=== PATIENT | female | born 1950 | race Caucasian/White ===

== ENCOUNTER 2021-01-09 15:11 | Outpatient (RCR) | payer MEDICARE, SELFPAY ==
[2021-01-09] MEDS: COVID-19 VACC, MRNA(PFIZER)/PF 30 MCG/0.3 ML SYRINGE IM (11:53)
[2021-01-30] MEDS: COVID-19 VACC, MRNA(PFIZER)/PF 30 MCG/0.3 ML SYRINGE IM (11:30)
== END 2021-01-09 23:59 ==
LOC: IMMUN 15:11
PROVIDERS: PCP Internal Medicine; Visit Provider Family Medicine
DX: Z23 Encounter for immunization (principal)
CPT/HCPCS: 0001A; 0002A

== ENCOUNTER → 2023-01-14 | Outpatient (CLI) | payer MEDICARE, SELFPAY ==
--- NOTE | 2023-01-14 09:38 | TELEMED_ITS ---
[facility] has confirmed receipt of a request for visit. This document confirms receipt of the order initiating the consult. To find the results of the consultation, please view the patient's reports for the scanned Telemed Consult.
== END | disposition home or self-care (01) ==
PROVIDERS: PCP Internal Medicine; Referring Provider Psychiatry & Neurology Neurology; Visit Provider Psychiatry & Neurology Neurology
DX: R55 Syncope and collapse (principal)
CPT/HCPCS: 95819

== ENCOUNTER 2023-02-17 17:00 | Outpatient (RCR) | payer MEDICARE, SELFPAY ==
--- NOTE | 2022-09-21 16:06 | HP.PTEVAL ---
Patient's Visit Information KYLE MORAN is a 71 year old F referred to Physical Therapy by Dr. Pamela Chun MD with a diagnosis of PD and gait instability. Date of Evaluation: 09/21/22 Physical Therapist: TANIA Jj - Visit Plan Frequency: 2x /Week Duration: 6 Weeks Plan: 2X/ 6 weeks for gait training, balance, dual tasking, posture, functional transfers, gait, with HEP - Subjective She was diagnosed with PD in 2014 but it seems like a lot of things have changed recently. She does not do any type of exercise. She struggles to get out of chairs and in and out of cars. She has not had any falls but very aware of trying not to fall. She struggles with getting in and out of bed. Trouble carrying things. She walks very shuffled especially towards evening. She is PD meds and it does help. She is also on cellebrex for the pain. Her speech she will be talking and she will stop mid sentence and it goes down in volume. wanted her to come because it is worse that what it was and not popping back to normal. She gets botox in legs in B feet and legs. The botox helps. They do no have stairs at the house. - Objective Gait: Walks with decrease stride length, no arm swing, no head rotation. LE MMT: R hip flex 7.8# and L hip flex 8.2#. R knee ext 10.2# and 12.8#. R knee flex 9.8# and L knee flex 9.6#. FGA: 18. TU.93. Sit to stand: Pt is able to sit to stand with use of the chair rails. She needs max cues to be able to weight shift cause she feels that she can not do it herself. 4 square: 22.41 with verbal cues. Opposite arm and leg in sitting and standing X 10 on each side (little LOB in standing). Rolling R and L with verbal cues and supine to sit and sit to supine indep with verbal cues. - Balance/Special Test Scores Functional Gait Assessment Score: 18 % Disability: 40.0000 Lower Extremity Functional Score: 24 - Goals Goal 1:: I HEP Goal Time Frame: 6-8 Weeks Goal 2:: Put on own socks and shoes indep. Goal Time Frame: 6-8 Weeks Goal 3:: Decrease TUG score (score at eval 19.93) Goal Time Frame: 6-8 Weeks Goal 4:: Increase FGA score (score 18 at time of eval) Goal Time Frame: 6-8 Weeks Goal 5:: Be able to sit to stand X 10 with no arms with verbal cues Goal Time Frame: 6-8 Weeks - Rehabilitation Potential Rehabilitation Potential: Good - Anticipated Interventions Patient/Client Instruction: Educate patient on: Condition, Plan of Care For the Purpose of:: To improve nutrient delivery to tissue, To increase oxygenation perfusion, To improve muscle performance and motor function, To improve ability to perform ADL's, To increase tolerance to activity/condition/position, To improve performance and independence with ADL's, To decrease level of supervision to perform tasks, To improve ability of physical actions for home/community/work/leisure, To improve gait and locomotor functions, To improve health of tissue, To increase flexibility/ROM, To improve endurance, To improve balance, To improve safety with gait Therapeutic Exercise to Include: Strength training, Endurance training, Balance training, Body mechanics, Postural training, Flexibilty training, Gait and locomotor training, Neuromotor development, Active ROM For the Purpose of:: To improve nutrient delivery to tissue, To increase oxygenation perfusion, To improve muscle performance and motor function, To improve ability to perform ADL's, To increase tolerance to activity/condition/position, To improve performance and independence with ADL's, To decrease level of supervision to perform tasks, To improve ability of physical actions for home/community/work/leisure, To improve gait and locomotor functions, To improve health of tissue, To increase flexibility/ROM, To improve endurance, To improve balance, To improve safety with gait Functional Training to Include: Gait training For the Purpose of:: To improve gait and locomotor functions, To improve safety with gait Thank you for the opportunity to evaluate your patient. For Medicare and Medicare HMO plans, please review the plan of care and approve it. It will need to be FAXED BACK to us at [phone] for Medicare purposes. For Medicare only, by signing this I certify the plan of care. Please let me know if there are questions or concerns regarding this plan of care. Physician Signature: Date:
--- NOTE | 2022-10-26 16:00 | HP.PTREVAL ---
Dr. Pamela Chun MD, It has been my pleasure to treat KYLE MORAN over the last 7 visits for PD and gait instability. Please see the progress note below for an update on the physical therapy plan of care! Subjective: Pt fell last night after midnight and she did not hurt herself and she got up right away. She reports that she was on a rubber mad and had socks on and went onto a wooden floor and her feet went out from underneath her. Pt has been having more memory issues. Pt feels that PT is helping her to get out of a chair. Pt would like to do some more therapy. Objective/Function: Sit to stand: able without her arms on first attempt 4/5 times. FGA 18. Gait: walks with knees flexed, flexed trunk, no heel to toe gait pattern and no arm swing. Stairs: up and down recip with 2 hand rails. Standing opp arm and leg... hesitant and needed verbal cues at first. Issued HEP to work on until Nov Plan Plan: Continue starting in Nov after the Holidays. 2X/ 6 weeks for gait training, balance, dual tasking, posture, functional transfers, gait, with HEP Balance/Gait/Functional tests - Balance/Special Test Scores Functional Gait Assessment Score: 18 % Disability: 40.0000 Lower Extremity Functional Score: 23 Goals Goal 1:: I HEP Goal Time Frame: 6-8 Weeks Goal 2:: Put on own socks and shoes indep. Goal Time Frame: 6-8 Weeks Goal Progress: Goal Met Goal 3:: Decrease TUG score (score at eval 19.93) Goal Time Frame: 6-8 Weeks Goal 4:: Increase FGA score (score 18 at time of eval) Goal Time Frame: 6-8 Weeks Goal 5:: Be able to sit to stand X 10 with no arms with verbal cues Goal Time Frame: 6-8 Weeks Goal Progress: Progressing Anticipated Interventions Patient/Client Instruction: Educate patient on: Condition, Plan of Care For the Purpose of:: To improve nutrient delivery to tissue, To increase oxygenation perfusion, To improve muscle performance and motor function, To improve ability to perform ADL's, To increase tolerance to activity/condition/position, To improve performance and independence with ADL's, To decrease level of supervision to perform tasks, To improve ability of physical actions for home/community/work/leisure, To improve gait and locomotor functions, To improve health of tissue, To increase flexibility/ROM, To improve endurance, To improve balance, To improve safety with gait Therapeutic Exercise to Include: Strength training, Endurance training, Balance training, Body mechanics, Postural training, Flexibilty training, Gait and locomotor training, Neuromotor development, Active ROM For the Purpose of:: To improve nutrient delivery to tissue, To increase oxygenation perfusion, To improve muscle performance and motor function, To improve ability to perform ADL's, To increase tolerance to activity/condition/position, To improve performance and independence with ADL's, To decrease level of supervision to perform tasks, To improve ability of physical actions for home/community/work/leisure, To improve gait and locomotor functions, To improve health of tissue, To increase flexibility/ROM, To improve endurance, To improve balance, To improve safety with gait Functional Training to Include: Gait training For the Purpose of:: To improve gait and locomotor functions, To improve safety with gait Please do not hesitate to contact me at [phone] by phone or if you have questions or concerns regarding this new plan of care! Sincerely, TANIA Jj
--- NOTE | 2023-02-17 18:40 | HP.PTDCSUM ---
It has been my pleasure to treat KYLE MORAN referred by Dr. Pamela Chun MD, with the diagnosis of PD and gait instability for a total of 19 visit(s). Discharge Date: 02/17/23 Please see the following information for a summary of their discharge status. Subjective: Pt feels that she is doing better. Her feels that she is getting out of the car better and getting in and out of bed easier and sit to stand better also Rib cage Pain Intensity (Out of 10): 5 R ankle pain Pain Intensity (Out of 10): 7 % Improvement: 70 Objective/Function: Pt still struggles with the motor planning to pick her shoulders up and scoot them acorss the mat table at times. Almost thinks about it too much. Today she was able to sit to stand out of a chair 2 X 10 on first attempt with no LOB. Goal 1:: I HEP Goal Progress: Goal Met Goal 2:: Put on own socks and shoes indep. Goal Progress: Goal Met Goal 3:: Decrease TUG score (score at eval 19.93) Goal Progress: Progressing Goal 4:: Increase FGA score (score 18 at time of eval) Goal Progress: Progressing Goal 5:: Be able to sit to stand X 10 with no arms with verbal cues Goal Progress: Progressing Plan: Bed mobility Discharge Comments: DC PT to HEP If there are questions or concerns regarding this patient's physical therapy, please feel free to call me at [phone]. Thank you for the referral of this patient. Sincerely, Tila Angelo, MPT Balance/Gait/Functional tests - Balance/Special Test Scores Functional Gait Assessment Score: 18 % Disability: 40.0000 Lower Extremity Functional Score: 46
== END 2023-02-17 19:00 | disposition home or self-care (01) ==
LOC: PT 17:00
PROVIDERS: PCP Internal Medicine; Referring Provider Psychiatry & Neurology Neurology; Visit Provider Psychiatry & Neurology Neurology
DX: G20 Parkinson's disease (principal); R26.81 Unsteadiness on feet
CPT/HCPCS: 97110; 97161; 97530

== ENCOUNTER 2023-07-07 14:15 | Outpatient (RCR) | payer MEDICARE, SELFPAY ==
[2023-06-30 15:10] VITALS: BP 183/90; PULSE 79; RESP 16; TEMP 36.4; BMI 20.1
--- NOTE | 2023-06-30 16:09 | HP.PCM_ITS ---
History of Present Illness Date of Service: 06/30/23 Chief Complaint: Full-thickness ulceration lateral ankle right History of Wound: Full-thickness ulceration right ankle since February 2023 Progress of Wound: Mrs. Barber is a 72 nondiabetic female presenting to the wound care center today with a chief complaint of full-thickness ulceration to the right ankle. Patient has been following with an outside provider who has been doing excisional debridement and wound care. Patient's has been offloading the area and has shown to be healing but healing very slowly. There is still concern for some redness and the chronicity of the wound since its been open since February 2023. There has been no diagnosis of bone infection. Request for medical records, x-rays and wound cultures were done today in clinic. She does admit to multiple falls throughout the year but was never diagnosed with an ankle fracture. She denies constitutional symptoms. No other pedal complaints at this time. [facility] Home Medications ascorbic acid (vitamin C) 500 mg tablet (Vitamin C) 500 mg PO DAILY 06/30/23 [History Last Taken Unknown] carbidopa 25 mg-levodopa 100 mg tablet 1 tab PO 4X/DAY 06/30/23 [History Last Taken Unknown] celecoxib 200 mg capsule (Celebrex) 200 mg PO DAILY 06/30/23 [History Last Taken Unknown] cholecalciferol (vitamin D3) 25 mcg (1,000 unit) capsule 25 mcg PO DAILY 06/30/23 [History Last Taken Unknown] coenzyme Q10 400 mg capsule 500 mg PO DAILY 06/30/23 [History Last Taken Unknown] lutein 6 mg capsule 6 mg PO BID 06/30/23 [History Last Taken Unknown] metronidazole 1 % topical gel (Metrogel) 1 applic topical DAILY face 06/30/23 [History Last Taken Unknown] multivitamin (Daily Multi-Vitamin tablet) 1 tab PO DAILY 06/30/23 [History Last Taken Unknown] omeprazole 40 mg capsule,delayed release 40 mg PO DAILY 06/30/23 [History Last Taken Unknown] pyridoxine (vitamin B6) 100 mg tablet 100 mg PO BID 06/30/23 [History Last Taken Unknown] zinc 50 mg capsule 50 mg PO DAILY 06/30/23 [History Last Taken Unknown] Allergy/AdvReac Type Severity Reaction Status Date / Time tramadol [From [facility]] Allergy Mild VERTIGO, Verified 06/30/23 15:28 MENTAL STATUS CHANGE Social History (System 03/10/21 @ 12:45 by Kleber Beth) Smoking Status: Never smoker Vital Signs Vital Signs Vital Signs: 06/30/23 15:10 Temperature 97.5 F L Temperature Source Temporal Pulse Rate 79 Respiratory Rate 16 Blood Pressure 183/90 H Blood Pressure Mean 121 Blood Pressure Source Monitor Blood Pressure Position Sitting Blood Pressure Location Left Arm Oxygen Delivery Method Room Air Weight Weight: 49.895 kg Body Mass Index (BMI) 20.1 Physical Exam Narrative Vascular: DP and PT pulses are palpable. CFT brisk. Erythema to periwound which is blanchable. Skin temperature gradient is warm to warm from proximal ankle to distal digits. Neurological: Light touch and epicritic sensation is intact. Response to painful stimuli. Dermatological: Full-thickness ulceration appreciated to the lateral ankle at the level of the distal fibula. Hyperkeratotic periwound is appreciated. Fibrotic plug is also noted to the wound. Predebridement measurements were 1.0 x 1.1 x 0.1 cm, postdebridement measurements were 1.1 x 1.2 x 0.3 cm. Debridement was down to fascia/muscle. Sanguinous drainage noted. Musculoskeletal: Moderate palpatory tenderness appreciated full-thickness ulceration to the lateral aspect of the right ankle. No pain with calf compression. Debridement Note Debridement Note Debridement Free Text: Full-thickness ulceration of the lateral right ankle was debrided down to and including fascia/muscle with 5 mm dermal curette without incident. Predebridement measurements were 1.0 x 1.1 x 0.1 cm, postdebridement measurements were 1.1 x 1.2 x 0.3 cm. Sanguinous drainage noted. Post-Debridement Measurements and Additional Note: Post-Debridement Measurements/Treatment - Nurse 1 - General Ulcer Assessment Start: 06/30/23 15:10 Freq: Status: Active Protocol: TATI Activity Type Activity Date Activity User E-sign Co-sign Detail Recorded Client Recorded Date Recorded By Document 06/30/23 15:10 [facility] [id number] 06/30/23 15:22 [facility] 06/30/23 15:10 - Today's Visit Information Type of service Initial Visit Arrival Mode Ambulatory Transfer Assistance None Accompanied by Patient Identification Verified (Name & Yes ) Patient Requires Transmission-Based No Precautions Height and Weight Height 5 ft 2 in Weight 49.895 kg Weight in Pounds 110.0 lbs Weight Measurement Method Estimated by Patient Body Mass Index (BMI) 20.1 BMI Classification Normal BSA - Radha 1.48 Vital Signs Temperature (97.8 F-99.1 F) 97.5 F L Temperature Source Temporal Pulse Rate (60-100) 79 Pulse Location Monitor Respiratory Rate (12-18) 16 Respiratory rate source Observation Oxygen Delivery Method Room Air Blood Pressure (90/60-120/80) 183/90 H Blood Pressure Mean 121 Source Monitor Position Sitting Blood Pressure Location Left Arm History Since Last Visit- (Skip if this is Patient's initial visit) Left Footwear Regular Shoe Right Footwear Surgical Shoe with pressure relief insole Pain Scale: 0-10 Numeric Is Patient Pain Free? Yes Lower Extremity Assessment/ Foot Assessment/ Toe Nail Assessment Right -Lower Extremity Comment (If N/A Above HAS HAD RECENT ) ARTERIAL AND DOPPLERS AT [facility] ASAD PER HER -Posterior Tibial Doppler Monophasic -Dorsalis Pedis Doppler Multiphasic -Extremity Color Pale -Hair Growth on Legs No -Hair Growth on Toes No -Temperature of Extremity Cool -Other Deformity GETS BOTOX BOTH FEET FOR CONTRACTURE -Thick Yes -Discolored Yes -Deformed No -Improper Length & Hygeine No Left -Lower Extremity Comment (If N/A Above PER PT HUSB SHE ) HAS HAD ARTERIAL AND DOPPLERS WITHIN THE LAST TWO MONTHS @ [facility] -Posterior Tibial Doppler Monophasic -Dorsalis Pedis Doppler Monophasic -Hair Growth on Legs No -Hair Growth on Toes No -Temperature of Extremity Cool -Other Deformity GETS BOTOX BOTH FEET FOR CONTRACTURE -Thick Yes -Discolored Yes -Deformed No -Improper Length & Hygeine No Communication Assessment Preferred language [place] Able to Read Yes Able to Write Yes Communication Tools None Right Hearing Abillity Normal Left Hearing Abillity Normal Visual Assistive Devices Glasses Teaching Assessment Preferences Verbal,Written, Audio/Visual, Demonstration Barriers to Learning None Readiness To Learn Good Willingness to Engage in Self Management Med Activies Readiness to Engage in Self Management Med Activities Anxiety Level Calm Cooperation Cooperative Perception Coherent Interest in Health Problem Asks Questions Education Importance Acknowledges Need Does Patient Smoke tobacco or other No substances Smoking Status Never smoker Is Patient Diabetic No WC - Nurse 1 - General Ulcer Measurement Start: 06/30/23 15:10 Freq: Status: Active Protocol: Activity Type Activity Date Activity User E-sign Co-sign Detail Recorded Client Recorded Date Recorded By Document 06/30/23 15:10 [facility] [id number] 06/30/23 15:22 BMF 06/30/23 15:10 Wound Center Nurse 1 #1- R LAT ANKLE -Combined with other wound No -Current Size (cm) - Length 1.1 -Current Size (cm) - Width 1.2 -Current Size (cm) - Depth 0.1 -Total Square Cm 1.32 -Date of Last Picture (Recall this 06/30/23 field) -Photo Taken Yes -Epithelialization None Present -Tunneling No -Undermining/Tunneling No -Circular Undermining No -Exudate Amt Medium -Exudate Type Serosanguineous -Wound Margin Distinct, Outline Attached -Granulation Amt Small (1-33%) -Granulation Quality Red -Slough/Fibrin Yes -Necrosis Amt Large (67-100%) -Necrotic Tissue Type Adherent Slough -Texture (Korin-wound Skin Appearance) Assessed, Localized Edema ,Scarring -Moisture (Korin-wound Skin Appearance) Assessed -Color (Korin-wound Skin Appearance) Assessed, Erythema -Temperature (Korin-wound Skin No Abnormality Appearance) (Pt Warm) -Tenderness on Palpation (Korin-wound No Skin Appearance) -Ulcer Cleansing Soap and Water -Foul Odor after Cleansing No -Anesthetic Used 5% Lidocaine Gel Lower Limb Edema Present Yes Right Calf (cm) 31.5 Right Ankle (cm) 18 Left Calf (cm) 32 Left Ankle (cm) 19.5 WC - Nurse 2 - General Ulcer CM Notes Start: 06/30/23 15:10 Freq: Status: Active Protocol: Activity Type Activity Date Activity User E-sign Co-sign Detail Recorded Client Recorded Date Recorded By Document 06/30/23 15:42 [id number] 06/30/23 15:51 JF Edit Result 06/30/23 15:42 JF (1) [id number] 06/30/23 15:57 JF (1) #1- R LAT ANKLE - Clinical Debridement Subcutaneous => Muscle / Fascia - Tissue Removed Subcutaneous => Fascia - Debridement - Subq, 1st 20sq cm Yes => - Debridement - Muscle / Fascia, 1st => Yes 20sq cm 06/30/23 15:42 Wound Center Nurse 2 #1- R LAT ANKLE -Time 15:46 -Correct Patient Yes -Correct Side, Site, Position Yes -Correct Procedure Yes -Procedure Performed Yes -Type of Procedure Debridement -Clinical Debridement Muscle / Fascia -Tissue Removed Fascia -Post Debridement (cm) - Length 1.1 -Post Debridement (cm) - Width 1.2 -Post Debridement (cm) - Depth 0.3 -Total Square (Post) (cm) 1.32 -Area of Debridement (cm) - Length 1.1 -Area of Debridement (cm) - Width 1.2 -Total Square (Area) (cm) 1.32 -Tunneling No -Undermining/Tunneling No -Circular Undermining No -Wound/Ulcer Outcome Not Healed -Ulcer Cleansing Rinsed/ Irrigated with Saline -Foul Odor after Cleansing No -Bioengineered Tissue No -Bleeding Controlled with Pressure -Treatment Response Procedure Tolerated Well -Offloading No -Debridement - Muscle / Fascia, 1st Yes 20sq cm Pain Scale: 0-10 Numeric Is Patient Pain Free? Yes - Nurse 3 - General Ulcer D/C NN Start: 06/30/23 15:10 Freq: Status: Active Protocol: Activity Type Activity Date Activity User E-sign Co-sign Detail Recorded Client Recorded Date Recorded By Document 06/30/23 16:01 [id number] 06/30/23 16:04 06/30/23 16:01 Wound Care Center Nurse 3 #1- R LAT ANKLE -Ulcer Cleansing Rinsed/ Irrigated with Saline -Primary Dressing Applied Promogran Elizabeth Matter -Other Dressing betadine periulcer -Promogran Elizabeth Matter 1 Right -Multi-Layered Wrap Application Unna Boot - Right ($) Treatment Response Procedure Tolerated Well Pain Scale: 0-10 Numeric Is Patient Pain Free? Yes WC - Visit Discharge Discharge Condition Stable Ambulatory Status Ambulatory Transportation Private Auto Accompanied by Medication Reconcilliation completed & No provided to patient/care provider Clinical Summary of Care Provided Yes Assessment/Plan Assessment/Plan (1) Ulcer of right ankle: CODE(S): L97.319 - Non-pressure chronic ulcer of right ankle with unspecified severity (2) Edema: CODE(S): R60.9 - Edema, unspecified (3) Pain in right ankle: CODE(S): M25.571 - Pain in right ankle and joints of right foot PLAN: Patient was examined evaluated. All findings were discussed with the patient. All questions were answered to the patient satisfaction. Full-thickness ulceration of the lateral right ankle was debrided down to and including fascia/muscle with 5 mm dermal curette without incident. Predebridement measurements were 1.0 x 1.1 x 0.1 cm, postdebridement measurements were 1.1 x 1.2 x 0.3 cm. Sanguinous drainage noted. Wound was dressed with Elizabeth, Betadine paint and multilayer compression bandage down to the right lower extremity. Patient was instructed to keep the dressing clean dry and intact. And not to remove until follow-up. Request to get the patient's outside records from [facility] today. Follow-up in 1 week.
[2023-07-07 14:10] VITALS: BP 156/91; PULSE 75; RESP 20; TEMP 36.4; BMI 20.1
--- NOTE | 2023-07-07 16:42 | PN.PCM_ITS ---
History of Present Illness Date of Service: 07/07/23 Chief Complaint: Full-thickness ulceration lateral ankle right History of Wound: Full-thickness ulceration right ankle since February 2023 Progress of Wound: Mrs. Barber is a 72 nondiabetic female presenting to the wound care center today with a chief complaint of full-thickness ulceration to the right ankle. Patient has been following with an outside provider who has been doing excisional debridement and wound care. Patient's has been offloading the area and has shown to be healing but healing very slowly. There is still concern for some redness and the chronicity of the wound since its been open since February 2023. There has been no diagnosis of bone infection. Request for medical records, x-rays and wound cultures were done today in clinic. She does admit to multiple falls throughout the year but was never diagnosed with an ankle fracture. She denies constitutional symptoms. No other pedal complaints at this time. Subjective Subjective Mrs. Barber is a 72-year-old female presenting clinic today for chief complaint of right lower extremity lateral full-thickness ulceration. Patient has kept her Unna boot clean dry and intact. She admits some discomfort to the anterior ankle but that started approximately 1 day ago. She is grateful for her care. She does want to restate that this wound has been ongoing for 4 months without relief. She denies any new onset of trauma. She denies constitutional symptoms. No other pedal complaints at this time. Objective Data Objective Data Vital Signs: Vital Signs Temp Pulse Resp BP O2 Del Method 97.5 F L 75 20 H 156/91 H Room Air 07/07/23 14:10 07/07/23 14:10 07/07/23 14:10 07/07/23 14:10 06/30/23 15:10 Oxygen Delivery Method Room Air Weight: 49.895 kg Body Mass Index (BMI) 20.1 Lab / Micro Data Attestation: I reviewed the patient's lab results. Physical Exam Narrative Neurovascular status is unchanged since previous visit. Full-thickness ulceration to the lateral aspect of the distal fibula has hyperkeratotic periwound. Wound base is granular in nature. There is evidence of fascial tissue present. Blanchable erythema is also noted to periwound. Pain on palpation to the full-thickness ulceration to the distal aspect of the right leg. Full-thickness ulceration 0.8 x 0.8 x 0.2 cm. Excisional debridement of full-thickness ulceration distal fibula right lower extremity down to and including fascia and muscle without incident. Predebridement measurements were 0.8 x 0.8 x 0.2 cm, postdebridement measurements are 1.0 x 1.0 x 0.2 cm. Sanguinous drainage is noted. Debridement Note Debridement Note Post-Debridement Measurements and Additional Note: Post-Debridement Measurements/Treatment - Nurse 1 - General Ulcer Assessment Start: 06/30/23 15:10 Freq: Status: Active Protocol: TATI Activity Type Activity Date Activity User E-sign Co-sign Detail Recorded Client Recorded Date Recorded By Document 06/30/23 15:10 [facility] [id number] 06/30/23 15:22 BM Document 07/07/23 14:10 DL [id number] 07/07/23 14:20 DL 06/30/23 07/07/23 15:10 14:10 - Today's Visit Information Type of service Initial Visit Follow-up Visit (Physician/MEDICARE 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 SPECIALIST ) Arrival Mode Ambulatory Ambulatory Transfer Assistance None None Accompanied by Patient Identification Verified (Name & Yes Yes ) Patient Requires Transmission-Based No No Precautions Height and Weight Height 5 ft 2 in Weight 49.895 kg Weight in Pounds 110.0 lbs Weight Measurement Method Estimated by Patient Body Mass Index (BMI) 20.1 20.1 BMI Classification Normal Normal BSA - Radha 1.48 Vital Signs Temperature (97.8 F-99.1 F) 97.5 F L 97.5 F L Temperature Source Temporal Temporal Pulse Rate (60-100) 79 75 Pulse Location Monitor Monitor Respiratory Rate (12-18) 16 20 H Respiratory rate source Observation Observation Oxygen Delivery Method Room Air Blood Pressure (90/60-120/80) 183/90 H 156/91 H Blood Pressure Mean (mm Hg) 121 112 Source Monitor Monitor Position Sitting Blood Pressure Location Left Arm History Since Last Visit- (Skip if this is Patient's initial visit) Have you changed medications since your No last visit? Any new allergies or adverse reactions No Had a fall/change in ADL's that may No increase risk of falls Signs or symptoms of abuse and/or No neglect since last visit Have you been in the hospital since your No last visit? Has dressing in place as prescribed No Has compression in place as prescribed Yes Has offloadiing in place as prescribed No Experienced any changes in pain level or No management Left Footwear Regular Shoe Right Footwear Surgical Shoe with pressure relief insole Pain Scale: 0-10 Numeric Is Patient Pain Free? Yes Yes Lower Extremity Assessment/ Foot Assessment/ Toe Nail Assessment Right -Lower Extremity Comment (If N/A Above HAS HAD RECENT ) ARTERIAL AND DOPPLERS AT [facility] ASAD PER HER -Posterior Tibial Doppler Monophasic -Dorsalis Pedis Doppler Multiphasic -Extremity Color Pale -Hair Growth on Legs No -Hair Growth on Toes No -Temperature of Extremity Cool -Other Deformity GETS BOTOX BOTH FEET FOR CONTRACTURE -Thick Yes -Discolored Yes -Deformed No -Improper Length & Hygeine No Left -Lower Extremity Comment (If N/A Above PER PT HUSB SHE ) HAS HAD ARTERIAL AND DOPPLERS WITHIN THE LAST TWO MONTHS @ [facility] -Posterior Tibial Doppler Monophasic -Dorsalis Pedis Doppler Monophasic -Hair Growth on Legs No -Hair Growth on Toes No -Temperature of Extremity Cool -Other Deformity GETS BOTOX BOTH FEET FOR CONTRACTURE -Thick Yes -Discolored Yes -Deformed No -Improper Length & Hygeine No Communication Assessment Preferred language Tongan Able to Read Yes Able to Write Yes Communication Tools None Right Hearing Abillity Normal Left Hearing Abillity Normal Visual Assistive Devices Glasses Teaching Assessment Preferences Verbal,Written, Audio/Visual, Demonstration Barriers to Learning None Readiness To Learn Good Willingness to Engage in Self Management Med Activies Readiness to Engage in Self Management Med Activities Anxiety Level Calm Cooperation Cooperative Perception Coherent Interest in Health Problem Asks Questions Education Importance Acknowledges Need Does Patient Smoke tobacco or other No substances Smoking Status Never smoker Is Patient Diabetic No WC - Nurse 1 - General Ulcer Measurement Start: 06/30/23 15:10 Freq: Status: Active Protocol: Activity Type Activity Date Activity User E-sign Co-sign Detail Recorded Client Recorded Date Recorded By Document 06/30/23 15:10 [facility] [id number] 06/30/23 15:22 [facility] Document 07/07/23 14:10 DL [id number] 07/07/23 14:20 DL 06/30/23 07/07/23 15:10 14:10 Wound Center Nurse 1 #1- R LAT ANKLE -Combined with other wound No -Current Size (cm) - Length 1.1 0.8 -Current Size (cm) - Width 1.2 0.8 -Current Size (cm) - Depth 0.1 0.2 -Total Square Cm 1.32 0.64 -Date of Last Picture (Recall this 06/30/23 field) -Photo Taken Yes -Epithelialization None Present -Tunneling No -Undermining/Tunneling No -Circular Undermining No -Exudate Amt Medium Small -Exudate Type Serosanguineous Serosanguineous -Wound Margin Distinct, Distinct, Outline Outline Attached Attached -Granulation Amt Small (1-33%) Small (1-33%) -Granulation Quality Red [place] -Slough/Fibrin Yes -Necrosis Amt Large (67-100%) Small (1-33%) -Necrotic Tissue Type Adherent Slough Adherent Slough -Structure Exposed N/A -Texture (Korin-wound Skin Appearance) Assessed, Scarring Localized Edema ,Scarring -Moisture (Korin-wound Skin Appearance) Assessed No Abnormality -Color (Korin-wound Skin Appearance) Assessed, No Abnormality Erythema -Temperature (Korin-wound Skin No Abnormality No Abnormality Appearance) (Pt Warm) (Pt Warm) -Tenderness on Palpation (Korin-wound No No Skin Appearance) -Ulcer Cleansing Soap and Water Soap and Water -Foul Odor after Cleansing No No -Anesthetic Used 5% Lidocaine 5% Lidocaine Gel Gel Lower Limb Edema Present Yes Right Calf (cm) 31.5 29.3 Right Ankle (cm) 18 18.4 Left Calf (cm) 32 Left Ankle (cm) 19.5 WC - Nurse 2 - General Ulcer CM Notes Start: 06/30/23 15:10 Freq: Status: Active Protocol: Activity Type Activity Date Activity User E-sign Co-sign Detail Recorded Client Recorded Date Recorded By Document 06/30/23 15:42 [id number] 06/30/23 15:51 Edit Result 06/30/23 15:42 (1) [id number] 06/30/23 15:57 JF Document 07/07/23 14:58 [id number] 07/07/23 15:01 JF Edit Result 07/07/23 14:58 (2) [id number] 07/07/23 15:05 JF Edit Result 07/07/23 14:58 JF (3) [id number] 07/07/23 16:06 JF (1) #1- R LAT ANKLE - Clinical Debridement Subcutaneous => Muscle / Fascia - Tissue Removed Subcutaneous => Fascia - Debridement - Subq, 1st 20sq cm Yes => - Debridement - Muscle / Fascia, 1st => Yes 20sq cm (2) #1- R LAT ANKLE - Clinical Debridement Subcutaneous => Muscle / Fascia - Tissue Removed Subcutaneous => Muscle,Fascia - Debridement - Subq, 1st 20sq cm Yes => No - Debridement - Muscle / Fascia, 1st => Yes 20sq cm (3) #1- R LAT ANKLE - Post Debridement (cm) - Width 0.9 => 1.0 - Total Square (Post) (cm) 0.90 => 1.00 - Area of Debridement (cm) - Width 0.9 => 1.0 - Total Square (Area) (cm) 0.90 => 1.00 06/30/23 07/07/23 15:42 14:58 Wound Center Nurse 2 #1- R LAT ANKLE -Time 15:46 14:59 -Correct Patient Yes Yes -Correct Side, Site, Position Yes Yes -Correct Procedure Yes Yes -Procedure Performed Yes Yes -Type of Procedure Debridement Debridement -Clinical Debridement Muscle / Fascia Muscle / Fascia -Tissue Removed Fascia Muscle,Fascia -Post Debridement (cm) - Length 1.1 1.0 -Post Debridement (cm) - Width 1.2 1.0 -Post Debridement (cm) - Depth 0.3 0.2 -Total Square (Post) (cm) 1.32 1.00 -Area of Debridement (cm) - Length 1.1 1.0 -Area of Debridement (cm) - Width 1.2 1.0 -Total Square (Area) (cm) 1.32 1.00 -Tunneling No No -Undermining/Tunneling No No -Circular Undermining No No -Wound/Ulcer Outcome Not Healed Not Healed -Ulcer Cleansing Rinsed/ Rinsed/ Irrigated with Irrigated with Saline Saline -Foul Odor after Cleansing No No -Bioengineered Tissue No No -Bleeding Controlled with Pressure Pressure -Treatment Response Procedure Procedure Tolerated Well Tolerated Well -Offloading No No -Debridement - Subq, 1st 20sq cm No -Debridement - Muscle / Fascia, 1st Yes Yes 20sq cm Pain Scale: 0-10 Numeric Is Patient Pain Free? Yes Yes WC - Nurse 3 - General Ulcer D/C NN Start: 06/30/23 15:10 Freq: Status: Active Protocol: Activity Type Activity Date Activity User E-sign Co-sign Detail Recorded Client Recorded Date Recorded By Document 06/30/23 16:01 RB [id number] 06/30/23 16:04 RB Document 07/07/23 15:13 [facility] [id number] 07/07/23 15:14 [facility] 06/30/23 07/07/23 16:01 15:13 Wound Care Center Nurse 3 #1- R LAT ANKLE -Ulcer Cleansing Rinsed/ Rinsed/ Irrigated with Irrigated with Saline Saline -Foul Odor after Cleansing No -Primary Dressing Applied Promogran Promogran Elizabeth Matter Elizabeth Matter -Other Dressing betadine BETADINE; periulcer ANTERIOR ANKLE PADDED; -Other Covering DRSG PER RB RN -Promogran Elizabeth Matter 1 1 Right -Multi-Layered Wrap Application Unna Boot - Unna Boot - Right ($) Right ($) -Other PER RB RN Treatment Response Procedure Procedure Tolerated Well Tolerated Well Pain Scale: 0-10 Numeric Is Patient Pain Free? Yes Yes WC - Visit Discharge Discharge Condition Stable Stable Ambulatory Status Ambulatory Ambulatory Transportation Private Auto Private Auto Accompanied by Medication Reconcilliation completed & No provided to patient/care provider Clinical Summary of Care Provided Yes Assessment/Plan Assessment/Plan (1) Ulcer of right ankle: CODE(S): L97.319 - Non-pressure chronic ulcer of right ankle with unspecified severity QUALIFIERS: Non-pressure ulcer stage: with necrosis of muscle Qualified Code(s): L97.313 - Non-pressure chronic ulcer of right ankle with necrosis of muscle PLAN: Patient was examined evaluated. All findings were discussed with the patient. All questions were answered to the patient satisfaction. Excisional debridement of full-thickness ulceration distal fibula right lower extremity down to and including fascia and muscle without incident. Predebridement measurements were 0.8 x 0.8 x 0.2 cm, postdebridement measurements are 1.0 x 1.0 x 0.2 cm. Sanguinous drainage is noted. Patient will be placed in a Unna boot for compression control. Due to the nature and the chronicity of the patient's full-thickness ulceration to the distal aspect of the right leg it is deemed necessary at this time to seek approval for a skin graft substitute, EpiFix. The patient's wound has been ongoing for 4 months, and the patient will benefit from a application of a skin graft substitute. We will begin authorization with the vendor at this time. Follow-up in 1 week. (2) Pain in right ankle: CODE(S): M25.571 - Pain in right ankle and joints of right foot QUALIFIERS: Chronicity: chronic Qualified Code(s): M25.571 - Pain in right ankle and joints of right foot; G89.29 - Other chronic pain (3) Edema: CODE(S): R60.9 - Edema, unspecified QUALIFIERS: Edema type: localized Qualified Code(s): R60.0 - Localized edema
== END 2023-07-08 23:59 | disposition home or self-care (01) ==
LOC: WC 14:15
PROVIDERS: PCP Internal Medicine; Referring Provider Podiatrist Foot & Ankle Surgery; Visit Provider Podiatrist Foot & Ankle Surgery
DX: L97.313 Non-pressure chronic ulcer of right ankle with necrosis of muscle (principal); M25.571 Pain in right ankle and joints of right foot; R60.0 Localized edema
CPT/HCPCS: 11042; 11043; 29580; 99214; G0463

== ENCOUNTER 2023-08-04 14:15 | Outpatient (RCR) | payer MEDICARE, SELFPAY ==
[2023-07-09 00:22] VITALS: BP 156/91; PULSE 75; RESP 20; TEMP 36.4; BMI 20.1
[2023-07-14 14:57] VITALS: BP 118/67; PULSE 87; RESP 16; TEMP 35.7; BMI 20.1
--- NOTE | 2023-07-14 17:14 | PN.PCM_ITS ---
History of Present Illness Date of Service: 07/14/23 Chief Complaint: Full-thickness ulceration lateral ankle right History of Wound: Full-thickness ulceration right ankle since February 2023 Subjective Subjective Mrs. Barber is a 72-year-old female presenting clinic today with a chief complaint of full-thickness wound to the outside of her right ankle. She has kept her multilayer compression bandage clean dry and intact. Patient has been approved for application of EpiFix to help stimulate good gross callus to allow her wound to grow and heal. She denies trauma. Denies constitutional symptoms. No other pedal complaints at this time. Objective Data Objective Data Vital Signs: Vital Signs Temp Pulse Resp BP O2 Del Method 96.3 F L 87 16 118/67 Room Air 07/14/23 14:57 07/14/23 14:57 07/14/23 14:57 07/14/23 14:57 07/14/23 14:57 Oxygen Delivery Method Room Air Weight: 49.895 kg Body Mass Index (BMI) 20.1 Lab / Micro Data Attestation: I reviewed the patient's lab results. Physical Exam Narrative Neurovascular status unchanged.Nonpitting edema appreciated right lower extremity. Skin temperature gradient is warm to cool from proximal ankle to distal digits. Wound measures 0.9 x 0.8 x 0.3 cm. Wound base is granular nature after debridement. No pain with calf pressure. Excisional debridement down to and including muscle fascia with a number 5 mm d ermal curette. Predebridement measurements were 0.7 x 0.9 x 0.2 cm. Postdebridement measurements are 0.9 x 0.8 x 0.3 cm. EpiFix with the rep in the room was applied to the right ulceration and covered with wound mesh. Multilayer compression bandage was donned. Patient was instructed to keep the right lower extremity clean dry and intact. Debridement Note Debridement Note Debridement Free Text: Excisional debridement down to and including muscle fascia with a number 5 mm dermal curette. Predebridement measurements were 0.7 x 0.9 x 0.2 cm. Postdebridement measurements are 0.9 x 0.8 x 0.3 cm. EpiFix with the rep in the room was applied to the right ulceration and covered with wound mesh. Multilayer compression bandage was donned. Patient was instructed to keep the right lower extremity clean dry and intact. 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 ) Arrival Mode Ambulatory Transfer Assistance None Accompanied by Patient Identification Verified (Name & Yes ) Patient Requires Transmission-Based No Precautions Height and Weight Body Mass Index (BMI) 20.1 BMI Classification Normal Vital Signs Temperature (97.8 F-99.1 F) 96.3 F L Temperature Source Temporal Pulse Rate (60-100) 87 Pulse Location Monitor Respiratory Rate (12-18) 16 Respiratory rate source Observation Oxygen Delivery Method Room Air Blood Pressure (90/60-120/80) 118/67 Blood Pressure Mean (mm Hg) 84 Source Monitor Position Sitting Blood Pressure Location Left Arm History Since Last Visit- (Skip if this is Patient's initial visit) Have you changed medications since your No last visit? Any new allergies or adverse reactions No Had a fall/change in ADL's that may No increase risk of falls Signs or symptoms of abuse and/or No neglect since last visit Have you been in the hospital since your No last visit? Has dressing in place as prescribed No Has compression in place as prescribed No Has offloadiing in place as prescribed N/A Experienced any changes in pain level or No management Left Footwear Regular Shoe Right Footwear Regular Shoe Pain Scale: 0-10 Numeric Is Patient Pain Free? Yes - Nurse 1 - General Ulcer Measurement Start: 07/14/23 14:57 Freq: Status: Active Protocol: Activity Type Activity Date Activity User E-sign Co-sign Detail Recorded Client Recorded Date Recorded By Document 07/14/23 14:57 [facility] [id number] 07/14/23 15:08 [facility] 07/14/23 14:57 Wound Center Nurse 1 #1- R LAT ANKLE -Combined with other wound No -Current Size (cm) - Length 0.7 -Current Size (cm) - Width 0.9 -Current Size (cm) - Depth 0.2 -Total Square Cm 0.63 -Date of Last Picture (Recall this 07/14/23 field) -Photo Taken Yes -Epithelialization None Present -Tunneling No -Undermining/Tunneling Yes -Undermining/Tunneling Starts (O'clock 12 ) -Undermining/Tunneling Ends (O'clock) 2 -Maximum Distance (cm) 0.2 -Circular Undermining No -Exudate Amt Medium -Exudate Type Serosanguineous -Wound Margin Distinct, Outline Attached -Granulation Amt Small (1-33%) -Granulation Quality Red -Slough/Fibrin Yes -Necrosis Amt Large (67-100%) -Necrotic Tissue Type Adherent Slough -Texture (Korin-wound Skin Appearance) Assessed, Localized Edema ,Scarring -Moisture (Korin-wound Skin Appearance) Assessed -Color (Korin-wound Skin Appearance) Assessed, Erythema -Temperature (Korin-wound Skin No Abnormality Appearance) (Pt Warm) -Tenderness on Palpation (Korin-wound No Skin Appearance) -Ulcer Cleansing Soap and Water -Foul Odor after Cleansing No -Anesthetic Used 5% Lidocaine Gel Right Calf (cm) 31 Right Ankle (cm) 18.2 WC - Nurse 2 - General Ulcer CM Notes Start: 07/14/23 14:57 Freq: Status: Active Protocol: Activity Type Activity Date Activity User E-sign Co-sign Detail Recorded Client Recorded Date Recorded By Document 07/14/23 15:24 [id number] 07/14/23 15:30 07/14/23 15:24 Wound Center Nurse 2 #1- R LAT ANKLE -Time 15:24 -Correct Patient Yes -Correct Side, Site, Position Yes -Correct Procedure Yes -Procedure Performed Yes -Type of Procedure Debridement -Clinical Debridement Subcutaneous -Tissue Removed Subcutaneous -Post Debridement (cm) - Length 0.9 -Post Debridement (cm) - Width 0.8 -Post Debridement (cm) - Depth 0.3 -Total Square (Post) (cm) 0.72 -Area of Debridement (cm) - Length 0.9 -Area of Debridement (cm) - Width 0.8 -Total Square (Area) (cm) 0.72 -Tunneling No -Undermining/Tunneling No -Circular Undermining No -Wound/Ulcer Outcome Not Healed -Ulcer Cleansing Rinsed/ Irrigated with Saline -Foul Odor after Cleansing No -Bioengineered Tissue Yes -Type of Bioengineered Tissue Epifix 18mm Disc -Expiration Date 04/08/28 -Product Lot Number [id number] -Percent Used 100 -Lot number of Saline Used [id number] -Bleeding Controlled with Pressure -Treatment Response Procedure Tolerated Well -Offloading No -Debridement - Subq, 1st 20sq cm No -Apply Skin Sub - 1st 25 sq cm - Legs 1 -Epifix 18mm Disc 3 Pain Scale: 0-10 Numeric Is Patient Pain Free? Yes - Nurse 3 - General Ulcer D/C NN Start: 07/14/23 14:57 Freq: Status: Active Protocol: Activity Type Activity Date Activity User E-sign Co-sign Detail Recorded Client Recorded Date Recorded By Document 07/14/23 15:36 KW [id number] 07/14/23 15:37 KW 07/14/23 15:36 Wound Care Center Nurse 3 #1- R LAT ANKLE -Ulcer Cleansing Rinsed/ Irrigated with Saline -Primary Dressing Covered/Secured with Dry Gauze & Roll Gauze, Secured with Tape RLE -Multi-Layered Wrap Application Unna Boot - Right ($) Pain Scale: 0-10 Numeric Is Patient Pain Free? Yes WC - Visit Discharge Discharge Condition Stable Ambulatory Status Ambulatory Transportation Private Auto Medication Reconcilliation completed & No provided to patient/care provider Clinical Summary of Care Provided Yes Assessment/Plan Assessment/Plan (1) Ulcer of right ankle: CODE(S): L97.319 - Non-pressure chronic ulcer of right ankle with unspecified severity QUALIFIERS: Non-pressure ulcer stage: with necrosis of muscle Qualified Code(s): L97.313 - Non-pressure chronic ulcer of right ankle with necrosis of muscle PLAN: Patient was examined evaluated. All findings were discussed with the patient. All questions were answered the patient satisfaction. Excisional debridement down to and including muscle fascia with a number 5 mm dermal curette. Predebridement measurements were 0.7 x 0.9 x 0.2 cm. Postdebridement measurements are 0.9 x 0.8 x 0.3 cm. EpiFix with the rep in the room was applied to the right ulceration and covered with wound mesh. Multilayer compression bandage was donned. Patient was instructed to keep the right lower extremity clean dry and intact. Follow-up in 1 week for wound evaluation and reapplication of epi fix graft. (2) Pain in right ankle: CODE(S): M25.571 - Pain in right ankle and joints of right foot QUALIFIERS: Chronicity: chronic Qualified Code(s): M25.571 - Pain in right ankle and joints of right foot; G89.29 - Other chronic pain (3) Edema: CODE(S): R60.9 - Edema, unspecified QUALIFIERS: Edema type: localized Qualified Code(s): R60.0 - Localized edema
[2023-07-21 14:16] VITALS: BP 167/81; PULSE 85; RESP 20; TEMP 36.5; BMI 20.1
--- NOTE | 2023-07-21 17:33 | PCM.WC.PN ---
History of Present Illness Date of Service: 07/21/23 Chief Complaint: Full-thickness ulceration lateral ankle right History of Wound: Full-thickness ulceration right ankle since February 2023 Subjective Subjective Mrs. Barber is a 72-year-old female presenting clinic today with a chief complaint of full-thickness wound to the outside of her right ankle. She has kept her multilayer compression bandage clean dry and intact. Patient has been approved for application of EpiFix to help stimulate good gross callus to allow her wound to grow and heal. She denies trauma. Denies constitutional symptoms. No other pedal complaints at this time. Objective Data Objective Data Vital Signs: Vital Signs Temp Pulse Resp BP O2 Del Method 97.7 F L 85 20 H 167/81 H Room Air 07/21/23 14:16 07/21/23 14:16 07/21/23 14:16 07/21/23 14:16 07/14/23 14:57 Oxygen Delivery Method Room Air Weight: 49.895 kg Body Mass Index (BMI) 20.1 Lab / Micro Data Attestation: I reviewed the patient's lab results. Physical Exam Narrative Neurovascular status unchanged.Nonpitting edema appreciated right lower extremity. Skin temperature gradient is warm to cool from proximal ankle to distal digits. Wound measures 0.8 x 0.8 x 0.2 cm. Wound base is granular nature after debridement. No pain with calf pressure. Excisional debridement down to and including muscle fascia with a number 5 mm dermal curette. Predebridement measurements were 0.8 x 0.8 x 0.2 cm. Postdebridement measurements are 1.3 x 1.0 x 0.2 cm. EpiFix with the rep in the room was applied to the right ulceration and covered with wound mesh. Multilayer compression bandage was donned. Patient was instructed to keep the right lower extremity clean dry and intact. Const alert, oriented x3 and no apparent distress Debridement Note Debridement Note Debridement Free Text: Excisional debridement down to and including muscle fascia with a number 5 mm dermal curette. Predebridement measurements were 0.8 x 0.8 x 0.2 cm. Postdebridement measurements are 1.3 x 1.0 x 0.2 cm. EpiFix with the rep in the room was applied to the right ulceration and covered with wound mesh. Multilayer compression bandage was donned. Patient was instructed to keep the right lower extremity clean dry and intact. Post-Debridement Measurements and Additional Note: Post-Debridement Measurements/Treatment WC - Nurse 1 - General Ulcer Assessment Start: 07/14/23 14:57 Freq: Status: Active Protocol: TATI Activity Type Activity Date Activity User E-sign Co-sign Detail Recorded Client Recorded Date Recorded By Document 07/14/23 14:57 BMF [id number] 07/14/23 15:08 BMF Document 07/21/23 14:16 DL [id number] 07/21/23 14:24 DL 07/14/23 07/21/23 14:57 14:16 WC - Today's Visit Information Type of service Follow-up Visit Follow-up Visit (Physician/EVENT SALES REPRESENTATIVE (Physician/EVENT SALES REPRESENTATIVE ) ) Arrival Mode Ambulatory Ambulatory Transfer Assistance None None Accompanied by Patient Identification Verified (Name & Yes Yes ) Patient Requires Transmission-Based No No Precautions Height and Weight Body Mass Index (BMI) 20.1 20.1 BMI Classification Normal Normal Vital Signs Temperature (97.8 F-99.1 F) 96.3 F L 97.7 F L Temperature Source Temporal Temporal Pulse Rate (60-100) 87 85 Pulse Location Monitor Monitor Respiratory Rate (12-18) 16 20 H Respiratory rate source Observation Observation Oxygen Delivery Method Room Air Blood Pressure (90/60-120/80) 118/67 167/81 H Blood Pressure Mean (mm Hg) 84 109 Source Monitor Monitor Position Sitting Blood Pressure Location Left Arm History Since Last Visit- (Skip if this is Patient's initial visit) Have you changed medications since your No No last visit? Any new allergies or adverse reactions No No Had a fall/change in ADL's that may No No increase risk of falls Signs or symptoms of abuse and/or No No neglect since last visit Have you been in the hospital since your No No last visit? Has dressing in place as prescribed No Yes Has compression in place as prescribed No Yes Has offloadiing in place as prescribed N/A N/A Experienced any changes in pain level or No management Left Footwear Regular Shoe Right Footwear Regular Shoe Pain Scale: 0-10 Numeric Is Patient Pain Free? Yes Yes MURIEL - Nurse 1 - General Ulcer Measurement Start: 07/14/23 14:57 Freq: Status: Active Protocol: Activity Type Activity Date Activity User E-sign Co-sign Detail Recorded Client Recorded Date Recorded By Document 07/14/23 14:57 [facility] [id number] 07/14/23 15:08 BM Document 07/21/23 14:16 DL [id number] 07/21/23 14:24 DL 07/14/23 07/21/23 14:57 14:16 Wound Center Nurse 1 #1- R LAT ANKLE -Combined with other wound No -Current Size (cm) - Length 0.7 0.8 -Current Size (cm) - Width 0.9 0.8 -Current Size (cm) - Depth 0.2 0.2 -Total Square Cm 0.63 0.64 -Date of Last Picture (Recall this 07/14/23 field) -Photo Taken Yes -Epithelialization None Present -Tunneling No -Undermining/Tunneling Yes -Undermining/Tunneling Starts (O'clock 12 12 ) -Undermining/Tunneling Ends (O'clock) 2 2 -Maximum Distance (cm) 0.2 0.2 -Circular Undermining No -Exudate Amt Medium Medium -Exudate Type Serosanguineous Serosanguineous -Wound Margin Distinct, Distinct, Outline Outline Attached Attached -Granulation Amt Small (1-33%) None Present (0 %) -Granulation Quality Red -Slough/Fibrin Yes -Necrosis Amt Large (67-100%) Small (1-33%) -Necrotic Tissue Type Adherent Slough Adherent Slough -Structure Exposed N/A -Texture (Korin-wound Skin Appearance) Assessed, Scarring Localized Edema ,Scarring -Moisture (Korin-wound Skin Appearance) Assessed No Abnormality -Color (Korin-wound Skin Appearance) Assessed, No Abnormality Erythema -Temperature (Korin-wound Skin No Abnormality No Abnormality Appearance) (Pt Warm) (Pt Warm) -Tenderness on Palpation (Korin-wound No No Skin Appearance) -Ulcer Cleansing Soap and Water Soap and Water -Foul Odor after Cleansing No No -Anesthetic Used 5% Lidocaine 5% Lidocaine Gel Gel Right Calf (cm) 31 29.5 Right Ankle (cm) 18.2 18 WC - Nurse 2 - General Ulcer CM Notes Start: 07/14/23 14:57 Freq: Status: Active Protocol: Activity Type Activity Date Activity User E-sign Co-sign Detail Recorded Client Recorded Date Recorded By Document 07/14/23 15:24 [id number] 07/14/23 15:30 Document 07/21/23 15:07 [id number] 07/21/23 15:12 07/14/23 07/21/23 15:24 15:07 Wound Center Nurse 2 #1- R LAT ANKLE -Time 15:24 15:08 -Correct Patient Yes Yes -Correct Side, Site, Position Yes Yes -Correct Procedure Yes Yes -Procedure Performed Yes Yes -Type of Procedure Debridement Debridement -Clinical Debridement Subcutaneous Subcutaneous -Tissue Removed Subcutaneous Subcutaneous -Post Debridement (cm) - Length 0.9 1.3 -Post Debridement (cm) - Width 0.8 1.0 -Post Debridement (cm) - Depth 0.3 0.2 -Total Square (Post) (cm) 0.72 1.30 -Area of Debridement (cm) - Length 0.9 1.3 -Area of Debridement (cm) - Width 0.8 1.0 -Total Square (Area) (cm) 0.72 1.30 -Tunneling No No -Undermining/Tunneling No No -Circular Undermining No No -Wound/Ulcer Outcome Not Healed Not Healed -Ulcer Cleansing Rinsed/ Rinsed/ Irrigated with Irrigated with Saline Saline -Foul Odor after Cleansing No No -Bioengineered Tissue Yes Yes -Type of Bioengineered Tissue Epifix 18mm Epifix 18mm Disc Disc -Expiration Date 04/08/28 04/08/25 -Product Lot Number [id number] -Percent Used 100 100 -Lot number of Saline Used [id number] -Bleeding Controlled with Pressure Pressure -Treatment Response Procedure Procedure Tolerated Well Tolerated Well -Offloading No No -Debridement - Subq, 1st 20sq cm No No -Apply Skin Sub - 1st 25 sq cm - Legs 1 1 -Epifix 18mm Disc 3 3 Pain Scale: 0-10 Numeric Is Patient Pain Free? Yes Yes - Nurse 3 - General Ulcer D/C NN Start: 07/14/23 14:57 Freq: Status: Active Protocol: Activity Type Activity Date Activity User E-sign Co-sign Detail Recorded Client Recorded Date Recorded By Document 07/14/23 15:36 KW [id number] 07/14/23 15:37 KW Document 07/21/23 15:26 RB [id number] 07/21/23 15:26 RB 07/14/23 07/21/23 15:36 15:26 Wound Care Center Nurse 3 #1- R LAT ANKLE -Ulcer Cleansing Rinsed/ Irrigated with Saline -Primary Dressing Applied Mepilex Border -Primary Dressing Covered/Secured with Dry Gauze & Roll Gauze, Secured with Tape -Mepilex Border 1 RLE -Multi-Layered Wrap Application Unna Boot - Right ($) -Tubular Bandage Single Layer -Size of Tubigrip Used Size D -Size D ($) 1 Pain Scale: 0-10 Numeric Is Patient Pain Free? Yes Yes Teaching: Wound Center Dressing Your Wound -Person Taught Patient -Teaching Method Discussion, Demonstration -Response to teaching Verbalize understanding WC - Visit Discharge Discharge Condition Stable Stable Ambulatory Status Ambulatory Ambulatory Transportation Private Auto Private Auto Medication Reconcilliation completed & No No provided to patient/care provider Clinical Summary of Care Provided Yes Yes Assessment/Plan Assessment/Plan (1) Ulcer of right ankle: CODE(S): L97.319 - Non-pressure chronic ulcer of right ankle with unspecified severity QUALIFIERS: Non-pressure ulcer stage: with necrosis of muscle Qualified Code(s): L97.313 - Non-pressure chronic ulcer of right ankle with necrosis of muscle PLAN: Patient was examined evaluated. All findings were discussed with the patient. All questions were answered to the patient satisfaction Excisional debridement down to and including muscle fascia with a number 5 mm dermal curette. Predebridement measurements were 0.8 x 0.8 x 0.2 cm. Postdebridement measurements are 1.3 x 1.0 x 0.2 cm. EpiFix with the rep in the room was applied to the right ulceration and covered with wound mesh. Multilayer compression bandage was donned. Patient was instructed to keep the right lower extremity clean dry and intact Follow-up 1 week. (2) Pain in right ankle: CODE(S): M25.571 - Pain in right ankle and joints of right foot QUALIFIERS: Chronicity: chronic Qualified Code(s): M25.571 - Pain in right ankle and joints of right foot; G89.29 - Other chronic pain (3) Edema: CODE(S): R60.9 - Edema, unspecified QUALIFIERS: Edema type: localized Qualified Code(s): R60.0 - Localized edema
[2023-08-04 14:09] VITALS: BP 169/74; PULSE 70; RESP 18; TEMP 36.2; BMI 20.1
--- NOTE | 2023-08-04 17:10 | PN.PCM_ITS ---
History of Present Illness Date of Service: 08/04/23 Chief Complaint: Full-thickness ulceration lateral ankle right History of Wound: Full-thickness ulceration right ankle since February 2023 Subjective Subjective Mrs. Barber is a 72-year-old female presenting to clinic today for follow-up of skin graft substitute application to the right lateral ankle. Patient has been keeping her dressing/multilayer compression bandage clean dry and intact. She denies any strikethrough removal. She presents today for a skin graft substitute application #3. She denies trauma. Denies constitutional symptoms. No other pedal complaints at this time. Objective Data Objective Data Vital Signs: Vital Signs Temp Pulse Resp BP O2 Del Method 97.1 F L 70 18 169/74 H Room Air 08/04/23 14:08/04/23 14:08/04/23 14:09 08/04/23 14:08/04/23 14:09 Oxygen Delivery Method Room Air Weight: 49.895 kg Body Mass Index (BMI) 20.1 Physical Exam Narrative Norvasc status unchanged. Full-thickness ulceration to the lateral aspect of the right ankle. Full-thickness ulceration measures 1.0 x 0.8 x 02 cm. Wound base is fibrogranular nature with no sign of infection. No pain with calf compression. Excisional debridement down to and including subcutaneous tissue with number 5 mm dermal curette to the lateral right ankle ulceration. Predebridement measurements were 1.0 x 0.7 x 0.1 cm. Postdebridement measures 1.0 x 0.8 x 0.2 cm. EpiFix 18 mm disc was applied to the right full-thickness ulceration lateral ankle with 100% use. Third application. The graft site was free and clear of any infection. The wound/skin graft substitute was dressed with nonadherent bandage secured in place with Steri-Strips followed by bolster dressing as well as a double layer Tubigrip. Const alert, oriented x3 and no apparent distress Debridement Note Debridement Note Debridement Free Text: Excisional debridement down to and including subcutaneous tissue with number 5 mm dermal curette to the lateral right ankle ulceration. Predebridement measurements were 1.0 x 0.7 x 0.1 cm. Postdebridement measures 1.0 x 0.8 x 0.2 cm. EpiFix 18 mm disc was applied to the right full-thickness ulceration lateral ankle with 100% use. Third application. The graft site was free and clear of any infection. The wound/skin graft substitute was dressed with nonadherent bandage secured in place with Steri-Strips followed by bolster dressing as well as a double layer Tubigrip. Post-Debridement Measurements and Additional Note: Post-Debridement Measurements/Treatment - Nurse 1 - General Ulcer Assessment Start: 07/14/23 14:57 Freq: Status: Active Protocol: TATI Activity Type Activity Date Activity User E-sign Co-sign Detail Recorded Client Recorded Date Recorded By Document 07/14/23 14:57 BMF [id number] 07/14/23 15:08 BMF Document 07/21/23 14:16 DL [id number] 07/21/23 14:24 DL Document 08/04/23 14:09 KW Desktop 08/04/23 14:21 KW 07/14/23 07/21/23 08/04/23 14:57 14:16 14:09 - Today's Visit Information Type of service Follow-up Visit Follow-up Visit Follow-up Visit (Physician/TAPROOM ATTENDANT (Physician/TAPROOM ATTENDANT (Physician/TAPROOM ATTENDANT ) ) ) Arrival Mode Ambulatory Ambulatory Ambulatory Transfer Assistance None None Accompanied by Patient Identification Verified (Name & Yes Yes Yes ) Patient Requires Transmission-Based No No Precautions Height and Weight Body Mass Index (BMI) 20.1 20.1 20.1 BMI Classification Normal Normal Normal Vital Signs Temperature (97.8 F-99.1 F) 96.3 F L 97.7 F L 97.1 F L Temperature Source Temporal Temporal Temporal Pulse Rate (60-100) 87 85 70 Pulse Location Monitor Monitor Monitor Respiratory Rate (12-18) 16 20 H 18 Respiratory rate source Observation Observation Ausculation Oxygen Delivery Method Room Air Room Air Blood Pressure (90/60-120/80) 118/67 167/81 H 169/74 H Blood Pressure Mean (mm Hg) 84 109 105 Source Monitor Monitor Monitor Position Sitting Semi-Fowlers Blood Pressure Location Left Arm Left Arm History Since Last Visit- (Skip if this is Patient's initial visit) Have you changed medications since your No No No last visit? Any new allergies or adverse reactions No No No Had a fall/change in ADL's that may No No No increase risk of falls Signs or symptoms of abuse and/or No No No neglect since last visit Have you been in the hospital since your No No No last visit? Has dressing in place as prescribed No Yes Yes Has compression in place as prescribed No Yes Yes Has offloadiing in place as prescribed N/A N/A N/A Experienced any changes in pain level or No No management Left Footwear Regular Shoe Regular Shoe Right Footwear Regular Shoe Regular Shoe Pain Scale: 0-10 Numeric Is Patient Pain Free? Yes Yes Yes WC - Nurse 1 - General Ulcer Measurement Start: 07/14/23 14:57 Freq: Status: Active Protocol: Activity Type Activity Date Activity User E-sign Co-sign Detail Recorded Client Recorded Date Recorded By Document 07/14/23 14:57 BMF [id number] 07/14/23 15:08 BMF Document 07/21/23 14:16 DL [id number] 07/21/23 14:24 DL Document 08/04/23 14:09 KW Desktop 08/04/23 14:21 KW 07/14/23 07/21/23 08/04/23 14:57 14:16 14:09 Wound Center Nurse 1 #1- R LAT ANKLE -Combined with other wound No -Current Size (cm) - Length 0.7 0.8 1.0 -Current Size (cm) - Width 0.9 0.8 0.7 -Current Size (cm) - Depth 0.2 0.2 0.3 -Total Square Cm 0.63 0.64 0.70 -Date of Last Picture (Recall this 07/14/23 field) -Photo Taken Yes -Epithelialization None Present -Tunneling No -Undermining/Tunneling Yes -Undermining/Tunneling Starts (O'clock 12 12 ) -Undermining/Tunneling Ends (O'clock) 2 2 -Maximum Distance (cm) 0.2 0.2 -Circular Undermining No -Exudate Amt Medium Medium Medium -Exudate Type Serosanguineous Serosanguineous Serosanguineous -Wound Margin Distinct, Distinct, Distinct, Outline Outline Outline Attached Attached Attached -Granulation Amt Small (1-33%) None Present (0 Small (1-33%) %) -Granulation Quality Red -Slough/Fibrin Yes -Necrosis Amt Large (67-100%) Small (1-33%) Medium (34-66%) -Necrotic Tissue Type Adherent Slough Adherent Slough Adherent Slough -Structure Exposed N/A -Texture (Korin-wound Skin Appearance) Assessed, Scarring Assessed, Localized Edema Localized Edema ,Scarring -Moisture (Korin-wound Skin Appearance) Assessed No Abnormality Assessed -Color (Korin-wound Skin Appearance) Assessed, No Abnormality Assessed, Erythema Erythema -Temperature (Korin-wound Skin No Abnormality No Abnormality No Abnormality Appearance) (Pt Warm) (Pt Warm) (Pt Warm) -Tenderness on Palpation (Korin-wound No No Skin Appearance) -Ulcer Cleansing Soap and Water Soap and Water Rinsed/ Irrigated with Saline -Foul Odor after Cleansing No No No -Anesthetic Used 5% Lidocaine 5% Lidocaine 5% Lidocaine Gel Gel Gel Right Calf (cm) 31 29.5 30.5 Right Ankle (cm) 18.2 18 19.5 WC - Nurse 2 - General Ulcer CM Notes Start: 07/14/23 14:57 Freq: Status: Active Protocol: Activity Type Activity Date Activity User E-sign Co-sign Detail Recorded Client Recorded Date Recorded By Document 07/14/23 15:24 [id number] 07/14/23 15:30 Document 07/21/23 15:07 [id number] 07/21/23 15:12 Document 08/04/23 14:27 Desktop 08/04/23 14:33 07/14/23 07/21/23 08/04/23 15:24 15:07 14:27 Wound Center Nurse 2 #1- R LAT ANKLE -Time 15:24 15:08 14:27 -Correct Patient Yes Yes Yes -Correct Side, Site, Position Yes Yes Yes -Correct Procedure Yes Yes Yes -Procedure Performed Yes Yes Yes -Type of Procedure Debridement Debridement Debridement -Clinical Debridement Subcutaneous Subcutaneous Subcutaneous -Tissue Removed Subcutaneous Subcutaneous Subcutaneous -Post Debridement (cm) - Length 0.9 1.3 1.0 -Post Debridement (cm) - Width 0.8 1.0 0.8 -Post Debridement (cm) - Depth 0.3 0.2 0.2 -Total Square (Post) (cm) 0.72 1.30 0.80 -Area of Debridement (cm) - Length 0.9 1.3 1.0 -Area of Debridement (cm) - Width 0.8 1.0 0.8 -Total Square (Area) (cm) 0.72 1.30 0.80 -Tunneling No No No -Undermining/Tunneling No No No -Circular Undermining No No No -Wound/Ulcer Outcome Not Healed Not Healed Not Healed -Ulcer Cleansing Rinsed/ Rinsed/ Rinsed/ Irrigated with Irrigated with Irrigated with Saline Saline Saline -Foul Odor after Cleansing No No No -Bioengineered Tissue Yes Yes Yes -Type of Bioengineered Tissue Epifix 18mm Epifix 18mm Epifix 18mm Disc Disc Disc -Expiration Date 04/08/28 04/08/25 04/08/28 -Product Lot Number [id number] -Percent Used 100 100 100 -Lot number of Saline Used [id number] -Bleeding Controlled with Pressure Pressure Pressure -Treatment Response Procedure Procedure Procedure Tolerated Well Tolerated Well Tolerated Well -Offloading No No No -Debridement - Subq, 1st 20sq cm No No No -Apply Skin Sub - 1st 25 sq cm - Legs 1 1 1 -Epifix 18mm Disc 3 3 3 Pain Scale: 0-10 Numeric Is Patient Pain Free? Yes Yes Yes - Nurse 3 - General Ulcer D/C NN Start: 07/14/23 14:57 Freq: Status: Active Protocol: Activity Type Activity Date Activity User E-sign Co-sign Detail Recorded Client Recorded Date Recorded By Document 07/14/23 15:36 KW [id number] 07/14/23 15:37 KW Document 07/21/23 15:26 RB [id number] 07/21/23 15:26 RB Document 08/04/23 14:39 DL Desktop 08/04/23 14:40 DL 07/14/23 07/21/23 08/04/23 15:36 15:26 14:39 Wound Care Center Nurse 3 #1- R LAT ANKLE -Ulcer Cleansing Rinsed/ Irrigated with Saline -Foul Odor after Cleansing No -Primary Dressing Applied Mepilex Border Mepilex Border -Primary Dressing Covered/Secured with Dry Gauze & Roll Gauze, Secured with Tape -Other Covering tubigrip -Mepilex Border 1 1 RLE -Multi-Layered Wrap Application Unna Boot - Right ($) -Tubular Bandage Single Layer -Size of Tubigrip Used Size D -Size D ($) 1 Treatment Response Procedure Tolerated Well Pain Scale: 0-10 Numeric Is Patient Pain Free? Yes Yes Yes Teaching: Wound Center Dressing Your Wound -Person Taught Patient -Teaching Method Discussion, Demonstration -Response to teaching Verbalize understanding WC - Visit Discharge Discharge Condition Stable Stable Stable Ambulatory Status Ambulatory Ambulatory Ambulatory Transportation Private Auto Private Auto Private Auto Medication Reconcilliation completed & No No provided to patient/care provider Clinical Summary of Care Provided Yes Yes Assessment/Plan Assessment/Plan (1) Ulcer of right ankle: CODE(S): L97.319 - Non-pressure chronic ulcer of right ankle with unspecified severity QUALIFIERS: Non-pressure ulcer stage: with necrosis of muscle Qualified Code(s): L97.313 - Non-pressure chronic ulcer of right ankle with necrosis of muscle PLAN: Patient was examined evaluated. All findings were discussed with the patient. All questions were answered to the patient's satisfaction. Excisional debridement down to and including subcutaneous tissue with number 5 mm dermal curette to the lateral right ankle ulceration. Predebridement measurements were 1.0 x 0.7 x 0.1 cm. Postdebridement measures 1.0 x 0.8 x 0.2 cm. EpiFix 18 mm disc was applied to the right full-thickness ulceration lateral ankle with 100% use. Third application. The graft site was free and clear of any infection. The wound/skin graft substitute was dressed with nonadherent ba ndage secured in place with Steri-Strips followed by bolster dressing as well as a double layer Tubigrip. Follow-up in 1 week for fourth application. (2) Pain in right ankle: CODE(S): M25.571 - Pain in right ankle and joints of right foot QUALIFIERS: Chronicity: chronic Qualified Code(s): M25.571 - Pain in right ankle and joints of right foot; G89.29 - Other chronic pain (3) Edema: CODE(S): R60.9 - Edema, unspecified QUALIFIERS: Edema type: localized Qualified Code(s): R60.0 - Localized edema
== END 2023-08-07 23:59 | disposition home or self-care (01) ==
LOC: WC 14:15
PROVIDERS: PCP Internal Medicine; Referring Provider Podiatrist Foot & Ankle Surgery; Visit Provider Podiatrist Foot & Ankle Surgery
DX: L97.313 Non-pressure chronic ulcer of right ankle with necrosis of muscle (principal); R60.0 Localized edema; M25.571 Pain in right ankle and joints of right foot
CPT/HCPCS: 15271; 29580; Q4186

== ENCOUNTER 2023-09-01 14:30 | Outpatient (RCR) | payer MEDICARE, SELFPAY ==
[2023-08-08 00:17] VITALS: BP 169/74; PULSE 70; RESP 18; TEMP 36.2; BMI 20.1
[2023-08-11 14:10] VITALS: BP 148/64; PULSE 70; RESP 18; TEMP 36.1; BMI 20.1
--- NOTE | 2023-08-11 14:30 | PN.PCM_ITS ---
History of Present Illness Date of Service: 08/11/23 Chief Complaint: Full-thickness ulceration lateral ankle right History of Wound: Full-thickness ulceration right ankle since February 2023 Subjective Subjective Mrs. Barber is a 72-year-old female presenting to the wound care center today for follow-up of right leg distal chronic wound. Patient has been getting application of skin graft that shows improvement to the ulceration. She has kept her dressing clean dry and intact. She denies any strikethrough to the dressing. She denies any trauma. She denies any constitutional symptoms. No other pedal complaints at this time. Objective Data Objective Data Vital Signs: Vital Signs Temp Pulse Resp BP 96.9 F L 70 18 148/64 H 08/11/23 14:10 08/11/23 14:10 08/11/23 14:10 08/11/23 14:10 Weight: 49.895 kg Body Mass Index (BMI) 20.1 Physical Exam Narrative Neurovascular status unchanged. Full-thickness ulceration to the lateral aspect of the right ankle. Full-thickness ulceration measures 1.0 x 0.8 x 0.2 cm. Wound base is fibrogranular nature with no sign of infection. No pain with calf compression. Excisional debridement down to and including subcutaneous tissue with number 5 mm dermal curette to the lateral right ankle ulceration. Predebridement measurements were 1.0 x 0.7 x 0.1 cm. Postdebridement measures 1.0 x 0.8 x 0.2 cm. EpiFix 18 mm disc was applied to the right full-thickness ulceration lateral ankle with 100% use. Fourth application. The graft site was free and clear of any infection. The wound/skin graft substitute was dressed with nonadherent bandage secured in place with Steri-Strips followed by bolster dressing as well as a double layer Tubigrip. Debridement Note Debridement Note Debridement Free Text: Excisional debridement down to and including subcutaneous tissue with number 5 mm dermal curette to the lateral right ankle ulceration. Predebridement measurements were 1.0 x 0.7 x 0.1 cm. Postdebridement measures 1.0 x 0.8 x 0.2 cm. EpiFix 18 mm disc was applied to the right full-thickness ulceration lateral ankle with 100% use. Fourth application. The graft site was free and clear of any infection. The wound/skin graft substitute was dressed with nonadherent bandage secured in place with Steri-Strips followed by bolster dressing as well as a double layer Tubigrip. Post-Debridement Measurements and Additional Note: Post-Debridement Measurements/Treatment - Nurse 1 - General Ulcer Assessment Start: 08/11/23 14:08 Freq: Status: Active Protocol: TATI Activity Type Activity Date Activity User E-sign Co-sign Detail Recorded Client Recorded Date Recorded By Document 08/11/23 14:10 DL Desktop 08/11/23 14:16 DL 08/11/23 14:10 WC - Today's Visit Information Type of service Follow-up Visit (Physician/SHANK STAPLER ) Arrival Mode Ambulatory Transfer Assistance None Patient Identification Verified (Name & Yes ) Patient Requires Transmission-Based No Precautions Height and Weight Body Mass Index (BMI) 20.1 BMI Classification Normal Vital Signs Temperature (97.8 F-99.1 F) 96.9 F L Temperature Source Temporal Pulse Rate (60-100) 70 Pulse Location Monitor Respiratory Rate (12-18) 18 Respiratory rate source Observation Blood Pressure (90/60-120/80) 148/64 H Blood Pressure Mean (mm Hg) 92 Source Monitor History Since Last Visit- (Skip if this is Patient's initial visit) Have you changed medications since your No last visit? Any new allergies or adverse reactions No Had a fall/change in ADL's that may No increase risk of falls Signs or symptoms of abuse and/or No neglect since last visit Have you been in the hospital since your No last visit? Has dressing in place as prescribed Yes Has compression in place as prescribed Yes Has offloadiing in place as prescribed N/A Experienced any changes in pain level or No management Left Footwear Regular Shoe Right Footwear Regular Shoe Pain Scale: 0-10 Numeric Is Patient Pain Free? Yes - Nurse 1 - General Ulcer Measurement Start: 08/11/23 14:08 Freq: Status: Active Protocol: Activity Type Activity Date Activity User E-sign Co-sign Detail Recorded Client Recorded Date Recorded By Document 08/11/23 14:10 DL [employer] 08/11/23 14:16 DL 08/11/23 14:10 Wound Center Nurse 1 #1- R LAT ANKLE -Current Size (cm) - Length 1 -Current Size (cm) - Width 1 -Current Size (cm) - Depth 0.1 -Total Square Cm 1 -Exudate Amt Medium -Exudate Type Serosanguineous -Wound Margin Distinct, Outline Attached -Granulation Amt Small (1-33%) -Granulation Quality [place] -Necrosis Amt Large (67-100%) -Necrotic Tissue Type Adherent Slough -Structure Exposed N/A -Texture (Korin-wound Skin Appearance) Scarring -Moisture (Korin-wound Skin Appearance) No Abnormality -Color (Korin-wound Skin Appearance) No Abnormality -Temperature (Korin-wound Skin No Abnormality Appearance) (Pt Warm) -Tenderness on Palpation (Korin-wound No Skin Appearance) -Ulcer Cleansing Soap and Water -Foul Odor after Cleansing No -Anesthetic Used 5% Lidocaine Gel Right Calf (cm) 30 Right Ankle (cm) 19.5 WC - Nurse 2 - General Ulcer CM Notes Start: 08/11/23 14:08 Freq: Status: Active Protocol: Activity Type Activity Date Activity User E-sign Co-sign Detail Recorded Client Recorded Date Recorded By Document 08/11/23 14:23 Laptop 08/11/23 14:28 08/11/23 14:23 Wound Center Nurse 2 #1- R LAT ANKLE -Time 14:23 -Correct Patient Yes -Correct Side, Site, Position Yes -Correct Procedure Yes -Procedure Performed Yes -Type of Procedure Debridement -Clinical Debridement Subcutaneous -Tissue Removed Subcutaneous -Post Debridement (cm) - Length 1.0 -Post Debridement (cm) - Width 0.8 -Post Debridement (cm) - Depth 0.2 -Total Square (Post) (cm) 0.80 -Area of Debridement (cm) - Length 1.0 -Area of Debridement (cm) - Width 0.8 -Total Square (Area) (cm) 0.80 -Tunneling No -Undermining/Tunneling No -Circular Undermining No -Wound/Ulcer Outcome Not Healed -Ulcer Cleansing Rinsed/ Irrigated with Saline -Foul Odor after Cleansing No -Bioengineered Tissue Yes -Type of Bioengineered Tissue Epifix 18mm Disc -Expiration Date 05/08/28 -Product Lot Number [id number] -Percent Used 100 -Lot number of Saline Used [id number] -Bleeding Controlled with Pressure -Treatment Response Procedure Tolerated Well -Offloading No -Debridement - Subq, 1st 20sq cm No -Apply Skin Sub - 1st 25 sq cm - Feet 1 -Epifix 18mm Disc 3 Pain Scale: 0-10 Numeric Is Patient Pain Free? Yes Assessment/Plan Assessment/Plan (1) Chronic ulcer of right ankle with fat layer exposed: CODE(S): L97.312 - Non-pressure chronic ulcer of right ankle with fat layer exposed PLAN: Patient was examined evaluated. All findings were discussed with the patient. All questions were answered to the patient's satisfaction. Excisional debridement down to and including subcutaneous tissue with number 5 mm dermal curette to the lateral right ankle ulceration. Predebridement measurements were 1.0 x 0.7 x 0.1 cm. Postdebridement measures 1.0 x 0.8 x 0.2 cm. EpiFix 18 mm disc was applied to the right full-thickness ulceration lateral ankle with 100% use. Fourth application. The graft site was free and clear of any infection. The wound/skin graft substitute was dressed with nonadherent bandage secured in place with Steri-Strips followed by bolster dressing as well as a double layer Tubigrip. Follow-up 1 week (2) Ulcer of right ankle: CODE(S): L97.319 - Non-pressure chronic ulcer of right ankle with unspecified severity QUALIFIERS: Non-pressure ulcer stage: with necrosis of muscle Qualified Code(s): L97.313 - Non-pressure chronic ulcer of right ankle with necrosis of muscle (3) Pain in right ankle: CODE(S): M25.571 - Pain in right ankle and joints of right foot QUALIFIERS: Chronicity: chronic Qualified Code(s): M25.571 - Pain in right ankle and joints of right foot; G89.29 - Other chronic pain
[2023-08-18 14:20] VITALS: BP 165/62; PULSE 73; RESP 18; TEMP 36.4; BMI 20.1
--- NOTE | 2023-08-18 17:06 | PN.PCM_ITS ---
History of Present Illness Date of Service: 08/18/23 Chief Complaint: Full-thickness ulceration lateral ankle right History of Wound: Full-thickness ulceration right ankle since February 2023 Subjective Subjective Mrs. Barber is a 72-year-old female presenting to the wound care center today for follow-up of right leg distal chronic wound. Patient has been getting application of skin graft that shows improvement to the ulceration. She has kept her dressing clean dry and intact. She denies any strikethrough to the dressing. She denies any trauma. She denies any constitutional symptoms. No other pedal complaints at this time. Objective Data Objective Data Vital Signs: Vital Signs Temp Pulse Resp BP 97.5 F L 73 18 165/62 H 08/18/23 14:20 08/18/23 14:20 08/18/23 14:20 08/18/23 14:20 Weight: 49.895 kg Body Mass Index (BMI) 20.1 Physical Exam Narrative Neurovascular status unchanged. Full-thickness ulceration to the lateral aspect of the right ankle. Full-thickness ulceration measures 0.8 x 0.8 x 0.3 cm. Wound base is fibrogranular nature with no sign of infection. Evidence of macerated webspaces 1 through 4 bilateral. Evidence of moccasin distribution. No pain with calf compression. Excisional debridement down to and including subcutaneous tissue with number 5 mm dermal curette to the lateral right ankle ulceration. Predebridement measurements were 0.8 x 0.8 x 0.1 cm. Postdebridement measures 0.8 x 0.8 x 0.3 cm. EpiCord 2.0 x 3.0 mm sheet was applied to the right full-thickness ulceration lateral ankle with 100% use. Fifth application. The graft site was free and clear of any infection. The wound/skin graft substitute was dressed with nonadherent bandage secured in place with Steri-Strips followed by bolster dressing as well as a double layer Tubigrip. Debridement Note Debridement Note Debridement Free Text: Excisional debridement down to and including subcutaneous tissue with number 5 mm dermal curette to the lateral right ankle ulceration. Predebridement measurements were 0.8 x 0.8 x 0.1 cm. Postdebridement measures 0.8 x 0.8 x 0.3 cm. EpiCord 2.0 x 3.0 mm sheet was applied to the right full-thickness ulceration lateral ankle with 100% use. Fifth application. The graft site was free and clear of any infection. The wound/skin graft substitute was dressed with nonadherent bandage secured in place with Steri-Strips followed by bolster dressing as well as a double layer Tubigrip Post-Debridement Measurements and Additional Note: Post-Debridement Measurements/Treatment MURIEL - Nurse 1 - General Ulcer Assessment Start: 08/11/23 14:08 Freq: Status: Active Protocol: TATI Activity Type Activity Date Activity User E-sign Co-sign Detail Recorded Client Recorded Date Recorded By Document 08/11/23 14:10 DL Desktop 08/11/23 14:16 DL Document 08/18/23 14:20 DL Desktop 08/18/23 14:27 DL 08/11/23 08/18/23 14:10 14:20 WC - Today's Visit Information Type of service Follow-up Visit Follow-up Visit (Physician/DIRECTOR OF AGRICULTURE (Physician/DIRECTOR OF AGRICULTURE ) ) Arrival Mode Ambulatory Ambulatory Transfer Assistance None None Patient Identification Verified (Name & Yes Yes ) Patient Requires Transmission-Based No No Precautions Height and Weight Body Mass Index (BMI) 20.1 20.1 BMI Classification Normal Normal Vital Signs Temperature (97.8 F-99.1 F) 96.9 F L 97.5 F L Temperature Source Temporal Temporal Pulse Rate (60-100) 70 73 Pulse Location Monitor Monitor Respiratory Rate (12-18) 18 18 Respiratory rate source Observation Blood Pressure (90/60-120/80) 148/64 H 165/62 H Blood Pressure Mean (mm Hg) 92 96 Source Monitor Monitor History Since Last Visit- (Skip if this is Patient's initial visit) Have you changed medications since your No No last visit? Any new allergies or adverse reactions No No Had a fall/change in ADL's that may No No increase risk of falls Signs or symptoms of abuse and/or No No neglect since last visit Have you been in the hospital since your No No last visit? Has dressing in place as prescribed Yes Yes Has compression in place as prescribed Yes Yes Has offloadiing in place as prescribed N/A Yes Experienced any changes in pain level or No No management Left Footwear Regular Shoe Right Footwear Regular Shoe Pain Scale: 0-10 Numeric Is Patient Pain Free? Yes Yes MURIEL - Nurse 1 - General Ulcer Measurement Start: 08/11/23 14:08 Freq: Status: Active Protocol: Activity Type Activity Date Activity User E-sign Co-sign Detail Recorded Client Recorded Date Recorded By Document 08/11/23 14:10 DL Desktop 08/11/23 14:16 DL Document 08/18/23 14:20 DL Desktop 08/18/23 14:27 DL 08/11/23 08/18/23 14:10 14:20 Wound Center Nurse 1 #1- R LAT ANKLE -Current Size (cm) - Length 1 0.8 -Current Size (cm) - Width 1 0.8 -Current Size (cm) - Depth 0.1 0.2 -Total Square Cm 1 0.64 -Exudate Amt Medium Small -Exudate Type Serosanguineous Serosanguineous -Wound Margin Distinct, Distinct, Outline Outline Attached Attached -Granulation Amt Small (1-33%) Small (1-33%) -Granulation Quality [place] -Necrosis Amt Large (67-100%) Large (67-100%) -Necrotic Tissue Type Adherent Slough Adherent Slough -Structure Exposed N/A N/A -Texture (Korin-wound Skin Appearance) Scarring Scarring -Moisture (Korin-wound Skin Appearance) No Abnormality No Abnormality -Color (Korin-wound Skin Appearance) No Abnormality No Abnormality -Temperature (Korin-wound Skin No Abnormality No Abnormality Appearance) (Pt Warm) (Pt Warm) -Tenderness on Palpation (Korin-wound No No Skin Appearance) -Ulcer Cleansing Soap and Water Soap and Water -Foul Odor after Cleansing No No -Anesthetic Used 5% Lidocaine 5% Lidocaine Gel Gel Lower Limb Edema Present Yes Right Calf (cm) 30 30.5 Right Ankle (cm) 19.5 20 - Nurse 2 - General Ulcer CM Notes Start: 08/11/23 14:08 Freq: Status: Active Protocol: Activity Type Activity Date Activity User E-sign Co-sign Detail Recorded Client Recorded Date Recorded By Document 08/11/23 14:23 Laptop 08/11/23 14:28 Document 08/18/23 14:36 Laptop 08/18/23 14:44 08/11/23 08/18/23 14:23 14:36 Wound Center Nurse 2 #1- R LAT ANKLE -Time 14:23 14:41 -Correct Patient Yes Yes -Correct Side, Site, Position Yes Yes -Correct Procedure Yes Yes -Procedure Performed Yes Yes -Type of Procedure Debridement Debridement -Clinical Debridement Subcutaneous Subcutaneous -Tissue Removed Subcutaneous Subcutaneous -Post Debridement (cm) - Length 1.0 0.8 -Post Debridement (cm) - Width 0.8 0.8 -Post Debridement (cm) - Depth 0.2 0.3 -Total Square (Post) (cm) 0.80 0.64 -Area of Debridement (cm) - Length 1.0 0.8 -Area of Debridement (cm) - Width 0.8 0.8 -Total Square (Area) (cm) 0.80 0.64 -Tunneling No No -Undermining/Tunneling No No -Circular Undermining No No -Wound/Ulcer Outcome Not Healed Not Healed -Ulcer Cleansing Rinsed/ Rinsed/ Irrigated with Irrigated with Saline Saline -Foul Odor after Cleansing No No -Bioengineered Tissue Yes Yes -Type of Bioengineered Tissue Epifix 18mm Epicord Disc -Expiration Date 05/08/28 03/08/28 -Product Lot Number [id number] -Percent Used 100 100 -Lot number of Saline Used [id number] -Bleeding Controlled with Pressure Pressure -Treatment Response Procedure Procedure Tolerated Well Tolerated Well -Offloading No No -Debridement - Subq, 1st 20sq cm No No -Apply Skin Sub - 1st 25 sq cm - Legs 1 -Apply Skin Sub - 1st 25 sq cm - Feet 1 -Epicord (per sq cm) 6 -Epifix 18mm Disc 3 Pain Scale: 0-10 Numeric Is Patient Pain Free? Yes Yes - Nurse 3 - General Ulcer D/C NN Start: 08/11/23 14:08 Freq: Status: Active Protocol: Activity Type Activity Date Activity User E-sign Co-sign Detail Recorded Client Recorded Date Recorded By Document 08/11/23 14:35 [facility] Desktop 08/11/23 14:36 [facility] Document 08/18/23 14:57 Desktop 08/18/23 14:59 08/11/23 08/18/23 14:35 14:57 Wound Care Center Nurse 3 #1- R LAT ANKLE -Ulcer Cleansing Not Cleansed -Foul Odor after Cleansing No -Negative Pressure Wound Therapy N/A -Primary Dressing Applied Mepilex Border Mepilex Border -Other Dressing epifix -Other Covering hydrogel -Mepilex Border 1 1 Right -Lotion applied to leg before No compression wrap -Tubular Bandage Single Layer Single Layer -Size of Tubigrip Used Size E Size E -Size E ($) 1 1 Treatment Response Procedure Tolerated Well Pain Scale: 0-10 Numeric Is Patient Pain Free? Yes Yes Teaching: Wound Center compression. -Person Taught Patient,Family -Teaching Method Discussion -Response to teaching Verbalize understanding WC - Visit Discharge Discharge Condition Stable Stable Ambulatory Status Ambulatory Ambulatory Transportation Private Auto Private Auto Accompanied by Medication Reconcilliation completed & Yes provided to patient/care provider Clinical Summary of Care Provided Yes Assessment/Plan Assessment/Plan (1) Chronic ulcer of right ankle with fat layer exposed: CODE(S): L97.312 - Non-pressure chronic ulcer of right ankle with fat layer exposed PLAN: Patient was examined evaluated. All findings were discussed with the patient. All questions were answered to the patient's satisfaction. Excisional debridement down to and including subcutaneous tissue with number 5 mm dermal curette to the lateral right ankle ulceration. Predebridement measu rements were 0.8 x 0.8 x 0.1 cm. Postdebridement measures 0.8 x 0.8 x 0.3 cm. EpiCord 2.0 x 3.0 mm sheet was applied to the right full-thickness ulceration lateral ankle with 100% use. Fifth application. The graft site was free and clear of any infection. The wound/skin graft substitute was dressed with nonadherent bandage secured in place with Steri-Strips followed by bolster dressing as well as a double layer Tubigrip. Follow-up 1 week (2) Tinea pedis: CODE(S): B35.3 - Tinea pedis QUALIFIERS: Laterality: bilateral Qualified Code(s): B35.3 - Tinea pedis PLAN: There is concern for tinea pedis to the patient's bilateral feet. She will be placed on oral terbinafine 250 mg to be taken daily for 2 weeks as well as a topical clotrimazole cream to place twice daily for 30 days. (3) Ulcer of right ankle: CODE(S): L97.319 - Non-pressure chronic ulcer of right ankle with unspecified severity QUALIFIERS: Non-pressure ulcer stage: with necrosis of muscle Qualified Code(s): L97.313 - Non-pressure chronic ulcer of right ankle with necrosis of muscle
[2023-08-25 14:33] VITALS: BP 153/81; PULSE 82; RESP 18; TEMP 36.3; BMI 20.1
--- NOTE | 2023-08-25 16:39 | PN.PCM_ITS ---
History of Present Illness Date of Service: 08/25/23 Chief Complaint: Full-thickness ulceration lateral ankle right History of Wound: Full-thickness ulceration right ankle since February 2023 Subjective Subjective Mrs. Barber is a 72-year-old female presenting to the wound care center today for follow-up of right leg distal chronic wound. Patient has been getting application of skin graft that shows improvement to the ulceration. She has kept her dressing clean dry and intact. She denies any strikethrough to the dressing. She admits to taking the oral and topical antifungal treatments. She expresses relief with redness as well as dry flaky skin to her bilateral feet. She denies any trauma. She denies any constitutional symptoms. No other pedal complaints at this time. Objective Data Objective Data Vital Signs: Vital Signs Temp Pulse Resp BP O2 Del Method 97.3 F L 82 18 153/81 H Room Air 08/25/23 14:33 08/25/23 14:33 08/25/23 14:33 08/25/23 14:33 08/25/23 14:33 Oxygen Delivery Method Room Air Weight: 49.895 kg Body Mass Index (BMI) 20.1 Physical Exam Narrative Neurovascular status unchanged. Full-thickness ulceration to the lateral aspect of the right ankle. Full-thickness ulceration measures 0.9 x 0. x 0.2 cm. Wound base is fibrogranular nature with no sign of infection. Evidence of macerated webspaces 1 through 4 bilateral, which is improving. Evidence of moccasin distribution, which is improving. No pain with calf compression. Excisional debridement down to and including subcutaneous tissue with number 5 mm dermal curette to the lateral right ankle ulceration. Predebridement measurements were 0.8 x 0.8 x 0.1 cm. Postdebridement measures 0.9 x 0.9 x 0.2 cm. EpiCord 2.0 x 3.0 mm sheet was applied to the right full-thickness ulceration lateral ankle with 100% use. Sixth application. The graft site was free and clear of any infection. The wound/skin graft substitute was dressed with nonadherent bandage secured in place with Steri-Strips followed by bolster dressing as well as a double layer Tubigrip. Debridement Note Debridement Note Debridement Free Text: Excisional debridement down to and including subcutaneous tissue with number 5 mm dermal curette to the lateral right ankle ulceration. Predebridement measurements were 0.8 x 0.8 x 0.1 cm. Postdebridement measures 0.9 x 0.9 x 0.2 cm. EpiCord 2.0 x 3.0 mm sheet was applied to the right full-thickness ulceration lateral ankle with 100% use. Sixth application. The graft site was free and clear of any infection. The wound/skin graft substitute was dressed with nonadherent bandage secured in place with Steri-Strips followed by bolster dressing as well as a double layer Tubigrip. Post-Debridement Measurements and Additional Note: Post-Debridement Measurements/Treatment - Nurse 1 - General Ulcer Assessment Start: 08/11/23 14:08 Freq: Status: Active Protocol: TATI Activity Type Activity Date Activity User E-sign Co-sign Detail Recorded Client Recorded Date Recorded By Document 08/11/23 14:10 DL Desktop 08/11/23 14:16 DL Document 08/18/23 14:20 DL Desktop 08/18/23 14:27 DL Document 08/25/23 14:33 KW Desktop 08/25/23 14:41 KW 08/11/23 08/18/23 08/25/23 14:10 14:20 14:33 - Today's Visit Information Type of service Follow-up Visit Follow-up Visit Follow-up Visit (Physician/PEDIATRICS HOSPITALIST (Physician/PEDIATRICS HOSPITALIST (Physician/PEDIATRICS HOSPITALIST ) ) ) Arrival Mode Ambulatory Ambulatory Ambulatory Transfer Assistance None None Accompanied by Patient Identification Verified (Name & Yes Yes Yes ) Patient Requires Transmission-Based No No Precautions Height and Weight Body Mass Index (BMI) 20.1 20.1 20.1 BMI Classification Normal Normal Normal Vital Signs Temperature (97.8 F-99.1 F) 96.9 F L 97.5 F L 97.3 F L Temperature Source Temporal Temporal Temporal Pulse Rate (60-100) 70 73 82 Pulse Location Monitor Monitor Monitor Respiratory Rate (12-18) 18 18 18 Respiratory rate source Observation Observation Oxygen Delivery Method Room Air Blood Pressure (90/60-120/80) 148/64 H 165/62 H 153/81 H Blood Pressure Mean (mm Hg) 92 96 105 Source Monitor Monitor Monitor Position Semi-Fowlers Blood Pressure Location Left Arm History Since Last Visit- (Skip if this is Patient's initial visit) Have you changed medications since your No No No last visit? Any new allergies or adverse reactions No No No Had a fall/change in ADL's that may No No No increase risk of falls Signs or symptoms of abuse and/or No No No neglect since last visit Have you been in the hospital since your No No No last visit? Has dressing in place as prescribed Yes Yes Yes Has compression in place as prescribed Yes Yes Yes Has offloadiing in place as prescribed N/A Yes No Experienced any changes in pain level or No No No management Left Footwear Regular Shoe Regular Shoe Right Footwear Regular Shoe Regular Shoe Pain Scale: 0-10 Numeric Is Patient Pain Free? Yes Yes Yes WC - Nurse 1 - General Ulcer Measurement Start: 08/11/23 14:08 Freq: Status: Active Protocol: Activity Type Activity Date Activity User E-sign Co-sign Detail Recorded Client Recorded Date Recorded By Document 08/11/23 14:10 DL Desktop 08/11/23 14:16 DL Document 08/18/23 14:20 DL Desktop 08/18/23 14:27 DL Document 08/25/23 14:33 KW Desktop 08/25/23 14:41 KW 08/11/23 08/18/23 08/25/23 14:10 14:20 14:33 Wound Center Nurse 1 #1- R LAT ANKLE -Current Size (cm) - Length 1 0.8 1.1 -Current Size (cm) - Width 1 0.8 1.0 -Current Size (cm) - Depth 0.1 0.2 0.3 -Total Square Cm 1 0.64 1.10 -Exudate Amt Medium Small Small -Exudate Type Serosanguineous Serosanguineous Serosanguineous -Wound Margin Distinct, Distinct, Distinct, Outline Outline Outline Attached Attached Attached -Granulation Amt Small (1-33%) Small (1-33%) Small (1-33%) -Granulation Quality [place] Red -Necrosis Amt Large (67-100%) Large (67-100%) Large (67-100%) -Necrotic Tissue Type Adherent Slough Adherent Slough Adherent Slough -Structure Exposed N/A N/A -Texture (Korin-wound Skin Appearance) Scarring Scarring Assessed, Localized Edema -Moisture (Korin-wound Skin Appearance) No Abnormality No Abnormality Assessed -Color (Korin-wound Skin Appearance) No Abnormality No Abnormality Assessed, Erythema -Temperature (Korin-wound Skin No Abnormality No Abnormality No Abnormality Appearance) (Pt Warm) (Pt Warm) (Pt Warm) -Tenderness on Palpation (Korin-wound No No Skin Appearance) -Ulcer Cleansing Soap and Water Soap and Water Rinsed/ Irrigated with Saline -Foul Odor after Cleansing No No No -Anesthetic Used 5% Lidocaine 5% Lidocaine 5% Lidocaine Gel Gel Gel Lower Limb Edema Present Yes Right Calf (cm) 30 30.5 31.5 Right Ankle (cm) 19.5 20 20 WC - Nurse 2 - General Ulcer CM Notes Start: 08/11/23 14:08 Freq: Status: Active Protocol: Activity Type Activity Date Activity User E-sign Co-sign Detail Recorded Client Recorded Date Recorded By Document 08/11/23 14:23 Laptop 08/11/23 14:28 Document 08/18/23 14:36 Laptop 08/18/23 14:44 Document 08/25/23 14:47 Laptop 08/25/23 14:51 08/11/23 08/18/23 08/25/23 14:23 14:36 14:47 Wound Center Nurse 2 #1- R LAT ANKLE -Time 14:23 14:41 14:48 -Correct Patient Yes Yes Yes -Correct Side, Site, Position Yes Yes Yes -Correct Procedure Yes Yes Yes -Procedure Performed Yes Yes Yes -Type of Procedure Debridement Debridement Debridement -Clinical Debridement Subcutaneous Subcutaneous Subcutaneous -Tissue Removed Subcutaneous Subcutaneous Subcutaneous -Post Debridement (cm) - Length 1.0 0.8 0.9 -Post Debridement (cm) - Width 0.8 0.8 0.9 -Post Debridement (cm) - Depth 0.2 0.3 0.2 -Total Square (Post) (cm) 0.80 0.64 0.81 -Area of Debridement (cm) - Length 1.0 0.8 0.9 -Area of Debridement (cm) - Width 0.8 0.8 0.9 -Total Square (Area) (cm) 0.80 0.64 0.81 -Tunneling No No No -Undermining/Tunneling No No No -Circular Undermining No No No -Wound/Ulcer Outcome Not Healed Not Healed Not Healed -Ulcer Cleansing Rinsed/ Rinsed/ Rinsed/ Irrigated with Irrigated with Irrigated with Saline Saline Saline -Foul Odor after Cleansing No No No -Bioengineered Tissue Yes Yes Yes -Type of Bioengineered Tissue Epifix 18mm Epicord Epicord Disc -Expiration Date 05/08/28 03/08/28 04/08/28 -Product Lot Number [id number] -Percent Used 100 100 100 -Lot number of Saline Used [id number] -Bleeding Controlled with Pressure Pressure Pressure -Treatment Response Procedure Procedure Procedure Tolerated Well Tolerated Well Tolerated Well -Offloading No No No -Debridement - Subq, 1st 20sq cm No No No -Apply Skin Sub - 1st 25 sq cm - Legs 1 1 -Apply Skin Sub - 1st 25 sq cm - Feet 1 -Epicord (per sq cm) 6 6 -Epifix 18mm Disc 3 Pain Scale: 0-10 Numeric Is Patient Pain Free? Yes Yes Yes WC - Nurse 3 - General Ulcer D/C NN Start: 08/11/23 14:08 Freq: Status: Active Protocol: Activity Type Activity Date Activity User E-sign Co-sign Detail Recorded Client Recorded Date Recorded By Document 08/11/23 14:35 [facility] Desktop 08/11/23 14:36 [facility] Document 08/18/23 14:57 Desktop 08/18/23 14:59 Document 08/25/23 15:00 DL Desktop 08/25/23 15:02 DL 08/11/23 08/18/23 08/25/23 14:35 14:57 15:00 Wound Care Center Nurse 3 #1- R LAT ANKLE -Ulcer Cleansing Not Cleansed -Foul Odor after Cleansing No No -Negative Pressure Wound Therapy N/A -Primary Dressing Applied Mepilex Border Mepilex Border Mepilex Border -Other Dressing epifix EPI -Primary Dressing Covered/Secured with Dry Gauze & Roll Gauze, Secured with Tape -Other Covering hydrogel TUBIGRIP -Mepilex Border 1 1 1 Right -Lotion applied to leg before No compression wrap -Tubular Bandage Single Layer Single Layer -Size of Tubigrip Used Size E Size E -Size E ($) 1 1 Treatment Response Procedure Procedure Tolerated Well Tolerated Well Pain Scale: 0-10 Numeric Is Patient Pain Free? Yes Yes Yes Teaching: Wound Center compression. -Person Taught Patient,Family -Teaching Method Discussion -Response to teaching Verbalize understanding WC - Visit Discharge Discharge Condition Stable Stable Stable Ambulatory Status Ambulatory Ambulatory Ambulatory Transportation Private Auto Private Auto Private Auto Accompanied by Medication Reconcilliation completed & Yes provided to patient/care provider Clinical Summary of Care Provided Yes Assessment/Plan Assessment/Plan (1) Chronic ulcer of right ankle with fat layer exposed: CODE(S): L97.312 - Non-pressure chronic ulcer of right ankle with fat layer exposed PLAN: Patient was examined evaluated. All findings were discussed with the patient. All questions were answered to the patient's satisfaction. Excisional debridement down to and including subcutaneous tissue with number 5 mm dermal curette to the lateral right ankle ulceration. Predebridement measurements were 0.8 x 0.8 x 0.1 cm. Postdebridement measures 0.9 x 0.9 x 0.2 cm. EpiCord 2.0 x 3.0 mm sheet was applied to the right full-thickness ulceration lateral ankle with 100% use. Sixth application. The graft site was free and clear of any infection. The wound/skin graft substitute was dressed with nonadherent bandage secured in place with Steri-Strips followed by bolster dressing as well as a double layer Tubigrip. Patient follow-up in 1 week for seventh application of skin graft. (2) Pain in right ankle: CODE(S): M25.571 - Pain in right ankle and joints of right foot QUALIFIERS: Chronicity: chronic Qualified Code(s): M25.571 - Pain in right ankle and joints of right foot; G89.29 - Other chronic pain (3) Tinea pedis: CODE(S): B35.3 - Tinea pedis QUALIFIERS: Laterality: bilateral Qualified Code(s): B35.3 - Tinea pedis PLAN: Patient is to continue to take her oral terbinafine as well as apply topical clotrimazole to her bilateral feet 2 times per day for 1 month. Patient will be done with her oral terbinafine in 1 week. She notices great improvement and will continue to take the medication as prescribed. She is grateful for her care.
[2023-09-01 14:25] VITALS: BP 176/83; PULSE 83; RESP 16; TEMP 36.6; BMI 20.1
--- NOTE | 2023-09-01 15:30 | RAD_ITS ---
STUDY: X-RAY - RIGHT ANKLE REASON FOR EXAM: Female, 72 years old. Lateral ankle ulcer. TECHNIQUE: 3 view(s) of the ankle. COMPARISON: None. FINDINGS: Normal visualized distal tibia and fibula. Normal medial and lateral malleoli. Normal tibiotalar articulation and ankle mortise. Normal visualized talus and calcaneus. The visualized subtalar, talonavicular, calcaneocuboid and tarsal articulations are normal. Superficial ulceration projected over the lateral malleolus. RAD/Ankle min 3 Views IMPRESSION: Soft tissue ulceration over the lateral malleolus with no evidence of bone erosion. Electronically Signed: Joey Méndez MD at 15:56 EDT ,
--- NOTE | 2023-09-01 16:21 | PN.PCM_ITS ---
History of Present Illness Date of Service: 09/01/23 Chief Complaint: Full-thickness ulceration lateral ankle right History of Wound: Full-thickness ulceration right ankle since February 2023 Subjective Subjective Mrs. Barber is a 72-year-old female presenting to the wound care center today for follow-up of right leg distal chronic wound. Patient has been getting application of skin graft that shows improvement to the ulceration. She has kept her dressing clean dry and intact. She denies any strikethrough to the dressing. She admits to taking the oral and topical antifungal treatments. She expresses relief with redness as well as dry flaky skin to her bilateral feet. She denies any trauma. She denies any constitutional symptoms. No other pedal complaints at this time. Objective Data Objective Data Vital Signs: Vital Signs Temp Pulse Resp BP O2 Del Method 97.9 F 83 16 176/83 H Room Air 09/01/23 14:25 09/01/23 14:25 09/01/23 14:25 09/01/23 14:25 09/01/23 14:25 Oxygen Delivery Method Room Air Weight: 49.895 kg Body Mass Index (BMI) 20.1 Radiography Diagnostic Testing: Radiology Impression Ankle X-Ray 09/01/23 15:30 IMPRESSION: Soft tissue ulceration over the lateral malleolus with no evidence of bone erosion. Electronically Signed: Joey Méndez MD at 15:56 EDT , Physical Exam Narrative Neurovascular status unchanged. Full-thickness ulceration to the lateral aspect of the right ankle. Full-thickness ulceration measures 0.9 x 0.9 x 0.2 cm. Wound base is fibrogranular nature with no sign of infection. Evidence of macerated webspaces 1 through 4 bilateral, which is improving. Evidence of moccasin distribution, which is improving. No pain with calf compression. Excisional debridement down to and including subcutaneous tissue with number 5 mm dermal curette to the lateral right ankle ulceration. Predebridement measurements were 0.8 x 0.8 x 0.1 cm. Postdebridement measures 0.9 x 0.9 x 0.2 cm. EpiCord 2.0 x 3.0 mm sheet was applied to the right full-thickness ulceration lateral ankle with 100% use. Seventh application. The graft site was free and clear of any infection. The wound/skin graft substitute was dressed with nonadherent bandage secured in place with Steri-Strips followed by bolster dressing as well as a double layer Tubigrip. Debridement Note Debridement Note Post-Debridement Measurements and Additional Note: Post-Debridement Measurements/Treatment - Nurse 1 - General Ulcer Assessment Start: 08/11/23 14:08 Freq: Status: Active Protocol: TATI Activity Type Activity Date Activity User E-sign Co-sign Detail Recorded Client Recorded Date Recorded By Document 08/11/23 14:10 DL Desktop 08/11/23 14:16 DL Document 08/18/23 14:20 DL Desktop 08/18/23 14:27 DL Document 08/25/23 14:33 KW Desktop 08/25/23 14:41 KW Document 09/01/23 14:25 BMF Desktop 09/01/23 14:36 BMF 08/11/23 08/18/23 08/25/23 14:10 14:20 14:33 - Today's Visit Information Type of service Follow-up Visit Follow-up Visit Follow-up Visit (Physician/STOCK PREPARER (Physician/STOCK PREPARER (Physician/STOCK PREPARER ) ) ) Arrival Mode Ambulatory Ambulatory Ambulatory Transfer Assistance None None Accompanied by Patient Identification Verified (Name & Yes Yes Yes ) Patient Requires Transmission-Based No No Precautions Height and Weight Body Mass Index (BMI) 20.1 20.1 20.1 BMI Classification Normal Normal Normal Vital Signs Temperature (97.8 F-99.1 F) 96.9 F L 97.5 F L 97.3 F L Temperature Source Temporal Temporal Temporal Pulse Rate (60-100) 70 73 82 Pulse Location Monitor Monitor Monitor Respiratory Rate (12-18) 18 18 18 Respiratory rate source Observation Observation Oxygen Delivery Method Room Air Blood Pressure (90/60-120/80) 148/64 H 165/62 H 153/81 H Blood Pressure Mean (mm Hg) 92 96 105 Source Monitor Monitor Monitor Position Semi-Fowlers Blood Pressure Location Left Arm History Since Last Visit- (Skip if this is Patient's initial visit) Have you changed medications since your No No No last visit? Any new allergies or adverse reactions No No No Had a fall/change in ADL's that may No No No increase risk of falls Signs or symptoms of abuse and/or No No No neglect since last visit Have you been in the hospital since your No No No last visit? Has dressing in place as prescribed Yes Yes Yes Has compression in place as prescribed Yes Yes Yes Has offloadiing in place as prescribed N/A Yes No Experienced any changes in pain level or No No No management Left Footwear Regular Shoe Regular Shoe Right Footwear Regular Shoe Regular Shoe Pain Scale: 0-10 Numeric Is Patient Pain Free? Yes Yes Yes 09/01/23 14:25 WC - Today's Visit Information Type of service Follow-up Visit (Physician/STOCK PREPARER ) Arrival Mode Ambulatory Transfer Assistance None Accompanied by Patient Identification Verified (Name & Yes ) Patient Requires Transmission-Based No Precautions Height and Weight Body Mass Index (BMI) 20.1 BMI Classification Normal Vital Signs Temperature (97.8 F-99.1 F) 97.9 F Temperature Source Temporal Pulse Rate (60-100) 83 Pulse Location Monitor Respiratory Rate (12-18) 16 Respiratory rate source Observation Oxygen Delivery Method Room Air Blood Pressure (90/60-120/80) 176/83 H Blood Pressure Mean (mm Hg) 114 Source Monitor Position Sitting Blood Pressure Location Left Arm History Since Last Visit- (Skip if this is Patient's initial visit) Have you changed medications since your No last visit? Any new allergies or adverse reactions No Had a fall/change in ADL's that may No increase risk of falls Signs or symptoms of abuse and/or No neglect since last visit Have you been in the hospital since your No last visit? Has dressing in place as prescribed Yes Has compression in place as prescribed Yes Has offloadiing in place as prescribed N/A Experienced any changes in pain level or No management Left Footwear Regular Shoe Right Footwear Regular Shoe Pain Scale: 0-10 Numeric Is Patient Pain Free? Yes - Nurse 1 - General Ulcer Measurement Start: 08/11/23 14:08 Freq: Status: Active Protocol: Activity Type Activity Date Activity User E-sign Co-sign Detail Recorded Client Recorded Date Recorded By Document 08/11/23 14:10 DL Desktop 08/11/23 14:16 DL Document 08/18/23 14:20 DL Desktop 08/18/23 14:27 DL Document 08/25/23 14:33 KW Desktop 08/25/23 14:41 KW Document 09/01/23 14:25 BM Desktop 09/01/23 14:36 F 08/11/23 08/18/23 08/25/23 14:10 14:20 14:33 Wound Center Nurse 1 #1- R LAT ANKLE -Combined with other wound -Current Size (cm) - Length 1 0.8 1.1 -Current Size (cm) - Width 1 0.8 1.0 -Current Size (cm) - Depth 0.1 0.2 0.3 -Total Square Cm 1 0.64 1.10 -Photo Taken -Tunneling -Undermining/Tunneling -Circular Undermining -Exudate Amt Medium Small Small -Exudate Type Serosanguineous Serosanguineous Serosanguineous -Wound Margin Distinct, Distinct, Distinct, Outline Outline Outline Attached Attached Attached -Granulation Amt Small (1-33%) Small (1-33%) Small (1-33%) -Granulation Quality [place] -Slough/Fibrin -Necrosis Amt Large (67-100%) Large (67-100%) Large (67-100%) -Necrotic Tissue Type Adherent Slough Adherent Slough Adherent Slough -Structure Exposed N/A N/A -Texture (Korin-wound Skin Appearance) Scarring Scarring Assessed, Localized Edema -Moisture (Korin-wound Skin Appearance) No Abnormality No Abnormality Assessed -Color (Korin-wound Skin Appearance) No Abnormality No Abnormality Assessed, Erythema -Temperature (Korin-wound Skin No Abnormality No Abnormality No Abnormality Appearance) (Pt Warm) (Pt Warm) (Pt Warm) -Tenderness on Palpation (Korin-wound No No Skin Appearance) -Ulcer Cleansing Soap and Water Soap and Water Rinsed/ Irrigated with Saline -Foul Odor after Cleansing No No No -Anesthetic Used 5% Lidocaine 5% Lidocaine 5% Lidocaine Gel Gel Gel Lower Limb Edema Present Yes Right Calf (cm) 30 30.5 31.5 Right Ankle (cm) 19.5 20 20 09/01/23 14:25 Wound Center Nurse 1 #1- R LAT ANKLE -Combined with other wound No -Current Size (cm) - Length 1 -Current Size (cm) - Width 0.9 -Current Size (cm) - Depth 0.4 -Total Square Cm 0.9 -Photo Taken No -Tunneling No -Undermining/Tunneling No -Circular Undermining No -Exudate Amt Medium -Exudate Type Serosanguineous -Wound Margin Distinct, Outline Attached -Granulation Amt None Present (0 %) -Granulation Quality -Slough/Fibrin Yes -Necrosis Amt Large (67-100%) -Necrotic Tissue Type Adherent Slough -Structure Exposed -Texture (Korin-wound Skin Appearance) Assessed, Scarring -Moisture ([place]orni-wound Skin Appearance) Assessed -Color (Korin-wound Skin Appearance) Assessed -Temperature (Korin-wound Skin No Abnormality Appearance) (Pt Warm) -Tenderness on Palpation (Korin-wound No Skin Appearance) -Ulcer Cleansing Soap and Water -Foul Odor after Cleansing No -Anesthetic Used 5% Lidocaine Gel Lower Limb Edema Present Right Calf (cm) 30.8 Right Ankle (cm) 19.3 WC - Nurse 2 - General Ulcer CM Notes Start: 08/11/23 14:08 Freq: Status: Active Protocol: Activity Type Activity Date Activity User E-sign Co-sign Detail Recorded Client Recorded Date Recorded By Document 08/11/23 14:23 Liquid Laptop 08/11/23 14:28 Liquid Document 08/18/23 14:36 Liquid Laptop 08/18/23 14:44 Liquid Document 08/25/23 14:47 Liquid Laptop 08/25/23 14:51 Liquid Document 09/01/23 14:55 Liquid Laptop 09/01/23 15:05 08/11/23 08/18/23 08/25/23 14:23 14:36 14:47 Wound Center Nurse 2 #1- R LAT ANKLE -Time 14:23 14:41 14:48 -Correct Patient Yes Yes Yes -Correct Side, Site, Position Yes Yes Yes -Correct Procedure Yes Yes Yes -Procedure Performed Yes Yes Yes -Type of Procedure Debridement Debridement Debridement -Clinical Debridement Subcutaneous Subcutaneous Subcutaneous -Tissue Removed Subcutaneous Subcutaneous Subcutaneous -Post Debridement (cm) - Length 1.0 0.8 0.9 -Post Debridement (cm) - Width 0.8 0.8 0.9 -Post Debridement (cm) - Depth 0.2 0.3 0.2 -Total Square (Post) (cm) 0.80 0.64 0.81 -Area of Debridement (cm) - Length 1.0 0.8 0.9 -Area of Debridement (cm) - Width 0.8 0.8 0.9 -Total Square (Area) (cm) 0.80 0.64 0.81 -Tunneling No No No -Undermining/Tunneling No No No -Circular Undermining No No No -Wound/Ulcer Outcome Not Healed Not Healed Not Healed -Ulcer Cleansing Rinsed/ Rinsed/ Rinsed/ Irrigated with Irrigated with Irrigated with Saline Saline Saline -Foul Odor after Cleansing No No No -Bioengineered Tissue Yes Yes Yes -Type of Bioengineered Tissue Epifix 18mm Epicord Epicord Disc -Expiration Date 05/08/28 03/08/28 04/08/28 -Product Lot Number [id number] -Percent Used 100 100 100 -Lot number of Saline Used [id number] -Bleeding Controlled with Pressure Pressure Pressure -Treatment Response Procedure Procedure Procedure Tolerated Well Tolerated Well Tolerated Well -Offloading No No No -Debridement - Subq, 1st 20sq cm No No No -Apply Skin Sub - 1st 25 sq cm - Legs 1 1 -Apply Skin Sub - 1st 25 sq cm - Feet 1 -Epicord (per sq cm) 6 6 -Epifix 18mm Disc 3 Pain Scale: 0-10 Numeric Is Patient Pain Free? Yes Yes Yes 09/01/23 14:55 Wound Center Nurse 2 #1- R LAT ANKLE -Time 14:55 -Correct Patient Yes -Correct Side, Site, Position Yes -Correct Procedure Yes -Procedure Performed Yes -Type of Procedure Debridement -Clinical Debridement Subcutaneous -Tissue Removed Subcutaneous -Post Debridement (cm) - Length 0.9 -Post Debridement (cm) - Width 0.9 -Post Debridement (cm) - Depth 0.2 -Total Square (Post) (cm) 0.81 -Area of Debridement (cm) - Length 0.9 -Area of Debridement (cm) - Width 0.9 -Total Square (Area) (cm) 0.81 -Tunneling No -Undermining/Tunneling No -Circular Undermining No -Wound/Ulcer Outcome Not Healed -Ulcer Cleansing Rinsed/ Irrigated with Saline -Foul Odor after Cleansing No -Bioengineered Tissue Yes -Type of Bioengineered Tissue Epifix 18mm Disc -Expiration Date 05/08/28 -Product Lot Number [id number] -Percent Used 100 -Lot number of Saline Used [id number] -Bleeding Controlled with Pressure -Treatment Response Procedure Tolerated Well -Offloading No -Debridement - Subq, 1st 20sq cm No -Apply Skin Sub - 1st 25 sq cm - Legs 1 -Apply Skin Sub - 1st 25 sq cm - Feet -Epicord (per sq cm) -Epifix 18mm Disc 3 Pain Scale: 0-10 Numeric Is Patient Pain Free? Yes - Nurse 3 - General Ulcer D/C NN Start: 08/11/23 14:08 Freq: Status: Active Protocol: Activity Type Activity Date Activity User E-sign Co-sign Detail Recorded Client Recorded Date Recorded By Document 08/11/23 14:35 BMF Desktop 08/11/23 14:36 BMF Document 08/18/23 14:57 GM Desktop 08/18/23 14:59 GM Document 08/25/23 15:00 DL Desktop 08/25/23 15:02 DL Document 09/01/23 15:13 BMF Desktop 09/01/23 15:14 BMF 08/11/23 08/18/23 08/25/23 14:35 14:57 15:00 Wound Care Center Nurse 3 #1- R LAT ANKLE -Ulcer Cleansing Not Cleansed -Foul Odor after Cleansing No No -Negative Pressure Wound Therapy N/A -Primary Dressing Applied Mepilex Border Mepilex Border Mepilex Border -Other Dressing epifix EPI -Primary Dressing Covered/Secured with Dry Gauze & Roll Gauze, Secured with Tape -Other Covering hydrogel TUBIGRIP -Mepilex Border 1 1 1 Right -Lotion applied to leg before No compression wrap -Tubular Bandage Single Layer Single Layer -Size of Tubigrip Used Size E Size E -Size D ($) -Size E ($) 1 1 -Other Treatment Response Procedure Procedure Tolerated Well Tolerated Well Pain Scale: 0-10 Numeric Is Patient Pain Free? Yes Yes Yes Teaching: Wound Center compression. -Person Taught Patient,Family -Teaching Method Discussion -Response to teaching Verbalize understanding WC - Visit Discharge Discharge Condition Stable Stable Stable Ambulatory Status Ambulatory Ambulatory Ambulatory Transportation Private Auto Private Auto Private Auto Accompanied by Medication Reconcilliation completed & Yes provided to patient/care provider Clinical Summary of Care Provided Yes 09/01/23 15:13 Wound Care Center Nurse 3 #1- R LAT ANKLE -Ulcer Cleansing -Foul Odor after Cleansing -Negative Pressure Wound Therapy -Primary Dressing Applied Mepilex Border -Other Dressing epifix -Primary Dressing Covered/Secured with -Other Covering per dl assembler tubing -Mepilex Border 1 Right -Lotion applied to leg before compression wrap -Tubular Bandage Single Layer -Size of Tubigrip Used Size D -Size D ($) 1 -Size E ($) -Other reapplied pts own per dl assembler tubing Treatment Response Procedure Tolerated Well Pain Scale: 0-10 Numeric Is Patient Pain Free? Yes Teaching: Wound Center compression. -Person Taught -Teaching Method -Response to teaching WC - Visit Discharge Discharge Condition Stable Ambulatory Status Ambulatory Transportation Private Auto Accompanied by Medication Reconcilliation completed & provided to patient/care provider Clinical Summary of Care Provided Assessment/Plan Assessment/Plan (1) Chronic ulcer of right ankle with fat layer exposed: CODE(S): L97.312 - Non-pressure chronic ulcer of right ankle with fat layer exposed PLAN: Patient was examined and evaluated. All findings were discussed with the patient. All questions were answered to the patient's satisfaction. Excisional debridement down to and including subcutaneous tissue with number 5 mm dermal curette to the lateral right ankle ulceration. Predebridement measurements were 0.8 x 0.8 x 0.1 cm. Postdebridement measures 0.9 x 0.9 x 0.2 cm. EpiCord 2.0 x 3.0 mm sheet was applied to the right full-thickness ulceration lateral ankle with 100% use. Seventh application. The graft site was free and clear of any infection. The wound/skin graft substitute was dressed with nonadherent bandage secured in place with Steri-Strips followed by ashley crocker as well as a double layer Tubigrip. Patient will follow-up in 1 week for eighth application of graft. (2) Pain in right ankle: CODE(S): M25.571 - Pain in right ankle and joints of right foot QUALIFIERS: Chronicity: chronic Qualified Code(s): M25.571 - Pain in right ankle and joints of right foot; G89.29 - Other chronic pain (3) Tinea pedis: CODE(S): B35.3 - Tinea pedis QUALIFIERS: Laterality: bilateral Qualified Code(s): B35.3 - Tinea pedis PLAN: Patient tinea pedis is improved with topical clotrimazole. Patient instructed continue to apply twice per day for an additional 30 days.
== END 2023-09-07 23:59 | disposition home or self-care (01) ==
LOC: WC 14:30
PROVIDERS: PCP Internal Medicine; Referring Provider Podiatrist Foot & Ankle Surgery; Visit Provider Podiatrist Foot & Ankle Surgery
DX: L97.312 Non-pressure chronic ulcer of right ankle with fat layer exposed (principal); M25.571 Pain in right ankle and joints of right foot; B35.3 Tinea pedis
CPT/HCPCS: 15271; 15275; 73610; Q4186; Q4187

== ENCOUNTER 2023-10-06 14:00 | Outpatient (RCR) | payer MEDICARE, SELFPAY ==
[2023-09-08 00:14] VITALS: BP 176/83; PULSE 83; RESP 16; TEMP 36.6; BMI 20.1
[2023-09-08 10:47] VITALS: BP 175/90; PULSE 76; RESP 18; TEMP 36.5; BMI 20.1
--- NOTE | 2023-09-08 11:25 | PN.PCM_ITS ---
History of Present Illness Date of Service: 09/08/23 Chief Complaint: Full-thickness ulceration lateral ankle right History of Wound: Full-thickness ulceration right ankle since February 2023 Subjective Subjective Mrs. Barber is a 72-year-old female presenting to the wound care center today for follow-up of right leg distal chronic wound. Patient has been getting application of skin graft that shows improvement to the ulceration. She has kept her dressing clean dry and intact. She denies any strikethrough to the dressing. Patient's states that he is using a topical antifungal but did not treat the fungus yesterday as well as today. Patient expresses that there is still evidence of redness as well as dry flaky skin to the bilateral feet. She denies any trauma. She denies any constitutional symptoms. No other pedal complaints at this time. Objective Data Objective Data Vital Signs: Vital Signs Temp Pulse Resp BP O2 Del Method 97.7 F L 76 18 175/90 H Room Air 09/08/23 10:47 09/08/23 10:47 09/08/23 10:47 09/08/23 10:47 09/08/23 10:47 Oxygen Delivery Method Room Air Weight: 49.895 kg Body Mass Index (BMI) 20.1 Physical Exam Narrative Neurovascular status unchanged. Full-thickness ulceration to the lateral aspect of the right ankle. Full-thickness ulceration measures 0.8 x 0.8 x 0.2 cm. Wound base is fibrogranular nature with no sign of infection. Evidence of macerated webspaces 1 through 4 bilateral, which is improving. Evidence of moccasin distribution, which is improving. No pain with calf compression. Excisional debridement down to and including subcutaneous tissue with number 5 mm dermal curette to the lateral right ankle ulceration. Predebridement measurements were 0.8 x 0.8 x 0.1 cm. Postdebridement measures 0.8 x 0.8 x 0.2 cm. EpiFix 18 mm disc to the right full-thickness ulceration lateral ankle with 100% use. Eighth application. The graft site was free and clear of any infection. The wound/skin graft substitute was dressed with nonadherent bandage secured in place with Steri-Strips followed by bolster dressing as well as a double layer Tubigrip. Debridement Note Debridement Note Debridement Free Text: Excisional debridement down to and including subcutaneous tissue with number 5 mm dermal curette to the lateral right ankle ulceration. Predebridement measurements were 0.8 x 0.8 x 0.1 cm. Postdebridement measures 0.8 x 0.8 x 0.2 cm. EpiFix 18 mm disc to the right full-thickness ulceration lateral ankle with 100% use. Eighth application. The graft site was free and clear of any infection. The wound/skin graft substitute was dressed with nonadherent bandage secured in place with Steri-Strips followed by bolster dressing as well as a double layer Tubigrip. 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 ) Arrival Mode Ambulatory Accompanied by Patient Identification Verified (Name & Yes ) Height and Weight Body Mass Index (BMI) 20.1 BMI Classification Normal Vital Signs Temperature (97.8 F-99.1 F) 97.7 F L Temperature Source Temporal Pulse Rate (60-100) 76 Pulse Location Monitor Respiratory Rate (12-18) 18 Respiratory rate source Observation Oxygen Delivery Method Room Air Blood Pressure (90/60-120/80) 175/90 H Blood Pressure Mean (mm Hg) 118 Source Monitor Position Sitting Blood Pressure Location Left Arm History Since Last Visit- (Skip if this is Patient's initial visit) Have you changed medications since your No last visit? Any new allergies or adverse reactions No Had a fall/change in ADL's that may No increase risk of falls Signs or symptoms of abuse and/or No neglect since last visit Have you been in the hospital since your No last visit? Has dressing in place as prescribed Yes Has compression in place as prescribed Yes Has offloadiing in place as prescribed No Experienced any changes in pain level or No management Left Footwear Regular Shoe Right Footwear Regular Shoe Pain Scale: 0-10 Numeric Is Patient Pain Free? Yes - Nurse 1 - General Ulcer Measurement Start: 09/08/23 10:47 Freq: Status: Active Protocol: Activity Type Activity Date Activity User E-sign Co-sign Detail Recorded Client Recorded Date Recorded By Document 09/08/23 10:47 KW Desktop 09/08/23 10:57 KW 09/08/23 10:47 Wound Center Nurse 1 #1- R LAT ANKLE -Granulation Amt Small (1-33%) -Granulation Quality [place] -Necrosis Amt Medium (34-66%) -Necrotic Tissue Type Adherent Slough -Texture (Korin-wound Skin Appearance) Assessed, Localized Edema -Moisture (Korin-wound Skin Appearance) Assessed -Color (Korin-wound Skin Appearance) Assessed, Erythema -Temperature (Korin-wound Skin No Abnormality Appearance) (Pt Warm) -Ulcer Cleansing Rinsed/ Irrigated with Saline -Anesthetic Used 5% Lidocaine Gel WC - Nurse 2 - General Ulcer CM Notes Start: 09/08/23 10:47 Freq: Status: Active Protocol: Activity Type Activity Date Activity User E-sign Co-sign Detail Recorded Client Recorded Date Recorded By Document 09/08/23 11:10 Laptop 09/08/23 11:16 09/08/23 11:10 Wound Center Nurse 2 -Time 11:10 -Correct Patient Yes -Correct Side, Site, Position Yes -Correct Procedure Yes -Procedure Performed Yes -Type of Procedure Debridement -Clinical Debridement Subcutaneous -Tissue Removed Subcutaneous -Post Debridement (cm) - Length 0.8 -Post Debridement (cm) - Width 0.8 -Post Debridement (cm) - Depth 0.2 -Total Square (Post) (cm) 0.64 -Area of Debridement (cm) - Length 0.8 -Area of Debridement (cm) - Width 0.8 -Total Square (Area) (cm) 0.64 -Tunneling No -Undermining/Tunneling No -Circular Undermining No -Wound/Ulcer Outcome Not Healed -Ulcer Cleansing Rinsed/ Irrigated with Saline -Foul Odor after Cleansing No -Bioengineered Tissue Yes -Type of Bioengineered Tissue Epifix 18mm Disc -Expiration Date 05/08/28 -Product Lot Number [id number] -Percent Used 100 -Lot number of Saline Used [id number] -Bleeding Controlled with Pressure -Treatment Response Procedure Tolerated Well -Offloading No -Debridement - Subq, 1st 20sq cm No -Apply Skin Sub - 1st 25 sq cm - Legs 1 -Epifix 18mm Disc 3 Pain Scale: 0-10 Numeric Is Patient Pain Free? Yes - Nurse 3 - General Ulcer D/C NN Start: 09/08/23 10:47 Freq: Status: Active Protocol: Activity Type Activity Date Activity User E-sign Co-sign Detail Recorded Client Recorded Date Recorded By Document 09/08/23 11:23 Laptop 09/08/23 11:24 09/08/23 11:23 Wound Care Center Nurse 3 #1- R LAT ANKLE -Ulcer Cleansing Rinsed/ Irrigated with Saline -Foul Odor after Cleansing No -Primary Dressing Applied Mepilex Border -Mepilex Border 1 Right -Tubular Bandage Single Layer -Size of Tubigrip Used Size D -Size D ($) 1 Pain Scale: 0-10 Numeric Is Patient Pain Free? Yes WC - Visit Discharge Discharge Condition Stable Ambulatory Status Ambulatory, Walker Transportation Private Auto Accompanied by Medication Reconcilliation completed & Yes provided to patient/care provider Clinical Summary of Care Provided Yes Assessment/Plan Assessment/Plan (1) Chronic ulcer of right ankle with fat layer exposed: CODE(S): L97.312 - Non-pressure chronic ulcer of right ankle with fat layer exposed PLAN: Patient was examined evaluated. All fines discussed with patient. All questions were answered to the patient satisfaction. Excisional debridement down to and including subcutaneous tissue with number 5 mm dermal curette to the lateral right ankle ulceration. Predebridement measurements were 0.8 x 0.8 x 0.1 cm. Postdebridement measures 0.8 x 0.8 x 0.2 cm. EpiFix 18 mm disc to the right full-thickness ulceration lateral ankle with 100% use. Eighth application. The graft site was free and clear of any infection. The wound/skin graft substitute was dressed with nonadherent bandage secured in place with Steri-Strips followed by bolster dressing as well as a double layer Tubigrip. Follow-up in 1 week. (2) Tinea pedis: CODE(S): B35.3 - Tinea pedis QUALIFIERS: Laterality: bilateral Qualified Code(s): B35.3 - Tinea pedis PLAN: Patient and her were educated to continue use of topical antifungal twice daily for 30 days. They do have refills the medication. They are understanding of this. (3) Pain in right ankle: CODE(S): M25.571 - Pain in right ankle and joints of right foot QUALIFIERS: Chronicity: chronic Qualified Code(s): M25.571 - Pain in right ankle and joints of right foot; G89.29 - Other chronic pain
[2023-09-15 15:01] VITALS: BP 160/82; PULSE 83; RESP 18; TEMP 35.8; BMI 20.1
--- NOTE | 2023-09-15 16:59 | PN.PCM_ITS ---
History of Present Illness Date of Service: 09/15/23 Chief Complaint: Full-thickness ulceration lateral ankle right History of Wound: Full-thickness ulceration right ankle since February 2023 Subjective Subjective Mrs. Barber is a 72-year-old female presenting to the wound care center today for follow-up of right leg distal chronic wound. Patient has been getting application of skin graft that shows improvement to the ulceration. She has kept her dressing clean dry and intact. She denies any strikethrough to the dressing. Patient's states that he is using a topical antifungal but did not treat the fungus yesterday as well as today. Patient expresses that there is still evidence of redness as well as dry flaky skin to the bilateral feet. She denies any trauma. She denies any constitutional symptoms. No other pedal complaints at this time. Objective Data Objective Data Vital Signs: Vital Signs Temp Pulse Resp BP O2 Del Method 96.5 F L 83 18 160/82 H Room Air 09/15/23 15:01 09/15/23 15:01 09/15/23 15:01 09/15/23 15:01 09/15/23 15:01 Oxygen Delivery Method Room Air Weight: 49.895 kg Body Mass Index (BMI) 20.1 Physical Exam Narrative Neurovascular status unchanged. Full-thickness ulceration to the lateral aspect of the right ankle. Full-thickness ulceration measures 0.8 x 0.8 x 0.2 cm. Wound base is fibrogranular nature with no sign of infection. Evidence of macerated webspaces 1 through 4 bilateral, which is improving. Evidence of moccasin distribution, which is improving. No pain with calf compression. Excisional debridement down to and including subcutaneous tissue with number 5 mm dermal curette to the lateral right ankle ulceration. Predebridement measurements were 0.7 x 0.6 x 0.2 cm. Postdebridement measures 0.8 x 0.7 x 0.2 cm. EpiFix 18 mm disc to the right full-thickness ulceration lateral ankle with 100% use. Ninth application. The graft site was free and clear of any infection. The wound/skin graft substitute was dressed with nonadherent bandage secured in place with Steri-Strips followed by bolster dressing as well as a double layer Tubigrip. Debridement Note Debridement Note Debridement Free Text: Excisional debridement down to and including subcutaneous tissue with number 5 mm dermal curette to the lateral right ankle ulceration. Predebridement measurements were 0.7 x 0.6 x 0.2 cm. Postdebridement measures 0.8 x 0.7 x 0.2 cm. EpiFix 18 mm disc to the right full-thickness ulceration lateral ankle with 100% use. Ninth application. The graft site was free and clear of any infection. The wound/skin graft substitute was dressed with nonadherent bandage secured in place with Steri-Strips followed by bolster dressing as well as a double layer Tubigrip Post-Debridement Measurements and Additional Note: Post-Debridement Measurements/Treatment - Nurse 1 - General Ulcer Assessment Start: 09/08/23 10:47 Freq: Status: Active Protocol: TATI Activity Type Activity Date Activity User E-sign Co-sign Detail Recorded Client Recorded Date Recorded By Document 09/08/23 10:47 KW Desktop 09/08/23 10:57 KW Document 09/15/23 15:01 KW Desktop 09/15/23 15:03 KW 09/08/23 09/15/23 10:47 15:01 - Today's Visit Information Type of service Follow-up Visit 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 ) ) Arrival Mode Ambulatory Ambulatory Accompanied by Patient Identification Verified (Name & Yes Yes ) Height and Weight Body Mass Index (BMI) 20.1 20.1 BMI Classification Normal Normal Vital Signs Temperature (97.8 F-99.1 F) 97.7 F L 96.5 F L Temperature Source Temporal Oral Pulse Rate (60-100) 76 83 Pulse Location Monitor Apical Respiratory Rate (12-18) 18 18 Respiratory rate source Observation Observation Oxygen Delivery Method Room Air Room Air Blood Pressure (90/60-120/80) 175/90 H 160/82 H Blood Pressure Mean (mm Hg) 118 108 Source Monitor Monitor Position Sitting Sitting Blood Pressure Location Left Arm Left Arm History Since Last Visit- (Skip if this is Patient's initial visit) Have you changed medications since your No No last visit? Any new allergies or adverse reactions No No Had a fall/change in ADL's that may No No increase risk of falls Signs or symptoms of abuse and/or No No neglect since last visit Have you been in the hospital since your No No last visit? Has dressing in place as prescribed Yes Yes Has compression in place as prescribed Yes Yes Has offloadiing in place as prescribed No No Experienced any changes in pain level or No No management Left Footwear Regular Shoe Regular Shoe Right Footwear Regular Shoe Regular Shoe Pain Scale: 0-10 Numeric Is Patient Pain Free? Yes Yes MURIEL - Nurse 1 - General Ulcer Measurement Start: 09/08/23 10:47 Freq: Status: Active Protocol: Activity Type Activity Date Activity User E-sign Co-sign Detail Recorded Client Recorded Date Recorded By Document 09/08/23 10:47 KW [email or web address] 09/08/23 10:57 KW Document 09/15/23 15:01 KW [email or web address] 09/15/23 15:03 KW 09/08/23 09/15/23 10:47 15:01 Wound Center Nurse 1 #1- R LAT ANKLE -Current Size (cm) - Length 0.4 -Current Size (cm) - Width 0.7 -Current Size (cm) - Depth 0.5 -Total Square Cm 0.28 -Exudate Amt Small -Exudate Type Serosanguineous -Wound Margin Thickened -Granulation Amt Small (1-33%) Small (1-33%) -Granulation Quality [facility] [place] -Necrosis Amt Medium (34-66%) Large (67-100%) -Necrotic Tissue Type Adherent Slough Adherent Slough -Texture (Korin-wound Skin Appearance) Assessed, Assessed, Localized Edema Localized Edema -Moisture (Korin-wound Skin Appearance) Assessed Assessed -Color (Korin-wound Skin Appearance) Assessed, Assessed, Erythema Erythema -Temperature (Korin-wound Skin No Abnormality No Abnormality Appearance) (Pt Warm) (Pt Warm) -Ulcer Cleansing Rinsed/ Rinsed/ Irrigated with Irrigated with Saline Saline -Foul Odor after Cleansing No -Anesthetic Used 5% Lidocaine 5% Lidocaine Gel Gel Right Calf (cm) 30 Right Ankle (cm) 19.5 WC - Nurse 2 - General Ulcer CM Notes Start: 09/08/23 10:47 Freq: Status: Active Protocol: Activity Type Activity Date Activity User E-sign Co-sign Detail Recorded Client Recorded Date Recorded By Document 09/08/23 11:10 Laptop 09/08/23 11:16 Document 09/15/23 15:49 Laptop 09/15/23 15:53 09/08/23 09/15/23 11:10 15:49 Wound Center Nurse 2 #1- R LAT ANKLE -Time 11:10 15:50 -Correct Patient Yes Yes -Correct Side, Site, Position Yes Yes -Correct Procedure Yes Yes -Procedure Performed Yes Yes -Type of Procedure Debridement Debridement -Clinical Debridement Subcutaneous Subcutaneous -Tissue Removed Subcutaneous Subcutaneous -Post Debridement (cm) - Length 0.8 0.8 -Post Debridement (cm) - Width 0.8 0.7 -Post Debridement (cm) - Depth 0.2 0.2 -Total Square (Post) (cm) 0.64 0.56 -Area of Debridement (cm) - Length 0.8 0.8 -Area of Debridement (cm) - Width 0.8 0.7 -Total Square (Area) (cm) 0.64 0.56 -Tunneling No No -Undermining/Tunneling No No -Circular Undermining No No -Wound/Ulcer Outcome Not Healed Not Healed -Ulcer Cleansing Rinsed/ Rinsed/ Irrigated with Irrigated with Saline Saline -Foul Odor after Cleansing No No -Bioengineered Tissue Yes Yes -Type of Bioengineered Tissue Epifix 18mm Epifix 18mm Disc Disc -Expiration Date 05/08/28 05/08/28 -Product Lot Number [id number] -Percent Used 100 100 -Lot number of Saline Used [id number] -Bleeding Controlled with Pressure Pressure -Treatment Response Procedure Procedure Tolerated Well Tolerated Well -Offloading No No -Debridement - Subq, 1st 20sq cm No No -Apply Skin Sub - 1st 25 sq cm - Legs 1 1 -Epifix 18mm Disc 3 3 Pain Scale: 0-10 Numeric Is Patient Pain Free? Yes Yes - Nurse 3 - General Ulcer D/C NN Start: 09/08/23 10:47 Freq: Status: Active Protocol: Activity Type Activity Date Activity User E-sign Co-sign Detail Recorded Client Recorded Date Recorded By Document 09/08/23 11:23 Laptop 09/08/23 11:24 Document 09/15/23 16:58 PL [id number] 09/15/23 16:59 PL 09/08/23 09/15/23 11:23 16:58 Wound Care Center Nurse 3 #1- R LAT ANKLE -Ulcer Cleansing Rinsed/ Irrigated with Saline -Foul Odor after Cleansing No -Primary Dressing Applied Mepilex Border Mepilex Border -Mepilex Border 1 1 Right -Tubular Bandage Single Layer Single Layer -Size of Tubigrip Used Size D Size C -Size C ($) 1 -Size D ($) 1 Pain Scale: 0-10 Numeric Is Patient Pain Free? Yes Yes WC - Visit Discharge Discharge Condition Stable Stable Ambulatory Status Ambulatory, Ambulatory Walker Transportation Private Auto Accompanied by Medication Reconcilliation completed & Yes provided to patient/care provider Clinical Summary of Care Provided Yes Assessment/Plan Assessment/Plan (1) Chronic ulcer of right ankle with fat layer exposed: CODE(S): L97.312 - Non-pressure chronic ulcer of right ankle with fat layer exposed PLAN: Patient was examined evaluated. All findings were discussed with the patient. All questions were answered to the patient's satisfaction. Excisional debridement down to and including subcutaneous tissue with number 5 mm dermal curette to the lateral right ankle ulceration. Predebridement measurements were 0.7 x 0.6 x 0.2 cm. Postdebridement measures 0.8 x 0.7 x 0.2 cm. EpiFix 18 mm disc to the right full-thickness ulceration lateral ankle with 100% use. Ninth application. The graft site was free and clear of any infection. The wound/skin graft substitute was dressed with nonadherent bandage secured in place with Steri-Strips followed by bolster dressing as well as a double layer Tubigrip Follow-up 1 week. (2) Pain in right ankle: CODE(S): M25.571 - Pain in right ankle and joints of right foot QUALIFIERS: Chronicity: chronic Qualified Code(s): M25.571 - Pain in right ankle and joints of right foot; G89.29 - Other chronic pain (3) Tinea pedis: CODE(S): B35.3 - Tinea pedis QUALIFIERS: Laterality: bilateral Qualified Code(s): B35.3 - Tinea pedis PLAN: Continue to apply antifungal medication twice per day for 30 days. Patient has 3 refills. Tinea pedis is improving erythema is improving.
[2023-09-22 14:34] VITALS: BMI 20.1
--- NOTE | 2023-09-22 16:26 | PCM.WC.PN ---
History of Present Illness Date of Service: 09/22/23 Chief Complaint: Full-thickness ulceration lateral ankle right History of Wound: Full-thickness ulceration right ankle since February 2023 Subjective Subjective Mrs. Barber is a 72-year-old female presenting to the wound care center today for follow-up of right leg distal chronic wound. Patient has been getting application of skin graft that shows mild improvement to the ulceration. Dressing has been kept clean dry and intact. Redness has improved to the bilateral feet after applying antifungal cream. Patient will continue to offload nightly. Denies trauma. Denies constitutional symptoms. No other pedal complaints at this time. Objective Data Objective Data Vital Signs: Vital Signs Temp Pulse Resp BP O2 Del Method 96.5 F L 83 18 160/82 H Room Air 09/15/23 15:01 09/15/23 15:01 09/15/23 15:01 09/15/23 15:01 09/22/23 14:34 Oxygen Delivery Method Room Air Weight: 49.895 kg Body Mass Index (BMI) 20.1 Physical Exam Narrative Neurovascular status unchanged. Full-thickness ulceration to the lateral aspect of the right ankle. Full-thickness ulceration measures 1.2 x 0.8 x 0.2 cm. Wound base is fibrogranular nature with no sign of infection. Evidence of macerated webspaces 1 through 4 bilateral, which is improving. Evidence of moccasin distribution, which is improving. No pain with calf compression. Excisional debridement down to and including subcutaneous tissue with number 5 mm dermal curette to the lateral right ankle ulceration. Predebridement measurements were 1.1 x 0.7 x 0.2 cm. Postdebridement measures 1.2 x 0.8 x 0.2 cm. EpiFix 18 mm disc to the right full-thickness ulceration lateral ankle with 100% use. Tenth application. The graft site was free and clear of any infection. The wound/skin graft substitute was dressed with nonadherent bandage secured in place with Steri-Strips followed by bolster dressing as well as a double layer Tubigrip. Debridement Note Debridement Note Debridement Free Text: Excisional debridement down to and including subcutaneous tissue with number 5 mm dermal curette to the lateral right ankle ulceration. Predebridement measurements were 1.1 x 0.7 x 0.2 cm. Postdebridement measures 1.2 x 0.8 x 0.2 cm. EpiFix 18 mm disc to the right full-thickness ulceration lateral ankle with 100% use. Tenth application. The graft site was free and clear of any infection. The wound/skin graft substitute was dressed with nonadherent bandage secured in place with Steri-Strips followed by bolster dressing as well as a double layer Tubigrip. Post-Debridement Measurements and Additional Note: Post-Debridement Measurements/Treatment - Nurse 1 - General Ulcer Assessment Start: 09/08/23 10:47 Freq: Status: Active Protocol: [email or web address] Activity Type Activity Date Activity User E-sign Co-sign Detail Recorded Client Recorded Date Recorded By Document 09/08/23 10:47 KW Desktop 09/08/23 10:57 KW Document 09/15/23 15:01 KW Desktop 09/15/23 15:03 KW Document 09/22/23 14:34 GM Desktop 09/22/23 14:42 GM 09/08/23 09/15/23 09/22/23 10:47 15:01 14:34 - Today's Visit Information Type of service Follow-up Visit Follow-up Visit Follow-up Visit (Physician/COMPUTERIZED MACHINE FABRIC CUTTER (Physician/COMPUTERIZED MACHINE FABRIC CUTTER (Physician/COMPUTERIZED MACHINE FABRIC CUTTER ) ) ) Arrival Mode Ambulatory Ambulatory Ambulatory Transfer Assistance None Accompanied by Patient Identification Verified (Name & Yes Yes ) Patient Requires Transmission-Based No Precautions Safety Precautions Fall Prevention Height and Weight Body Mass Index (BMI) 20.1 20.1 20.1 BMI Classification Normal Normal Normal Vital Signs Temperature (97.8 F-99.1 F) 97.7 F L 96.5 F L Temperature Source Temporal Oral Temporal Pulse Rate (60-100) 76 83 Pulse Location Monitor Apical Monitor Respiratory Rate (12-18) 18 18 Respiratory rate source Observation Observation Oxygen Delivery Method Room Air Room Air Room Air Blood Pressure (90/60-120/80) 175/90 H 160/82 H Blood Pressure Mean (mm Hg) 118 108 Source Monitor Monitor Monitor Position Sitting Sitting Sitting Blood Pressure Location Left Arm Left Arm History Since Last Visit- (Skip if this is Patient's initial visit) Have you changed medications since your No No No last visit? Any new allergies or adverse reactions No No No Had a fall/change in ADL's that may No No No increase risk of falls Signs or symptoms of abuse and/or No No No neglect since last visit Have you been in the hospital since your No No No last visit? Has dressing in place as prescribed Yes Yes Yes Has compression in place as prescribed Yes Yes Yes Has offloadiing in place as prescribed No No N/A Experienced any changes in pain level or No No No management Left Footwear Regular Shoe Regular Shoe Regular Shoe Right Footwear Regular Shoe Regular Shoe Regular Shoe Pain Scale: 0-10 Numeric Is Patient Pain Free? Yes Yes Yes WC - Nurse 1 - General Ulcer Measurement Start: 09/08/23 10:47 Freq: Status: Active Protocol: Activity Type Activity Date Activity User E-sign Co-sign Detail Recorded Client Recorded Date Recorded By Document 09/08/23 10:47 KW Desktop 09/08/23 10:57 KW Document 09/15/23 15:01 KW Desktop 09/15/23 15:03 KW Document 09/22/23 14:34 GM Desktop 09/22/23 14:42 09/08/23 09/15/23 09/22/23 10:47 15:01 14:34 Wound Center Nurse 1 #1- R LAT ANKLE -Current Size (cm) - Length 0.4 1.1 -Current Size (cm) - Width 0.7 0.7 -Current Size (cm) - Depth 0.5 0.1 -Total Square Cm 0.28 0.77 -Photo Taken No -Epithelialization Small 1-33% -Tunneling No -Undermining/Tunneling No -Exudate Amt Small Small -Exudate Type Serosanguineous Yellow/Green -Wound Margin Thickened -Granulation Amt Small (1-33%) Small (1-33%) Medium (34-66%) -Granulation Quality [place] -Slough/Fibrin Yes -Necrosis Amt Medium (34-66%) Large (67-100%) Medium (34-66%) -Necrotic Tissue Type Adherent Slough Adherent Slough Adherent Slough -Structure Exposed N/A -Texture (Korin-wound Skin Appearance) Assessed, Assessed, Assessed Localized Edema Localized Edema -Moisture (Korin-wound Skin Appearance) Assessed Assessed Assessed -Color (Korin-wound Skin Appearance) Assessed, Assessed, Assessed, Erythema Erythema Cyanosis -Temperature (Korin-wound Skin No Abnormality No Abnormality No Abnormality Appearance) (Pt Warm) (Pt Warm) (Pt Warm) -Ulcer Cleansing Rinsed/ Rinsed/ Soap and Water Irrigated with Irrigated with Saline Saline -Foul Odor after Cleansing No No -Anesthetic Used 5% Lidocaine 5% Lidocaine 5% Lidocaine Gel Gel Gel Right Calf (cm) 30 32 Right Ankle (cm) 19.5 19.4 WC - Nurse 2 - General Ulcer CM Notes Start: 09/08/23 10:47 Freq: Status: Active Protocol: Activity Type Activity Date Activity User E-sign Co-sign Detail Recorded Client Recorded Date Recorded By Document 09/08/23 11:10 Laptop 09/08/23 11:16 Document 09/15/23 15:49 Laptop 09/15/23 15:53 Document 09/22/23 15:04 Laptop 09/22/23 15:12 09/08/23 09/15/23 09/22/23 11:10 15:49 15:04 Wound Center Nurse 2 #1- R LAT ANKLE -Time 11:10 15:50 15:05 -Correct Patient Yes Yes Yes -Correct Side, Site, Position Yes Yes Yes -Correct Procedure Yes Yes Yes -Procedure Performed Yes Yes Yes -Type of Procedure Debridement Debridement Debridement -Clinical Debridement Subcutaneous Subcutaneous Subcutaneous -Tissue Removed Subcutaneous Subcutaneous Subcutaneous -Post Debridement (cm) - Length 0.8 0.8 1.2 -Post Debridement (cm) - Width 0.8 0.7 0.8 -Post Debridement (cm) - Depth 0.2 0.2 0.2 -Total Square (Post) (cm) 0.64 0.56 0.96 -Area of Debridement (cm) - Length 0.8 0.8 1.2 -Area of Debridement (cm) - Width 0.8 0.7 0.8 -Total Square (Area) (cm) 0.64 0.56 0.96 -Tunneling No No No -Undermining/Tunneling No No No -Circular Undermining No No No -Wound/Ulcer Outcome Not Healed Not Healed Not Healed -Ulcer Cleansing Rinsed/ Rinsed/ Rinsed/ Irrigated with Irrigated with Irrigated with Saline Saline Saline -Foul Odor after Cleansing No No No -Bioengineered Tissue Yes Yes Yes -Type of Bioengineered Tissue Epifix 18mm Epifix 18mm Epifix 18mm Disc Disc Disc -Expiration Date 05/08/28 05/08/28 05/08/28 -Product Lot Number [id number] -Percent Used 100 100 100 -Lot number of Saline Used [id number] -Bleeding Controlled with Pressure Pressure Pressure -Treatment Response Procedure Procedure Procedure Tolerated Well Tolerated Well Tolerated Well -Offloading No No No -Debridement - Subq, 1st 20sq cm No No No -Apply Skin Sub - 1st 25 sq cm - Legs 1 1 1 -Epifix 18mm Disc 3 3 3 Pain Scale: 0-10 Numeric Is Patient Pain Free? Yes Yes Yes - Nurse 3 - General Ulcer D/C NN Start: 09/08/23 10:47 Freq: Status: Active Protocol: Activity Type Activity Date Activity User E-sign Co-sign Detail Recorded Client Recorded Date Recorded By Document 09/08/23 11:23 Laptop 09/08/23 11:24 Document 09/15/23 16:58 PL [id number] 09/15/23 16:59 PL Document 09/22/23 15:18 [facility] Desktop 09/22/23 15:19 [facility] 09/08/23 09/15/23 09/22/23 11:23 16:58 15:18 Wound Care Center Nurse 3 #1- R LAT ANKLE -Ulcer Cleansing Rinsed/ Rinsed/ Irrigated with Irrigated with Saline Saline -Foul Odor after Cleansing No No -Primary Dressing Applied Mepilex Border Mepilex Border Promogran Elizabeth Matter -Other Dressing EPIFIX; DRSG PER KW [employer] -Primary Dressing Covered/Secured with Dry Gauze & Roll Gauze, Secured with Tape -Mepilex Border 1 1 -Promogran Elizabeth Matter 1 Right -Tubular Bandage Single Layer Single Layer Single Layer -Size of Tubigrip Used Size D Size C Size D -Size C ($) 1 -Size D ($) 1 1 Treatment Response Procedure Tolerated Well Pain Scale: 0-10 Numeric Is Patient Pain Free? Yes Yes Yes - Visit Discharge Discharge Condition Stable Stable Stable Ambulatory Status Ambulatory, Ambulatory Ambulatory Walker Transportation Private Auto Private Auto Accompanied by Medication Reconcilliation completed & Yes provided to patient/care provider Clinical Summary of Care Provided Yes Assessment/Plan Assessment/Plan (1) Chronic ulcer of right ankle with fat layer exposed: CODE(S): L97.312 - Non-pressure chronic ulcer of right ankle with fat layer exposed PLAN: Patient was examined evaluated. All findings were discussed with the patient. All questions were answered to the patient's satisfaction. Excisional debridement down to and including subcutaneous tissue with number 5 mm dermal curette to the lateral right ankle ulceration. Predebridement measurements were 1.1 x 0.7 x 0.2 cm. Postdebridement measures 1.2 x 0.8 x 0.2 cm. EpiFix 18 mm disc to the right full-thickness ulceration lateral ankle with 100% use. Tenth application. The graft site was free and clear of any infection. The wound/skin graft substitute was dressed with nonadherent bandage secured in place with Steri-Strips followed by bolster dressing as well as a double layer Tubigrip. This will be the last application of the EpiFix. We will begin authorization for a negative pressure vacuum to assist in wound closure, SNAP. Once approved this will be applied hopefully next week. Patient will follow-up in 1 week for evaluation. (2) Pain in right ankle: CODE(S): M25.571 - Pain in right ankle and joints of right foot QUALIFIERS: Chronicity: chronic Qualified Code(s): M25.571 - Pain in right ankle and joints of right foot; G89.29 - Other chronic pain (3) Tinea pedis: CODE(S): B35.3 - Tinea pedis QUALIFIERS: Laterality: bilateral Qualified Code(s): B35.3 - Tinea pedis PLAN: Patient's foot fungus has resolved but to continue to apply antifungal cream twice per day if the redness reappears. Patient was understanding.
[2023-09-29 13:09] VITALS: BP 184/96; PULSE 86; RESP 18; TEMP 35.7; BMI 20.1
--- NOTE | 2023-09-29 14:23 | PCM.WC.PN ---
History of Present Illness Date of Service: 09/29/23 Chief Complaint: Full-thickness ulceration lateral ankle right History of Wound: Full-thickness ulceration right ankle since February 2023 Subjective Subjective Mrs. Barber is a 72-year-old female presenting to the wound care center at [facility] for follow-up evaluation of right ankle lateral ulceration. Patient has had 10 amniotic graft placed to the area and still has evidence of a full-thickness ulceration. She has been cleared for a negative pressure VAC that will be done today. She has been applying her antifungal cream to her bilateral feet with improvement. She denies trauma. Denies constitutional symptoms. No acute complaints at this time. Objective Data Objective Data Vital Signs: Vital Signs Temp Pulse Resp BP O2 Del Method 96.3 F L 86 18 184/96 H Room Air 09/29/23 13:09 09/29/23 13:09 09/29/23 13:09 09/29/23 13:09 09/22/23 14:34 Oxygen Delivery Method Room Air Weight: 49.895 kg Body Mass Index (BMI) 20.1 Physical Exam Narrative Neurovascular status unchanged. Full-thickness ulceration to the lateral aspect of the right ankle. Full-thickness ulceration measures 1.1 x 1.1 x 0.2 cm. Wound base is fibrogranular nature with no sign of infection. Evidence of macerated webspaces 1 through 4 bilateral, which is improving. Evidence of moccasin distribution, which is improving. No pain with calf compression. Excisional debridement down to and including subcutaneous tissue with number 5 mm dermal curette to the lateral right ankle ulceration. Predebridement measurements were 1.1 x 0.7 x 0.1 cm. Postdebridement measures 1.1 x 1.1 x 0.2 cm. Debridement Note Debridement Note Debridement Free Text: Excisional debridement down to and including subcutaneous tissue with number 5 mm dermal curette to the lateral right ankle ulceration. Predebridement measurements were 1.1 x 0.7 x 0.1 cm. Postdebridement measures 1.1 x 1.1 x 0.2 cm. Post-Debridement Measurements and Additional Note: Post-Debridement Measurements/Treatment MURIEL - Nurse 1 - General Ulcer Assessment Start: 09/08/23 10:47 Freq: Status: Active Protocol: TATI Activity Type Activity Date Activity User E-sign Co-sign Detail Recorded Client Recorded Date Recorded By Document 09/08/23 10:47 KW Desktop 09/08/23 10:57 KW Document 09/15/23 15:01 KW Desktop 09/15/23 15:03 KW Document 09/22/23 14:34 GM Desktop 09/22/23 14:42 GM Document 09/29/23 13:09 RB Desktop 09/29/23 13:14 RB 09/08/23 09/15/23 09/22/23 10:47 15:01 14:34 - Today's Visit Information Type of service Follow-up Visit Follow-up Visit Follow-up Visit (Physician/BOWLING BALL FINISHER (Physician/BOWLING BALL FINISHER (Physician/BOWLING BALL FINISHER ) ) ) Arrival Mode Ambulatory Ambulatory Ambulatory Transfer Assistance None Accompanied by Patient Identification Verified (Name & Yes Yes ) Patient Requires Transmission-Based No Precautions Safety Precautions Fall Prevention Height and Weight Body Mass Index (BMI) 20.1 20.1 20.1 BMI Classification Normal Normal Normal Vital Signs Temperature (97.8 F-99.1 F) 97.7 F L 96.5 F L Temperature Source Temporal Oral Temporal Pulse Rate (60-100) 76 83 Pulse Location Monitor Apical Monitor Respiratory Rate (12-18) 18 18 Respiratory rate source Observation Observation Oxygen Delivery Method Room Air Room Air Room Air Blood Pressure (90/60-120/80) 175/90 H 160/82 H Blood Pressure Mean (mm Hg) 118 108 Source Monitor Monitor Monitor Position Sitting Sitting Sitting Blood Pressure Location Left Arm Left Arm History Since Last Visit- (Skip if this is Patient's initial visit) Have you changed medications since your No No No last visit? Any new allergies or adverse reactions No No No Had a fall/change in ADL's that may No No No increase risk of falls Signs or symptoms of abuse and/or No No No neglect since last visit Have you been in the hospital since your No No No last visit? Has dressing in place as prescribed Yes Yes Yes Has compression in place as prescribed Yes Yes Yes Has offloadiing in place as prescribed No No N/A Experienced any changes in pain level or No No No management Left Footwear Regular Shoe Regular Shoe Regular Shoe Right Footwear Regular Shoe Regular Shoe Regular Shoe Pain Scale: 0-10 Numeric Is Patient Pain Free? Yes Yes Yes 09/29/23 13:09 - Today's Visit Information Type of service Follow-up Visit (Physician/BOWLING BALL FINISHER ) Arrival Mode Ambulatory Transfer Assistance None Accompanied by Patient Identification Verified (Name & Yes ) Patient Requires Transmission-Based No Precautions Safety Precautions Height and Weight Body Mass Index (BMI) 20.1 BMI Classification Normal Vital Signs Temperature (97.8 F-99.1 F) 96.3 F L Temperature Source Temporal Pulse Rate (60-100) 86 Pulse Location Monitor Respiratory Rate (12-18) 18 Respiratory rate source Observation Oxygen Delivery Method Blood Pressure (90/60-120/80) 184/96 H Blood Pressure Mean (mm Hg) 125 Source Monitor Position Semi-Fowlers Blood Pressure Location Right Arm History Since Last Visit- (Skip if this is Patient's initial visit) Have you changed medications since your No last visit? Any new allergies or adverse reactions No Had a fall/change in ADL's that may No increase risk of falls Signs or symptoms of abuse and/or No neglect since last visit Have you been in the hospital since your No last visit? Has dressing in place as prescribed Yes Has compression in place as prescribed Yes Has offloadiing in place as prescribed No Experienced any changes in pain level or No management Left Footwear Right Footwear Pain Scale: 0-10 Numeric Is Patient Pain Free? Yes - Nurse 1 - General Ulcer Measurement Start: 09/08/23 10:47 Freq: Status: Active Protocol: Activity Type Activity Date Activity User E-sign Co-sign Detail Recorded Client Recorded Date Recorded By Document 09/08/23 10:47 KW Desktop 09/08/23 10:57 KW Document 09/15/23 15:01 KW Desktop 09/15/23 15:03 KW Document 09/22/23 14:34 Desktop 09/22/23 14:42 Document 09/29/23 13:09 RB Desktop 09/29/23 13:14 RB 09/08/23 09/15/23 09/22/23 10:47 15:01 14:34 Wound Center Nurse 1 #1- R LAT ANKLE -Combined with other wound -Current Size (cm) - Length 0.4 1.1 -Current Size (cm) - Width 0.7 0.7 -Current Size (cm) - Depth 0.5 0.1 -Total Square Cm 0.28 0.77 -Photo Taken No -Epithelialization Small 1-33% -Tunneling No -Undermining/Tunneling No -Circular Undermining -Exudate Amt Small Small -Exudate Type Serosanguineous Yellow/Green -Wound Margin Thickened -Granulation Amt Small (1-33%) Small (1-33%) Medium (34-66%) -Granulation Quality [facility] [place] -Slough/Fibrin Yes -Necrosis Amt Medium (34-66%) Large (67-100%) Medium (34-66%) -Necrotic Tissue Type Adherent Slough Adherent Slough Adherent Slough -Structure Exposed N/A -Texture (Korin-wound Skin Appearance) Assessed, Assessed, Assessed Localized Edema Localized Edema -Moisture (Korin-wound Skin Appearance) Assessed Assessed Assessed -Color (Korin-wound Skin Appearance) Assessed, Assessed, Assessed, Erythema Erythema Cyanosis -Temperature (Korin-wound Skin No Abnormality No Abnormality No Abnormality Appearance) (Pt Warm) (Pt Warm) (Pt Warm) -Tenderness on Palpation (Korin-wound Skin Appearance) -Ulcer Cleansing Rinsed/ Rinsed/ Soap and Water Irrigated with Irrigated with Saline Saline -Foul Odor after Cleansing No No -Anesthetic Used 5% Lidocaine 5% Lidocaine 5% Lidocaine Gel Gel Gel -Wound Comment(s) Right Calf (cm) 30 32 Right Ankle (cm) 19.5 19.4 09/29/23 13:09 Wound Center Nurse 1 #1- R LAT ANKLE -Combined with other wound No -Current Size (cm) - Length 0.1 -Current Size (cm) - Width 0.1 -Current Size (cm) - Depth 0.1 -Total Square Cm 0.01 -Photo Taken -Epithelialization -Tunneling No -Undermining/Tunneling No -Circular Undermining No -Exudate Amt Medium -Exudate Type Serosanguineous -Wound Margin Distinct, Outline Attached -Granulation Amt Medium (34-66%) -Granulation Quality -Slough/Fibrin -Necrosis Amt -Necrotic Tissue Type -Structure Exposed -Texture (Korin-wound Skin Appearance) Assessed -Moisture (Korin-wound Skin Appearance) Assessed -Color (Korin-wound Skin Appearance) Assessed -Temperature (Korin-wound Skin No Abnormality Appearance) (Pt Warm) -Tenderness on Palpation (Korin-wound No Skin Appearance) -Ulcer Cleansing -Foul Odor after Cleansing No -Anesthetic Used 4% Lidocaine Solution -Wound Comment(s) steristrips and veil left in place as instructed per Dr Saini Right Calf (cm) 31 Right Ankle (cm) 20.2 - Nurse 2 - General Ulcer CM Notes Start: 09/08/23 10:47 Freq: Status: Active Protocol: Activity Type Activity Date Activity User E-sign Co-sign Detail Recorded Client Recorded Date Recorded By Document 09/08/23 11:10 Laptop 09/08/23 11:16 Document 09/15/23 15:49 Laptop 09/15/23 15:53 Document 09/22/23 15:04 Laptop 09/22/23 15:12 09/08/23 09/15/23 09/22/23 11:10 15:49 15:04 Wound Center Nurse 2 #1- R LAT ANKLE -Time 11:10 15:50 15:05 -Correct Patient Yes Yes Yes -Correct Side, Site, Position Yes Yes Yes -Correct Procedure Yes Yes Yes -Procedure Performed Yes Yes Yes -Type of Procedure Debridement Debridement Debridement -Clinical Debridement Subcutaneous Subcutaneous Subcutaneous -Tissue Removed Subcutaneous Subcutaneous Subcutaneous -Post Debridement (cm) - Length 0.8 0.8 1.2 -Post Debridement (cm) - Width 0.8 0.7 0.8 -Post Debridement (cm) - Depth 0.2 0.2 0.2 -Total Square (Post) (cm) 0.64 0.56 0.96 -Area of Debridement (cm) - Length 0.8 0.8 1.2 -Area of Debridement (cm) - Width 0.8 0.7 0.8 -Total Square (Area) (cm) 0.64 0.56 0.96 -Tunneling No No No -Undermining/Tunneling No No No -Circular Undermining No No No -Wound/Ulcer Outcome Not Healed Not Healed Not Healed -Ulcer Cleansing Rinsed/ Rinsed/ Rinsed/ Irrigated with Irrigated with Irrigated with Saline Saline Saline -Foul Odor after Cleansing No No No -Bioengineered Tissue Yes Yes Yes -Type of Bioengineered Tissue Epifix 18mm Epifix 18mm Epifix 18mm Disc Disc Disc -Expiration Date 05/08/28 05/08/28 05/08/28 -Product Lot Number [id number] -Percent Used 100 100 100 -Lot number of Saline Used [id number] -Bleeding Controlled with Pressure Pressure Pressure -Treatment Response Procedure Procedure Procedure Tolerated Well Tolerated Well Tolerated Well -Offloading No No No -Debridement - Subq, 1st 20sq cm No No No -Apply Skin Sub - 1st 25 sq cm - Legs 1 1 1 -Epifix 18mm Disc 3 3 3 Pain Scale: 0-10 Numeric Is Patient Pain Free? Yes Yes Yes - Nurse 3 - General Ulcer D/C NN Start: 09/08/23 10:47 Freq: Status: Active Protocol: Activity Type Activity Date Activity User E-sign Co-sign Detail Recorded Client Recorded Date Recorded By Document 09/08/23 11:23 Laptop 09/08/23 11:24 Document 09/15/23 16:58 PL [id number] 09/15/23 16:59 PL Document 09/22/23 15:18 [facility] Desktop 09/22/23 15:19 [facility] Document 09/29/23 14:02 RB Desktop 09/29/23 14:03 RB 09/08/23 09/15/23 09/22/23 11:23 16:58 15:18 Wound Care Center Nurse 3 #1- R LAT ANKLE -Ulcer Cleansing Rinsed/ Rinsed/ Irrigated with Irrigated with Saline Saline -Foul Odor after Cleansing No No -Negative Pressure Wound Therapy -Setting (mmHg) -Negative Pressure is -Primary Dressing Applied Mepilex Border Mepilex Border Promogran Elizabeth Matter -Other Dressing EPIFIX; DRSG PER KW KNAPSACK SPRAYER -Primary Dressing Covered/Secured with Dry Gauze & Roll Gauze, Secured with Tape -NPWT Application Charge -Mepilex Border 1 1 -Promogran Elizabeth Matter 1 Right -Tubular Bandage Single Layer Single Layer Single Layer -Size of Tubigrip Used Size D Size C Size D -Size C ($) 1 -Size D ($) 1 1 Treatment Response Procedure Tolerated Well Pain Scale: 0-10 Numeric Is Patient Pain Free? Yes Yes Yes - Visit Discharge Discharge Condition Stable Stable Stable Ambulatory Status Ambulatory, Ambulatory Ambulatory Walker Transportation Private Auto Private Auto Accompanied by Medication Reconcilliation completed & Yes provided to patient/care provider Clinical Summary of Care Provided Yes 11/22/23 14:02 Wound Care Center Nurse 3 #1- R LAT ANKLE -Ulcer Cleansing -Foul Odor after Cleansing -Negative Pressure Wound Therapy Continue -Setting (mmHg) 125 -Negative Pressure is Continuous -Primary Dressing Applied -Other Dressing -Primary Dressing Covered/Secured with -NPWT Application Charge NPWT & Debridement (nc ) -Mepilex Border -Promogran Elizabeth Matter Right -Tubular Bandage Single Layer -Size of Tubigrip Used Size D -Size C ($) -Size D ($) 1 Treatment Response Procedure Tolerated Well Pain Scale: 0-10 Numeric Is Patient Pain Free? Yes WC - Visit Discharge Discharge Condition Stable Ambulatory Status Ambulatory Transportation Private Auto Accompanied by Medication Reconcilliation completed & No provided to patient/care provider Clinical Summary of Care Provided Yes Assessment/Plan Assessment/Plan (1) Chronic ulcer of right ankle with fat layer exposed: CODE(S): L97.312 - Non-pressure chronic ulcer of right ankle with fat layer exposed PLAN: Patient was examined evaluated. All findings were discussed with the patient. All questions were answered to the patient satisfaction. Excisional debridement down to and including subcutaneous tissue with number 5 mm dermal curette to the lateral right ankle ulceration. Predebridement measurements were 1.1 x 0.7 x 0.1 cm. Postdebridement measures 1.1 x 1.1 x 0.2 cm. Amnio Salamanca was applied, 1.5 x 1.5 cm graft to the ulceration. Ulceration was covered with wound veil and Steri-Strips. The snap negative pressure wound VAC was applied without incident. Patient was educated to leave the snap VAC clean dry and intact do not remove or get wet. She will follow-up in 1 week for evaluation. Patient is to bring in her antifungal cream so that we may apply it to the ulceration for concerns of fungal infection. The patient will continue to apply the antifungal cream to her bilateral feet for her tinea pedis. Patient is grateful for her care and will follow-up in 1 week. If the patient shows evidence of nonhealing ulceration with negative pressure VAC and antifungal cream to the area will recommend follow-up with plastics for pedicle flap to the right lateral ankle chronic ulceration. (2) Tinea pedis: CODE(S): B35.3 - Tinea pedis QUALIFIERS: Laterality: bilateral Qualified Code(s): B35.3 - Tinea pedis (3) Pain in right ankle: CODE(S): M25.571 - Pain in right ankle and joints of right foot QUALIFIERS: Chronicity: chronic Qualified Code(s): M25.571 - Pain in right ankle and joints of right foot; G89.29 - Other chronic pain
[2023-10-06 13:46] VITALS: BP 154/73; PULSE 73; RESP 18; TEMP 36.4; BMI 20.1
--- NOTE | 2023-10-06 14:16 | PCM.WC.PN ---
History of Present Illness Date of Service: 10/06/23 Chief Complaint: Full-thickness ulceration lateral ankle right History of Wound: Full-thickness ulceration right ankle since February 2023 Subjective Subjective Mrs. Barber is a 73-year-old female presenting to the wound care center today for follow-up and evaluation of full-thickness ulceration to the lateral aspect of the right leg. Patient has kept her wound VAC clean dry and intact. She admits to knocking off the wound VAC that was replaced by her a few times during the week. Otherwise things have been uneventful. She denies any trauma. Denies constitutional symptoms. No other pedal complaints at this time. Objective Data Objective Data Vital Signs: Vital Signs Temp Pulse Resp BP O2 Del Method 97.6 F L 73 18 154/73 H Room Air 10/06/23 13:46 10/06/23 13:46 10/06/23 13:46 10/06/23 13:46 10/06/23 13:46 Oxygen Delivery Method Room Air Weight: 49.895 kg Body Mass Index (BMI) 20.1 Physical Exam Narrative Neurovascular status unchanged. Full-thickness ulceration to the lateral aspect of the right ankle. Full-thickness ulceration measures 1.0 x 1.0 x 0.3 cm. Wound base is fibrogranular nature with no sign of infection. Evidence of macerated webspaces 1 through 4 bilateral, which is improving. Evidence of moccasin distribution, which is improving. No pain with calf compression. Excisional debridement down to and including subcutaneous tissue with number 5 mm dermal curette to the lateral right ankle ulceration. Predebridement measurements were 0.9 x 1.0 x 0.3 cm. Postdebridement measures 1.0 x 1.0 x 0.3 cm. Debridement Note Debridement Note Debridement Free Text: Excisional debridement down to and including subcutaneous tissue with number 5 mm dermal curette to the lateral right ankle ulceration. Predebridement measurements were 0.9 x 1.0 x 0.3 cm. Postdebridement measures 1.0 x 1.0 x 0.3 cm. Post-Debridement Measurements and Additional Note: Post-Debridement Measurements/Treatment MURIEL - Nurse 1 - General Ulcer Assessment Start: 09/08/23 10:47 Freq: Status: Active Protocol: TATI Activity Type Activity Date Activity User E-sign Co-sign Detail Recorded Client Recorded Date Recorded By Document 11/01/23 10:47 KW Desktop 09/08/23 10:57 KW Document 09/15/23 15:01 KW Desktop 09/15/23 15:03 KW Document 09/22/23 14:34 GM Desktop 09/22/23 14:42 GM Document 09/29/23 13:09 RB Desktop 09/29/23 13:14 RB Document 10/06/23 13:46 KW Desktop 10/06/23 13:56 KW 09/08/23 09/15/23 09/22/23 10:47 15:01 14:34 WC - Today's Visit Information Type of service Follow-up Visit Follow-up Visit Follow-up Visit (Physician/SENIOR C SOFTWARE DEVELOPER (Physician/SENIOR C SOFTWARE DEVELOPER (Physician/SENIOR C SOFTWARE DEVELOPER ) ) ) Arrival Mode Ambulatory Ambulatory Ambulatory Transfer Assistance None Accompanied by Patient Identification Verified (Name & Yes Yes ) Patient Requires Transmission-Based No Precautions Safety Precautions Fall Prevention Height and Weight Body Mass Index (BMI) 20.1 20.1 20.1 BMI Classification Normal Normal Normal Vital Signs Temperature (97.8 F-99.1 F) 97.7 F L 96.5 F L Temperature Source Temporal Oral Temporal Pulse Rate (60-100) 76 83 Pulse Location Monitor Apical Monitor Respiratory Rate (12-18) 18 18 Respiratory rate source Observation Observation Oxygen Delivery Method Room Air Room Air Room Air Blood Pressure (90/60-120/80) 175/90 H 160/82 H Blood Pressure Mean (mm Hg) 118 108 Source Monitor Monitor Monitor Position Sitting Sitting Sitting Blood Pressure Location Left Arm Left Arm History Since Last Visit- (Skip if this is Patient's initial visit) Have you changed medications since your No No No last visit? Any new allergies or adverse reactions No No No Had a fall/change in ADL's that may No No No increase risk of falls Signs or symptoms of abuse and/or No No No neglect since last visit Have you been in the hospital since your No No No last visit? Has dressing in place as prescribed Yes Yes Yes Has compression in place as prescribed Yes Yes Yes Has offloadiing in place as prescribed No No N/A Experienced any changes in pain level or No No No management Left Footwear Regular Shoe Regular Shoe Regular Shoe Right Footwear Regular Shoe Regular Shoe Regular Shoe Pain Scale: 0-10 Numeric Is Patient Pain Free? Yes Yes Yes 09/29/23 10/06/23 13:09 13:46 WC - Today's Visit Information Type of service Follow-up Visit Follow-up Visit (Physician/SENIOR C SOFTWARE DEVELOPER (Physician/SENIOR C SOFTWARE DEVELOPER ) ) Arrival Mode Ambulatory Ambulatory Transfer Assistance None Accompanied by Patient Identification Verified (Name & Yes Yes ) Patient Requires Transmission-Based No Precautions Safety Precautions Height and Weight Body Mass Index (BMI) 20.1 20.1 BMI Classification Normal Normal Vital Signs Temperature (97.8 F-99.1 F) 96.3 F L 97.6 F L Temperature Source Temporal Temporal Pulse Rate (60-100) 86 73 Pulse Location Monitor Monitor Respiratory Rate (12-18) 18 18 Respiratory rate source Observation Observation Oxygen Delivery Method Room Air Blood Pressure (90/60-120/80) 184/96 H 154/73 H Blood Pressure Mean (mm Hg) 125 100 Source Monitor Monitor Position Semi-Fowlers Sitting Blood Pressure Location Right Arm Right Arm History Since Last Visit- (Skip if this is Patient's initial visit) Have you changed medications since your No No last visit? Any new allergies or adverse reactions No No Had a fall/change in ADL's that may No No increase risk of falls Signs or symptoms of abuse and/or No No neglect since last visit Have you been in the hospital since your No No last visit? Has dressing in place as prescribed Yes Yes Has compression in place as prescribed Yes Yes Has offloadiing in place as prescribed No Experienced any changes in pain level or No management Left Footwear Regular Shoe Right Footwear Regular Shoe Pain Scale: 0-10 Numeric Is Patient Pain Free? Yes Yes - Nurse 1 - General Ulcer Measurement Start: 09/08/23 10:47 Freq: Status: Active Protocol: Activity Type Activity Date Activity User E-sign Co-sign Detail Recorded Client Recorded Date Recorded By Document 09/08/23 10:47 KW Desktop 09/08/23 10:57 KW Document 09/15/23 15:01 KW Desktop 09/15/23 15:03 KW Document 09/22/23 14:34 GM Desktop 09/22/23 14:42 GM Document 09/29/23 13:09 RB Desktop 09/29/23 13:14 RB Document 10/06/23 13:46 KW Desktop 10/06/23 13:56 KW 09/08/23 09/15/23 09/22/23 10:47 15:01 14:34 Wound Center Nurse 1 #1- R LAT ANKLE -Combined with other wound -Current Size (cm) - Length 0.4 1.1 -Current Size (cm) - Width 0.7 0.7 -Current Size (cm) - Depth 0.5 0.1 -Total Square Cm 0.28 0.77 -Photo Taken No -Epithelialization Small 1-33% -Tunneling No -Undermining/Tunneling No -Circular Undermining -Exudate Amt Small Small -Exudate Type Serosanguineous Yellow/Green -Wound Margin Thickened -Granulation Amt Small (1-33%) Small (1-33%) Medium (34-66%) -Granulation Quality [place] -Slough/Fibrin Yes -Necrosis Amt Medium (34-66%) Large (67-100%) Medium (34-66%) -Necrotic Tissue Type Adherent Slough Adherent Slough Adherent Slough -Structure Exposed N/A -Texture (Korin-wound Skin Appearance) Assessed, Assessed, Assessed Localized Edema Localized Edema -Moisture (Korin-wound Skin Appearance) Assessed Assessed Assessed -Color (Korin-wound Skin Appearance) Assessed, Assessed, Assessed, Erythema Erythema Cyanosis -Temperature (Korin-wound Skin No Abnormality No Abnormality No Abnormality Appearance) (Pt Warm) (Pt Warm) (Pt Warm) -Tenderness on Palpation (Korin-wound Skin Appearance) -Ulcer Cleansing Rinsed/ Rinsed/ Soap and Water Irrigated with Irrigated with Saline Saline -Foul Odor after Cleansing No No -Anesthetic Used 5% Lidocaine 5% Lidocaine 5% Lidocaine Gel Gel Gel -Wound Comment(s) Right Calf (cm) 30 32 Right Ankle (cm) 19.5 19.4 09/29/23 10/06/23 13:09 13:46 Wound Center Nurse 1 #1- R LAT ANKLE -Combined with other wound No -Current Size (cm) - Length 0.1 0.9 -Current Size (cm) - Width 0.1 1.0 -Current Size (cm) - Depth 0.1 0.3 -Total Square Cm 0.01 0.90 -Photo Taken -Epithelialization -Tunneling No -Undermining/Tunneling No -Circular Undermining No -Exudate Amt Medium Small -Exudate Type Serosanguineous Serosanguineous -Wound Margin Distinct, Thickened Outline Attached -Granulation Amt Medium (34-66%) Small (1-33%) -Granulation Quality [place] -Slough/Fibrin -Necrosis Amt Large (67-100%) -Necrotic Tissue Type Adherent Slough -Structure Exposed -Texture (Korin-wound Skin Appearance) Assessed Assessed, Localized Edema -Moisture (Korin-wound Skin Appearance) Assessed Assessed -Color (Korin-wound Skin Appearance) Assessed Assessed, Erythema -Temperature (Korin-wound Skin No Abnormality No Abnormality Appearance) (Pt Warm) (Pt Warm) -Tenderness on Palpation (Korin-wound No Skin Appearance) -Ulcer Cleansing Soap and Water -Foul Odor after Cleansing No -Anesthetic Used 4% Lidocaine 5% Lidocaine Solution Gel -Wound Comment(s) steristrips and veil left in place as instructed per Dr Saini Right Calf (cm) 31 30.4 Right Ankle (cm) 20.2 21.1 WC - Nurse 2 - General Ulcer CM Notes Start: 09/08/23 10:47 Freq: Status: Active Protocol: Activity Type Activity Date Activity User E-sign Co-sign Detail Recorded Client Recorded Date Recorded By Document 09/08/23 11:10 Laptop 09/08/23 11:16 Document 09/15/23 15:49 Laptop 09/15/23 15:53 Document 09/22/23 15:04 Laptop 09/22/23 15:12 Document 09/29/23 16:36 PL [id number] 09/29/23 16:37 PL Document 10/06/23 14:13 Laptop 10/06/23 14:15 09/08/23 09/15/23 09/22/23 11:10 15:49 15:04 Wound Center Nurse 2 #1- R LAT ANKLE -Time 11:10 15:50 15:05 -Correct Patient Yes Yes Yes -Correct Side, Site, Position Yes Yes Yes -Correct Procedure Yes Yes Yes -Procedure Performed Yes Yes Yes -Type of Procedure Debridement Debridement Debridement -Clinical Debridement Subcutaneous Subcutaneous Subcutaneous -Tissue Removed Subcutaneous Subcutaneous Subcutaneous -Post Debridement (cm) - Length 0.8 0.8 1.2 -Post Debridement (cm) - Width 0.8 0.7 0.8 -Post Debridement (cm) - Depth 0.2 0.2 0.2 -Total Square (Post) (cm) 0.64 0.56 0.96 -Area of Debridement (cm) - Length 0.8 0.8 1.2 -Area of Debridement (cm) - Width 0.8 0.7 0.8 -Total Square (Area) (cm) 0.64 0.56 0.96 -Tunneling No No No -Undermining/Tunneling No No No -Circular Undermining No No No -Wound/Ulcer Outcome Not Healed Not Healed Not Healed -Ulcer Cleansing Rinsed/ Rinsed/ Rinsed/ Irrigated with Irrigated with Irrigated with Saline Saline Saline -Foul Odor after Cleansing No No No -Bioengineered Tissue Yes Yes Yes -Type of Bioengineered Tissue Epifix 18mm Epifix 18mm Epifix 18mm Disc Disc Disc -Expiration Date 05/08/28 05/08/28 05/08/28 -Product Lot Number [id number] -Percent Used 100 100 100 -Lot number of Saline Used [id number] -Bleeding Controlled with Pressure Pressure Pressure -Treatment Response Procedure Procedure Procedure Tolerated Well Tolerated Well Tolerated Well -Offloading No No No -Debridement - Subq, 1st 20sq cm No No No -Apply Skin Sub - 1st 25 sq cm - Legs 1 1 1 -Epifix 18mm Disc 3 3 3 Pain Scale: 0-10 Numeric Is Patient Pain Free? Yes Yes Yes 09/29/23 10/06/23 16:36 14:13 Wound Center Nurse 2 #1- R LAT ANKLE -Time 13:36 14:14 -Correct Patient Yes Yes -Correct Side, Site, Position Yes Yes -Correct Procedure Yes Yes -Procedure Performed Yes Yes -Type of Procedure Debridement Debridement -Clinical Debridement Subcutaneous Subcutaneous -Tissue Removed Subcutaneous Subcutaneous -Post Debridement (cm) - Length 1.1 1.0 -Post Debridement (cm) - Width 1.1 1.0 -Post Debridement (cm) - Depth 0.2 0.3 -Total Square (Post) (cm) 1.21 1.00 -Area of Debridement (cm) - Length 1.1 1.0 -Area of Debridement (cm) - Width 1.1 1 -Total Square (Area) (cm) 1.21 1.0 -Tunneling No No -Undermining/Tunneling No No -Circular Undermining No No -Wound/Ulcer Outcome Not Healed Not Healed -Ulcer Cleansing Rinsed/ Rinsed/ Irrigated with Irrigated with Saline Saline -Foul Odor after Cleansing No No -Bioengineered Tissue No No -Type of Bioengineered Tissue -Expiration Date -Product Lot Number -Percent Used -Lot number of Saline Used -Bleeding Controlled with Pressure Pressure -Treatment Response Procedure Procedure Tolerated Well Tolerated Well -Offloading No -Debridement - Subq, 1st 20sq cm Yes Yes -Apply Skin Sub - 1st 25 sq cm - Legs -Epifix 18mm Disc Pain Scale: 0-10 Numeric Is Patient Pain Free? Yes Yes - Nurse 3 - General Ulcer D/C NN Start: 09/08/23 10:47 Freq: Status: Active Protocol: Activity Type Activity Date Activity User E-sign Co-sign Detail Recorded Client Recorded Date Recorded By Document 09/08/23 11:23 [employer] Laptop 09/08/23 11:24 Document 09/15/23 16:58 PL [id number] 09/15/23 16:59 PL Document 09/22/23 15:18 [facility] Desktop 09/22/23 15:19 BM Document 09/29/23 14:02 RB Desktop 09/29/23 14:03 RB 09/08/23 09/15/23 09/22/23 11:23 16:58 15:18 Wound Care Center Nurse 3 #1- R LAT ANKLE -Ulcer Cleansing Rinsed/ Rinsed/ Irrigated with Irrigated with Saline Saline -Foul Odor after Cleansing No No -Negative Pressure Wound Therapy -Setting (mmHg) -Negative Pressure is -Primary Dressing Applied Mepilex Border Mepilex Border Promogran Elizabeth Matter -Other Dressing EPIFIX; DRSG PER KW HELP AID -Primary Dressing Covered/Secured with Dry Gauze & Roll Gauze, Secured with Tape -NPWT Application Charge -Mepilex Border 1 1 -Promogran Elizabeth Matter 1 Right -Tubular Bandage Single Layer Single Layer Single Layer -Size of Tubigrip Used Size D Size C Size D -Size C ($) 1 -Size D ($) 1 1 Treatment Response Procedure Tolerated Well Pain Scale: 0-10 Numeric Is Patient Pain Free? Yes Yes Yes - Visit Discharge Discharge Condition Stable Stable Stable Ambulatory Status Ambulatory, Ambulatory Ambulatory Walker Transportation Private Auto Private Auto Accompanied by Medication Reconcilliation completed & Yes provided to patient/care provider Clinical Summary of Care Provided Yes 09/29/23 14:02 Wound Care Center Nurse 3 #1- R LAT ANKLE -Ulcer Cleansing -Foul Odor after Cleansing -Negative Pressure Wound Therapy Continue -Setting (mmHg) 125 -Negative Pressure is Continuous -Primary Dressing Applied -Other Dressing -Primary Dressing Covered/Secured with -NPWT Application Charge NPWT & Debridement (nc ) -Mepilex Border -Promogran Elizabeth Matter Right -Tubular Bandage Single Layer -Size of Tubigrip Used Size D -Size C ($) -Size D ($) 1 Treatment Response Procedure Tolerated Well Pain Scale: 0-10 Numeric Is Patient Pain Free? Yes WC - Visit Discharge Discharge Condition Stable Ambulatory Status Ambulatory Transportation Private Auto Accompanied by Medication Reconcilliation completed & No provided to patient/care provider Clinical Summary of Care Provided Yes Assessment/Plan Assessment/Plan (1) Chronic ulcer of right ankle with fat layer exposed: CODE(S): L97.312 - Non-pressure chronic ulcer of right ankle with fat layer exposed PLAN: Patient was examined evaluated. All findings were discussed with the patient. All questions were answered to the patient satisfaction Excisional debridement down to and including subcutaneous tissue with number 5 mm dermal curette to the lateral right ankle ulceration. Predebridement measurements were 0.9 x 1.0 x 0.3 cm. Postdebridement measures 1.0 x 1.0 x 0.3 cm. The right ankle ulceration was dressed with amnion XL, clotrimazole 1%, bolster dressing and snap wound VAC was applied. Patient was instructed leave the wound VAC clean dry and intact. She is continue to apply antifungal cream to her bilateral feet to continue treatment for her foot fungus. Her was understanding of this. She is to take all medications as written. Follow-up in 1 week for evaluation. Set the office pleased with the visit. The patient is supposed to follow-up with my private office for surgical consultation. Since the wound is looking more improved I educated the patient to cancel their appointment as we will continue conservative treatment at this time. (2) Pain in right ankle: CODE(S): M25.571 - Pain in right ankle and joints of right foot QUALIFIERS: Chronicity: chronic Qualified Code(s): M25.571 - Pain in right ankle and joints of right foot; G89.29 - Other chronic pain (3) Tinea pedis: CODE(S): B35.3 - Tinea pedis QUALIFIERS: Laterality: bilateral Qualified Code(s): B35.3 - Tinea pedis
== END 2023-10-07 23:59 | disposition home or self-care (01) ==
LOC: WC 14:00
PROVIDERS: PCP Internal Medicine; Referring Provider Podiatrist Foot & Ankle Surgery; Visit Provider Podiatrist Foot & Ankle Surgery
DX: L97.312 Non-pressure chronic ulcer of right ankle with fat layer exposed (principal); B35.3 Tinea pedis; M25.571 Pain in right ankle and joints of right foot
CPT/HCPCS: 11042; 15271; Q4186

== ENCOUNTER 2023-11-03 14:00 | Outpatient (RCR) | payer MEDICARE, SELFPAY ==
[2023-10-08 00:10] VITALS: BP 154/73; PULSE 73; RESP 18; TEMP 36.4; BMI 20.1
[2023-10-13 13:52] VITALS: BP 160/79; PULSE 77; RESP 20; TEMP 36.4; BMI 20.1
--- NOTE | 2023-10-13 15:12 | PN.PCM_ITS ---
History of Present Illness Date of Service: 10/13/23 Chief Complaint: Full-thickness ulceration lateral ankle right History of Wound: Full-thickness ulceration right ankle since February 2023 Subjective Subjective Mrs. Barber is a 73-year-old female presenting to the wound care center today for follow-up and evaluation of full-thickness ulceration to the lateral aspect of the right leg. Patient has kept her wound VAC clean dry and intact. She denies any trauma. Denies constitutional symptoms. No other pedal complaints at this time. Objective Data Objective Data Vital Signs: Vital Signs Temp Pulse Resp BP 97.6 F L 77 20 H 160/79 H 10/13/23 13:52 10/13/23 13:52 10/13/23 13:52 10/13/23 13:52 Weight: 49.895 kg Body Mass Index (BMI) 20.1 Physical Exam Narrative Neurovascular status unchanged. Full-thickness ulceration to the lateral aspect of the right ankle. Full-thickness ulceration measures 1.0 x 1.0 x 0.3 cm. Wound base is fibrogranular nature with no sign of infection. Evidence of macerated webspaces 1 through 4 bilateral, which is improving. Evidence of moccasin distribution, which is improving. No pain with calf compression. Excisional debridement down to and including subcutaneous tissue with number 5 mm dermal curette to the lateral right ankle ulceration. Predebridement measurements were 0.9 x 1.0 x 0.1 cm. Postdebridement measures 1.1 x 1.0 x 0.2 cm. Debridement Note Debridement Note Debridement Free Text: Excisional debridement down to and including subcutaneous tissue with number 5 mm dermal curette to the lateral right ankle ulceration. Predebridement measurements were 0.9 x 1.0 x 0.1 cm. Postdebridement measures 1.1 x 1.0 x 0.2 cm. Post-Debridement Measurements and Additional Note: Post-Debridement Measurements/Treatment MURIEL - Nurse 1 - General Ulcer Assessment Start: 10/13/23 13:49 Freq: Status: Active Protocol: TATI Activity Type Activity Date Activity User E-sign Co-sign Detail Recorded Client Recorded Date Recorded By Document 10/13/23 13:52 DL Desktop 10/13/23 14:00 DL 10/13/23 13:52 - Today's Visit Information Type of service Follow-up Visit (Physician/LOCUM TENENS PSYCHIATRIST ) Arrival Mode Ambulatory Transfer Assistance None Patient Identification Verified (Name & Yes ) Patient Requires Transmission-Based No Precautions Height and Weight Body Mass Index (BMI) 20.1 BMI Classification Normal Vital Signs Temperature (97.8 F-99.1 F) 97.6 F L Temperature Source Temporal Pulse Rate (60-100) 77 Pulse Location Monitor Respiratory Rate (12-18) 20 H Respiratory rate source Observation Blood Pressure (90/60-120/80) 160/79 H Blood Pressure Mean (mm Hg) 106 Source Monitor History Since Last Visit- (Skip if this is Patient's initial visit) Have you changed medications since your No last visit? Any new allergies or adverse reactions No Had a fall/change in ADL's that may No increase risk of falls Signs or symptoms of abuse and/or No neglect since last visit Have you been in the hospital since your No last visit? Has dressing in place as prescribed Yes Has compression in place as prescribed Yes Has offloadiing in place as prescribed N/A Experienced any changes in pain level or No management Left Footwear Regular Shoe Right Footwear Regular Shoe Pain Scale: 0-10 Numeric Is Patient Pain Free? Yes WC - Nurse 1 - General Ulcer Measurement Start: 10/13/23 13:49 Freq: Status: Active Protocol: Activity Type Activity Date Activity User E-sign Co-sign Detail Recorded Client Recorded Date Recorded By Document 10/13/23 13:52 DL Desktop 10/13/23 14:00 DL 10/13/23 13:52 Wound Center Nurse 1 #1- R LAT ANKLE -Current Size (cm) - Length 1.1 -Current Size (cm) - Width 0.9 -Current Size (cm) - Depth 0.2 -Total Square Cm 0.99 -Exudate Amt Medium -Wound Margin Distinct, Outline Attached -Granulation Amt Small (1-33%) -Granulation Quality [place],Red -Necrosis Amt Small (1-33%) -Necrotic Tissue Type Adherent Slough -Structure Exposed N/A -Texture (Korin-wound Skin Appearance) Scarring -Moisture (Korin-wound Skin Appearance) No Abnormality -Color (Korin-wound Skin Appearance) No Abnormality -Temperature (Korin-wound Skin No Abnormality Appearance) (Pt Warm) -Tenderness on Palpation (Korin-wound No Skin Appearance) -Ulcer Cleansing Soap and Water -Foul Odor after Cleansing No -Anesthetic Used 5% Lidocaine Gel Right Calf (cm) 30.2 Right Ankle (cm) 19.4 - Nurse 2 - General Ulcer CM Notes Start: 10/13/23 13:49 Freq: Status: Active Protocol: Activity Type Activity Date Activity User E-sign Co-sign Detail Recorded Client Recorded Date Recorded By Document 10/13/23 14:16 Laptop 10/13/23 14:19 10/13/23 14:16 Wound Center Nurse 2 #1- R LAT ANKLE -Time 14:16 -Correct Patient Yes -Correct Side, Site, Position Yes -Correct Procedure Yes -Procedure Performed Yes -Type of Procedure Debridement -Clinical Debridement Subcutaneous -Tissue Removed Subcutaneous -Post Debridement (cm) - Length 1.1 -Post Debridement (cm) - Width 1.0 -Post Debridement (cm) - Depth 0.2 -Total Square (Post) (cm) 1.10 -Area of Debridement (cm) - Length 1.1 -Area of Debridement (cm) - Width 1.0 -Total Square (Area) (cm) 1.10 -Tunneling No -Undermining/Tunneling No -Wound/Ulcer Outcome Not Healed -Ulcer Cleansing Rinsed/ Irrigated with Saline -Foul Odor after Cleansing No -Bioengineered Tissue No -Bleeding Controlled with Pressure -Treatment Response Procedure Tolerated Well -Offloading No -Debridement - Subq, 1st 20sq cm Yes Pain Scale: 0-10 Numeric Is Patient Pain Free? Yes - Nurse 3 - General Ulcer D/C NN Start: 10/13/23 13:49 Freq: Status: Active Protocol: Activity Type Activity Date Activity User E-sign Co-sign Detail Recorded Client Recorded Date Recorded By Document 10/13/23 14:38 DL Desktop 10/13/23 14:39 DL 10/13/23 14:38 Wound Care Center Nurse 3 #1- R LAT ANKLE -Ulcer Cleansing Rinsed/ Irrigated with Saline -Foul Odor after Cleansing No -Negative Pressure Wound Therapy Continue -Setting (mmHg) 125 -Negative Pressure is Continuous -Other Covering tubigrip -NPWT Application Charge NPWT & Debridement (nc ) Treatment Response Procedure Tolerated Well Pain Scale: 0-10 Numeric Is Patient Pain Free? Yes - Visit Discharge Discharge Condition Stable Ambulatory Status Ambulatory Transportation Private Auto Accompanied by Assessment/Plan Assessment/Plan (1) Chronic ulcer of right ankle with fat layer exposed: CODE(S): L97.312 - Non-pressure chronic ulcer of right ankle with fat layer exposed PLAN: Patient was examined and evaluated. All findings were discussed with the patient. All questions were answered to the patient's satisfaction. Excisional debridement down to and including subcutaneous tissue with number 5 mm dermal curette to the lateral right ankle ulceration. Predebridement measurements were 0.9 x 1.0 x 0.1 cm. Postdebridement measures 1.1 x 1.0 x 0.2 cm. Snap VAC was placed to the patient's right lower extremity. Patient was instructed to leave it clean dry and intact. She will follow-up in 1 week for reapplication. She left the office pleased with the visit. If the patient shows evidence see of nonhealing to the wound I will recommend the patient be referred to plastics for flap treatment consisting of either muscle flap or pedicle rotation flap. (2) Pain in right ankle: CODE(S): M25.571 - Pain in right ankle and joints of right foot QUALIFIERS: Chronicity: chronic Qualified Code(s): M25.571 - Pain in right ankle and joints of right foot; G89.29 - Other chronic pain
[2023-10-20 13:52] VITALS: BP 142/83; PULSE 73; RESP 16; BMI 20.1
--- NOTE | 2023-10-20 15:53 | PN.PCM_ITS ---
History of Present Illness Date of Service: 10/20/23 Chief Complaint: Full-thickness ulceration lateral ankle right History of Wound: Full-thickness ulceration right ankle since February 2023 Subjective Subjective Mrs. Barber is a 73-year-old female presenting to the wound care center today for follow-up and evaluation of full-thickness ulceration to the lateral aspect of the right leg. Patient has kept her wound VAC clean dry and intact. She denies any trauma. Denies constitutional symptoms. No other pedal complaints at this time. Objective Data Objective Data Vital Signs: Vital Signs Temp Pulse Resp BP O2 Del Method 97.6 F L 73 16 142/83 H Room Air 10/13/23 13:52 10/20/23 13:52 10/20/23 13:52 10/20/23 13:52 10/20/23 13:52 Oxygen Delivery Method Room Air Weight: 49.895 kg Body Mass Index (BMI) 20.1 Physical Exam Narrative Neurovascular status unchanged. Full-thickness ulceration to the lateral aspect of the right ankle. Full-thickness ulceration measures 1.0 x 1.0 x 0.3 cm. Wound base is fibrogranular nature with no sign of infection. Evidence of macerated webspaces 1 through 4 bilateral, which is improving. Evidence of moccasin distribution, which is improving. No pain with calf compression. Excisional debridement down to and including subcutaneous tissue with number 5 mm dermal curette to the lateral right ankle ulceration. Predebridement measurements were 0.9 x 1.0 x 0.2 cm. Postdebridement measures 1.1 x 1.0 x 0.3 cm. Debridement Note Debridement Note Debridement Free Text: Excisional debridement down to and including subcutaneous tissue with number 5 mm dermal curette to the lateral right ankle ulceration. Predebridement measurements were 0.9 x 1.0 x 0.2 cm. Postdebridement measures 1.1 x 1.0 x 0.3 cm. Post-Debridement Measurements and Additional Note: Post-Debridement Measurements/Treatment WC - Nurse 1 - General Ulcer Assessment Start: 10/13/23 13:49 Freq: Status: Active Protocol: [email or web address] Activity Type Activity Date Activity User E-sign Co-sign Detail Recorded Client Recorded Date Recorded By Document 10/13/23 13:52 DL Desktop 10/13/23 14:00 DL Document 10/20/23 13:52 KW Desktop 10/20/23 13:56 KW 10/13/23 10/20/23 13:52 13:52 - Today's Visit Information Type of service Follow-up Visit Follow-up Visit (Physician/GROCERY BUYER (Physician/GROCERY BUYER ) ) Arrival Mode Ambulatory Ambulatory Transfer Assistance None None Accompanied by Patient Identification Verified (Name & Yes Yes ) Patient Requires Transmission-Based No No Precautions Height and Weight Body Mass Index (BMI) 20.1 20.1 BMI Classification Normal Normal Vital Signs Temperature (97.8 F-99.1 F) 97.6 F L Temperature Source Temporal Pulse Rate (60-100) 77 73 Pulse Location Monitor Monitor Respiratory Rate (12-18) 20 H 16 Respiratory rate source Observation Observation Oxygen Delivery Method Room Air Blood Pressure (90/60-120/80) 160/79 H 142/83 H Blood Pressure Mean (mm Hg) 106 102 Source Monitor Monitor Position Sitting Blood Pressure Location Right Arm History Since Last Visit- (Skip if this is Patient's initial visit) Have you changed medications since your No No last visit? Any new allergies or adverse reactions No No Had a fall/change in ADL's that may No No increase risk of falls Signs or symptoms of abuse and/or No No neglect since last visit Have you been in the hospital since your No No last visit? Has dressing in place as prescribed Yes Yes Has compression in place as prescribed Yes Yes Has offloadiing in place as prescribed N/A N/A Experienced any changes in pain level or No No management Left Footwear Regular Shoe Regular Shoe Right Footwear Regular Shoe Regular Shoe Pain Scale: 0-10 Numeric Is Patient Pain Free? Yes Yes - Nurse 1 - General Ulcer Measurement Start: 10/13/23 13:49 Freq: Status: Active Protocol: Activity Type Activity Date Activity User E-sign Co-sign Detail Recorded Client Recorded Date Recorded By Document 10/13/23 13:52 DL Desktop 10/13/23 14:00 DL Document 10/20/23 13:52 KW Desktop 10/20/23 13:56 KW 10/13/23 10/20/23 13:52 13:52 Wound Center Nurse 1 #1- R LAT ANKLE -Combined with other wound No -Current Size (cm) - Length 1.1 1.9 -Current Size (cm) - Width 0.9 1 -Current Size (cm) - Depth 0.2 0.3 -Total Square Cm 0.99 1.9 -Tunneling No -Undermining/Tunneling No -Circular Undermining No -Exudate Amt Medium Medium -Exudate Type Serosanguineous -Wound Margin Distinct, Distinct, Outline Outline Attached Attached -Granulation Amt Small (1-33%) Small (1-33%) -Granulation Quality [place],Red Red -Slough/Fibrin Yes -Necrosis Amt Small (1-33%) Large (67-100%) -Necrotic Tissue Type Adherent Slough Adherent Slough -Structure Exposed N/A -Texture (Korin-wound Skin Appearance) Scarring Assessed, Localized Edema ,Scarring -Moisture (Korin-wound Skin Appearance) No Abnormality Assessed, Maceration -Color (Korin-wound Skin Appearance) No Abnormality Assessed, Erythema -Temperature (Korin-wound Skin No Abnormality No Abnormality Appearance) (Pt Warm) (Pt Warm) -Tenderness on Palpation (Korin-wound No Yes Skin Appearance) -Ulcer Cleansing Soap and Water Soap and Water -Foul Odor after Cleansing No No -Anesthetic Used 5% Lidocaine 5% Lidocaine Gel Gel Right Calf (cm) 30.2 31 Right Ankle (cm) 19.4 20 - Nurse 2 - General Ulcer CM Notes Start: 10/13/23 13:49 Freq: Status: Active Protocol: Activity Type Activity Date Activity User E-sign Co-sign Detail Recorded Client Recorded Date Recorded By Document 10/13/23 14:16 Laptop 10/13/23 14:19 Document 10/20/23 14:16 Desktop 10/20/23 14:17 10/13/23 10/20/23 14:16 14:16 Wound Center Nurse 2 #1- R LAT ANKLE -Time 14:16 14:17 -Correct Patient Yes Yes -Correct Side, Site, Position Yes Yes -Correct Procedure Yes Yes -Procedure Performed Yes Yes -Type of Procedure Debridement Debridement -Clinical Debridement Subcutaneous Muscle / Fascia -Tissue Removed Subcutaneous Muscle,Fascia -Post Debridement (cm) - Length 1.1 1.1 -Post Debridement (cm) - Width 1.0 1.0 -Post Debridement (cm) - Depth 0.2 0.3 -Total Square (Post) (cm) 1.10 1.10 -Area of Debridement (cm) - Length 1.1 1.1 -Area of Debridement (cm) - Width 1.0 1.0 -Total Square (Area) (cm) 1.10 1.10 -Tunneling No No -Undermining/Tunneling No No -Circular Undermining No -Wound/Ulcer Outcome Not Healed Not Healed -Ulcer Cleansing Rinsed/ Rinsed/ Irrigated with Irrigated with Saline Saline -Foul Odor after Cleansing No No -Bioengineered Tissue No No -Bleeding Controlled with Pressure Pressure -Treatment Response Procedure Procedure Tolerated Well Tolerated Well -Offloading No No -Debridement - Subq, 1st 20sq cm Yes -Debridement - Muscle / Fascia, 1st Yes 20sq cm Pain Scale: 0-10 Numeric Is Patient Pain Free? Yes Yes - Nurse 3 - General Ulcer D/C NN Start: 10/13/23 13:49 Freq: Status: Active Protocol: Activity Type Activity Date Activity User E-sign Co-sign Detail Recorded Client Recorded Date Recorded By Document 10/13/23 14:38 DL Desktop 10/13/23 14:39 DL Document 10/20/23 15:01 KW Desktop 10/20/23 15:01 KW 10/13/23 10/20/23 14:38 15:01 Wound Care Center Nurse 3 #1- R LAT ANKLE -Ulcer Cleansing Rinsed/ Irrigated with Saline -Foul Odor after Cleansing No -Negative Pressure Wound Therapy Continue -Setting (mmHg) 125 125 -Negative Pressure is Continuous Continuous -Other Covering tubigrip -NPWT Application Charge NPWT & Debridement (nc ) Treatment Response Procedure Tolerated Well Pain Scale: 0-10 Numeric Is Patient Pain Free? 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 All findings were discussed with the patient. All questions were answered to the patient's satisfaction. Excisional debridement down to and including subcutaneous tissue with number 5 mm dermal curette to the lateral right ankle ulceration. Predebridement measurements were 0.9 x 1.0 x 0.2 cm. Postdebridement measures 1.1 x 1.0 x 0.3 cm. Patient's ulceration was dressed with snap wound VAC. Patient was instructed to leave the VAC clean dry and intact and not removed. Educated the patient that she needs to rest and elevate and watch her standing and walking. She was understanding of this Will begin to book the patient for excisional debridement, skin graft prep with application of skin graft to the right lateral full-thickness ulceration. Follow-up in 1 week. (2) Pain in right ankle: CODE(S): M25.571 - Pain in right ankle and joints of right foot QUALIFIERS: Chronicity: chronic Qualified Code(s): M25.571 - Pain in right ankle and joints of right foot; G89.29 - Other chronic pain (3) Tinea pedis: CODE(S): B35.3 - Tinea pedis QUALIFIERS: Laterality: bilateral Qualified Code(s): B35.3 - Tinea pedis PLAN: Patient's tinea pedis of bilateral lower extremity has resolved.
[2023-10-27 13:45] VITALS: BP 147/68; PULSE 75; RESP 20; TEMP 36.4; BMI 20.1
--- NOTE | 2023-10-27 14:11 | PCM.WC.PN ---
History of Present Illness Date of Service: 10/27/23 Chief Complaint: Full-thickness ulceration lateral ankle right History of Wound: Full-thickness ulceration right ankle since February 2023 Subjective Subjective Mrs. Barber is a 73-year-old female presenting to the wound care center today for follow-up and evaluation of full-thickness ulceration to the lateral aspect of the right leg. Patient has kept her wound VAC clean dry and intact. She denies any trauma. Denies constitutional symptoms. No other pedal complaints at this time. Objective Data Objective Data Vital Signs: Vital Signs Temp Pulse Resp BP O2 Del Method 97.6 F L 75 20 H 147/68 H Room Air 10/27/23 13:45 10/27/23 13:45 10/27/23 13:45 10/27/23 13:45 10/20/23 13:52 Oxygen Delivery Method Room Air Weight: 49.895 kg Body Mass Index (BMI) 20.1 Physical Exam Narrative Neurovascular status unchanged. Full-thickness ulceration to the lateral aspect of the right ankle. Full-thickness ulceration measures 1.0 x 1.0 x 0.4 cm. Wound base is fibrogranular nature with no sign of infection. Evidence of macerated webspaces 1 through 4 bilateral, which is improving. Evidence of moccasin distribution, which is improving. No pain with calf compression. Excisional debridement down to and including subcutaneous tissue, fascia, muslce and bone with number 15 blade to the lateral right ankle ulceration. Predebridement measurements were 0.9 x 0.9 x 0.2 cm. Postdebridement measures 1.0 x 1.0 x 0.4 cm Debridement Note Debridement Note Debridement Free Text: Excisional debridement down to and including subcutaneous tissue, fascia, muslce and bone with number 15 blade to the lateral right ankle ulceration. Predebridement measurements were 0.9 x 0.9 x 0.2 cm. Postdebridement measures 1.0 x 1.0 x 0.4 cm Post-Debridement Measurements and Additional Note: Post-Debridement Measurements/Treatment WC - Nurse 1 - General Ulcer Assessment Start: 10/13/23 13:49 Freq: Status: Active Protocol: [email or web address] Activity Type Activity Date Activity User E-sign Co-sign Detail Recorded Client Recorded Date Recorded By Document 10/13/23 13:52 DL Desktop 10/13/23 14:00 DL Document 10/20/23 13:52 KW Desktop 10/20/23 13:56 KW Document 10/27/23 13:45 DL Desktop 10/27/23 13:51 DL 10/13/23 10/20/23 10/27/23 13:52 13:52 13:45 WC - Today's Visit Information Type of service Follow-up Visit Follow-up Visit Follow-up Visit (Physician/CONCRETE PRECAST MOULDER (Physician/CONCRETE PRECAST MOULDER (Physician/CONCRETE PRECAST MOULDER ) ) ) Arrival Mode Ambulatory Ambulatory Ambulatory Transfer Assistance None None None Accompanied by Patient Identification Verified (Name & Yes Yes Yes ) Patient Requires Transmission-Based No No No Precautions Height and Weight Body Mass Index (BMI) 20.1 20.1 20.1 BMI Classification Normal Normal Normal Vital Signs Temperature (97.8 F-99.1 F) 97.6 F L 97.6 F L Temperature Source Temporal Temporal Pulse Rate (60-100) 77 73 75 Pulse Location Monitor Monitor Monitor Respiratory Rate (12-18) 20 H 16 20 H Respiratory rate source Observation Observation Observation Oxygen Delivery Method Room Air Blood Pressure (90/60-120/80) 160/79 H 142/83 H 147/68 H Blood Pressure Mean (mm Hg) 106 102 94 Source Monitor Monitor Monitor Position Sitting Blood Pressure Location Right Arm History Since Last Visit- (Skip if this is Patient's initial visit) Have you changed medications since your No No No last visit? Any new allergies or adverse reactions No No No Had a fall/change in ADL's that may No No No increase risk of falls Signs or symptoms of abuse and/or No No No neglect since last visit Have you been in the hospital since your No No No last visit? Has dressing in place as prescribed Yes Yes Yes Has compression in place as prescribed Yes Yes Yes Has offloadiing in place as prescribed N/A N/A N/A Experienced any changes in pain level or No No No management Left Footwear Regular Shoe Regular Shoe Slipper Right Footwear Regular Shoe Regular Shoe Regular Shoe Pain Scale: 0-10 Numeric Is Patient Pain Free? Yes Yes Yes WC - Nurse 1 - General Ulcer Measurement Start: 10/13/23 13:49 Freq: Status: Active Protocol: Activity Type Activity Date Activity User E-sign Co-sign Detail Recorded Client Recorded Date Recorded By Document 10/13/23 13:52 DL Desktop 10/13/23 14:00 DL Document 10/20/23 13:52 KW Desktop 10/20/23 13:56 KW Document 10/27/23 13:45 DL Desktop 10/27/23 13:51 DL 10/13/23 10/20/23 10/27/23 13:52 13:52 13:45 Wound Center Nurse 1 #1- R LAT ANKLE -Combined with other wound No -Current Size (cm) - Length 1.1 1.9 1.3 -Current Size (cm) - Width 0.9 1 1.1 -Current Size (cm) - Depth 0.2 0.3 0.2 -Total Square Cm 0.99 1.9 1.43 -Tunneling No -Undermining/Tunneling No -Circular Undermining No -Classification - Thickness Full Thickness without Exposed Support Structure -Exudate Amt Medium Medium Medium -Exudate Type Serosanguineous Serosanguineous -Wound Margin Distinct, Distinct, Distinct, Outline Outline Outline Attached Attached Attached -Granulation Amt Small (1-33%) Small (1-33%) Small (1-33%) -Granulation Quality [place],Red Red Red -Slough/Fibrin Yes -Necrosis Amt Small (1-33%) Large (67-100%) Large (67-100%) -Necrotic Tissue Type Adherent Slough Adherent Slough Adherent Slough -Structure Exposed N/A N/A -Texture (Korin-wound Skin Appearance) Scarring Assessed, Scarring Localized Edema ,Scarring -Moisture (Korin-wound Skin Appearance) No Abnormality Assessed, No Abnormality Maceration -Color (Korin-wound Skin Appearance) No Abnormality Assessed, No Abnormality Erythema -Temperature (Korin-wound Skin No Abnormality No Abnormality No Abnormality Appearance) (Pt Warm) (Pt Warm) (Pt Warm) -Tenderness on Palpation (Korin-wound No Yes No Skin Appearance) -Ulcer Cleansing Soap and Water Soap and Water Soap and Water -Foul Odor after Cleansing No No No -Anesthetic Used 5% Lidocaine 5% Lidocaine 5% Lidocaine Gel Gel Gel Right Calf (cm) 30.2 31 30.4 Right Ankle (cm) 19.4 20 18.7 WC - Nurse 2 - General Ulcer CM Notes Start: 10/13/23 13:49 Freq: Status: Active Protocol: Activity Type Activity Date Activity User E-sign Co-sign Detail Recorded Client Recorded Date Recorded By Document 10/13/23 14:16 Laptop 10/13/23 14:19 Document 10/20/23 14:16 Desktop 10/20/23 14:17 Document 10/27/23 14:02 Laptop 10/27/23 14:05 10/13/23 10/20/23 10/27/23 14:16 14:16 14:02 Wound Center Nurse 2 #1- R LAT ANKLE -Time 14:16 14:17 14:02 -Correct Patient Yes Yes Yes -Correct Side, Site, Position Yes Yes Yes -Correct Procedure Yes Yes Yes -Procedure Performed Yes Yes Yes -Type of Procedure Debridement Debridement Debridement -Clinical Debridement Subcutaneous Muscle / Fascia Bone -Tissue Removed Subcutaneous Muscle,Fascia Non-viable tissue -Post Debridement (cm) - Length 1.1 1.1 1.0 -Post Debridement (cm) - Width 1.0 1.0 1.0 -Post Debridement (cm) - Depth 0.2 0.3 0.3 -Total Square (Post) (cm) 1.10 1.10 1.00 -Area of Debridement (cm) - Length 1.1 1.1 1.0 -Area of Debridement (cm) - Width 1.0 1.0 1.0 -Total Square (Area) (cm) 1.10 1.10 1.00 -Tunneling No No No -Undermining/Tunneling No No No -Circular Undermining No No -Wound/Ulcer Outcome Not Healed Not Healed Not Healed -Ulcer Cleansing Rinsed/ Rinsed/ Rinsed/ Irrigated with Irrigated with Irrigated with Saline Saline Saline -Foul Odor after Cleansing No No No -Bioengineered Tissue No No No -Bleeding Controlled with Pressure Pressure Pressure -Treatment Response Procedure Procedure Procedure Tolerated Well Tolerated Well Tolerated Well -Offloading No No No -Debridement - Subq, 1st 20sq cm Yes -Debridement - Muscle / Fascia, 1st Yes 20sq cm -Debridement - Bone, 1st 20sq cm Yes Pain Scale: 0-10 Numeric Is Patient Pain Free? Yes Yes Yes WC - Nurse 3 - General Ulcer D/C NN Start: 10/13/23 13:49 Freq: Status: Active Protocol: Activity Type Activity Date Activity User E-sign Co-sign Detail Recorded Client Recorded Date Recorded By Document 10/13/23 14:38 DL Desktop 10/13/23 14:39 DL Document 10/20/23 15:01 KW Desktop 10/20/23 15:01 KW 10/13/23 10/20/23 14:38 15:01 Wound Care Center Nurse 3 #1- R LAT ANKLE -Ulcer Cleansing Rinsed/ Irrigated with Saline -Foul Odor after Cleansing No -Negative Pressure Wound Therapy Continue -Setting (mmHg) 125 125 -Negative Pressure is Continuous Continuous -Other Covering tubigrip -NPWT Application Charge NPWT & Debridement (nc ) Treatment Response Procedure Tolerated Well Pain Scale: 0-10 Numeric Is Patient Pain Free? 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 All findings were discussed with the patient. All questions were answered to the patient's satisfaction. Excisional debridement down to and including subcutaneous tissue, fascia, muslce and bone with number 15 blade to the lateral right ankle ulceration. Predebridement measurements were 0.9 x 0.9 x 0.2 cm. Postdebridement measures 1.0 x 1.0 x 0.4 cm. The ulceration was dressed with negative pressure snap VAC. Patient was instructed leave this clean dry and intact. Patient's tinea pedis has resolved. And no longer need to apply antifungal cream at this time. We are still waiting approval for the patient surgery I recommend at this time to take the patient the operating room opened up the ulceration to partial excision of bone on the fibula aggressively debride down the ulceration, apply amniotic skin graft substitute and possibly perform delayed primary closure if able. The patient will follow-up in 1 week. (2) Tinea pedis: CODE(S): B35.3 - Tinea pedis QUALIFIERS: Laterality: bilateral Qualified Code(s): B35.3 - Tinea pedis (3) Pain in right ankle: CODE(S): M25.571 - Pain in right ankle and joints of right foot QUALIFIERS: Chronicity: chronic Qualified Code(s): M25.571 - Pain in right ankle and joints of right foot; G89.29 - Other chronic pain
[2023-11-03 13:45] VITALS: BP 162/81; PULSE 81; RESP 18; TEMP 36.4; BMI 20.1
--- NOTE | 2023-11-03 15:05 | PCM.WC.PN ---
History of Present Illness Date of Service: 11/03/23 Chief Complaint: Full-thickness ulceration lateral ankle right History of Wound: Full-thickness ulceration right ankle since February 2023 Subjective Subjective Mrs. Barber is a 73-year-old female presenting to the wound care center today for follow-up and evaluation of full-thickness ulceration to the lateral aspect of the right leg. Patient has kept her wound VAC clean dry and intact. She denies any trauma. Denies constitutional symptoms. No other pedal complaints at this time. Objective Data Objective Data Vital Signs: Vital Signs Temp Pulse Resp BP O2 Del Method 97.6 F L 81 18 162/81 H Room Air 11/03/23 13:45 11/03/23 13:45 11/03/23 13:45 11/03/23 13:45 10/20/23 13:52 Oxygen Delivery Method Room Air Weight: 49.895 kg Body Mass Index (BMI) 20.1 Physical Exam Narrative Neurovascular status unchanged. Full-thickness ulceration to the lateral aspect of the right ankle. Full-thickness ulceration measures 1.0 x 0.8 x 0.2 cm. Wound base is fibrogranular nature with no sign of infection. Evidence of macerated webspaces 1 through 4 bilateral, which is improving. Evidence of moccasin distribution, which is improving. No pain with calf compression. Excisional debridement down to and including subcutaneous tissue, fascia, muslce and bone with number 15 blade to the lateral right ankle ulceration. Predebridement measurements were 0.9 x 0.8 x 0.1 cm. Postdebridement measures 1.0 x 0.8 x 0.2 cm Debridement Note Debridement Note Debridement Free Text: Excisional debridement down to and including subcutaneous tissue, fascia, muslce and bone with number 15 blade to the lateral right ankle ulceration. Predebridement measurements were 0.9 x 0.8 x 0.1 cm. Postdebridement measures 1.0 x 0.8 x 0.2 cm Post-Debridement Measurements and Additional Note: Post-Debridement Measurements/Treatment WC - Nurse 1 - General Ulcer Assessment Start: 10/13/23 13:49 Freq: Status: Active Protocol: [email or web address].[email or web address] Activity Type Activity Date Activity User E-sign Co-sign Detail Recorded Client Recorded Date Recorded By Document 10/13/23 13:52 DL Desktop 10/13/23 14:00 DL Document 10/20/23 13:52 KW Desktop 10/20/23 13:56 KW Document 10/27/23 13:45 DL Desktop 10/27/23 13:51 DL Document 11/03/23 13:45 DL Desktop 11/03/23 13:54 DL 10/13/23 10/20/23 10/27/23 13:52 13:52 13:45 WC - Today's Visit Information Type of service Follow-up Visit Follow-up Visit Follow-up Visit (Physician/ANTIQUE REFINISHER (Physician/ANTIQUE REFINISHER (Physician/ANTIQUE REFINISHER ) ) ) Arrival Mode Ambulatory Ambulatory Ambulatory Transfer Assistance None None None Accompanied by Patient Identification Verified (Name & Yes Yes Yes ) Patient Requires Transmission-Based No No No Precautions Height and Weight Body Mass Index (BMI) 20.1 20.1 20.1 BMI Classification Normal Normal Normal Vital Signs Temperature (97.8 F-99.1 F) 97.6 F L 97.6 F L Temperature Source Temporal Temporal Pulse Rate (60-100) 77 73 75 Pulse Location Monitor Monitor Monitor Respiratory Rate (12-18) 20 H 16 20 H Respiratory rate source Observation Observation Observation Oxygen Delivery Method Room Air Blood Pressure (90/60-120/80) 160/79 H 142/83 H 147/68 H Blood Pressure Mean (mm Hg) 106 102 94 Source Monitor Monitor Monitor Position Sitting Blood Pressure Location Right Arm History Since Last Visit- (Skip if this is Patient's initial visit) Have you changed medications since your No No No last visit? Any new allergies or adverse reactions No No No Had a fall/change in ADL's that may No No No increase risk of falls Signs or symptoms of abuse and/or No No No neglect since last visit Have you been in the hospital since your No No No last visit? Has dressing in place as prescribed Yes Yes Yes Has compression in place as prescribed Yes Yes Yes Has offloadiing in place as prescribed N/A N/A N/A Experienced any changes in pain level or No No No management Left Footwear Regular Shoe Regular Shoe Slipper Right Footwear Regular Shoe Regular Shoe Regular Shoe Pain Scale: 0-10 Numeric Is Patient Pain Free? Yes Yes Yes 11/03/23 13:45 WC - Today's Visit Information Type of service Follow-up Visit (Physician/ANTIQUE REFINISHER ) Arrival Mode Ambulatory,Cane Transfer Assistance None Accompanied by Patient Identification Verified (Name & Yes ) Patient Requires Transmission-Based No Precautions Height and Weight Body Mass Index (BMI) 20.1 BMI Classification Normal Vital Signs Temperature (97.8 F-99.1 F) 97.6 F L Temperature Source Temporal Pulse Rate (60-100) 81 Pulse Location Monitor Respiratory Rate (12-18) 18 Respiratory rate source Observation Oxygen Delivery Method Blood Pressure (90/60-120/80) 162/81 H Blood Pressure Mean (mm Hg) 108 Source Monitor Position Blood Pressure Location History Since Last Visit- (Skip if this is Patient's initial visit) Have you changed medications since your No last visit? Any new allergies or adverse reactions No Had a fall/change in ADL's that may No increase risk of falls Signs or symptoms of abuse and/or No neglect since last visit Have you been in the hospital since your No last visit? Has dressing in place as prescribed Yes Has compression in place as prescribed Yes Has offloadiing in place as prescribed N/A Experienced any changes in pain level or No management Left Footwear Right Footwear Pain Scale: 0-10 Numeric Is Patient Pain Free? Yes WC - Nurse 1 - General Ulcer Measurement Start: 10/13/23 13:49 Freq: Status: Active Protocol: Activity Type Activity Date Activity User E-sign Co-sign Detail Recorded Client Recorded Date Recorded By Document 10/13/23 13:52 DL Desktop 10/13/23 14:00 DL Document 10/20/23 13:52 KW Desktop 10/20/23 13:56 KW Document 10/27/23 13:45 DL Desktop 10/27/23 13:51 DL Document 11/03/23 13:45 DL Desktop 11/03/23 13:54 DL 10/13/23 10/20/23 10/27/23 13:52 13:52 13:45 Wound Center Nurse 1 #1- R LAT ANKLE -Combined with other wound No -Current Size (cm) - Length 1.1 1.9 1.3 -Current Size (cm) - Width 0.9 1 1.1 -Current Size (cm) - Depth 0.2 0.3 0.2 -Total Square Cm 0.99 1.9 1.43 -Photo Taken -Tunneling No -Undermining/Tunneling No -Circular Undermining No -Classification - Thickness Full Thickness without Exposed Support Structure -Exudate Amt Medium Medium Medium -Exudate Type Serosanguineous Serosanguineous -Wound Margin Distinct, Distinct, Distinct, Outline Outline Outline Attached Attached Attached -Granulation Amt Small (1-33%) Small (1-33%) Small (1-33%) -Granulation Quality [place],Red Red Red -Slough/Fibrin Yes -Necrosis Amt Small (1-33%) Large (67-100%) Large (67-100%) -Necrotic Tissue Type Adherent Slough Adherent Slough Adherent Slough -Structure Exposed N/A N/A -Texture (Korin-wound Skin Appearance) Scarring Assessed, Scarring Localized Edema ,Scarring -Moisture (Korin-wound Skin Appearance) No Abnormality Assessed, No Abnormality Maceration -Color (Korin-wound Skin Appearance) No Abnormality Assessed, No Abnormality Erythema -Temperature (Korin-wound Skin No Abnormality No Abnormality No Abnormality Appearance) (Pt Warm) (Pt Warm) (Pt Warm) -Tenderness on Palpation (Korin-wound No Yes No Skin Appearance) -Ulcer Cleansing Soap and Water Soap and Water Soap and Water -Foul Odor after Cleansing No No No -Anesthetic Used 5% Lidocaine 5% Lidocaine 5% Lidocaine Gel Gel Gel Right Calf (cm) 30.2 31 30.4 Right Ankle (cm) 19.4 20 18.7 11/03/23 13:45 Wound Center Nurse 1 #1- R LAT ANKLE -Combined with other wound -Current Size (cm) - Length 1 -Current Size (cm) - Width 0.8 -Current Size (cm) - Depth 0.3 -Total Square Cm 0.8 -Photo Taken Yes -Tunneling -Undermining/Tunneling -Circular Undermining -Classification - Thickness -Exudate Amt Small -Exudate Type Serosanguineous -Wound Margin Distinct, Outline Attached -Granulation Amt Small (1-33%) -Granulation Quality [place] -Slough/Fibrin -Necrosis Amt Large (67-100%) -Necrotic Tissue Type Adherent Slough -Structure Exposed N/A -Texture (Korin-wound Skin Appearance) Scarring -Moisture (Korin-wound Skin Appearance) No Abnormality -Color (Korin-wound Skin Appearance) Erythema -Temperature (Korin-wound Skin No Abnormality Appearance) (Pt Warm) -Tenderness on Palpation (Korin-wound Skin Appearance) -Ulcer Cleansing Soap and Water -Foul Odor after Cleansing No -Anesthetic Used 5% Lidocaine Gel Right Calf (cm) 30.6 Right Ankle (cm) 20.2 - Nurse 2 - General Ulcer CM Notes Start: 10/13/23 13:49 Freq: Status: Active Protocol: Activity Type Activity Date Activity User E-sign Co-sign Detail Recorded Client Recorded Date Recorded By Document 10/13/23 14:16 Laptop 10/13/23 14:19 Document 10/20/23 14:16 Desktop 10/20/23 14:17 Document 10/27/23 14:02 Laptop 10/27/23 14:05 Document 11/03/23 14:19 Laptop 11/03/23 14:21 10/13/23 10/20/23 10/27/23 14:16 14:16 14:02 Wound Center Nurse 2 #1- R LAT ANKLE -Time 14:16 14:17 14:02 -Correct Patient Yes Yes Yes -Correct Side, Site, Position Yes Yes Yes -Correct Procedure Yes Yes Yes -Procedure Performed Yes Yes Yes -Type of Procedure Debridement Debridement Debridement -Clinical Debridement Subcutaneous Muscle / Fascia Bone -Tissue Removed Subcutaneous Muscle,Fascia Non-viable tissue -Post Debridement (cm) - Length 1.1 1.1 1.0 -Post Debridement (cm) - Width 1.0 1.0 1.0 -Post Debridement (cm) - Depth 0.2 0.3 0.3 -Total Square (Post) (cm) 1.10 1.10 1.00 -Area of Debridement (cm) - Length 1.1 1.1 1.0 -Area of Debridement (cm) - Width 1.0 1.0 1.0 -Total Square (Area) (cm) 1.10 1.10 1.00 -Tunneling No No No -Undermining/Tunneling No No No -Circular Undermining No No -Wound/Ulcer Outcome Not Healed Not Healed Not Healed -Ulcer Cleansing Rinsed/ Rinsed/ Rinsed/ Irrigated with Irrigated with Irrigated with Saline Saline Saline -Foul Odor after Cleansing No No No -Bioengineered Tissue No No No -Bleeding Controlled with Pressure Pressure Pressure -Treatment Response Procedure Procedure Procedure Tolerated Well Tolerated Well Tolerated Well -Offloading No No No -Debridement - Subq, 1st 20sq cm Yes -Debridement - Muscle / Fascia, 1st Yes 20sq cm -Debridement - Bone, 1st 20sq cm Yes Pain Scale: 0-10 Numeric Is Patient Pain Free? Yes Yes Yes 11/03/23 14:19 Wound Center Nurse 2 #1- R LAT ANKLE -Time 14:20 -Correct Patient Yes -Correct Side, Site, Position Yes -Correct Procedure Yes -Procedure Performed Yes -Type of Procedure Debridement -Clinical Debridement Subcutaneous -Tissue Removed Subcutaneous -Post Debridement (cm) - Length 1.0 -Post Debridement (cm) - Width 0.8 -Post Debridement (cm) - Depth 0.2 -Total Square (Post) (cm) 0.80 -Area of Debridement (cm) - Length 1.0 -Area of Debridement (cm) - Width 0.8 -Total Square (Area) (cm) 0.80 -Tunneling No -Undermining/Tunneling No -Circular Undermining No -Wound/Ulcer Outcome Not Healed -Ulcer Cleansing Rinsed/ Irrigated with Saline -Foul Odor after Cleansing No -Bioengineered Tissue No -Bleeding Controlled with Pressure -Treatment Response Procedure Tolerated Well -Offloading No -Debridement - Subq, 1st 20sq cm Yes -Debridement - Muscle / Fascia, 1st 20sq cm -Debridement - Bone, 1st 20sq cm Pain Scale: 0-10 Numeric Is Patient Pain Free? Yes - Nurse 3 - General Ulcer D/C NN Start: 10/13/23 13:49 Freq: Status: Active Protocol: Activity Type Activity Date Activity User E-sign Co-sign Detail Recorded Client Recorded Date Recorded By Document 10/13/23 14:38 DL Desktop 10/13/23 14:39 DL Document 10/20/23 15:01 KW Desktop 10/20/23 15:01 KW Document 10/27/23 14:13 KW Desktop 10/27/23 14:32 KW Document 11/03/23 14:30 KW Desktop 11/03/23 14:31 KW 10/13/23 10/20/23 10/27/23 14:38 15:01 14:13 Wound Care Center Nurse 3 #1- R LAT ANKLE -Ulcer Cleansing Rinsed/ Rinsed/ Irrigated with Irrigated with Saline Saline -Foul Odor after Cleansing No -Negative Pressure Wound Therapy Continue Continue -Setting (mmHg) 125 125 125 -Negative Pressure is Continuous Continuous Continuous -Other Covering tubigrip -NPWT Application Charge NPWT & NPWT & Debridement (nc Debridement (nc ) ) Treatment Response Procedure Tolerated Well Pain Scale: 0-10 Numeric Is Patient Pain Free? Yes Yes Yes WC - Visit Discharge Discharge Condition Stable Stable Ambulatory Status Ambulatory Ambulatory Transportation Private Auto Private Auto Accompanied by Medication Reconcilliation completed & No provided to patient/care provider Clinical Summary of Care Provided Yes 11/03/23 14:30 Wound Care Center Nurse 3 #1- R LAT ANKLE -Ulcer Cleansing -Foul Odor after Cleansing -Negative Pressure Wound Therapy Continue -Setting (mmHg) 125 -Negative Pressure is Continuous -Other Covering -NPWT Application Charge NPWT & Debridement (nc ) Treatment Response Pain Scale: 0-10 Numeric Is Patient Pain Free? 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 All findings were discussed with the patient. All questions were answered to the patient's satisfaction. Excisional debridement down to and including subcutaneous tissue, fascia, muslce and bone with number 15 blade to the lateral right ankle ulceration. Predebridement measurements were 0.9 x 0.8 x 0.1 cm. Postdebridement measures 1.0 x 0.8 x 0.2 cm. Negative wound VAC/snap was applied to the right lower extremity. Patient instructed leave clean dry and intact. Follow-up at the wound care center with Dr. Saini in 1 week. (2) Pain in right ankle: CODE(S): M25.571 - Pain in right ankle and joints of right foot QUALIFIERS: Chronicity: chronic Qualified Code(s): M25.571 - Pain in right ankle and joints of right foot; G89.29 - Other chronic pain
== END 2023-11-07 23:59 | disposition home or self-care (01) ==
LOC: WC 14:00
PROVIDERS: PCP Internal Medicine; Referring Provider Podiatrist Foot & Ankle Surgery; Visit Provider Podiatrist Foot & Ankle Surgery
DX: L97.312 Non-pressure chronic ulcer of right ankle with fat layer exposed (principal); B35.3 Tinea pedis; M25.571 Pain in right ankle and joints of right foot
CPT/HCPCS: 11042; 11043; 11044

== ENCOUNTER 2023-12-08 14:00 | Outpatient (RCR) | payer MEDICARE, SELFPAY ==
[2023-11-08 00:12] VITALS: BP 162/81; PULSE 81; RESP 18; TEMP 36.4; BMI 20.1
[2023-11-10 14:01] VITALS: BP 145/64; PULSE 69; RESP 18; BMI 20.1
--- NOTE | 2023-11-10 14:41 | PN.PCM_ITS ---
History of Present Illness Date of Service: 11/10/23 Chief Complaint: Full-thickness ulceration lateral ankle right History of Wound: Full-thickness ulceration right ankle since February 2023 Subjective Subjective Mrs. Barber is a 73-year-old female presenting to the wound care center today for follow-up and evaluation of full-thickness ulceration to the lateral aspect of the right leg. Patient has kept her wound VAC clean dry and intact. She denies any trauma. Denies constitutional symptoms. No other pedal complaints at this time. Objective Data Objective Data Vital Signs: Vital Signs Temp Pulse Resp BP O2 Del Method 97.6 F L 69 18 145/64 H Room Air 11/08/23 00:12 11/10/23 14:01 11/10/23 14:01 11/10/23 14:01 11/10/23 14:01 Oxygen Delivery Method Room Air Weight: 49.895 kg Body Mass Index (BMI) 20.1 Physical Exam Narrative Neurovascular status unchanged. Full-thickness ulceration to the lateral aspect of the right ankle. Full-thickness ulceration measures 1.1 x 1.1 x 0.2 cm. Wound base is granular in nature with no sign of infection. No pain with calf compression. Excisional debridement down to and including subcutaneous tissue, fascia, muslce and bone with number 15 blade to the lateral right ankle ulceration. Predebridement measurements were 1.0 x 1.0 x 0.1 cm. Postdebridement measures 1.1 x 1.1 x 0.2 cm Application of Integra prime matrix 2 x 2 cm to the full-thickness ulceration to the right lateral ankle. Snap negative wound pressure VAC was applied. Debridement Note Debridement Note Debridement Free Text: Excisional debridement down to and including subcutaneous tissue, fascia, muslce and bone with number 15 blade to the lateral right ankle ulceration. Predebridement measurements were 1.0 x 1.0 x 0.1 cm. Postdebridement measures 1.1 x 1.1 x 0.2 cm Application of Integra prime matrix 2 x 2 cm to the full-thickness ulceration to the right lateral ankle. Snap negative wound pressure VAC was applied. Post-Debridement Measurements and Additional Note: Post-Debridement Measurements/Treatment MURIEL - Nurse 1 - General Ulcer Assessment Start: 11/10/23 13:59 Freq: Status: Active Protocol: LOWEXT Activity Type Activity Date Activity User E-sign Co-sign Detail Recorded Client Recorded Date Recorded By Document 11/10/23 14: [employer] 11/10/23 14:05 11/10/23 14:01 - Today's Visit Information Type of service Follow-up Visit (Physician/COMMUNITY RELATIONS OFFICER ) Arrival Mode Ambulatory Accompanied by Patient Identification Verified (Name & Yes ) Height and Weight Body Mass Index (BMI) 20.1 BMI Classification Normal Vital Signs Pulse Rate (60-100) 69 Pulse Location Monitor Respiratory Rate (12-18) 18 Respiratory rate source Observation Oxygen Delivery Method Room Air Blood Pressure (90/60-120/80) 145/64 H Blood Pressure Mean (mm Hg) 91 Source Monitor Position Semi-Fowlers Blood Pressure Location Left Arm History Since Last Visit- (Skip if this is Patient's initial visit) Have you changed medications since your No last visit? Any new allergies or adverse reactions No Had a fall/change in ADL's that may No increase risk of falls Signs or symptoms of abuse and/or No neglect since last visit Have you been in the hospital since your No last visit? Has dressing in place as prescribed Yes Has compression in place as prescribed Yes Has offloadiing in place as prescribed No Experienced any changes in pain level or No management Left Footwear Regular Shoe Right Footwear Regular Shoe Pain Scale: 0-10 Numeric Is Patient Pain Free? Yes - Nurse 1 - General Ulcer Measurement Start: 11/10/23 13:59 Freq: Status: Active Protocol: Activity Type Activity Date Activity User E-sign Co-sign Detail Recorded Client Recorded Date Recorded By Document 11/10/23 14:01 [employer] 11/10/23 14:05 11/10/23 14:01 Wound Center Nurse 1 #1- R LAT ANKLE -Current Size (cm) - Length 1.0 -Current Size (cm) - Width 1.7 -Current Size (cm) - Depth 0.3 -Total Square Cm 1.70 -Exudate Amt Large -Exudate Type Serosanguineous -Wound Margin Thickened -Granulation Amt Medium (34-66%) -Granulation Quality Red -Necrosis Amt Medium (34-66%) -Necrotic Tissue Type Adherent Slough -Texture (Korin-wound Skin Appearance) Assessed -Moisture (Korin-wound Skin Appearance) Assessed, Maceration -Color (Korin-wound Skin Appearance) Assessed, Erythema -Temperature (Korin-wound Skin No Abnormality Appearance) (Pt Warm) -Ulcer Cleansing Soap and Water -Foul Odor after Cleansing No -Anesthetic Used 5% Lidocaine Gel - Nurse 2 - General Ulcer CM Notes Start: 11/10/23 13:59 Freq: Status: Active Protocol: Activity Type Activity Date Activity User E-sign Co-sign Detail Recorded Client Recorded Date Recorded By Document 11/10/23 14:08 Laptop 11/10/23 14:17 11/10/23 14:08 Wound Center Nurse 2 -Time 14:09 -Correct Patient Yes -Correct Side, Site, Position Yes -Correct Procedure Yes -Procedure Performed Yes -Type of Procedure Debridement -Clinical Debridement Subcutaneous -Tissue Removed Subcutaneous -Post Debridement (cm) - Length 1.1 -Post Debridement (cm) - Width 1.1 -Post Debridement (cm) - Depth 0.2 -Total Square (Post) (cm) 1.21 -Area of Debridement (cm) - Length 1.1 -Area of Debridement (cm) - Width 1.1 -Total Square (Area) (cm) 1.21 -Tunneling No -Undermining/Tunneling No -Circular Undermining No -Wound/Ulcer Outcome Not Healed -Ulcer Cleansing Rinsed/ Irrigated with Saline -Foul Odor after Cleansing No -Bioengineered Tissue No -Bleeding Controlled with Pressure -Treatment Response Procedure Tolerated Well -Offloading No -Debridement - Subq, 1st 20sq cm Yes Pain Scale: 0-10 Numeric Is Patient Pain Free? Yes - Nurse 3 - General Ulcer D/C NN Start: 11/10/23 13:59 Freq: Status: Active Protocol: Activity Type Activity Date Activity User E-sign Co-sign Detail Recorded Client Recorded Date Recorded By Document 11/10/23 14:24 KW Desktop 11/10/23 14:24 KW 11/10/23 14:24 Wound Care Center Nurse 3 #1- R LAT ANKLE -Negative Pressure Wound Therapy Continue -Setting (mmHg) 125 -Negative Pressure is Continuous -NPWT Application Charge NPWT & Debridement (nc ) Pain Scale: 0-10 Numeric Is Patient Pain Free? 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 All findings were discussed with the patient. All questions were answered to the patient's satisfaction. Excisional debridement down to and including subcutaneous tissue, fascia, muslce and bone with number 15 blade to the lateral right ankle ulceration. Predebridement measurements were 1.0 x 1.0 x 0.1 cm. Postdebridement measures 1.1 x 1.1 x 0.2 cm Application of Integra prime matrix 2 x 2 cm to the full-thickness ulceration to the right lateral ankle. Snap negative wound pressure VAC was applied. Follow-up at the wound care center with Dr. Saini in 1 week.
[2023-11-17 13:48] VITALS: BP 176/92; PULSE 73; RESP 18; TEMP 36.1; BMI 20.1
--- NOTE | 2023-11-17 15:30 | PCM.WC.PN ---
History of Present Illness Date of Service: 11/17/23 Chief Complaint: Full-thickness ulceration lateral ankle right History of Wound: Full-thickness ulceration right ankle since February 2023 Subjective Subjective Mrs. Barber is a 73-year-old female presenting to the wound care center today for follow-up and evaluation of full-thickness ulceration to the lateral aspect of the right leg. Patient has kept her wound VAC clean dry and intact. She denies any trauma. Denies constitutional symptoms. No other pedal complaints at this time. Objective Data Objective Data Vital Signs: Vital Signs Temp Pulse Resp BP O2 Del Method 97.0 F L 73 18 176/92 H Room Air 11/17/23 13:48 11/17/23 13:48 11/17/23 13:48 11/17/23 13:48 11/17/23 13:48 Oxygen Delivery Method Room Air Weight: 49.895 kg Body Mass Index (BMI) 20.1 Physical Exam Narrative Neurovascular status unchanged. Full-thickness ulceration to the lateral aspect of the right ankle. Full-thickness ulceration measures 0.9 x 1.0 x 0.1 cm. Wound base is granular in nature with no sign of infection. No pain with calf compression. Excisional debridement down to and including subcutaneous tissue with number 15 blade to the lateral right ankle ulceration. Predebridement measurements were 0.8 x 0.9 x 0.1 cm. Postdebridement measures 0.9 x 1.0 x 0.1 cm Application of Integra prime matrix 18 mm disc to the full-thickness ulceration to the right lateral ankle. Snap negative wound pressure VAC was applied. Debridement Note Debridement Note Debridement Free Text: Excisional debridement down to and including subcutaneous tissue with number 15 blade to the lateral right ankle ulceration. Predebridement measurements were 0.8 x 0.9 x 0.1 cm. Postdebridement measures 0.9 x 1.0 x 0.1 cm Application of Integra prime matrix 18 mm disc to the full-thickness ulceration to the right lateral ankle. Snap negative wound pressure VAC was applied. Post-Debridement Measurements and Additional Note: Post-Debridement Measurements/Treatment MURIEL - Nurse 1 - General Ulcer Assessment Start: 11/10/23 13:59 Freq: Status: Active Protocol: TATI Activity Type Activity Date Activity User E-sign Co-sign Detail Recorded Client Recorded Date Recorded By Document 11/10/23 14:01 KW Desktop 11/10/23 14:05 Document 11/17/23 13:48 [facility] Desktop 11/17/23 13:54 [facility] 11/10/23 11/17/23 14:01 13:48 - Today's Visit Information Type of service Follow-up Visit Follow-up Visit (Physician/[employer] (Physician/[employer] ) ) Arrival Mode Ambulatory Ambulatory Transfer Assistance None Accompanied by Patient Identification Verified (Name & Yes Yes ) Height and Weight Body Mass Index (BMI) 20.1 20.1 BMI Classification Normal Normal Vital Signs Temperature (97.8 F-99.1 F) 97.0 F L Temperature Source Temporal Pulse Rate (60-100) 69 73 Pulse Location Monitor Monitor Respiratory Rate (12-18) 18 18 Respiratory rate source Observation Observation Oxygen Delivery Method Room Air Room Air Blood Pressure (90/60-120/80) 145/64 H 176/92 H Blood Pressure Mean (mm Hg) 91 120 Source Monitor Monitor Position Semi-Fowlers Sitting Blood Pressure Location Left Arm Right Arm History Since Last Visit- (Skip if this is Patient's initial visit) Have you changed medications since your No No last visit? Any new allergies or adverse reactions No No Had a fall/change in ADL's that may No No increase risk of falls Signs or symptoms of abuse and/or No No neglect since last visit Have you been in the hospital since your No No last visit? Has dressing in place as prescribed Yes Yes Has compression in place as prescribed Yes Yes Has offloadiing in place as prescribed No No Experienced any changes in pain level or No No management Left Footwear Regular Shoe Regular Shoe Right Footwear Regular Shoe Regular Shoe Pain Scale: 0-10 Numeric Is Patient Pain Free? Yes Yes - Nurse 1 - General Ulcer Measurement Start: 11/10/23 13:59 Freq: Status: Active Protocol: Activity Type Activity Date Activity User E-sign Co-sign Detail Recorded Client Recorded Date Recorded By Document 11/10/23 14:01 [facility] Desktop 11/10/23 14:05 Document 11/17/23 13:48 [employer] [facility] 11/17/23 13:54 [facility] 11/10/23 11/17/23 14:01 13:48 Wound Center Nurse 1 #1- R LAT ANKLE -Current Size (cm) - Length 1.0 0.8 -Current Size (cm) - Width 1.7 0.9 -Current Size (cm) - Depth 0.3 0.1 -Total Square Cm 1.70 0.72 -Exudate Amt Large Medium -Exudate Type Serosanguineous Serosanguineous -Wound Margin Thickened Thickened -Granulation Amt Medium (34-66%) Large (67-100%) -Granulation Quality Red Red -Necrosis Amt Medium (34-66%) Small (1-33%) -Necrotic Tissue Type Adherent Slough Adherent Slough -Texture (Korin-wound Skin Appearance) Assessed Assessed, Localized Edema -Moisture (Korin-wound Skin Appearance) Assessed, Assessed Maceration -Color (Korin-wound Skin Appearance) Assessed, Assessed, Erythema Erythema -Temperature (Korin-wound Skin No Abnormality Appearance) (Pt Warm) -Ulcer Cleansing Soap and Water Soap and Water -Foul Odor after Cleansing No -Anesthetic Used 5% Lidocaine 5% Lidocaine Gel Gel Right Calf (cm) 30.8 Right Ankle (cm) 20 WC - Nurse 2 - General Ulcer CM Notes Start: 11/10/23 13:59 Freq: Status: Active Protocol: Activity Type Activity Date Activity User E-sign Co-sign Detail Recorded Client Recorded Date Recorded By Document 11/10/23 14:08 Laptop 11/10/23 14:17 Document 11/17/23 14:14 Laptop 11/17/23 14:16 11/10/23 11/17/23 14:08 14:14 Wound Center Nurse 2 #1- R LAT ANKLE -Time 14:09 14:15 -Correct Patient Yes Yes -Correct Side, Site, Position Yes Yes -Correct Procedure Yes Yes -Procedure Performed Yes Yes -Type of Procedure Debridement Debridement -Clinical Debridement Subcutaneous Subcutaneous -Tissue Removed Subcutaneous Subcutaneous -Post Debridement (cm) - Length 1.1 0.9 -Post Debridement (cm) - Width 1.1 1.0 -Post Debridement (cm) - Depth 0.2 0.1 -Total Square (Post) (cm) 1.21 0.90 -Area of Debridement (cm) - Length 1.1 0.9 -Area of Debridement (cm) - Width 1.1 1.0 -Total Square (Area) (cm) 1.21 0.90 -Tunneling No No -Undermining/Tunneling No No -Circular Undermining No No -Wound/Ulcer Outcome Not Healed Not Healed -Ulcer Cleansing Rinsed/ Rinsed/ Irrigated with Irrigated with Saline Saline -Foul Odor after Cleansing No No -Bioengineered Tissue No No -Bleeding Controlled with Pressure Pressure -Treatment Response Procedure Procedure Tolerated Well Tolerated Well -Offloading No No -Debridement - Subq, 1st 20sq cm Yes Yes Pain Scale: 0-10 Numeric Is Patient Pain Free? Yes Yes - Nurse 3 - General Ulcer D/C NN Start: 11/10/23 13:59 Freq: Status: Active Protocol: Activity Type Activity Date Activity User E-sign Co-sign Detail Recorded Client Recorded Date Recorded By Document 11/10/23 14:24 KW Desktop 11/10/23 14:24 KW Document 11/17/23 14:31 [facility] Desktop 11/17/23 14:32 [facility] 11/10/23 11/17/23 14:24 14:31 Wound Care Center Nurse 3 #1- R LAT ANKLE -Negative Pressure Wound Therapy Continue Continue -Setting (mmHg) 125 125 -Negative Pressure is Continuous Continuous -Other Dressing primatrix -NPWT Application Charge NPWT & NPWT & Debridement (nc Debridement (nc ) ) Right -Compression Wrap Carroll Wrap -Tubular Bandage Single Layer -Size of Tubigrip Used Size D -Size D ($) 1 Treatment Response Procedure Tolerated Well Pain Scale: 0-10 Numeric Is Patient Pain Free? Yes Yes WC - Visit Discharge Discharge Condition Stable Stable Ambulatory Status Ambulatory Ambulatory Transportation Private Auto Private Auto Accompanied by husb Medication Reconcilliation completed & No provided to patient/care provider Clinical Summary of Care Provided Yes Assessment/Plan Assessment/Plan (1) Non-pressure chronic ulcer of unspecified part of right lower leg with fat layer exposed: CODE(S): L97.912 - Non-pressure chronic ulcer of unspecified part of right lower leg with fat layer exposed PLAN: Patient was examined and evaluated. All findings were discussed with the patient. All questions were answered to the patient's satisfaction. Excisional debridement down to and including subcutaneous tissue with number 15 blade to the lateral right ankle ulceration. Predebridement measurements were 0.8 x 0.9 x 0.1 cm. Postdebridement measures 0.9 x 1.0 x 0.1 cm Application of Integra prime matrix 18 mm disc to the full-thickness ulceration to the right lateral ankle. Snap negative wound pressure VAC was applied. Follow-up at the wound care center with Dr. Saini in 1 week.
[2023-11-24 13:57] VITALS: BP 145/80; PULSE 74; RESP 16; BMI 20.1
--- NOTE | 2023-11-24 14:29 | PCM.WC.PN ---
History of Present Illness Date of Service: 11/24/23 Chief Complaint: Full-thickness ulceration lateral ankle right History of Wound: Full-thickness ulceration right ankle since February 2023 Subjective Subjective Mrs. Barber is a 73-year-old female presenting to the wound care center today for follow-up and evaluation of full-thickness ulceration to the lateral aspect of the right leg. Patient has kept her wound VAC clean dry and intact. She admits to a fall while in her kitchen at home. She admits to not hitting her head and she did not follow-up in the emergency department for evaluation. Denies constitutional symptoms. No other pedal complaints at this time. Objective Data Objective Data Vital Signs: Vital Signs Temp Pulse Resp BP O2 Del Method 97.0 F L 74 16 145/80 H Room Air 11/17/23 13:48 11/24/23 13:57 11/24/23 13:57 11/24/23 13:57 11/24/23 13:57 Oxygen Delivery Method Room Air Weight: 49.895 kg Body Mass Index (BMI) 20.1 Physical Exam Narrative Neurovascular status unchanged. Full-thickness ulceration to the lateral aspect of the right ankle. Full-thickness ulceration measures 0.9 x 0.7 x 0.1 cm. Wound base is granular in nature with no sign of infection. No pain with calf compression. Excisional debridement down to and including subcutaneous tissue with number 15 blade to the lateral right ankle ulceration. Predebridement measurements were 0.7 x 0.6 x 0.1 cm. Postdebridement measures 0.9 x 0.7 x 0.1 cm Debridement Note Debridement Note Debridement Free Text: Excisional debridement down to and including subcutaneous tissue with number 15 blade to the lateral right ankle ulceration. Predebridement measurements were 0.7 x 0.6 x 0.1 cm. Postdebridement measures 0.9 x 0.7 x 0.1 cm. Post-Debridement Measurements and Additional Note: Post-Debridement Measurements/Treatment WC - Nurse 1 - General Ulcer Assessment Start: 11/10/23 13:59 Freq: Status: Active Protocol: STONEEXT Activity Type Activity Date Activity User E-sign Co-sign Detail Recorded Client Recorded Date Recorded By Document 11/10/23 14:01 KW Desktop 11/10/23 14:05 KW Document 11/17/23 13:48 [facility] Desktop 11/17/23 13:54 [facility] Document 11/24/23 13:57 KW Desktop 11/24/23 14:08 KW 11/10/23 11/17/23 11/24/23 14:01 13:48 13:57 - Today's Visit Information Type of service Follow-up Visit Follow-up Visit Follow-up Visit (Physician/JACKSCREW MAN (Physician/JACKSCREW MAN (Physician/JACKSCREW MAN ) ) ) Arrival Mode Ambulatory Ambulatory Ambulatory Transfer Assistance None Accompanied by Patient Identification Verified (Name & Yes Yes Yes ) Height and Weight Body Mass Index (BMI) 20.1 20.1 20.1 BMI Classification Normal Normal Normal Vital Signs Temperature (97.8 F-99.1 F) 97.0 F L Temperature Source Temporal Pulse Rate (60-100) 69 73 74 Pulse Location Monitor Monitor Monitor Respiratory Rate (12-18) 18 18 16 Respiratory rate source Observation Observation Observation Oxygen Delivery Method Room Air Room Air Room Air Blood Pressure (90/60-120/80) 145/64 H 176/92 H 145/80 H Blood Pressure Mean (mm Hg) 91 120 101 Source Monitor Monitor Monitor Position Semi-Fowlers Sitting Semi-Fowlers Blood Pressure Location Left Arm Right Arm Left Arm History Since Last Visit- (Skip if this is Patient's initial visit) Have you changed medications since your No No No last visit? Any new allergies or adverse reactions No No No Had a fall/change in ADL's that may No No Yes increase risk of falls Signs or symptoms of abuse and/or No No No neglect since last visit Have you been in the hospital since your No No No last visit? Has dressing in place as prescribed Yes Yes Yes Has compression in place as prescribed Yes Yes Yes Has offloadiing in place as prescribed No No No Experienced any changes in pain level or No No No management Left Footwear Regular Shoe Regular Shoe Regular Shoe Right Footwear Regular Shoe Regular Shoe Regular Shoe Pain Scale: 0-10 Numeric Is Patient Pain Free? Yes Yes Yes - Nurse 1 - General Ulcer Measurement Start: 11/10/23 13:59 Freq: Status: Active Protocol: Activity Type Activity Date Activity User E-sign Co-sign Detail Recorded Client Recorded Date Recorded By Document 11/10/23 14:01 Desktop 11/10/23 14:05 Document 11/17/23 13:48 [facility] Desktop 11/17/23 13:54 [facility] Document 11/24/23 13:57 Desktop 11/24/23 14:08 11/10/23 11/17/23 11/24/23 14:01 13:48 13:57 Wound Center Nurse 1 #1- R LAT ANKLE -Current Size (cm) - Length 1.0 0.8 1.1 -Current Size (cm) - Width 1.7 0.9 1.0 -Current Size (cm) - Depth 0.3 0.1 0.3 -Total Square Cm 1.70 0.72 1.10 -Date of Last Picture (Recall this 11/24/23 field) -Photo Taken Yes -Exudate Amt Large Medium Medium -Exudate Type Serosanguineous Serosanguineous Serosanguineous -Wound Margin Thickened Thickened Distinct, Outline Attached -Granulation Amt Medium (34-66%) Large (67-100%) Medium (34-66%) -Granulation Quality Red Red Red -Necrosis Amt Medium (34-66%) Small (1-33%) Small (1-33%) -Necrotic Tissue Type Adherent Slough Adherent Slough Adherent Slough -Texture (Korin-wound Skin Appearance) Assessed Assessed, Assessed, Localized Edema Localized Edema -Moisture (Korin-wound Skin Appearance) Assessed, Assessed Assessed, Maceration Maceration -Color (Korin-wound Skin Appearance) Assessed, Assessed, Assessed, Erythema Erythema Erythema -Temperature (Korin-wound Skin No Abnormality No Abnormality Appearance) (Pt Warm) (Pt Warm) -Tenderness on Palpation (Korin-wound Yes Skin Appearance) -Ulcer Cleansing Soap and Water Soap and Water Soap and Water -Foul Odor after Cleansing No No -Anesthetic Used 5% Lidocaine 5% Lidocaine 5% Lidocaine Gel Gel Gel Right Calf (cm) 30.8 30.2 Right Ankle (cm) 20 21.5 WC - Nurse 2 - General Ulcer CM Notes Start: 11/10/23 13:59 Freq: Status: Active Protocol: Activity Type Activity Date Activity User E-sign Co-sign Detail Recorded Client Recorded Date Recorded By Document 11/10/23 14:08 Laptop 11/10/23 14:17 Document 11/17/23 14:14 Laptop 11/17/23 14:16 Document 11/24/23 14:20 Laptop 11/24/23 14:21 JF 11/10/23 11/17/23 11/24/23 14:08 14:14 14:20 Wound Center Nurse 2 #1- R LAT ANKLE -Time 14:09 14:15 14:20 -Correct Patient Yes Yes Yes -Correct Side, Site, Position Yes Yes Yes -Correct Procedure Yes Yes Yes -Procedure Performed Yes Yes Yes -Type of Procedure Debridement Debridement Debridement -Clinical Debridement Subcutaneous Subcutaneous Subcutaneous -Tissue Removed Subcutaneous Subcutaneous Subcutaneous -Post Debridement (cm) - Length 1.1 0.9 0.9 -Post Debridement (cm) - Width 1.1 1.0 0.7 -Post Debridement (cm) - Depth 0.2 0.1 0.1 -Total Square (Post) (cm) 1.21 0.90 0.63 -Area of Debridement (cm) - Length 1.1 0.9 0.9 -Area of Debridement (cm) - Width 1.1 1.0 0.7 -Total Square (Area) (cm) 1.21 0.90 0.63 -Tunneling No No No -Undermining/Tunneling No No No -Circular Undermining No No No -Wound/Ulcer Outcome Not Healed Not Healed Not Healed -Ulcer Cleansing Rinsed/ Rinsed/ Rinsed/ Irrigated with Irrigated with Irrigated with Saline Saline Saline -Foul Odor after Cleansing No No No -Bioengineered Tissue No No No -Bleeding Controlled with Pressure Pressure Pressure -Treatment Response Procedure Procedure Procedure Tolerated Well Tolerated Well Tolerated Well -Offloading No No No -Debridement - Subq, 1st 20sq cm Yes Yes Yes Pain Scale: 0-10 Numeric Is Patient Pain Free? Yes Yes Yes - Nurse 3 - General Ulcer D/C NN Start: 11/10/23 13:59 Freq: Status: Active Protocol: Activity Type Activity Date Activity User E-sign Co-sign Detail Recorded Client Recorded Date Recorded By Document 11/10/23 14:24 KW Desktop 11/10/23 14:24 KW Document 11/17/23 14:31 [facility] Desktop 11/17/23 14:32 [facility] 11/10/23 11/17/23 14:24 14:31 Wound Care Center Nurse 3 #1- R LAT ANKLE -Negative Pressure Wound Therapy Continue Continue -Setting (mmHg) 125 125 -Negative Pressure is Continuous Continuous -Other Dressing primatrix -NPWT Application Charge NPWT & NPWT & Debridement (nc Debridement (nc ) ) Right -Compression Wrap Carroll Wrap -Tubular Bandage Single Layer -Size of Tubigrip Used Size D -Size D ($) 1 Treatment Response Procedure Tolerated Well Pain Scale: 0-10 Numeric Is Patient Pain Free? Yes Yes WC - Visit Discharge Discharge Condition Stable Stable Ambulatory Status Ambulatory Ambulatory Transportation Private Auto Private Auto Accompanied by lucille Medication Reconcilliation completed & No provided to patient/care provider Clinical Summary of Care Provided Yes Assessment/Plan Assessment/Plan (1) Non-pressure chronic ulcer of unspecified part of right lower leg with fat layer exposed: CODE(S): L97.912 - Non-pressure chronic ulcer of unspecified part of right lower leg with fat layer exposed PLAN: Patient was examined and evaluated. All findings were discussed with the patient. All questions were answered to the patient's satisfaction. Excisional debridement down to and including subcutaneous tissue with number 15 blade to the lateral right ankle ulceration. Predebridement measurements were 0.7 x 0.6 x 0.1 cm. Postdebridement measures 0.9 x 0.7 x 0.1 cm. The patient's full-thickness ulceration was white clean and patted dry. Patient will be moving onto Elizabeth, Betadine paint to the periwound with application of sterile dressing. Educated the patient's that she can go ahead and shower her right lower extremity every other day after she cleans her other parts and use antibacterial soap to the full-thickness wound on the right ankle. He was understanding of this. After she is done with the shower he is to dry the wound apply Elizabeth, Betadine to the periwound and apply a sterile bandage and or 4 x 4's with tape and a single-layer Tubigrip. Follow-up at the wound care center with Dr. Saini in 2 week.
[2023-12-08 13:56] VITALS: BP 193/99; PULSE 79; RESP 18; TEMP 36.1; BMI 20.1
[2023-12-08 14:04] VITALS: BP 165/93; PULSE 72; BMI 20.1
--- NOTE | 2023-12-08 14:28 | PN.PCM_ITS ---
History of Present Illness Date of Service: 12/08/23 Chief Complaint: Full-thickness ulceration lateral ankle right History of Wound: Full-thickness ulceration right ankle since February 2023 Subjective Subjective Mrs. Barber is a 73-year-old female presenting to the wound care center today for follow-up and evaluation of full-thickness ulceration to the lateral aspect of the right leg. She admits to a fall while at home. Her doing home dressing changes and washing the right lower extremity as instructed during her last visit. Denies constitutional symptoms. No other pedal complaints at this time. Objective Data Objective Data Vital Signs: Vital Signs Temp Pulse Resp BP O2 Del Method 96.9 F L 72 18 165/93 H Room Air 12/08/23 13:56 12/08/23 14:04 12/08/23 13:56 12/08/23 14:04 12/08/23 13:56 Oxygen Delivery Method Room Air Weight: 49.895 kg Body Mass Index (BMI) 20.1 Physical Exam Narrative Neurovascular status unchanged. Full-thickness ulceration to the lateral aspect of the right ankle. Full-thickness ulceration measures 1.0 x 0.9 x 0.1 cm. Wound base is granular in nature with no sign of infection. No pain with calf compression. Excisional debridement down to and including subcutaneous tissue with number 15 blade to the lateral right ankle ulceration. Predebridement measurements were 0.9 x 0.7 x 0.1 cm. Postdebridement measures 1.0 x 0.9 x 0.1 cm Debridement Note Debridement Note Debridement Free Text: Excisional debridement down to and including subcutaneous tissue with number 15 blade to the lateral right ankle ulceration. Predebridement measurements were 0.9 x 0.7 x 0.1 cm. Postdebridement measures 1.0 x 0.9 x 0.1 cm Post-Debridement Measurements and Additional Note: Post-Debridement Measurements/Treatment WC - Nurse 1 - General Ulcer Assessment Start: 11/10/23 13:59 Freq: Status: Active Protocol: TATI Activity Type Activity Date Activity User E-sign Co-sign Detail Recorded Client Recorded Date Recorded By Document 11/10/23 14:01 KW Desktop 11/10/23 14:05 KW Document 11/17/23 13:48 BMF Desktop 11/17/23 13:54 BMF Document 11/24/23 13:57 KW Desktop 11/24/23 14:08 KW Document 12/08/23 13:56 KW Desktop 12/08/23 14:02 KW Document 12/08/23 14:04 GM Desktop 12/08/23 14:05 GM 11/10/23 11/17/23 11/24/23 14:01 13:48 13:57 WC - Today's Visit Information Type of service Follow-up Visit Follow-up Visit Follow-up Visit (Physician/HOSPICE CASE MANAGER (Physician/HOSPICE CASE MANAGER (Physician/HOSPICE CASE MANAGER ) ) ) Arrival Mode Ambulatory Ambulatory Ambulatory Transfer Assistance None Accompanied by Patient Identification Verified (Name & Yes Yes Yes ) Height and Weight Body Mass Index (BMI) 20.1 20.1 20.1 BMI Classification Normal Normal Normal Vital Signs Temperature (97.8 F-99.1 F) 97.0 F L Temperature Source Temporal Pulse Rate (60-100) 69 73 74 Pulse Location Monitor Monitor Monitor Respiratory Rate (12-18) 18 18 16 Respiratory rate source Observation Observation Observation Oxygen Delivery Method Room Air Room Air Room Air Blood Pressure (90/60-120/80) 145/64 H 176/92 H 145/80 H Blood Pressure Mean (mm Hg) 91 120 101 Source Monitor Monitor Monitor Position Semi-Fowlers Sitting Semi-Fowlers Blood Pressure Location Left Arm Right Arm Left Arm History Since Last Visit- (Skip if this is Patient's initial visit) Have you changed medications since your No No No last visit? Any new allergies or adverse reactions No No No Had a fall/change in ADL's that may No No Yes increase risk of falls Signs or symptoms of abuse and/or No No No neglect since last visit Have you been in the hospital since your No No No last visit? Has dressing in place as prescribed Yes Yes Yes Has compression in place as prescribed Yes Yes Yes Has offloadiing in place as prescribed No No No Experienced any changes in pain level or No No No management Left Footwear Regular Shoe Regular Shoe Regular Shoe Right Footwear Regular Shoe Regular Shoe Regular Shoe Pain Scale: 0-10 Numeric Is Patient Pain Free? Yes Yes Yes 12/08/23 12/08/23 13:56 14:04 WC - Today's Visit Information Type of service Follow-up Visit (Physician/HOSPICE CASE MANAGER ) Arrival Mode Ambulatory Transfer Assistance Accompanied by Patient Identification Verified (Name & Yes ) Height and Weight Body Mass Index (BMI) 20.1 20.1 BMI Classification Normal Normal Vital Signs Temperature (97.8 F-99.1 F) 96.9 F L Temperature Source Temporal Pulse Rate (60-100) 79 72 Pulse Location Monitor Monitor Respiratory Rate (12-18) 18 Respiratory rate source Observation Oxygen Delivery Method Room Air Blood Pressure (90/60-120/80) 193/99 H 165/93 H Blood Pressure Mean (mm Hg) 130 117 Source Monitor Monitor Position Sitting Semi-Fowlers Blood Pressure Location Left Arm Right Arm History Since Last Visit- (Skip if this is Patient's initial visit) Have you changed medications since your No last visit? Any new allergies or adverse reactions No Had a fall/change in ADL's that may No increase risk of falls Signs or symptoms of abuse and/or No neglect since last visit Have you been in the hospital since your No last visit? Has dressing in place as prescribed Yes Has compression in place as prescribed Yes Has offloadiing in place as prescribed No Experienced any changes in pain level or No management Left Footwear Regular Shoe Right Footwear Regular Shoe Pain Scale: 0-10 Numeric Is Patient Pain Free? Yes Yes WC - Nurse 1 - General Ulcer Measurement Start: 11/10/23 13:59 Freq: Status: Active Protocol: Activity Type Activity Date Activity User E-sign Co-sign Detail Recorded Client Recorded Date Recorded By Document 11/10/23 14:01 [employer] Desktop 11/10/23 14:05 [employer] Document 11/17/23 13:48 [facility] Desktop 11/17/23 13:54 [facility] Document 11/24/23 13:57 KW Desktop 11/24/23 14:08 KW Document 12/08/23 13:56 [employer] Desktop 12/08/23 14:02 KW 11/10/23 11/17/23 11/24/23 14:01 13:48 13:57 Wound Center Nurse 1 #1- R LAT ANKLE -Current Size (cm) - Length 1.0 0.8 1.1 -Current Size (cm) - Width 1.7 0.9 1.0 -Current Size (cm) - Depth 0.3 0.1 0.3 -Total Square Cm 1.70 0.72 1.10 -Date of Last Picture (Recall this 11/24/23 field) -Photo Taken Yes -Exudate Amt Large Medium Medium -Exudate Type Serosanguineous Serosanguineous Serosanguineous -Wound Margin Thickened Thickened Distinct, Outline Attached -Granulation Amt Medium (34-66%) Large (67-100%) Medium (34-66%) -Granulation Quality Red Red Red -Necrosis Amt Medium (34-66%) Small (1-33%) Small (1-33%) -Necrotic Tissue Type Adherent Slough Adherent Slough Adherent Slough -Texture (Korin-wound Skin Appearance) Assessed Assessed, Assessed, Localized Edema Localized Edema -Moisture (Korin-wound Skin Appearance) Assessed, Assessed Assessed, Maceration Maceration -Color (Korin-wound Skin Appearance) Assessed, Assessed, Assessed, Erythema Erythema Erythema -Temperature (Korin-wound Skin No Abnormality No Abnormality Appearance) (Pt Warm) (Pt Warm) -Tenderness on Palpation (Korin-wound Yes Skin Appearance) -Ulcer Cleansing Soap and Water Soap and Water Soap and Water -Foul Odor after Cleansing No No -Anesthetic Used 5% Lidocaine 5% Lidocaine 5% Lidocaine Gel Gel Gel Right Calf (cm) 30.8 30.2 Right Ankle (cm) 20 21.5 12/08/23 13:56 Wound Center Nurse 1 #1- R LAT ANKLE -Current Size (cm) - Length 1.2 -Current Size (cm) - Width 1.2 -Current Size (cm) - Depth 0.1 -Total Square Cm 1.44 -Date of Last Picture (Recall this field) -Photo Taken -Exudate Amt Medium -Exudate Type Serosanguineous -Wound Margin Distinct, Outline Attached -Granulation Amt Medium (34-66%) -Granulation Quality Red -Necrosis Amt Small (1-33%) -Necrotic Tissue Type Adherent Slough -Texture (Korin-wound Skin Appearance) Assessed -Moisture (Korin-wound Skin Appearance) Assessed -Color (Korin-wound Skin Appearance) Assessed -Temperature (Korin-wound Skin No Abnormality Appearance) (Pt Warm) -Tenderness on Palpation (Korin-wound No Skin Appearance) -Ulcer Cleansing Soap and Water -Foul Odor after Cleansing -Anesthetic Used 5% Lidocaine Gel Right Calf (cm) 31.0 Right Ankle (cm) 21.0 WC - Nurse 2 - General Ulcer CM Notes Start: 11/10/23 13:59 Freq: Status: Active Protocol: Activity Type Activity Date Activity User E-sign Co-sign Detail Recorded Client Recorded Date Recorded By Document 11/10/23 14:08 Laptop 11/10/23 14:17 Document 11/17/23 14:14 Laptop 11/17/23 14:16 Document 11/24/23 14:20 Laptop 11/24/23 14:21 Document 12/08/23 14:16 Laptop 12/08/23 14:17 11/10/23 11/17/23 11/24/23 14:08 14:14 14:20 Wound Center Nurse 2 #1- R LAT ANKLE -Time 14:09 14:15 14:20 -Correct Patient Yes Yes Yes -Correct Side, Site, Position Yes Yes Yes -Correct Procedure Yes Yes Yes -Procedure Performed Yes Yes Yes -Type of Procedure Debridement Debridement Debridement -Clinical Debridement Subcutaneous Subcutaneous Subcutaneous -Tissue Removed Subcutaneous Subcutaneous Subcutaneous -Post Debridement (cm) - Length 1.1 0.9 0.9 -Post Debridement (cm) - Width 1.1 1.0 0.7 -Post Debridement (cm) - Depth 0.2 0.1 0.1 -Total Square (Post) (cm) 1.21 0.90 0.63 -Area of Debridement (cm) - Length 1.1 0.9 0.9 -Area of Debridement (cm) - Width 1.1 1.0 0.7 -Total Square (Area) (cm) 1.21 0.90 0.63 -Tunneling No No No -Undermining/Tunneling No No No -Circular Undermining No No No -Wound/Ulcer Outcome Not Healed Not Healed Not Healed -Ulcer Cleansing Rinsed/ Rinsed/ Rinsed/ Irrigated with Irrigated with Irrigated with Saline Saline Saline -Foul Odor after Cleansing No No No -Bioengineered Tissue No No No -Bleeding Controlled with Pressure Pressure Pressure -Treatment Response Procedure Procedure Procedure Tolerated Well Tolerated Well Tolerated Well -Offloading No No No -Debridement - Subq, 1st 20sq cm Yes Yes Yes Pain Scale: 0-10 Numeric Is Patient Pain Free? Yes Yes Yes 12/08/23 14:16 Wound Center Nurse 2 #1- R LAT ANKLE -Time 14:16 -Correct Patient Yes -Correct Side, Site, Position Yes -Correct Procedure Yes -Procedure Performed Yes -Type of Procedure Debridement -Clinical Debridement Subcutaneous -Tissue Removed Subcutaneous -Post Debridement (cm) - Length 1.1 -Post Debridement (cm) - Width 0.9 -Post Debridement (cm) - Depth 0.1 -Total Square (Post) (cm) 0.99 -Area of Debridement (cm) - Length 1.1 -Area of Debridement (cm) - Width 0.9 -Total Square (Area) (cm) 0.99 -Tunneling No -Undermining/Tunneling No -Circular Undermining No -Wound/Ulcer Outcome Not Healed -Ulcer Cleansing Rinsed/ Irrigated with Saline -Foul Odor after Cleansing No -Bioengineered Tissue No -Bleeding Controlled with Pressure -Treatment Response Procedure Tolerated Well -Offloading No -Debridement - Subq, 1st 20sq cm Yes Pain Scale: 0-10 Numeric Is Patient Pain Free? Yes - Nurse 3 - General Ulcer D/C NN Start: 11/10/23 13:59 Freq: Status: Active Protocol: Activity Type Activity Date Activity User E-sign Co-sign Detail Recorded Client Recorded Date Recorded By Document 11/10/23 14:24 [employer] Desktop 11/10/23 14:24 KW Document 11/17/23 14:31 [facility] Desktop 11/17/23 14:32 [facility] 11/10/23 11/17/23 14:24 14:31 Wound Care Center Nurse 3 #1- R LAT ANKLE -Negative Pressure Wound Therapy Continue Continue -Setting (mmHg) 125 125 -Negative Pressure is Continuous Continuous -Other Dressing primatrix -NPWT Application Charge NPWT & NPWT & Debridement (nc Debridement (nc ) ) Right -Compression Wrap Carroll Wrap -Tubular Bandage Single Layer -Size of Tubigrip Used Size D -Size D ($) 1 Treatment Response Procedure Tolerated Well Pain Scale: 0-10 Numeric Is Patient Pain Free? Yes Yes WC - Visit Discharge Discharge Condition Stable Stable Ambulatory Status Ambulatory Ambulatory Transportation Private Auto Private Auto Accompanied by lucille Medication Reconcilliation completed & No provided to patient/care provider Clinical Summary of Care Provided Yes Assessment/Plan Assessment/Plan (1) Non-pressure chronic ulcer of unspecified part of right lower leg with fat layer exposed: CODE(S): L97.912 - Non-pressure chronic ulcer of unspecified part of right lower leg with fat layer exposed PLAN: Patient was examined and evaluated. All findings were discussed with the patient. All questions were answered to the patient's satisfaction. Excisional debridement down to and including subcutaneous tissue with number 15 blade to the lateral right ankle ulceration. Predebridement measurements were 0.9 x 0.7 x 0.1 cm. Postdebridement measures 1.0 x 0.9 x 0.1 cm. Patient's full-thickness ulceration was dressed with Elizabeth, Betadine paint and dry sterile dressing to the right lower extremity. He will continue to do the dressing every other day. Educated the patient and her that she will need to keep her foot at 90 degrees to decrease the likelihood of causing tension to the wound thus decreasing or delaying wound healing. He was understanding of this. He is to stop washing her leg warm water and antibacterial soap at this time. Will continue to birdbath her through her body and keep her dressings clean dry and intact. Follow-up at the wound care center with Dr. Saini in 1 week. (2) Cellulitis: CODE(S): L03.90 - Cellulitis, unspecified PLAN: There is concern for possibly superficial cellulitis to the ulceration to the right ankle. Cultures were taken. The patient will be placed on Keflex 500 mg 3 times daily for 10 days. Prescription sent to her pharmacy.
== END 2023-12-08 23:59 | disposition home or self-care (01) ==
LOC: WC 14:00
PROVIDERS: PCP Internal Medicine; Referring Provider Podiatrist Foot & Ankle Surgery; Visit Provider Podiatrist Foot & Ankle Surgery
DX: L97.314 Non-pressure chronic ulcer of right ankle with necrosis of bone (principal); L03.90 Cellulitis, unspecified
CPT/HCPCS: 11042; 87070; 87075; 87077; 87101; 87186; 87205

== ENCOUNTER 2023-12-29 14:00 | Outpatient (RCR) | payer MEDICARE, SELFPAY ==
[2023-12-09 00:11] VITALS: BP 165/93; PULSE 72; RESP 18; TEMP 36.1; BMI 20.1
[2023-12-15 13:56] VITALS: BP 153/79; PULSE 66; RESP 18; TEMP 36.4; BMI 20.1
--- NOTE | 2023-12-15 15:42 | PCM.WC.PN ---
History of Present Illness Date of Service: 12/15/23 Chief Complaint: Full-thickness ulceration lateral ankle right History of Wound: Full-thickness ulceration right ankle since February 2023 Subjective Subjective Mrs. Barber is a 73-year-old female presenting to the wound care center today for follow-up and evaluation of full-thickness ulceration to the lateral aspect of the right leg. She admits to a fall while at home. Her doing home dressing changes and washing the right lower extremity as instructed during her last visit. Denies constitutional symptoms. No other pedal complaints at this time. Objective Data Objective Data Vital Signs: Vital Signs Temp Pulse Resp BP O2 Del Method 97.5 F L 66 18 153/79 H Room Air 12/15/23 13:56 12/15/23 13:56 12/15/23 13:56 12/15/23 13:56 12/15/23 13:56 Oxygen Delivery Method Room Air Weight: 49.895 kg Body Mass Index (BMI) 20.1 Physical Exam Narrative Neurovascular status unchanged. Full-thickness ulceration to the lateral aspect of the right ankle. Full-thickness ulceration measures 1.0 x 1.0 x 0.1 cm. Wound base is granular in nature with no sign of infection. No pain with calf compression. Excisional debridement down to and including subcutaneous tissue with number 15 blade to the lateral right ankle ulceration. Predebridement measurements were 0.9 x 0.9 x 0.1 cm. Postdebridement measures 1.0 x 1.0 x 0.1 cm Debridement Note Debridement Note Debridement Free Text: Excisional debridement down to and including subcutaneous tissue with number 15 blade to the lateral right ankle ulceration. Predebridement measurements were 0.9 x 0.9 x 0.1 cm. Postdebridement measures 1.0 x 1.0 x 0.1 cm Post-Debridement Measurements and Additional Note: Post-Debridement Measurements/Treatment - Nurse 1 - General Ulcer Assessment Start: 12/15/23 13:53 Freq: Status: Active Protocol: TATI Activity Type Activity Date Activity User E-sign Co-sign Detail Recorded Client Recorded Date Recorded By Document 12/15/23 13:56 Desktop 12/15/23 13:58 GM 12/15/23 13:56 - Today's Visit Information Type of service Follow-up Visit (Physician/NEUROPSYCHIATRIC AIDE ) Arrival Mode Ambulatory Accompanied by Patient Identification Verified (Name & Yes ) Height and Weight Body Mass Index (BMI) 20.1 BMI Classification Normal Vital Signs Temperature (97.8 F-99.1 F) 97.5 F L Temperature Source Temporal Pulse Rate (60-100) 66 Pulse Location Monitor Respiratory Rate (12-18) 18 Respiratory rate source Observation Oxygen Delivery Method Room Air Blood Pressure (90/60-120/80) 153/79 H Blood Pressure Mean (mm Hg) 103 Source Monitor Position Semi-Fowlers Blood Pressure Location Left Arm History Since Last Visit- (Skip if this is Patient's initial visit) Have you changed medications since your No last visit? Any new allergies or adverse reactions No Had a fall/change in ADL's that may No increase risk of falls Signs or symptoms of abuse and/or No neglect since last visit Have you been in the hospital since your No last visit? Has dressing in place as prescribed Yes Has compression in place as prescribed Yes Has offloadiing in place as prescribed N/A Experienced any changes in pain level or No management Left Footwear Regular Shoe Right Footwear Regular Shoe Pain Scale: 0-10 Numeric Is Patient Pain Free? Yes WC - Nurse 1 - General Ulcer Measurement Start: 12/15/23 13:53 Freq: Status: Active Protocol: Activity Type Activity Date Activity User E-sign Co-sign Detail Recorded Client Recorded Date Recorded By Document 12/15/23 13:56 GM Desktop 12/15/23 13:58 GM 12/15/23 13:56 Wound Center Nurse 1 #1- R LAT ANKLE -Current Size (cm) - Length 1.2 -Current Size (cm) - Width 1 -Current Size (cm) - Depth 0.2 -Total Square Cm 1.2 -Exudate Amt Medium -Exudate Type Serosanguineous -Wound Margin Distinct, Outline Attached -Granulation Amt Medium (34-66%) -Granulation Quality Medley,Red -Necrosis Amt Medium (34-66%) -Necrotic Tissue Type Adherent Slough -Texture (Korin-wound Skin Appearance) Assessed, Localized Edema -Moisture (Korin-wound Skin Appearance) Assessed -Color (Korin-wound Skin Appearance) Assessed, Erythema -Ulcer Cleansing Soap and Water -Anesthetic Used 5% Lidocaine Gel WC - Nurse 2 - General Ulcer CM Notes Start: 12/15/23 13:53 Freq: Status: Active Protocol: Activity Type Activity Date Activity User E-sign Co-sign Detail Recorded Client Recorded Date Recorded By Document 12/15/23 14:17 Laptop 12/15/23 14:22 12/15/23 14:17 Wound Center Nurse 2 -Time 14:18 -Correct Patient Yes -Correct Side, Site, Position Yes -Correct Procedure Yes -Procedure Performed Yes -Type of Procedure Debridement -Clinical Debridement Subcutaneous -Tissue Removed Subcutaneous -Post Debridement (cm) - Length 1.0 -Post Debridement (cm) - Width 1.0 -Post Debridement (cm) - Depth 0.1 -Total Square (Post) (cm) 1.00 -Area of Debridement (cm) - Length 1.0 -Area of Debridement (cm) - Width 1.0 -Total Square (Area) (cm) 1.00 -Tunneling No -Undermining/Tunneling No -Circular Undermining No -Wound/Ulcer Outcome Not Healed -Ulcer Cleansing Rinsed/ Irrigated with Saline -Foul Odor after Cleansing No -Bioengineered Tissue No -Bleeding Controlled with Pressure -Treatment Response Procedure Tolerated Well -Offloading No -Debridement - Subq, 1st 20sq cm Yes Pain Scale: 0-10 Numeric Is Patient Pain Free? Yes - Nurse 3 - General Ulcer D/C NN Start: 12/15/23 13:53 Freq: Status: Active Protocol: Activity Type Activity Date Activity User E-sign Co-sign Detail Recorded Client Recorded Date Recorded By Document 12/15/23 14:22 Laptop 12/15/23 14:23 Document 12/15/23 14:33 [facility] Desktop 12/15/23 14:34 [facility] 12/15/23 12/15/23 14:22 14:33 Wound Care Center Nurse 3 #1- R LAT ANKLE -Ulcer Cleansing Rinsed/ Irrigated with Saline -Foul Odor after Cleansing No -Primary Dressing Applied Promogran Promogran Elizabeth Matter Elizabeth Matter -Other Dressing betadine dr walsh applied elizabeth and betadine -Primary Dressing Covered/Secured with Dry Gauze Dry Gauze & Roll Gauze, Secured with Tape -Promogran Elizabeth Matter 1 1 Right -Other own single layer tubi applied Treatment Response Procedure Tolerated Well Pain Scale: 0-10 Numeric Is Patient Pain Free? Yes Yes - Visit Discharge Discharge Condition Stable Ambulatory Status Ambulatory Transportation Private Auto Accompanied by Assessment/Plan Assessment/Plan (1) Non-pressure chronic ulcer of unspecified part of right lower leg with fat layer exposed: CODE(S): L97.912 - Non-pressure chronic ulcer of unspecified part of right lower leg with fat layer exposed PLAN: Patient was examined and evaluated. All findings were discussed with the patient. All questions were answered to the patient's satisfaction. Excisional debridement down to and including subcutaneous tissue with number 15 blade to the lateral right ankle ulceration. Predebridement measurements were 0.9 x 0.9 x 0.1 cm. Postdebridement measures 1.0 x 1.0 x 0.1 cm. The ulceration was dressed with Elizabeth, Betadine paint and dry sterile dressing with compression wrap was donned to the right lower extremity. Patient educated on dressing changes. She and her are understanding. Follow-up at the wound care center with Dr. Walsh in 1 week.
[2023-12-29 14:04] VITALS: BP 138/70; PULSE 75; RESP 18; TEMP 36.8; BMI 20.1
--- NOTE | 2023-12-29 15:07 | PCM.WC.PN ---
History of Present Illness Date of Service: 12/29/23 Chief Complaint: Full-thickness ulceration lateral ankle right History of Wound: Full-thickness ulceration right ankle since February 2023 Subjective Subjective Mrs. Barber is a 73-year-old female presenting to the wound care center today for follow-up and evaluation of full-thickness ulceration to the lateral aspect of the right leg. She admits to a fall while at home. Her doing home dressing changes and washing the right lower extremity as instructed during her last visit. Denies constitutional symptoms. No other pedal complaints at this time. Objective Data Objective Data Vital Signs: Vital Signs Temp Pulse Resp BP O2 Del Method 98.3 F 75 18 138/70 H Room Air 12/29/23 14:04 12/29/23 14:04 12/29/23 14:04 12/29/23 14:04 12/29/23 14:04 Oxygen Delivery Method Room Air Weight: 49.895 kg Body Mass Index (BMI) 20.1 Physical Exam Narrative Neurovascular status unchanged. Full-thickness ulceration to the lateral aspect of the right ankle. Full-thickness ulceration measures 1.1 x 0.9 x 0.1 cm. Wound base is granular in nature with no sign of infection. No pain with calf compression. Excisional debridement down to and including subcutaneous tissue with number 15 blade to the lateral right ankle ulceration. Predebridement measurements were 1.0 x 0.8 x 0.1 cm. Postdebridement measures 1.1 x 0.9 x 0.1 cm. Debridement Note Debridement Note Debridement Free Text: Excisional debridement down to and including subcutaneous tissue with number 15 blade to the lateral right ankle ulceration. Predebridement measurements were 1.0 x 0.8 x 0.1 cm. Postdebridement measures 1.1 x 0.9 x 0.1 cm Post-Debridement Measurements and Additional Note: Post-Debridement Measurements/Treatment WC - Nurse 1 - General Ulcer Assessment Start: 12/15/23 13:53 Freq: Status: Active Protocol: TATI Activity Type Activity Date Activity User E-sign Co-sign Detail Recorded Client Recorded Date Recorded By Document 12/15/23 13:56 GM Desktop 12/15/23 13:58 GM Document 12/29/23 14:04 KW Desktop 12/29/23 14:11 KW 12/15/23 12/29/23 13:56 14:04 - Today's Visit Information Type of service Follow-up Visit Follow-up Visit (Physician/[employer] (Physician/[employer] ) ) Arrival Mode Ambulatory Ambulatory Accompanied by Patient Identification Verified (Name & Yes Yes ) Height and Weight Body Mass Index (BMI) 20.1 20.1 BMI Classification Normal Normal Vital Signs Temperature (97.8 F-99.1 F) 97.5 F L 98.3 F Temperature Source Temporal Temporal Pulse Rate (60-100) 66 75 Pulse Location Monitor Monitor Respiratory Rate (12-18) 18 18 Respiratory rate source Observation Observation Oxygen Delivery Method Room Air Room Air Blood Pressure (90/60-120/80) 153/79 H 138/70 H Blood Pressure Mean (mm Hg) 103 92 Source Monitor Monitor Position Semi-Fowlers Semi-Fowlers Blood Pressure Location Left Arm Left Arm History Since Last Visit- (Skip if this is Patient's initial visit) Have you changed medications since your No No last visit? Any new allergies or adverse reactions No No Had a fall/change in ADL's that may No No increase risk of falls Signs or symptoms of abuse and/or No No neglect since last visit Have you been in the hospital since your No No last visit? Has dressing in place as prescribed Yes Yes Has compression in place as prescribed Yes Yes Has offloadiing in place as prescribed N/A N/A Experienced any changes in pain level or No No management Left Footwear Regular Shoe Regular Shoe Right Footwear Regular Shoe Regular Shoe Pain Scale: 0-10 Numeric Is Patient Pain Free? Yes Yes - Nurse 1 - General Ulcer Measurement Start: 12/15/23 13:53 Freq: Status: Active Protocol: Activity Type Activity Date Activity User E-sign Co-sign Detail Recorded Client Recorded Date Recorded By Document 12/15/23 13:56 Desktop 12/15/23 13:58 GM Document 12/29/23 14:04 KW Desktop 12/29/23 14:11 KW 12/15/23 12/29/23 13:56 14:04 Wound Center Nurse 1 #1- R LAT ANKLE -Current Size (cm) - Length 1.2 1 -Current Size (cm) - Width 1 0.9 -Current Size (cm) - Depth 0.2 0.1 -Total Square Cm 1.2 0.9 -Epithelialization Small 1-33% -Exudate Amt Medium Small -Exudate Type Serosanguineous Serosanguineous -Wound Margin Distinct, Distinct, Outline Outline Attached Attached -Granulation Amt Medium (34-66%) Large (67-100%) -Granulation Quality [place],Red [place] -Necrosis Amt Medium (34-66%) Small (1-33%) -Necrotic Tissue Type Adherent Slough Adherent Slough -Texture (Korin-wound Skin Appearance) Assessed, Assessed, Localized Edema Localized Edema -Moisture (Korin-wound Skin Appearance) Assessed Assessed -Color (Korin-wound Skin Appearance) Assessed, Assessed Erythema -Temperature (Korin-wound Skin No Abnormality Appearance) (Pt Warm) -Ulcer Cleansing Soap and Water Rinsed/ Irrigated with Saline -Foul Odor after Cleansing No -Anesthetic Used 5% Lidocaine 5% Lidocaine Gel Gel Right Calf (cm) 31.5 Right Ankle (cm) 19 WC - Nurse 2 - General Ulcer CM Notes Start: 12/15/23 13:53 Freq: Status: Active Protocol: Activity Type Activity Date Activity User E-sign Co-sign Detail Recorded Client Recorded Date Recorded By Document 12/15/23 14:17 [employer] Laptop 12/15/23 14:22 [employer] Document 12/29/23 14:47 [employer] Laptop 12/29/23 14:48 12/15/23 12/29/23 14:17 14:47 Wound Center Nurse 2 #1- R LAT ANKLE -Time 14:18 14:47 -Correct Patient Yes Yes -Correct Side, Site, Position Yes Yes -Correct Procedure Yes Yes -Procedure Performed Yes Yes -Type of Procedure Debridement Debridement -Clinical Debridement Subcutaneous Subcutaneous -Tissue Removed Subcutaneous Subcutaneous -Post Debridement (cm) - Length 1.0 1.1 -Post Debridement (cm) - Width 1.0 0.9 -Post Debridement (cm) - Depth 0.1 0.1 -Total Square (Post) (cm) 1.00 0.99 -Area of Debridement (cm) - Length 1.0 1.1 -Area of Debridement (cm) - Width 1.0 0.9 -Total Square (Area) (cm) 1.00 0.99 -Tunneling No No -Undermining/Tunneling No No -Circular Undermining No No -Wound/Ulcer Outcome Not Healed Not Healed -Ulcer Cleansing Rinsed/ Rinsed/ Irrigated with Irrigated with Saline Saline -Foul Odor after Cleansing No No -Bioengineered Tissue No No -Bleeding Controlled with Pressure Pressure -Treatment Response Procedure Procedure Tolerated Well Tolerated Well -Offloading No No -Debridement - Subq, 1st 20sq cm Yes Yes Pain Scale: 0-10 Numeric Is Patient Pain Free? Yes Yes - Nurse 3 - General Ulcer D/C NN Start: 12/15/23 13:53 Freq: Status: Active Protocol: Activity Type Activity Date Activity User E-sign Co-sign Detail Recorded Client Recorded Date Recorded By Document 12/15/23 14:22 Laptop 12/15/23 14:23 Document 12/15/23 14:33 [facility] Desktop 12/15/23 14:34 [facility] 12/15/23 12/15/23 14:22 14:33 Wound Care Center Nurse 3 #1- R LAT ANKLE -Ulcer Cleansing Rinsed/ Irrigated with Saline -Foul Odor after Cleansing No -Primary Dressing Applied Promogran Promogran Elizabeth Matter Elizabeth Matter -Other Dressing betadine dr walsh applied elizabeth and betadine -Primary Dressing Covered/Secured with Dry Gauze Dry Gauze & Roll Gauze, Secured with Tape -Promogran Elizabeth Matter 1 1 Right -Other own single layer tubi applied Treatment Response Procedure Tolerated Well Pain Scale: 0-10 Numeric Is Patient Pain Free? Yes Yes - Visit Discharge Discharge Condition Stable Ambulatory Status Ambulatory Transportation Private Auto Accompanied by Assessment/Plan Assessment/Plan (1) Non-pressure chronic ulcer of unspecified part of right lower leg with fat layer exposed: CODE(S): L97.912 - Non-pressure chronic ulcer of unspecified part of right lower leg with fat layer exposed PLAN: Patient was examined and evaluated. All findings were discussed with the patient. All questions were answered to the patient's satisfaction. Excisional debridement down to and including subcutaneous tissue with number 15 blade to the lateral right ankle ulceration. Predebridement measurements were 1.0 x 0.8 x 0.1 cm. Postdebridement measures 1.1 x 0.9 x 0.1 cm. Right ankle site clean and patted dry. We will just continue the Betadine paint and only apply moist Elizabeth to the lateral ankle wound followed by dry sterile dressing and offloading pad. The patient was understanding of the new wound care orders. Follow-up at the wound care center with Dr. Walsh in 2 week.
== END 2024-01-06 23:59 | disposition home or self-care (01) ==
LOC: WC 14:00
PROVIDERS: PCP Internal Medicine; Referring Provider Podiatrist Foot & Ankle Surgery; Visit Provider Podiatrist Foot & Ankle Surgery
DX: L97.312 Non-pressure chronic ulcer of right ankle with fat layer exposed (principal)
CPT/HCPCS: 11042

== ENCOUNTER 2024-01-26 14:00 | Outpatient (RCR) | payer MEDICARE, SELFPAY ==
[2024-01-07 00:24] VITALS: BP 138/70; PULSE 75; RESP 18; TEMP 36.8; BMI 20.1
[2024-01-12 13:53] VITALS: BP 142/73; PULSE 83; RESP 16; TEMP 36.2; BMI 20.1
--- NOTE | 2024-01-12 16:22 | PCM.WC.PN ---
History of Present Illness Date of Service: 01/12/24 Chief Complaint: Full-thickness ulceration lateral ankle right History of Wound: Full-thickness ulceration right ankle since February 2023 Subjective Subjective Mrs. Barber is a 73-year-old female presenting to the wound care center today for follow-up and evaluation of full-thickness ulceration to the lateral aspect of the right leg. She admits to a fall while at home. Her doing home dressing changes and washing the right lower extremity as instructed during her last visit. Denies constitutional symptoms. No other pedal complaints at this time. Objective Data Objective Data Vital Signs: Vital Signs Temp Pulse Resp BP O2 Del Method 97.1 F L 83 16 142/73 H Room Air 01/12/24 13:53 01/12/24 13:53 01/12/24 13:53 01/12/24 13:53 01/12/24 13:53 Oxygen Delivery Method Room Air Weight: 49.895 kg Body Mass Index (BMI) 20.1 Physical Exam Narrative Neurovascular status unchanged. Full-thickness ulceration to the lateral aspect of the right ankle. Full-thickness ulceration measures 1.0 x 0.8 x 0.1 cm. Wound base is granular in nature with no sign of infection. No pain with calf compression. Excisional debridement down to and including subcutaneous tissue with number 15 blade to the lateral right ankle ulceration. Predebridement measurements were 0.9 x 0.7 x 0.1 cm. Postdebridement measures 1.0 x 0.8x 0.1 cm. Debridement Note Debridement Note Debridement Free Text: Excisional debridement down to and including subcutaneous tissue with number 15 blade to the lateral right ankle ulceration. Predebridement measurements were 0.9 x 0.7 x 0.1 cm. Postdebridement measures 1.0 x 0.8x 0.1 cm. Post-Debridement Measurements and Additional Note: Post-Debridement Measurements/Treatment - Nurse 1 - General Ulcer Assessment Start: 01/12/24 13:53 Freq: Status: Active Protocol: TATI Activity Type Activity Date Activity User E-sign Co-sign Detail Recorded Client Recorded Date Recorded By Document 01/12/24 13:53 [facility] Desktop 01/12/24 13:57 BMF 01/12/24 13:53 - Today's Visit Information Type of service Follow-up Visit (Physician/[employer]MENT [employer]GER ) Arrival Mode Ambulatory Transfer Assistance None Accompanied by Patient Identification Verified (Name & Yes ) Patient Requires Transmission-Based No Precautions Height and Weight Body Mass Index (BMI) 20.1 BMI Classification Normal Vital Signs Temperature (97.8 F-99.1 F) 97.1 F L Temperature Source Temporal Pulse Rate (60-100) 83 Pulse Location Monitor Respiratory Rate (12-18) 16 Respiratory rate source Observation Oxygen Delivery Method Room Air Blood Pressure (90/60-120/80) 142/73 H Blood Pressure Mean (mm Hg) 96 Source Monitor Position Sitting Blood Pressure Location Left Arm History Since Last Visit- (Skip if this is Patient's initial visit) Have you changed medications since your No last visit? Any new allergies or adverse reactions No Had a fall/change in ADL's that may No increase risk of falls Signs or symptoms of abuse and/or No neglect since last visit Have you been in the hospital since your No last visit? Has dressing in place as prescribed Yes Has compression in place as prescribed Yes Has offloadiing in place as prescribed N/A Experienced any changes in pain level or No management Left Footwear Regular Shoe Right Footwear Regular Shoe Pain Scale: 0-10 Numeric Is Patient Pain Free? Yes WC - Nurse 1 - General Ulcer Measurement Start: 01/12/24 13:53 Freq: Status: Active Protocol: Activity Type Activity Date Activity User E-sign Co-sign Detail Recorded Client Recorded Date Recorded By Document 01/12/24 13:53 [facility] Desktop 01/12/24 13:57 [facility] 01/12/24 13:53 Wound Center Nurse 1 #1- R LAT ANKLE -Combined with other wound No -Current Size (cm) - Length 1 -Current Size (cm) - Width 1 -Current Size (cm) - Depth 0.1 -Total Square Cm 1 -Photo Taken No -Tunneling No -Undermining/Tunneling No -Circular Undermining No -Exudate Amt Medium -Exudate Type Serosanguineous -Wound Margin Flat & Intact -Granulation Amt Large (67-100%) -Granulation Quality [place] -Slough/Fibrin Yes -Necrosis Amt Small (1-33%) -Necrotic Tissue Type Adherent Slough -Texture (Korin-wound Skin Appearance) Assessed, Localized Edema ,Scarring -Moisture (Korin-wound Skin Appearance) Assessed -Color (Korin-wound Skin Appearance) Assessed, Erythema -Temperature (Korin-wound Skin No Abnormality Appearance) (Pt Warm) -Tenderness on Palpation (Korin-wound No Skin Appearance) -Ulcer Cleansing Rinsed/ Irrigated with Saline -Foul Odor after Cleansing No -Anesthetic Used 5% Lidocaine Gel - Nurse 2 - General Ulcer CM Notes Start: 01/12/24 13:53 Freq: Status: Active Protocol: Activity Type Activity Date Activity User E-sign Co-sign Detail Recorded Client Recorded Date Recorded By Document 01/12/24 14:16 Desktop 01/12/24 14:18 01/12/24 14:16 Wound Center Nurse 2 -Time 14:16 -Correct Patient Yes -Correct Side, Site, Position Yes -Correct Procedure Yes -Procedure Performed Yes -Type of Procedure Debridement -Clinical Debridement Subcutaneous -Tissue Removed Subcutaneous -Post Debridement (cm) - Length 1.0 -Post Debridement (cm) - Width 0.8 -Post Debridement (cm) - Depth 0.1 -Total Square (Post) (cm) 0.80 -Area of Debridement (cm) - Length 1.0 -Area of Debridement (cm) - Width 0.8 -Total Square (Area) (cm) 0.80 -Tunneling No -Undermining/Tunneling No -Circular Undermining No -Wound/Ulcer Outcome Not Healed -Ulcer Cleansing Rinsed/ Irrigated with Saline -Foul Odor after Cleansing No -Bioengineered Tissue No -Bleeding Controlled with Pressure -Treatment Response Procedure Tolerated Well -Offloading No -Debridement - Subq, 1st 20sq cm Yes -Wound Comment(s) sample if PriMatrix applied. lot [id number] exp. 11/07/2024 Pain Scale: 0-10 Numeric Is Patient Pain Free? Yes - Nurse 3 - General Ulcer D/C NN Start: 01/12/24 13:53 Freq: Status: Active Protocol: Activity Type Activity Date Activity User E-sign Co-sign Detail Recorded Client Recorded Date Recorded By Document 01/12/24 14:26 [facility] Desktop 01/12/24 14:28 [facility] 01/12/24 14:26 Wound Care Center Nurse 3 #1- R LAT ANKLE -Other Dressing PRIMATRIX -Primary Dressing Covered/Secured with Dry Gauze & Roll Gauze, Secured with Tape Right -Tubular Bandage Single Layer -Size of Tubigrip Used Size E -Size E ($) 1 -Other [place] Treatment Response Procedure Tolerated Well Pain Scale: 0-10 Numeric Is Patient Pain Free? Yes WC - Visit Discharge Discharge Condition Stable Ambulatory Status Ambulatory Transportation Private Auto Accompanied by Assessment/Plan Assessment/Plan (1) Non-pressure chronic ulcer of unspecified part of right lower leg with fat layer exposed: CODE(S): L97.912 - Non-pressure chronic ulcer of unspecified part of right lower leg with fat layer exposed PLAN: Patient was examined and evaluated. All findings were discussed with the patient. All questions were answered to the patient's satisfaction. Excisional debridement down to and including subcutaneous tissue with number 15 blade to the lateral right ankle ulceration. Predebridement measurements were 0.9 x 0.7 x 0.1 cm. Postdebridement measures 1.0 x 0.8x 0.1 cm. The patient's full-thickness ulceration was dressed with 8 mm disc PriMatrix followed by bolster dressing and a single layer Tubigrip. Patient and her were educated to leave the dressing clean dry and intact and not removed until they follow-up in 2 weeks. Follow-up at the wound care center with Dr. Saini in 2 weeks since the has doctors appointment next Wednesday.
[2024-01-26 14:23] VITALS: BP 167/96; PULSE 77; RESP 18; BMI 20.1
--- NOTE | 2024-01-26 20:49 | PCM.WC.PN ---
History of Present Illness Date of Service: 01/26/24 Chief Complaint: Full-thickness ulceration lateral ankle right History of Wound: Full-thickness ulceration right ankle since February 2023 Subjective Subjective Mrs. Barber is a 73-year-old female presenting to the wound care center today for follow-up and evaluation of full-thickness ulceration to the lateral aspect of the right leg. She admits to a fall while at home. Her doing home dressing changes and washing the right lower extremity as instructed during her last visit. Denies constitutional symptoms. No other pedal complaints at this time. Objective Data Objective Data Vital Signs: Vital Signs Temp Pulse Resp BP O2 Del Method 97.1 F L 77 18 167/96 H Room Air 01/12/24 13:53 01/26/24 14:23 01/26/24 14:23 01/26/24 14:23 01/26/24 14:23 Oxygen Delivery Method Room Air Weight: 49.895 kg Body Mass Index (BMI) 20.1 Physical Exam Narrative Neurovascular status unchanged. Full-thickness ulceration to the lateral aspect of the right ankle. Full-thickness ulceration measures 1.0 x 0.8 x 0.1 cm. Wound base is granular in nature with no sign of infection. No pain with calf compression. Excisional debridement down to and including subcutaneous tissue with number# 5 mm dermal currette to the lateral right ankle ulceration. Predebridement measurements were 0.9 x 0.7 x 0.1 cm. Postdebridement measures 1.0 x 0.8x 0.1 cm. Debridement Note Debridement Note Debridement Free Text: Excisional debridement down to and including subcutaneous tissue with number# 5 mm dermal currette to the lateral right ankle ulceration. Predebridement measurements were 0.9 x 0.7 x 0.1 cm. Postdebridement measures 1.0 x 0.8x 0.1 cm. Post-Debridement Measurements and Additional Note: Post-Debridement Measurements/Treatment WC - Nurse 1 - General Ulcer Assessment Start: 01/12/24 13:53 Freq: Status: Active Protocol: TATI Activity Type Activity Date Activity User E-sign Co-sign Detail Recorded Client Recorded Date Recorded By Document 01/12/24 13:53 BMF Desktop 01/12/24 13:57 BMF Document 01/26/24 14:23 KW Desktop 01/26/24 14:32 KW 01/12/24 01/26/24 13:53 14:23 - Today's Visit Information Type of service Follow-up Visit Follow-up Visit (Physician/EMERGENCY MEDICINE PHYSICIAN (Physician/EMERGENCY MEDICINE PHYSICIAN ) ) Arrival Mode Ambulatory Ambulatory Transfer Assistance None Accompanied by Patient Identification Verified (Name & Yes Yes ) Patient Requires Transmission-Based No Precautions Height and Weight Body Mass Index (BMI) 20.1 20.1 BMI Classification Normal Normal Vital Signs Temperature (97.8 F-99.1 F) 97.1 F L Temperature Source Temporal Pulse Rate (60-100) 83 77 Pulse Location Monitor Monitor Respiratory Rate (12-18) 16 18 Respiratory rate source Observation Observation Oxygen Delivery Method Room Air Room Air Blood Pressure (90/60-120/80) 142/73 H 167/96 H Blood Pressure Mean (mm Hg) 96 119 Source Monitor Monitor Position Sitting Semi-Fowlers Blood Pressure Location Left Arm Right Arm History Since Last Visit- (Skip if this is Patient's initial visit) Have you changed medications since your No No last visit? Any new allergies or adverse reactions No No Had a fall/change in ADL's that may No No increase risk of falls Signs or symptoms of abuse and/or No No neglect since last visit Have you been in the hospital since your No No last visit? Has dressing in place as prescribed Yes Yes Has compression in place as prescribed Yes Yes Has offloadiing in place as prescribed N/A N/A Experienced any changes in pain level or No No management Left Footwear Regular Shoe Regular Shoe Right Footwear Regular Shoe Regular Shoe Pain Scale: 0-10 Numeric Is Patient Pain Free? Yes Yes - Nurse 1 - General Ulcer Measurement Start: 01/12/24 13:53 Freq: Status: Active Protocol: Activity Type Activity Date Activity User E-sign Co-sign Detail Recorded Client Recorded Date Recorded By Document 01/12/24 13:53 [facility] Desktop 01/12/24 13:57 BM Document 01/26/24 14:23 KW Desktop 01/26/24 14:32 KW 01/12/24 01/26/24 13:53 14:23 Wound Center Nurse 1 #1- R LAT ANKLE -Combined with other wound No -Current Size (cm) - Length 1 1.1 -Current Size (cm) - Width 1 0.9 -Current Size (cm) - Depth 0.1 0.1 -Total Square Cm 1 0.99 -Photo Taken No -Tunneling No -Undermining/Tunneling No -Circular Undermining No -Exudate Amt Medium Small -Exudate Type Serosanguineous Serosanguineous -Wound Margin Flat & Intact Distinct, Outline Attached -Granulation Amt Large (67-100%) Large (67-100%) -Granulation Quality [place] Red -Slough/Fibrin Yes -Necrosis Amt Small (1-33%) -Necrotic Tissue Type Adherent Slough -Texture (Korin-wound Skin Appearance) Assessed, Assessed Localized Edema ,Scarring -Moisture (Korin-wound Skin Appearance) Assessed Assessed -Color (Korin-wound Skin Appearance) Assessed, Assessed, Erythema Erythema -Temperature (Korin-wound Skin No Abnormality No Abnormality Appearance) (Pt Warm) (Pt Warm) -Tenderness on Palpation (Korin-wound No Skin Appearance) -Ulcer Cleansing Rinsed/ Soap and Water Irrigated with Saline -Foul Odor after Cleansing No No -Anesthetic Used 5% Lidocaine 5% Lidocaine Gel Gel Right Calf (cm) 29.7 Right Ankle (cm) 21.5 - Nurse 2 - General Ulcer CM Notes Start: 01/12/24 13:53 Freq: Status: Active Protocol: Activity Type Activity Date Activity User E-sign Co-sign Detail Recorded Client Recorded Date Recorded By Document 01/12/24 14:16 Desktop 01/12/24 14:18 Document 01/26/24 14:53 Laptop 01/26/24 14:54 01/12/24 01/26/24 14:16 14:53 Wound Center Nurse 2 #1- R LAT ANKLE -Time 14:16 14:53 -Correct Patient Yes Yes -Correct Side, Site, Position Yes Yes -Correct Procedure Yes Yes -Procedure Performed Yes Yes -Type of Procedure Debridement Debridement -Clinical Debridement Subcutaneous Subcutaneous -Tissue Removed Subcutaneous Subcutaneous -Post Debridement (cm) - Length 1.0 1.0 -Post Debridement (cm) - Width 0.8 0.8 -Post Debridement (cm) - Depth 0.1 0.1 -Total Square (Post) (cm) 0.80 0.80 -Area of Debridement (cm) - Length 1.0 1.0 -Area of Debridement (cm) - Width 0.8 0.8 -Total Square (Area) (cm) 0.80 0.80 -Tunneling No -Undermining/Tunneling No No -Circular Undermining No No -Wound/Ulcer Outcome Not Healed Not Healed -Ulcer Cleansing Rinsed/ Wound Cleanser Irrigated with Saline -Foul Odor after Cleansing No No -Bioengineered Tissue No No -Bleeding Controlled with Pressure Pressure -Treatment Response Procedure Procedure Tolerated Well Tolerated Well -Offloading No No -Debridement - Subq, 1st 20sq cm Yes Yes -Wound Comment(s) sample if PriMatrix applied. lot [id number] exp. 11/07/2024 Pain Scale: 0-10 Numeric Is Patient Pain Free? Yes Yes - Nurse 3 - General Ulcer D/C NN Start: 01/12/24 13:53 Freq: Status: Active Protocol: Activity Type Activity Date Activity User E-sign Co-sign Detail Recorded Client Recorded Date Recorded By Document 01/12/24 14:26 [facility] Desktop 01/12/24 14:28 [facility] 01/12/24 14:26 Wound Care Center Nurse 3 #1- R LAT ANKLE -Other Dressing PRIMATRIX -Primary Dressing Covered/Secured with Dry Gauze & Roll Gauze, Secured with Tape Right -Tubular Bandage Single Layer -Size of Tubigrip Used Size E -Size E ($) 1 -Other [employer] Treatment Response Procedure Tolerated Well Pain Scale: 0-10 Numeric Is Patient Pain Free? Yes - Visit Discharge Discharge Condition Stable Ambulatory Status Ambulatory Transportation Private Auto Accompanied by Assessment/Plan Assessment/Plan (1) Non-pressure chronic ulcer of unspecified part of right lower leg with fat layer exposed: CODE(S): L97.912 - Non-pressure chronic ulcer of unspecified part of right lower leg with fat layer exposed PLAN: Patient was examined and evaluated. All findings were discussed with the patient. All questions were answered to the patient satisfaction. Excisional debridement down to and including subcutaneous tissue with number# 5 mm dermal currette to the lateral right ankle ulceration. Predebridement measurements were 0.9 x 0.7 x 0.1 cm. Postdebridement measures 1.0 x 0.8x 0.1 cm. The ulceration was cleaned and patted dry. Placement was applied to the ulceration followed by dry sterile dressing and single-layer Tubigrip. Patient will continue home dressing changes for the next 2 weeks and was given the okay to go ahead and shower with warm soap and water to the area. Patient will follow-up with Dr. Saini at the wound care center in 2 week.
== END 2024-02-06 23:59 | disposition home or self-care (01) ==
LOC: WC 14:00
PROVIDERS: PCP Internal Medicine; Referring Provider Podiatrist Foot & Ankle Surgery; Visit Provider Podiatrist Foot & Ankle Surgery
DX: L97.312 Non-pressure chronic ulcer of right ankle with fat layer exposed (principal)
CPT/HCPCS: 11042

== ENCOUNTER 2024-03-01 14:00 | Outpatient (RCR) | payer MEDICARE, SELFPAY ==
[2024-02-07 00:20] VITALS: BP 167/96; PULSE 77; RESP 18; TEMP 36.2; BMI 20.1
[2024-02-09 14:06] VITALS: BP 109/58; PULSE 66; RESP 16; TEMP 36.1; BMI 20.1
--- NOTE | 2024-02-09 14:54 | PCM.WC.PN ---
History of Present Illness Date of Service: 02/09/24 Chief Complaint: Full-thickness ulceration lateral ankle right History of Wound: Full-thickness ulceration right ankle since February 2023 Subjective Subjective Mrs. Barber is a 73-year-old female presenting to the wound care center today for follow-up and evaluation of full-thickness ulceration to the lateral aspect of the right leg. Her doing home dressing changes and washing the right lower extremity as instructed during her last visit. Denies constitutional symptoms. No other pedal complaints at this time. Objective Data Objective Data Vital Signs: Vital Signs Temp Pulse Resp BP O2 Del Method 96.9 F L 66 16 109/58 L Room Air 02/09/24 14:06 02/09/24 14:06 02/09/24 14:06 02/09/24 14:06 02/09/24 14:06 Oxygen Delivery Method Room Air Weight: 49.895 kg Body Mass Index (BMI) 20.1 Physical Exam Narrative Neurovascular status unchanged. Full-thickness ulceration to the lateral aspect of the right ankle. Full-thickness ulceration measures 1.0 x 0.7 x 0.1 cm. Wound base is granular in nature with no sign of infection. No pain with calf compression. Excisional debridement down to and including subcutaneous tissue with number# 3 mm dermal currette to the lateral right ankle ulceration. Predebridement measurements were 0.8 x 0.6 x 0.1 cm. Postdebridement measures 1.0 x 0.7 x 0.1 cm. Debridement Note Debridement Note Debridement Free Text: Excisional debridement down to and including subcutaneous tissue with number# 3 mm dermal currette to the lateral right ankle ulceration. Predebridement measurements were 0.8 x 0.6 x 0.1 cm. Postdebridement measures 1.0 x 0.7 x 0.1 cm. Post-Debridement Measurements and Additional Note: Post-Debridement Measurements/Treatment - Nurse 1 - General Ulcer Assessment Start: 02/09/24 14:06 Freq: Status: Active Protocol: TATI Activity Type Activity Date Activity User E-sign Co-sign Detail Recorded Client Recorded Date Recorded By Document 02/09/24 14:06 Desktop 02/09/24 14:14 02/09/24 14:06 - Today's Visit Information Type of service Follow-up Visit (Physician/ARCHITECTURAL DESIGNER ) Arrival Mode Ambulatory Transfer Assistance None Accompanied by Patient Identification Verified (Name & Yes ) Patient Requires Transmission-Based No Precautions Height and Weight Body Mass Index (BMI) 20.1 BMI Classification Normal Vital Signs Temperature (97.8 F-99.1 F) 96.9 F L Temperature Source Temporal Pulse Rate (60-100) 66 Pulse Location Monitor Respiratory Rate (12-18) 16 Respiratory rate source Observation Oxygen Delivery Method Room Air Blood Pressure (90/60-120/80) 109/58 L Blood Pressure Mean (mm Hg) 75 Source Monitor Position Sitting Blood Pressure Location Left Arm History Since Last Visit- (Skip if this is Patient's initial visit) Have you changed medications since your No last visit? Any new allergies or adverse reactions No Had a fall/change in ADL's that may No increase risk of falls Signs or symptoms of abuse and/or No neglect since last visit Have you been in the hospital since your No last visit? Has dressing in place as prescribed Yes Has compression in place as prescribed N/A Has offloadiing in place as prescribed N/A Experienced any changes in pain level or No management Left Footwear Regular Shoe Right Footwear Regular Shoe Pain Scale: 0-10 Numeric Is Patient Pain Free? Yes WC - Nurse 1 - General Ulcer Measurement Start: 02/09/24 14:06 Freq: Status: Active Protocol: Activity Type Activity Date Activity User E-sign Co-sign Detail Recorded Client Recorded Date Recorded By Document 02/09/24 14:06 Desktop 02/09/24 14:14 02/09/24 14:06 Wound Center Nurse 1 #1- R LAT ANKLE -Current Size (cm) - Length 0.1 -Current Size (cm) - Width 0.1 -Current Size (cm) - Depth 0.1 -Total Square Cm 0.01 -Photo Taken No -Epithelialization Small 1-33% -Tunneling No -Undermining/Tunneling No -Circular Undermining No -Exudate Amt Small -Exudate Type Serous -Wound Margin Distinct, Outline Attached -Granulation Amt Small (1-33%) -Granulation Quality Red -Slough/Fibrin No -Texture (Korin-wound Skin Appearance) Assessed -Moisture (Korin-wound Skin Appearance) Assessed -Color (Korin-wound Skin Appearance) Assessed -Temperature (Korin-wound Skin No Abnormality Appearance) (Pt Warm) -Tenderness on Palpation (Korin-wound No Skin Appearance) -Ulcer Cleansing Rinsed/ Irrigated with Saline -Foul Odor after Cleansing No -Anesthetic Used 5% Lidocaine Gel - Nurse 2 - General Ulcer CM Notes Start: 02/09/24 14:06 Freq: Status: Active Protocol: Activity Type Activity Date Activity User E-sign Co-sign Detail Recorded Client Recorded Date Recorded By Document 02/09/24 14:35 Laptop 02/09/24 14:37 02/09/24 14:35 Wound Center Nurse 2 -Time 14:37 -Correct Patient Yes -Correct Side, Site, Position Yes -Correct Procedure Yes -Procedure Performed Yes -Type of Procedure Debridement -Clinical Debridement Subcutaneous -Tissue Removed Subcutaneous -Post Debridement (cm) - Length 1.0 -Post Debridement (cm) - Width 0.7 -Post Debridement (cm) - Depth 0.1 -Total Square (Post) (cm) 0.70 -Area of Debridement (cm) - Length 1.0 -Area of Debridement (cm) - Width 0.7 -Total Square (Area) (cm) 0.70 -Tunneling No -Undermining/Tunneling No -Circular Undermining No -Wound/Ulcer Outcome Not Healed -Ulcer Cleansing Rinsed/ Irrigated with Saline -Foul Odor after Cleansing No -Bioengineered Tissue No -Bleeding Controlled with Pressure -Treatment Response Procedure Tolerated Well -Offloading No -Debridement - Subq, 1st 20sq cm Yes Pain Scale: 0-10 Numeric Is Patient Pain Free? Yes - Nurse 3 - General Ulcer D/C NN Start: 02/09/24 14:06 Freq: Status: Active Protocol: Activity Type Activity Date Activity User E-sign Co-sign Detail Recorded Client Recorded Date Recorded By Document 02/09/24 14:42 KW Desktop 02/09/24 14:43 KW 02/09/24 14:42 Wound Care Center Nurse 3 #1- R LAT ANKLE -Primary Dressing Applied Promogran Elizabeth Matter -Primary Dressing Covered/Secured with Dry Gauze, Secured with Tape -Promogran Elizabeth Matter 1 Right -Tubular Bandage Single Layer -Size of Tubigrip Used Size D -Size D ($) 1 Pain Scale: 0-10 Numeric Is Patient Pain Free? Yes - Visit Discharge Discharge Condition Stable Ambulatory Status Ambulatory Transportation Private Auto Accompanied by Medication Reconcilliation completed & No provided to patient/care provider Clinical Summary of Care Provided Yes Assessment/Plan Assessment/Plan (1) Non-pressure chronic ulcer of unspecified part of right lower leg with fat layer exposed: CODE(S): L97.912 - Non-pressure chronic ulcer of unspecified part of right lower leg with fat layer exposed PLAN: Patient was examined and evaluated. All findings were discussed with the patient. All questions were answered to the patient's satisfaction. Excisional debridement down to and including subcutaneous tissue with number# 3 mm dermal currette to the lateral right ankle ulceration. Predebridement measurements were 0.8 x 0.6 x 0.1 cm. Postdebridement measures 1.0 x 0.7 x 0.1 cm. Right lower extremities were cleaned and patted dry. The ulceration was dressed with moist Elizabeth and dry sterile dressing with single-layer Tubigrip. The patient's will continue daily or every other day dressing changes with Elizabeth, dry sterile dressing and single-layer Tubigrip. We will begin authorization and reorder Elizabeth through [facility]. The patient will follow-up in 3 weeks and is comfortable doing dressing changes that far out from wound care visits. It was reeducated to the patient as well as her that if he is concerned for any reason he is to follow-up before his 3-week appointment. The patient and her were understanding of this and left the office pleased with her visit. Follow-up at the wound care center with Dr. Saini in 3 week.
[2024-03-01 13:52] VITALS: BP 156/81; PULSE 72; RESP 18; BMI 20.1
--- NOTE | 2024-03-01 14:37 | PCM.WC.PN ---
History of Present Illness Date of Service: 03/01/24 Chief Complaint: Full-thickness ulceration lateral ankle right History of Wound: Full-thickness ulceration right ankle since February 2023 Subjective Subjective Mrs. Barber is a 73-year-old female presenting to the wound care center today for follow-up and evaluation of full-thickness ulceration to the lateral aspect of the right leg. Her doing home dressing changes and washing the right lower extremity as instructed during her last visit. Denies constitutional symptoms. No other pedal complaints at this time. Objective Data Objective Data Vital Signs: Vital Signs Temp Pulse Resp BP O2 Del Method 96.9 F L 72 18 156/81 H Room Air 02/09/24 14:06 03/01/24 13:52 03/01/24 13:52 03/01/24 13:52 03/01/24 13:52 Oxygen Delivery Method Room Air Weight: 49.895 kg Body Mass Index (BMI) 20.1 Physical Exam Narrative Neurovascular status unchanged. Full-thickness ulceration to the lateral aspect of the right ankle. Full-thickness ulceration measures 0.7 x 0.5 x 0.1 cm. Wound base is granular in nature with no sign of infection. No pain with calf compression. Excisional debridement down to and including subcutaneous tissue with number# 3 mm dermal currette to the lateral right ankle ulceration. Predebridement measurements were 0.5 x 0.4 x 0.1 cm. Postdebridement measures 0.7 x 0.5 x 0.1 cm. Debridement Note Debridement Note Debridement Free Text: Excisional debridement down to and including subcutaneous tissue with number# 3 mm dermal currette to the lateral right ankle ulceration. Predebridement measurements were 0.5 x 0.4 x 0.1 cm. Postdebridement measures 0.7 x 0.5 x 0.1 cm. Post-Debridement Measurements and Additional Note: Post-Debridement Measurements/Treatment WC - Nurse 1 - General Ulcer Assessment Start: 02/09/24 14:06 Freq: Status: Active Protocol: TATI Activity Type Activity Date Activity User E-sign Co-sign Detail Recorded Client Recorded Date Recorded By Document 02/09/24 14:06 GM Desktop 02/09/24 14:14 GM Document 03/01/24 13:52 KW Desktop 03/01/24 13:58 KW 02/09/24 03/01/24 14:06 13:52 - Today's Visit Information Type of service Follow-up Visit Follow-up Visit (Physician/BAND SALVAGER (Physician/BAND SALVAGER ) ) Arrival Mode Ambulatory Ambulatory Transfer Assistance None Accompanied by Patient Identification Verified (Name & Yes Yes ) Patient Requires Transmission-Based No Precautions Height and Weight Body Mass Index (BMI) 20.1 20.1 BMI Classification Normal Normal Vital Signs Temperature (97.8 F-99.1 F) 96.9 F L Temperature Source Temporal Pulse Rate (60-100) 66 72 Pulse Location Monitor Monitor Respiratory Rate (12-18) 16 18 Respiratory rate source Observation Observation Oxygen Delivery Method Room Air Room Air Blood Pressure (90/60-120/80) 109/58 L 156/81 H Blood Pressure Mean (mm Hg) 75 106 Source Monitor Monitor Position Sitting Semi-Fowlers Blood Pressure Location Left Arm Left Arm History Since Last Visit- (Skip if this is Patient's initial visit) Have you changed medications since your No No last visit? Any new allergies or adverse reactions No No Had a fall/change in ADL's that may No No increase risk of falls Signs or symptoms of abuse and/or No No neglect since last visit Have you been in the hospital since your No No last visit? Has dressing in place as prescribed Yes Yes Has compression in place as prescribed N/A Yes Has offloadiing in place as prescribed N/A N/A Experienced any changes in pain level or No No management Left Footwear Regular Shoe Regular Shoe Right Footwear Regular Shoe Regular Shoe Pain Scale: 0-10 Numeric Is Patient Pain Free? Yes Yes - Nurse 1 - General Ulcer Measurement Start: 02/09/24 14:06 Freq: Status: Active Protocol: Activity Type Activity Date Activity User E-sign Co-sign Detail Recorded Client Recorded Date Recorded By Document 02/09/24 14:06 Desktop 02/09/24 14:14 Document 03/01/24 13:52 KW Desktop 03/01/24 13:58 KW 02/09/24 03/01/24 14:06 13:52 Wound Center Nurse 1 #1- R LAT ANKLE -Current Size (cm) - Length 0.1 1.1 -Current Size (cm) - Width 0.1 0.5 -Current Size (cm) - Depth 0.1 0.1 -Total Square Cm 0.01 0.55 -Photo Taken No -Epithelialization Small 1-33% -Tunneling No -Undermining/Tunneling No -Circular Undermining No -Exudate Amt Small -Exudate Type Serous -Wound Margin Distinct, Outline Attached -Granulation Amt Small (1-33%) -Granulation Quality Red -Slough/Fibrin No -Texture (Korin-wound Skin Appearance) Assessed Assessed -Moisture (Korin-wound Skin Appearance) Assessed Assessed -Color (Korin-wound Skin Appearance) Assessed Assessed -Temperature (Korin-wound Skin No Abnormality No Abnormality Appearance) (Pt Warm) (Pt Warm) -Tenderness on Palpation (Korin-wound No No Skin Appearance) -Ulcer Cleansing Rinsed/ Rinsed/ Irrigated with Irrigated with Saline Saline -Foul Odor after Cleansing No -Anesthetic Used 5% Lidocaine 5% Lidocaine Gel Gel -Wound Comment(s) SCABBED WC - Nurse 2 - General Ulcer CM Notes Start: 02/09/24 14:06 Freq: Status: Active Protocol: Activity Type Activity Date Activity User E-sign Co-sign Detail Recorded Client Recorded Date Recorded By Document 02/09/24 14:35 [employer] Laptop 02/09/24 14:37 [employer] Document 03/01/24 14:21 [employer] Laptop 03/01/24 14:23 [employer] 02/09/24 03/01/24 14:35 14:21 Wound Center Nurse 2 #1- R LAT ANKLE -Time 14:37 14:21 -Correct Patient Yes Yes -Correct Side, Site, Position Yes Yes -Correct Procedure Yes Yes -Procedure Performed Yes Yes -Type of Procedure Debridement Debridement -Clinical Debridement Subcutaneous Subcutaneous -Tissue Removed Subcutaneous Subcutaneous -Post Debridement (cm) - Length 1.0 0.7 -Post Debridement (cm) - Width 0.7 0.5 -Post Debridement (cm) - Depth 0.1 0.1 -Total Square (Post) (cm) 0.70 0.35 -Area of Debridement (cm) - Length 1.0 0.7 -Area of Debridement (cm) - Width 0.7 0.5 -Total Square (Area) (cm) 0.70 0.35 -Tunneling No No -Undermining/Tunneling No No -Circular Undermining No No -Wound/Ulcer Outcome Not Healed Not Healed -Ulcer Cleansing Rinsed/ Rinsed/ Irrigated with Irrigated with Saline Saline -Foul Odor after Cleansing No No -Bioengineered Tissue No No -Bleeding Controlled with Pressure Pressure -Treatment Response Procedure Procedure Tolerated Well Tolerated Well -Offloading No No -Debridement - Subq, 1st 20sq cm Yes Yes Pain Scale: 0-10 Numeric Is Patient Pain Free? Yes Yes - Nurse 3 - General Ulcer D/C NN Start: 02/09/24 14:06 Freq: Status: Active Protocol: Activity Type Activity Date Activity User E-sign Co-sign Detail Recorded Client Recorded Date Recorded By Document 02/09/24 14:42 KW Desktop 02/09/24 14:43 KW Document 03/01/24 14:23 JF Laptop 03/01/24 14:23 JF 02/09/24 03/01/24 14:42 14:23 Wound Care Center Nurse 3 #1- R LAT ANKLE -Ulcer Cleansing Rinsed/ Irrigated with Saline -Foul Odor after Cleansing No -Primary Dressing Applied Promogran Promogran Elizabeth Matter Elizabeth Matter -Primary Dressing Covered/Secured with Dry Gauze, Dry Gauze, Secured with Secured with Tape Tape -Promogran Elizabeth Matter 1 1 Right -Tubular Bandage Single Layer Single Layer -Size of Tubigrip Used Size D Size D -Size D ($) 1 1 Pain Scale: 0-10 Numeric Is Patient Pain Free? Yes Yes - Visit Discharge Discharge Condition Stable Stable Ambulatory Status Ambulatory Ambulatory Transportation Private Auto Private Auto Accompanied by Medication Reconcilliation completed & No Yes provided to patient/care provider Clinical Summary of Care Provided Yes Yes Assessment/Plan Assessment/Plan (1) Non-pressure chronic ulcer of unspecified part of right lower leg with fat layer exposed: CODE(S): L97.912 - Non-pressure chronic ulcer of unspecified part of right lower leg with fat layer exposed PLAN: Patient was examined and evaluated. All findings were discussed with the patient. All questions were answered to the patient's satisfaction. Excisional debridement down to and including subcutaneous tissue with number# 3 mm dermal currette to the lateral right ankle ulceration. Predebridement measurements were 0.5 x 0.4 x 0.1 cm. Postdebridement measures 0.7 x 0.5 x 0.1 cm. Right lower extremities are clean and dry. Moist present was applied to the ulceration on the right ankle followed by dry sterile dressing and a single layer Tubigrip. Patient/ will continue to do daily dressing changes as instructed. He has been grateful for his care and notices great improvement to his 's wound. Follow-up at the wound care center with Dr. Saini in 3 week.
== END 2024-03-07 23:59 | disposition home or self-care (01) ==
LOC: WC 14:00
PROVIDERS: PCP Internal Medicine; Referring Provider Podiatrist Foot & Ankle Surgery; Visit Provider Podiatrist Foot & Ankle Surgery
DX: L97.312 Non-pressure chronic ulcer of right ankle with fat layer exposed (principal)
CPT/HCPCS: 11042

== ENCOUNTER 2024-03-22 13:31 | Outpatient (RCR) | payer MEDICARE, SELFPAY ==
[2024-03-08 00:16] VITALS: BP 156/81; PULSE 72; RESP 18; TEMP 36.1; BMI 20.1
[2024-03-22 13:40] VITALS: BP 140/83; PULSE 85; RESP 18; TEMP 36; BMI 20.1
--- NOTE | 2024-03-22 14:28 | PN.PCM_ITS ---
History of Present Illness Date of Service: 03/22/24 Chief Complaint: Full-thickness ulceration lateral ankle right History of Wound: Full-thickness ulceration right ankle since February 2023 Subjective Subjective Mrs. Barber is a 73-year-old female presenting to the wound care center today for follow-up and evaluation of full-thickness ulceration to the lateral aspect of the right leg. Her doing home dressing changes and washing the right lower extremity as instructed during her last visit. Denies constitutional symptoms. No other pedal complaints at this time. Objective Data Objective Data Vital Signs: Vital Signs Temp Pulse Resp BP O2 Del Method 96.8 F L 85 18 140/83 H Room Air 03/22/24 13:40 03/22/24 13:40 03/22/24 13:40 03/22/24 13:40 03/22/24 13:40 Oxygen Delivery Method Room Air Weight: 49.895 kg Body Mass Index (BMI) 20.1 Physical Exam Narrative Neurovascular status unchanged. Full-thickness ulceration to the lateral aspect of the right ankle. Full-thickness ulceration measures 0.7 x 0.3 x 0.1 cm. Wound base is granular in nature with no sign of infection. No pain with calf compression. Excisional debridement down to and including subcutaneous tissue with number# 3 mm dermal currette to the lateral right ankle ulceration. Predebridement measurements were 0.6 x 0.2 x 0.1 cm. Postdebridement measures 0.7 x 0.3 x 0.1 cm. Debridement Note Debridement Note Debridement Free Text: Excisional debridement down to and including subcutaneous tissue with number# 3 mm dermal currette to the lateral right ankle ulceration. Predebridement measurements were 0.6 x 0.2 x 0.1 cm. Postdebridement measures 0.7 x 0.3 x 0.1 cm. 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 ) Arrival Mode Ambulatory Accompanied by Patient Identification Verified (Name & Yes ) Height and Weight Body Mass Index (BMI) 20.1 BMI Classification Normal Vital Signs Temperature (97.8 F-99.1 F) 96.8 F L Temperature Source Temporal Pulse Rate (60-100) 85 Pulse Location Monitor Respiratory Rate (12-18) 18 Respiratory rate source Observation Oxygen Delivery Method Room Air Blood Pressure (90/60-120/80) 140/83 H Blood Pressure Mean (mm Hg) 102 Source Monitor Position Semi-Fowlers Blood Pressure Location Left Arm History Since Last Visit- (Skip if this is Patient's initial visit) Have you changed medications since your No last visit? Any new allergies or adverse reactions No Had a fall/change in ADL's that may No increase risk of falls Signs or symptoms of abuse and/or No neglect since last visit Have you been in the hospital since your No last visit? Has dressing in place as prescribed Yes Has compression in place as prescribed N/A Has offloadiing in place as prescribed N/A Experienced any changes in pain level or No management Left Footwear Regular Shoe Right Footwear Regular Shoe Pain Scale: 0-10 Numeric Is Patient Pain Free? Yes WC - Nurse 1 - General Ulcer Measurement Start: 03/22/24 13:39 Freq: Status: Active Protocol: Activity Type Activity Date Activity User E-sign Co-sign Detail Recorded Client Recorded Date Recorded By Document 03/22/24 13:40 [id number] 03/22/24 13:47 03/22/24 13:40 Wound Center Nurse 1 #1- R LAT ANKLE -Current Size (cm) - Length 0.6 -Current Size (cm) - Width 0.4 -Current Size (cm) - Depth 0.1 -Total Square Cm 0.24 -Exudate Amt Small -Exudate Type Serosanguineous -Wound Margin Distinct, Outline Attached -Granulation Amt Large (67-100%) -Granulation Quality Red -Necrosis Amt Small (1-33%) -Necrotic Tissue Type Adherent Slough -Texture (Korin-wound Skin Appearance) Assessed -Moisture (Korin-wound Skin Appearance) Assessed -Color (Korin-wound Skin Appearance) Assessed, Erythema -Temperature (Korin-wound Skin No Abnormality Appearance) (Pt Warm) -Tenderness on Palpation (Korin-wound No Skin Appearance) -Ulcer Cleansing Rinsed/ Irrigated with Saline -Foul Odor after Cleansing No -Anesthetic Used 5% Lidocaine Gel WC - Nurse 2 - General Ulcer CM Notes Start: 03/22/24 13:39 Freq: Status: Active Protocol: Activity Type Activity Date Activity User E-sign Co-sign Detail Recorded Client Recorded Date Recorded By Document 03/22/24 13:58 [place] [id number] 03/22/24 14:00 DS 03/22/24 13:58 Wound Center Nurse 2 -Time 13:59 -Correct Patient Yes -Correct Side, Site, Position Yes -Correct Procedure Yes -Procedure Performed Yes -Type of Procedure Debridement -Clinical Debridement Subcutaneous -Tissue Removed Subcutaneous -Post Debridement (cm) - Length 0.7 -Post Debridement (cm) - Width 0.3 -Post Debridement (cm) - Depth 0.1 -Total Square (Post) (cm) 0.21 -Area of Debridement (cm) - Length 0.7 -Area of Debridement (cm) - Width 0.3 -Total Square (Area) (cm) 0.21 -Tunneling No -Undermining/Tunneling No -Circular Undermining No -Wound/Ulcer Outcome Not Healed -Ulcer Cleansing Rinsed/ Irrigated with Saline -Bleeding Controlled with Pressure -Treatment Response Procedure Tolerated Well -Debridement - Subq, 1st 20sq cm Yes Pain Scale: 0-10 Numeric Is Patient Pain Free? Yes Assessment/Plan Assessment/Plan (1) Non-pressure chronic ulcer of unspecified part of right lower leg with fat layer exposed: CODE(S): L97.912 - Non-pressure chronic ulcer of unspecified part of right lower leg with fat layer exposed PLAN: Patient was examined and evaluated. All findings were discussed with the patient. All questions were answered to the patient's satisfaction. Excisional debridement down to and including subcutaneous tissue with number# 3 mm dermal currette to the lateral right ankle ulceration. Predebridement measurements were 0.6 x 0.2 x 0.1 cm. Postdebridement measures 0.7 x 0.3 x 0.1 cm. Right lower extremities are clean and patted dry. Moistened Elizabeth is a pplied to the full-thickness ulceration followed by dry sterile dressing and compression wrap. Patient will do home dressing changes over the course of 3 weeks and follow back up with Dr. Saini at the wound care center. Follow-up at the wound care center with Dr. Saini in 3 week.
== END 2024-04-07 23:59 | disposition home or self-care (01) ==
LOC: WC 13:31
PROVIDERS: PCP Internal Medicine; Referring Provider Podiatrist Foot & Ankle Surgery; Visit Provider Podiatrist Foot & Ankle Surgery
DX: L97.312 Non-pressure chronic ulcer of right ankle with fat layer exposed (principal)
CPT/HCPCS: 11042

== ENCOUNTER 2024-04-12 16:00 | Outpatient (RCR) | payer MEDICARE, SELFPAY ==
--- NOTE | 2024-02-15 13:19 | HP.PTEVAL_ITS ---
Patient's Visit Information Visit Information Visit Information: KYLE MORAN is a 73 year old F referred to Physical Therapy by Dr. Pamela Chun MD with a diagnosis of PD. Date of Evaluation: 02/15/24 Physical Therapist: TANIA Jj Visit Plan Frequency: 2x /Week Duration: 2 Months Plan: 2X/ week for 8 weeks for sit to stand transfers (feet apart, knees over toes, weight shift FW), gait training (feet not scissoring, no flexed knees, increased stride length and rollator is recommended for balance and safety) as well as endurance, turning, walking with head turns, posture, opp arm and leg movements, following commands and mimic therapist body movements with HEP Subjective Subjective: Dr said she needs PT. She is getting botox for feet curling. She walks on her toes and she is not sure why she does that when her shoes are off. She has had 2 falls not real recent. She fell BW standing at a counter and another time she fell BW in the doorway. She was not majorly hurt each of the falls. Walking she is quite slow and does not feel that she has good balance...she tries to make sure she has her hand on something. She is still able to get in and out of the car (sometimes has to help her legs out of the car). The later in the day the worst she gets. reports that he helps her to get in and out of the bed. She still has a bad R ankle with a would on the ankle....she got that from sleeping in one position for too long at night. She has hallucinations at times. Objective Objective: LE MMT: R hip flex 6.6 and L 5.8 R knee ext 4.6 and L 5.4 R knee flex 4.3 and L 6.3 seated hip and B 6.5 Sit to stand: Takes multiple attempts to stand up...weight shift is backward and does not weight shift FW, knees are together, stands up with knees bent, nose to the floor, leaning back into chair and not able to stand up on own without assistance of tactile and verbal cues of straightening knees, pulling center of gravity forward. Gait: pt walks with each advancing foot crossing midline, short steps (does not clear stance foot), knees bent, eyes to the floor, flexed trunk, slow gait Walks with rollator, increased stride length, needed tactile cues to straighten knees, increase speed of gait, increased ability to look more straight ahead. Pt struggles to scoot FW in a chair. Pt struggles to reciprocate movement such as hip flexion marches Balance/Special Test Scores Lower Extremity Functional Score: 45 Goals Goal 1:: I HEP Goal Time Frame: 6-8 Weeks Goal 2:: Be able to sit to stand with weight shift FW in chair on first attempt with B UE's Goal Time Frame: 6-8 Weeks Goal 3:: Be able to walk with increase stride length, less flexion of the knees and more space between feet (no scissoring) Goal Time Frame: 6-8 Weeks Rehabilitation Potential Rehabilitation Potential: Good Anticipated Interventions Patient/Client Instruction: Educate patient on: Condition and Plan of Care For the Purpose of:: To improve nutrient delivery to tissue, To improve muscle performance and motor function, To improve ability to perform ADL's, To increase tolerance to activity/condition/position, To improve performance and independence with ADL's, To improve ability of physical actions for home/community/work/leisure, To improve gait and locomotor functions, To improve health of tissue, To decrease soft tissue restriction, To increase flexibility/ROM, To improve endurance, To improve balance and To improve safety with gait Therapeutic Exercise to Include: Strength training, Endurance training, Balance training, Coordination, Body mechanics, Postural training, Flexibilty training, Gait and locomotor training, Neuromotor development, Active ROM, Dynamic Lumbar Stabilization and Scapular Strength/Stabilization For the Purpose of:: To decrease pain, To improve nutrient delivery to tissue, To increase oxygenation perfusion, To improve muscle performance and motor function, To improve ability to perform ADL's, To increase tolerance to activity/condition/position, To improve performance and independence with ADL's, To decrease level of supervision to perform tasks, To improve ability of physical actions for home/community/work/leisure, To improve gait and locomotor functions, To improve health of tissue, To increase flexibility/ROM, To improve endurance, To improve balance and To improve safety with gait Functional Training to Include: Gait training For the Purpose of:: To improve gait and locomotor functions and To improve safety with gait Manual Therapy Techniques to Include: Passive ROM For the Purpose of:: To decrease swelling/inflammation, To improve nutrient delivery to tissue, To improve gait and locomotor functions and To increase flexibility/ROM Text: Thank you for the opportunity to evaluate your patient. For Medicare and Medicare HMO plans, please review the plan of care and approve it. It will need to be FAXED BACK to us at [phone] for Medicare purposes. For Medicare only, by signing this I certify the plan of care. Please let me know if there are questions or concerns regarding this plan of care. Physician Signature: Date:
--- NOTE | 2024-02-16 14:51 | HP.SP.EVAL ---
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 RX HERE Medical Diagnosis: Parkinson's Disease Date of Onset of Diagnosis: 2014 Previous speech therapy: No Results: Patient has not had speech therapy within the last six years per her . Medications related to this diagnosis: Carbidopa/ Levodopa x4 daily. Smoking Status: Never smoker Diagnosis Diagnosis: Parkinson's Disease, hypophonia Pain Is pain an issue with your current prescribed condition?: No Personal Preferred language: Persian Patient Allergies Allergies Allergies: Allergies tramadol [From Ultram] Allergy (Mild, Verified 06/30/23 15:28) VERTIGO, MENTAL STATUS CHANGE Subjective Dysphagia Comments Dyphagia: -: Patient and reported she is beginning to have swallowing deficits. A full evaluation is warranted. Objective Voice Date of Diagnosis Date of diagnosis: 2014 Previous Speech Therapy (If yes, describe): No Implantation Deep brain implantation (If yes, answer next question): No Objective data Objective Data: Objective data: Sound pressure level (SPL acoustic correlation of vocal loudness) was measured with a sound level meter at a distance of 40 cm from the patient's mouth. Average conversational loudness is 70-80 dB and sustained phonation duration is 15 to 20 seconds for a typical adult. Sustained Phonation Intensity (dB SPL): 66 Sustained Phonatin duration (seconds): 3 Is the individual stimulable to increase vocal intensity: Yes Vocal Intensity at Sentence Level (dB SPL): 55 Vocal Intensity at Conversational Level (dB SPL): 57 Reference: Neuro-QoL instrument HDQLIFE - Speech Difficulties In the past 7 days. It was difficult for other people to understand me.: Always Is was difficult to speak clearly?: Always In the past 7 days.. How often did you limit your social activites because you had difficulty speaking?: Always In the past 7 days... I had trouble speaking.: Quite a bit I was frustrated by my speech difficulties.: Somewhat How much DIFFICULTY do you have... ...saying what you want to say?: A lot of difficulty Score HDQLIFE Speech Difficulties Raw Score: 26 HDQLIFE Speech Difficulties T - Score: 65 Radiation Oncology Patient Other Other Comments: -: Patient was very slow to answer and did not fully understand what was being asked or discussed. Significant cognitive changes are noted from Parkinson's Progressing. Her is present for session and is an excellent source of support. Attention to task was limited. She would change the subject and talk about something else during the voice trials. She was unable to fully answer who she brought with her to the evaluation. after being asked at least twice. She is willing to do therapy and the at home exercises that will be provided. Plan Plan Plan: A vocal intensity based intervention approach applying LSVT principles to improve speech intelligibility will be used. Given the progressive nature of primary diagnosis, It is not anticipated for a full return to pre-morbid level of functioning, though will expect to achieve gains in speech intelligibility as well as maintain current level of functioning. To achieve this, the patient will require continued skilled speech-language intervention not only through the current intervention cycle but will likely benefit from repeated intervention cycles to maintain communication efficiency. A dysphagia evaluation will be completed with goals added at that time. Recommendations Treatment Warranted: Yes Treatment Warranted: Dysphagia, Cognition and Voice Progress Prognosis: Good Frequency Frequency: 2x /Week Duration: 6 Months Patient/Family Goal Patient/Family Goal: Patient wants to get louder. Goals that are Established Determination:: Goals will be added/modified as deemed necessary and appropriate. Therapy will be discontinued when results of re-evaluation indicate therapy is no longer needed or lack of progress has been documented. Goal #1-5 Goal #1: Patient will increase vocal loudness to reach a target sound pressure level of 70 dB AIRWAY CONTROLLER with 1 cue during sustained phonation, which will help increase vocal respiratory support for functional communication. Goal #2: Patient will increase vocal loudness to reach a target sound pressure level of 65 dB AIRWAY CONTROLLER with 1 cue during reading at the word and sentence level, which will help increase vocal respiratory support for functional communication. Goal #3: Jesenia will increase her vocal loudness to reach a target sound pressure level of 65dB with 1 cue during conversation for functional communication. Goal #4: Jesenia will sustain phonation for 8-10 seconds for breath support to functional communication. Goal #5: Dysphagia evaluation. Education Patient has Indicated that the Following Identified Educational Needs: None The Patient has indicated that they have no educational or learning abilities that may effect their care.: Yes Patient Instruction Patient Education: Diagnosis and Treatment Plan Person Taught: Patient and Significant Other Teaching Method: Discussion Response to teaching: Verbalize understanding
--- NOTE | 2024-03-27 13:53 | HP.SP.REEV ---
Visit History Visit Info Date of Eval: 02/15/24 Visit: 1 Novelty Maker: GRACE History Attending Doctor: Referring Doctor: Reason for Referral: PARKINSONS. RX HERE Medical Diagnosis: Parkinson's Disease Date of Onset of Diagnosis: 2014 Previous speech therapy: No Results: Patient has not had speech therapy within the last six years per her . Medications related to this diagnosis: Carbidopa/ Levodopa x4 daily. Smoking Status: Never smoker Diagnosis Diagnosis: Parkinson's disease, dysphagia, dysponia Pain Is pain an issue with your current prescribed condition?: No Personal Preferred language: Bengali Patient Allergies Allergies Allergies: Allergies tramadol (From Ultram) Allergy (Mild, Verified 06/30/23 15:28) VERTIGO, MENTAL STATUS CHANGE Previous/Current Goals Goals 1-5 Previous Goal #1: Patient will increase vocal loudness to reach a target sound pressure level of 70 dB VISITOR INFORMATION ASSISTANT with 1 cue during sustained phonation, which will help increase vocal respiratory support for functional communication. Goal 1 Status: Initially: 66 Currently: 66.7 dB Goal continues. Previous Goal #2: Patient will increase vocal loudness to reach a target sound pressure level of 65 dB VISITOR INFORMATION ASSISTANT with 1 cue during imitation at the word and sentence level, which will help increase vocal respiratory support for functional communication. Goal 2 Status: Initially: 55 Currently: 67.6 Goal continues. Previous Goal #3: Jesenia will increase her vocal loudness to reach a target sound pressure level of 65dB with 1 cue during conversation for functional communication. Goal 3 Status: Initially: 57 Currently: 60.2 Goal continues. Previous Goal #4: Jesenia will sustain phonation for 8-10 seconds for breath support to functional communication. Goal 4 Status: Initially: 3 seconds Currently: 8.2 seconds Goal continues. Previous Goal #5: Dysphagia evaluation. Goal 5 Status: Patient participated in a dyphagia evaluation with regular foods and thin liquids recommended. Noted during that assessment that she exhibited throat clearing intermittently. She also has lost 12 pounds in 3 months. Recommend a FEES assessment which the doctor has already ordered. Scheduled on April 17, 2024. Subjective Dysphagia Comments Dyphagia: -: Patient and reported she is beginning to have swallowing deficits. A full evaluation is warranted. Objective Voice Date of Diagnosis Date of diagnosis: 2014 Previous Speech Therapy (If yes, describe): No Implantation Deep brain implantation (If yes, answer next question): No Objective data Objective Data: Objective data: Sound pressure level (SPL acoustic correlation of vocal loudness) was measured with a sound level meter at a distance of 40 cm from the patient's mouth. Average conversational loudness is 70-80 dB and sustained phonation duration is 15 to 20 seconds for a typical adult. Sustained Phonation Intensity (dB SPL): 66 Sustained Phonatin duration (seconds): 3 Is the individual stimulable to increase vocal intensity: Yes Vocal Intensity at Sentence Level (dB SPL): 55 Vocal Intensity at Conversational Level (dB SPL): 57 Reference: Neuro-QoL instrument HDQLIFE - Speech Difficulties In the past 7 days. It was difficult for other people to understand me.: Always Is was difficult to speak clearly?: Always In the past 7 days.. How often did you limit your social activites because you had difficulty speaking?: Always In the past 7 days... I had trouble speaking.: Quite a bit I was frustrated by my speech difficulties.: Somewhat How much DIFFICULTY do you have... ...saying what you want to say?: A lot of difficulty Score HDQLIFE Speech Difficulties Raw Score: 26 HDQLIFE Speech Difficulties T - Score: 65 Radiation Oncology Patient Other Other Comments: -: Patient was very slow to answer and did not fully understand what was being asked or discussed. Significant cognitive changes are noted from Parkinson's Progressing. Her is present for session and is an excellent source of support. Attention to task was limited. She would change the subject and talk about something else during the voice trials. She was unable to fully answer who she brought with her to the evaluation. after being asked at least twice. She is willing to do therapy and the at home exercises that will be provided. Plan Plan Plan: Recommend speech therapy to continue as the patient is exhibiting progress towards her goals for dysphonia as well as assessment of dysphagia through FEES. Recommendations Treatment Warranted: Yes Treatment Warranted: Dysphagia and Voice Progress Prognosis: Good Frequency Frequency: 2x /Week Duration: 4 Weeks Visits in this POC: 8 Patient/Family Goal Patient/Family Goal: Patient wants to get louder. Goals that are Established Determination:: Goals will be added/modified as deemed necessary and appropriate. Therapy will be discontinued when results of re-evaluation indicate therapy is no longer needed or lack of progress has been documented. Goal #1-5 Goal #1: Patient will increase vocal loudness to reach a target sound pressure level of 70 dB VISITOR INFORMATION ASSISTANT with 1 cue during sustained phonation, which will help increase vocal respiratory support for functional communication. Goal #2: Patient will increase vocal loudness to reach a target sound pressure level of 65 dB VISITOR INFORMATION ASSISTANT with 1 cue during imitation at the word and sentence level, which will help increase vocal respiratory support for functional communication. Goal #3: Jesenia will increase her vocal loudness to reach a target sound pressure level of 65dB with 1 cue during conversation for functional communication. Goal #4: Jesenia will sustain phonation for 8-10 seconds for breath support to functional communication. Goal #5: FEES with goals added as appropriate. Education Patient has Indicated that the Following Identified Educational Needs: None The Patient has indicated that they have no educational or learning abilities that may effect their care.: Yes Patient Instruction Patient Education: Diagnosis and Treatment Plan Person Taught: Patient and Significant Other Teaching Method: Discussion Response to teaching: Verbalize understanding
--- NOTE | 2024-04-14 13:31 | HP.SP.DC ---
ST Discharge Summary Discharged: Discharge: Jesenia Barber is discharged from Speech therapy at [facility]. She was evaluated on 02/15/24 with therapy recommended twice weekly. She has attended a total of 13 visits with good attendance. Her goals focused on increasing volume through a structured program. She made slow progress but was progressing. Her was an excellent support system during the therapy visits. She was recommended to have a FEES for dysphagia which was scheduled 04/17/24. She fell on 04/13/24 and broke her hip. She is discharged from therapy at this time after discussion with her as she has an unknown plan for after surgery. He was educated on returning to outpatient therapy when she is ready. Please see daily notes for complete details. Thank you for allowing me to participate in the care of your patient.
== END 2024-04-12 19:00 | disposition home or self-care (01) ==
LOC: PT 16:00
PROVIDERS: PCP Internal Medicine; Referring Provider Psychiatry & Neurology Neurology; Visit Provider Psychiatry & Neurology Neurology
DX: G20.A1 Parkinson's disease without dyskinesia, without mention of fluctuations (principal); R47.1 Dysarthria and anarthria; R13.10 Dysphagia, unspecified; R49.8 Other voice and resonance disorders
CPT/HCPCS: 92507; 92524; 92610; 97110; 97116; 97162

== ENCOUNTER 2024-04-13 14:47 | Inpatient (IN) | payer MEDICARE, SELFPAY ==
[2024-04-13 14:47] VITALS: BP 205/106; PULSE 78; RESP 18; TEMP 36.6; O2SAT 97; BMI 17.6
--- NOTE | 2024-04-13 15:08 | CT_ITS ---
STUDY: CT BRAIN WITHOUT CONTRAST REASON FOR EXAM: Female, 73 years old. fall RADIATION DOSAGE (If Supplied By Facility): CTDIvol = ( 44.99 ) mGy, DLP = ( 779.34 ) mGycm TECHNIQUE: Transaxial CT imaging of the brain was performed without administration of intravenous contrast material. Individualized dose optimization techniques were used for this CT. COMPARISON: MRI 03/17/2006 FINDINGS: Normal soft tissue structures. Normal calvarium. There is mild cerebral atrophy with widening of the extra-axial spaces and ventricular dilatation. There are areas of decreased attenuation within the white matter tracts of the supratentorial brain, consistent with microvascular disease changes. Normal basal ganglia and thalami. Normal brainstem. There is mild cerebellar atrophy. There is no intracranial hemorrhage. There are no findings of an acute ischemic infarction. Normal visualized paranasal sinuses. CT/Brain/Head without Contrast IMPRESSION: Chronic involutional changes of the brain. Electronically Signed: Amandeep Farias MD at 16:48 EDT ,
--- NOTE | 2024-04-13 15:08 | CT_ITS ---
STUDY: CT CERVICAL SPINE WITHOUT CONTRAST REASON FOR EXAM: Female, 73 years old. fall RADIATION DOSAGE (If Supplied By Facility): CTDIvol = ( 11.79 ) mGy, DLP = ( 193.47 ) mGycm TECHNIQUE: High resolution transaxial imaging was performed without contrast material. Sagittal and coronal images were reconstructed. Individualized dose optimization techniques were used for this CT. COMPARISON: None FINDINGS: No definite acute fracture/dislocation. The cervical junction is intact. C1-C2 articulation is intact. Curvature is within normal limits. There is normal alignment. Facet joints are intact at all levels bilaterally. No jumped facets. There is multilevel spondyloarthropathy. Multilevel degenerative disc disease seen. Multilevel loss of disc height. Multilevel posterior marginal osteophytes and disc bulges. Multilevel neural foraminal narrowing. Visualized paraspinal soft tissues and structures are unremarkable. CT/Spine Cervical without Contras IMPRESSION: There is no definite acute fracture/dislocation. Degenerative changes. Electronically Signed: Amandeep Farias MD at 16:51 EDT ,
--- NOTE | 2024-04-13 15:10 | EDS_ITS ---
HPI History of Present Illness Chief Complaint: Fall Informant: patient and family Onset/Context/Timing Onset: Today Mechanism/Context: Fall Narrative Narrative: Patient presents after a fall in her home. She is a history of Parkinson's. states that she has a walker to use but often does not use it. She fell in the kitchen today and laid on the floor for 2 hours. Her was working in the garage and did not hear her. He states her walker was found in the living room. Patient does report striking her head. She complains of pain to her left lower extremity. Patient is noted to be hypertensive on arrival here at 205/106. She does not have any history of hypertension. She was seen at the wound care yesterday at which time her blood pressure was 137/68. [facility] Medical History (Updated 04/13/24 @ 16:[address] Carolina Duke MD) Parkinsons disease Home Medications ?Medication ?Instructions ?Recorded ?Last Taken ?Type ascorbic acid (vitamin C) 500 mg 500 mg PO DAILY 06/30/23 Unknown History tablet (Vitamin C) carbidopa 25 mg-levodopa 100 mg 1 tab PO 4X/DAY 06/30/23 Unknown History tablet celecoxib 200 mg capsule (Celebrex) 200 mg PO DAILY 06/30/23 Unknown History cholecalciferol (vitamin D3) 25 25 mcg PO DAILY 06/30/23 Unknown History mcg (1,000 unit) capsule coenzyme Q10 400 mg capsule 500 mg PO DAILY 06/30/23 Unknown History lutein 6 mg capsule 6 mg PO BID 06/30/23 Unknown History metronidazole 1 % topical gel 1 applic topical DAILY face 06/30/23 Unknown History (Metrogel) multivitamin (Daily Multi-Vitamin 1 tab PO DAILY 06/30/23 Unknown History tablet) omeprazole 40 mg capsule,delayed 40 mg PO DAILY 06/30/23 Unknown History release pyridoxine (vitamin B6) 100 mg 100 mg PO BID 06/30/23 Unknown History tablet zinc 50 mg capsule 50 mg PO DAILY 06/30/23 Unknown History cephalexin 500 mg capsule 500 mg PO TID 10 days #30 caps 12/08/23 Unknown Rx Allergy/AdvReac Type Severity Reaction Status Date / Time tramadol (From [facility]) Allergy Mild VERTIGO, Verified 06/30/23 15:28 MENTAL STATUS CHANGE Social History Smoking Status: Never smoker ROS ROS ED Constitutional Constitutional ED: Denies chills or fever(s) Eyes Eyes: Denies discharge from eye(s) ENT ENT ED: Denies discharge from eye(s), rhinorrhea or sore throat Cardiovascular Cardiovascular: Denies chest pain Respiratory/Chest Respiratory/Chest: Denies cough or dyspnea Gastrointestinal Gastrointestinal: Denies abdominal pain, nausea or vomiting Musculoskeletal Musculoskeletal: Reports extremity pain; Denies back pain Integumentary Denies Abrasions or rash Neurologic Neurologic: Reports weakness; Denies headache(s) Psychiatric Psychiatric: Denies anxiety or depression Allergic/Immunologic Allergic/Immunologic ED: Denies lip swelling or urticaria EXAM Physical Exam Const Vital Signs: 04/13/24 14:47 04/13/24 14:51 Temperature 97.8 F Temperature Source Oral Pulse Rate 78 Respiratory Rate 18 Respiratory Effort Normal Respiratory Depth Normal Respiratory Pattern Normal Blood Pressure 205/106 H Blood Pressure Mean 139 Pulse Ox 97 Oxygen Delivery Method Room Air Room Air Positive well nourished and well developed General Appearance ED: well developed HEENT atraumatic Eyes EOMs intact bilaterally Neck Neck Narrative: No C-spine tenderness. Chest Wall inspection of chest normal and palpation of chest normal Resp normal respiratory effort and clear to auscultation bilaterally Cardio regular rhythm Rate: regular rate GI non-tender Palpation: soft Extremity Extremity Narrative: Tenderness palpation over the proximal left femur/left hip. Patient sitting with both knees flexed. No obvious leg shortening. Wound dressings applied to both ankles as she was seen in the wound care center yesterday. Neuro oriented x3 Neuro Narrative: No obvious focal neurologic deficit. Patient speaks with slow, quiet voice consistent with her history of Parkinson's. Psych mental status grossly normal MDM MDM MDM Narrative Medical decision making narrative: IV line established. Labwork obtained to evaluate for leukocytosis, anemia, and electrolyte derangement. Urinalysis obtained to evaluate for infection/hematuria. CT scan of the head and C-spine obtained to evaluate for any intracranial bleed, fracture. X-rays of the pelvis, left femur, left tib- fib obtained to evaluate for fracture. History & Record Review Discussion w/independent historian: Patient, Family and Significant other Lab Data Attestation: I reviewed the patient's lab results. Labs: Laboratory Results - last 24 hr 04/13/24 04/13/24 15:00 15:24 WBC 5.2 RBC 4.48 Hgb 14.3 Hct 43.4 MCV 96.9 MCH 31.9 MCHC 32.9 RDW Std Deviation 44.8 H RDW Coeff of Jazzy 12.6 Plt Count 253 MPV 10.2 Immature Gran % (Auto) 1.000 H Neut % (Auto) 70.2 H Lymph % (Auto) 23.4 Ritchie % (Auto) 4.2 Eos % (Auto) 0.4 Baso % (Auto) 0.8 Absolute Neuts (auto) 3.7 Absolute Lymphs (auto) 1.22 Nucleated RBC % 0 Sodium 139 Potassium 3.9 Chloride 102 Carbon Dioxide 32.0 Anion Gap 5 BUN 31 H Creatinine 0.86 Estim Creat Clear Calc 38.90 Est GFR (MDRD) Af Amer 83 Est GFR (MDRD) Non-Af 69 BUN/Creatinine Ratio 36.2 H Glucose 103 Calcium 9.9 Total Creatine Kinase 206 H Urine Color Yellow Urine Clarity Cloudy Urine pH 7.0 Ur Specific [place] 1.015 Urine Protein 15 H Urine Glucose (UA) Normal Urine Ketones Negative Urine Occult Blood 250 H Urine Nitrite Negative Urine Bilirubin Negative Urine Urobilinogen Normal Ur Leukocyte Esterase 100 H Urine RBC 0-5 SEEN Urine WBC 0-5 SEEN Ur Squamous Epith Cells 0-5 SEEN Urine Bacteria 4+ Urine Mucus 0 SEEN Treatment and Re-Evaluation Narrative: CBC reveals a white count of 5.2 with a hemoglobin of 14.3. Differential unremarkable. Chemistry studies reveal a BUN of 31 with a normal creatinine of 0.86. Glucose is 103. CK level is minimally elevated at 206. Urinalysis reveals 4+ bacteria with no sign of infection. No RBCs noted, but 250 occult blood noted, potentially from rhabdo. I will start her on gentle IV fluids and give her fentanyl for pain. CT scan of the head and C-spine revealed chronic changes with no acute findings. Pelvis and left femur x-rays per my interpretation reveal a left femoral neck fracture. Left tib-fib and left foot x-rays per my interpretation reveal no obvious fracture. Discharge Plan Triage Chief Complaint: Fall ED Provider: Carolina Duke Dx/Rx/DC Orders Clinical Impression: Fall, Closed left hip fracture Prescriptions: No Action carbidopa-levodopa 25-100 mg tablet 1 tab PO 4X/DAY Rx Instructions: take 1 tab at 8am, 1 tab at noon, 1.5 tab tab 4pm, 1.5 tabs at 8pm. also can take an additional 1/2 tab chewed and swallowed with soda pop when toes curl celecoxib [Celebrex] 200 mg capsule 200 mg PO DAILY cholecalciferol (vitamin D3) 25 mcg (1,000 unit) capsule 25 mcg PO DAILY zinc 50 mg capsule 50 mg PO DAILY coenzyme Q10 400 mg capsule 500 mg PO DAILY multivitamin [Daily Multi-Vitamin] Tablet 1 tab PO DAILY lutein 6 mg capsule 6 mg PO BID Rx Instructions: administer with meals metronidazole [Metrogel] 1 % gel 1 applic topical DAILY omeprazole 40 mg capsule,delayed release(DR/EC) 40 mg PO DAILY pyridoxine (vitamin B6) 100 mg tablet 100 mg PO BID ascorbic acid (vitamin C) [Vitamin C] 500 mg tablet 500 mg PO DAILY cephalexin 500 mg capsule 500 mg PO TID 10 Days Qty: 30 0RF Primary Care Provider: Ania Sierra Referrals: Ania Sierra MD [Primary Care Provider] - Print Language: Slovak Disposition Disposition: Acute Care Hospital [facility]
[2024-04-13 15:31] LABS: Mucous, Urine 0 SEEN /hpf (<or=2+)
[2024-04-13 15:39] LABS: Absolute Lymphocyte Count 1.22 X10^3/uL (0.83-4.51); Absolute Neutrophil Count 3.7 X10^3/uL (2.0-7.7); Basophil# 0.04 X10^3/uL; Basophil% 0.8 % (0-1); Eosinophil# 0.02 X10^3/uL; Eosinophils% 0.4 % (0-5); Hematocrit 43.4 % (37-47); Hemoglobin 14.3 g/dL (12.0-15.0); Lymphocyte # 1.22 X10^3/ul (0.83-4.51); Lymphocyte % 23.4 % (19-41); Mean Corp Hgb Conc 32.9 g/dL (32-36); Mean Corpuscular Hgb 31.9 pg (27.0-32.0); Mean Corpuscular Volume 96.9 fL (81-99); Mean Platelet Vol. 10.2 fl (6.2-12.0); Monocyte# 0.22 X10^3/uL; Monocyte% 4.2 % (0-10); NRBC Flagged by Analyzer 0 % (0-5); Neutrophil # 3.66 X10^3/uL (2.7-7.7); Neutrophil % 70.2 % (47-70); Platelet Count 253 K/mm3 (150-450); RBC Distribution Width CV 12.6 % (11.6-14.6); RBC Distribution Width SD 44.8 fl (35.1-43.9); Red Blood Count 4.48 M/mm3 (4.2-5.4); White Blood Count 5.2 K/mm3 (4.4-11.0)
[2024-04-13 15:41] LABS: Color, Urine Yellow (Yellow); Glucose, Dipstick Normal (Normal); Ketone-Dipstick Negative (Negative); Leukocyte Esterase-Dipstick 100 /ul (Negative); Nitrite-Dipstick Negative (Negative); Occult Blood-Urine 250 /ul (Negative); Protein-Dipstick 15 mg/dl (Negative); Specific Gravity, Urine 1.015 (1.002-1.030); Urine Bilirubin Dipstick Negative (Negative); Urine Clarity Cloudy (Clear); Urine Urobilinogen Normal (Normal)
[2024-04-13 15:49] LABS: Bacteria 4+ /hpf (None Seen); Red Blood Cells-Urine 0-5 SEEN /hpf (0-5); Squamous Epithelial Cells - UA 0-5 SEEN /hpf (5-10); White Blood Cells 0-5 SEEN /hpf (0-5)
--- NOTE | 2024-04-13 16:00 | RAD_ITS ---
STUDY: X-RAY - LEFT TIBIA AND FIBULA REASON FOR EXAM: Female, 73 years old. fall TECHNIQUE: 2 view(s) of the tibia and fibula were obtained. COMPARISON: None. FINDINGS: Normal visualized tibia. Normal visualized fibula. There is no demonstrated acute fracture. The soft tissue structures are unremarkable. RAD/Tibia & Fibula 2 Views IMPRESSION: Normal x-ray examination of the tibia and fibula. Electronically Signed: Amandeep Farias MD at 16:45 EDT ,
--- NOTE | 2024-04-13 16:00 | RAD_ITS ---
STUDY: X-RAY - PELVIS REASON FOR EXAM: Female, 73 years old. fall TECHNIQUE: One view of the pelvis was obtained. COMPARISON: None. FINDINGS: As seen on femoral radiographs of earlier today, displaced fracture of the left femoral neck is seen. Benign nondisplaced fracture of the left inferior pubic ramus. Otherwise unremarkable. Normal visualized right femoral head. Normal right acetabulum. Normal right hip joint. Normal visualized left femoral head. Normal left acetabulum. Normal left hip joint. RAD/Pelvis 1 or 2 Views IMPRESSION: Displaced fracture of the left femoral neck. Cannot exclude nondisplaced fracture of the left inferior pubic ramus. Electronically Signed: Amandeep Farias MD at 16:54 EDT ,
--- NOTE | 2024-04-13 16:00 | RAD_ITS ---
STUDY: X-RAY - LEFT FEMUR REASON FOR STUDY: Female, 73 years old. fall TECHNIQUE: 3 view(s) of the femur. COMPARISON: None. FINDINGS: Moderately displaced left femoral neck fracture. Mild impaction. Femoral shaft fragment is cephalad to normal position. No dislocations. Normal femoral shaft and distal metaphysis. RAD/Femur Min 2 Views IMPRESSION: Displaced left femoral neck fracture. Electronically Signed: Amandeep Farias MD at 16:42 EDT ,
--- NOTE | 2024-04-13 16:00 | RAD_ITS ---
STUDY: X-RAY - LEFT FOOT CLINICAL: Female, 73 years old. fall TECHNIQUE: 3 view(s) of the foot. COMPARISON: None. FINDINGS: Normal talus, calcaneus, and tarsal bones. Normal visualized subtalar, talonavicular, calcaneocuboid, tarsal and tarsometatarsal articulations. Normal metatarsi. There is degenerative arthrosis of the metatarsophalangeal joint of the hallux . Normal tibial and fibular sesamoid bones. Normal interphalangeal joint of the great toe. Normal phalanges of the great toe. Normal second through fifth metatarsophalangeal joints. Normal interphalangeal joints and phalanges of the lesser toes. The soft tissue structures are unremarkable. There is no demonstrated fracture. RAD/Foot min 3 Views IMPRESSION: No acute fracture or dislocation. Electronically Signed: Amandeep Farias MD at 16:44 EDT ,
[2024-04-13 16:08] LABS: Anion Gap 5 (5-15); BUN 31 mg/dL (7-18); BUN/Creat Ratio 36.2 RATIO (10-20); CPK Total, Creatine Kinase 206 U/L (26-192); Calcium,Total 9.9 mg/dL (8.5-10.1); Chloride 102 mmol/L (98-107); Creatinine, Serum 0.86 mg/dL (0.55-1.02); EST Glomerular Filtration Rate 69 mL/min (>60); Est Glom Filt Rate - Afr Amer 83 mL/min (>60); Glucose 103 mg/dL (74-106); Potassium 3.9 mmol/L (3.5-5.1); Sodium Level 139 mmol/L (136-145)
[2024-04-13 16:47] VITALS: BP 174/94; PULSE 75; RESP 20; O2SAT 97
[2024-04-13] MEDS: fentaNYL 100 MCG/2 ML Ampul 25 MCG IV (16:54)
[2024-04-13] MEDS: 0.9% Normal Saline (1000mL) 1,000 ML 100 ML IV (16:54)
--- NOTE | 2024-04-13 16:59 | HP.PCM.HOS_ITS ---
HPI - General General Date of Admission: 04/13/24 Date of Service: 04/13/24 Chief Complaint: mechanical fall, left hip pain HPI Narrative KYLE MORAN, is a 73 F with a PMH as outlined who presents via the ED on 04/13/2024 with a complaint of mechanical fall. She was in the kitchen and slipped and fell today. She is supposed to be using a walker at home but did not use it today. She was on the floor for about 2 hours until her found her; he had been out working in the yard. She said she hit her head. She denied any lightheadedness, dizziness, palpitations, nausea, vomiting or any other symptoms. Review of systems is otherwise negative. Vitals in [facility] ED were blood pressure 174/94, pulse rate of 75, respiratory rate of 20 with 97% on room air. CBC showed hemoglobin of 14.3 with WBC of 5.2 and platelets of 253. Chemistry showed sodium of 139 with potassium of 3.9 and bicarb of 32 with creatinine of 0.86. Total CPK is 206. Urinalysis showed 4+ bacteria with [address] of the brain done showed chronic involutional changes with no acute intracranial pathology. Cervical spine CT showed no definite acute fracture or dislocation. X-ray of the left lower extremity showed a displaced left femoral neck fracture. He has been admitted to be managed for UTI and left femoral fracture due to mechanical fall. [facility] Medical History (Updated 04/13/24 @ 17:[address] Shelly Rangel MD) Parkinsons disease Home Medications ?Medication ?Instructions ?Recorded ?Last Taken ?Type ascorbic acid (vitamin C) 500 mg 500 mg PO DAILY 06/30/23 Unknown History tablet (Vitamin C) carbidopa 25 mg-levodopa 100 mg 1 tab PO 4X/DAY 06/30/23 Unknown History tablet celecoxib 200 mg capsule (Celebrex) 200 mg PO QHS 06/30/23 Unknown History cholecalciferol (vitamin D3) 25 25 mcg PO DAILY 06/30/23 Unknown History mcg (1,000 unit) capsule coenzyme Q10 400 mg capsule 500 mg PO DAILY 06/30/23 Unknown History lutein 6 mg capsule 6 mg PO BID 06/30/23 Unknown History metronidazole 1 % topical gel 1 applic topical DAILY face 06/30/23 Unknown History (Metrogel) multivitamin (Daily Multi-Vitamin 1 tab PO DAILY 06/30/23 Unknown History tablet) omeprazole 40 mg capsule,delayed 40 mg PO DAILY 06/30/23 Unknown History release pyridoxine (vitamin B6) 100 mg 100 mg PO DAILY 06/30/23 Unknown History tablet zinc 50 mg capsule 50 mg PO DAILY 06/30/23 Unknown History carbidopa ER 50 mg-levodopa 200 mg 1 tab PO QHS 04/13/24 Unknown History tablet,extended release Allergy/AdvReac Type Severity Reaction Status Date / Time tramadol (From [facility]) Allergy Mild VERTIGO, Verified 06/30/23 15:28 MENTAL STATUS CHANGE Social History Smoking Status: Never smoker ROS Constitutional Constitutional: Reports fatigue, malaise and weakness; Denies anorexia, chills or fever(s) Eyes Eyes: Denies change in vision ENT HEENT: Denies dysphagia or headache(s) Cardiovascular Cardiovascular: Denies chest pain, dyspnea on exertion, edema, lightheadedness, orthopnea, palpitations, paroxysmal nocturnal dyspnea, rapid heart rate or syncope Respiratory/Chest Respiratory/Chest: Denies cough, dyspnea, shortness of breath at rest or shortness of breath with exertion Gastrointestinal Gastrointestinal: Denies abdominal pain, constipation, diarrhea, nausea or vomiting Genitourinary Genitourinary: Denies burning urination or dysuria Musculoskeletal Musculoskeletal: Reports joint pain; Denies joint swelling Neurologic Neurologic: Denies abnormal gait, confusion, dizziness, focal weakness, headache(s), numbness, seizure-like activity, seizures or syncope Psychiatric Psychiatric: Denies anxiety or depression Endocrine Endocrinology: Denies change in body appearance Hematologic/Lymphatic Hematologic/Lymphatic: Denies anemia Vital Signs Vital Signs Vital Signs: 04/13/24 14:47 04/13/24 14:51 04/13/24 16:47 Temperature 97.8 F Temperature Source Oral Pulse Rate 78 75 Respiratory Rate 18 20 H Respiratory Effort Normal Respiratory Depth Normal Respiratory Pattern Normal Blood Pressure 205/106 H 174/94 H Blood Pressure Mean 139 120 Pulse Ox 97 97 Oxygen Delivery Method Room Air Room Air Room Air Weight Weight: 96 lb 1.945 oz Body Mass Index (BMI) 17.6 Physical Exam Const alert and no apparent distress General Appearance: cooperative HEENT normocephalic, head/scalp atraumatic and oropharynx normal Mouth: oral and palatal mucosa normal Eyes PERRL, EOMs intact bilaterally and conjunctivae normal Neck no lymphadenopathy and no JVD Resp normal respiratory effort, no retractions, no use of accessory muscles and clear to auscultation bilaterally Cardio regular rate, regular rhythm, S1 normal heart sound, S2 normal heart sound and no murmurs GI normal to inspection, nondistended, normoactive bowel sounds, soft to palpation, non-tender and non-distended Extremity Extremity Narrative: LLE is shortened and externally rotated. Neuro oriented x3 and CN's II-XII intact bilaterally Sensorium / Orientation: awake and alert Psych affect normal Results Lab / Micro Data 04/13/24 15:00 04/13/24 15:00 Labs: Laboratory Results - last 24 hr 04/13/24 15:00: WBC 5.2, RBC 4.48, Hgb 14.3, Hct 43.4, MCV 96.9, MCH 31.9, MCHC 32.9, RDW Std Deviation 44.8 H, RDW Coeff of Jazzy 12.6, Plt Count 253, MPV 10.2, Immature Gran % (Auto) 1.000 H, Neut % (Auto) 70.2 H, Lymph % (Auto) 23.4, [place] % (Auto) 4.2, Eos % (Auto) 0.4, Baso % (Auto) 0.8, Absolute Neuts (auto) 3.7, Absolute Lymphs (auto) 1.22, Nucleated RBC % 0, Sodium 139, Potassium 3.9, Chloride 102, Carbon Dioxide 32.0, Anion Gap 5, BUN 31 H, Creatinine 0.86, Estim Creat Clear Calc 38.90, Est GFR (MDRD) Af Amer 83, Est GFR (MDRD) Non-Af 69, B UN/Creatinine Ratio 36.2 H, Glucose 103, Calcium 9.9, Total Creatine Kinase 206 H 04/13/24 15:24: Urine Color Yellow, Urine Clarity Cloudy, Urine pH 7.0, Ur Specific [place] 1.015, Urine Protein 15 H, Urine Glucose (UA) Normal, Urine Ketones Negative, Urine Occult Blood 250 H, Urine Nitrite Negative, Urine Bilirubin Negative, Urine Urobilinogen Normal, Ur Leukocyte Esterase 100 H, Urine RBC 0-5 SEEN, Urine WBC 0-5 SEEN, Ur Squamous Epith Cells 0-5 SEEN, Urine Bacteria 4+, Urine Mucus 0 SEEN Imaging Radiology Impression Brain CT 04/13/24 15:08 IMPRESSION: Chronic involutional changes of the brain. Electronically Signed: Amandeep Farias MD at 16:48 EDT Reading Location ID and State: [facility] / [place] , Service support , Cervical Spine CT 04/13/24 15:08 IMPRESSION: There is no definite acute fracture/dislocation. Degenerative changes. Electronically Signed: Amandeep Farias MD at 16:51 EDT , Femur X-Ray 04/13/24 16:00 IMPRESSION: Displaced left femoral neck fracture. Electronically Signed: Amandeep Farias MD at 16:42 EDT Reading Location ID and State: [facility] / [place] , Service support , Foot X-Ray 04/13/24 16:00 IMPRESSION: No acute fracture or dislocation. Electronically Signed: Amandeep Farias MD at 16:44 EDT Reading Location ID and State: [facility] / [place] , Service support , Pelvis X-Ray 04/13/24 16:00 IMPRESSION: Displaced fracture of the left femoral neck. Cannot exclude nondisplaced fracture of the left inferior pubic ramus. Electronically Signed: Amandeep Farias MD at 16:54 EDT , Tibia/Fibula X-Ray 04/13/24 16:00 IMPRESSION: Normal x-ray examination of the tibia and fibula. Electronically Signed: Amandeep Farias MD at 16:45 EDT , Assessment & Plan Assessment/Plan (1) Closed left hip fracture: (2) Fall: (3) UTI (urinary tract infection): PLAN: Plan #Left femoral neck fracture due to mechanical fall * Patient has Alzheimer's dementia and she is supposed to be using a walker at home. Today she was in the kitchen without her walker and tripped and fell on her left side. She did hit her head. Imaging done showed left femoral neck fracture. * CT of the brain showed no acute intracranial pathology. CT of the cervical spine showed no evidence of fracture or subluxation. * Admit to MedSurg. * Consult orthopedic surgery. * P.o. Tylenol, p.o. oxycodone and IV morphine as needed for pain * Fall precautions. * NSQIP score: This showed that she was at average risk for serious and any complication and below average risk for cardiac complication. Patient risk stratified for surgery with moderate risk. * # UTI: Urinalysis showed 4+ bacteria. Will get urine cultures and start on IV ceftriaxone. #Elevated blood pressure: * Blood pressure elevated today. Not a known hypertensive * May be due to the pain. Not on any BP meds. * Blood pressure is 174/94. IV hydralazine 10 mg every 6 hours as needed for blood pressure more than 160/110. * If blood pressure remains elevated will start on p.o. blood pressure medication. * #Alzheimer's dementia: on levodopa-carbidopa DVT prophylaxis: lovenox Code status: full code * Patient, and daughter were counseled extensively about different types of CODE STATUS including full code, DNR CCA and DNR CCA. * Patient elects to be full code. * Total [id number] time 17 minutes. Charges/Coding Visit Charges Inpatient E&M: 93965 Init Hosp L3 Procedures Hospitalists Procedures: 71085 Advncd Care Plan 30 Min
--- NOTE | 2024-04-13 17:16 | NURSING ---
MED SURG KOR[facility] LEFT HIP FX
[2024-04-13 17:22] VITALS: BP 167/98; PULSE 74; RESP 16; TEMP 36.6; O2SAT 99
--- NOTE | 2024-04-13 17:58 | CONS.ORTHO ---
HPI Consult Data Date of Consult: 04/13/24 HPI Narrative HPI Narrative: KYLE MORAN, is a 73 F who presents with a displaced left femoral neck fracture. Patient is here with her check. Patient fell this afternoon. Was down for about 2 hours. Unable to ambulate brought by EMS found to have a femoral neck fracture. Patient has Parkinson's difficulty walking normally uses a walker when out and about and has some mostly walking on the toes and foot ulcer on the right side for the last 8 months. No history of head injury or loss of consciousness. Was cleared by the ED physician. [facility] Medical History (Updated 04/13/24 @ 17:[address] Shelly Rangel MD) Parkinsons disease Home Medications ?Medication ?Instructions ?Recorded ?Last Taken ?Type ascorbic acid (vitamin C) 500 mg 500 mg PO DAILY 06/30/23 Unknown History tablet (Vitamin C) carbidopa 25 mg-levodopa 100 mg 1 tab PO 4X/DAY 06/30/23 Unknown History tablet celecoxib 200 mg capsule (Celebrex) 200 mg PO QHS 06/30/23 Unknown History cholecalciferol (vitamin D3) 25 25 mcg PO DAILY 06/30/23 Unknown History mcg (1,000 unit) capsule coenzyme Q10 400 mg capsule 500 mg PO DAILY 06/30/23 Unknown History lutein 6 mg capsule 6 mg PO BID 06/30/23 Unknown History metronidazole 1 % topical gel 1 applic topical DAILY face 06/30/23 Unknown History (Metrogel) multivitamin (Daily Multi-Vitamin 1 tab PO DAILY 06/30/23 Unknown History tablet) omeprazole 40 mg capsule,delayed 40 mg PO DAILY 06/30/23 Unknown History release pyridoxine (vitamin B6) 100 mg 100 mg PO DAILY 06/30/23 Unknown History tablet zinc 50 mg capsule 50 mg PO DAILY 06/30/23 Unknown History carbidopa ER 50 mg-levodopa 200 mg 1 tab PO QHS 04/13/24 Unknown History tablet,extended release Allergy/AdvReac Type Severity Reaction Status Date / Time tramadol (From [facility]) Allergy Mild VERTIGO, Verified 06/30/23 15:28 MENTAL STATUS CHANGE Social History Smoking Status: Never smoker Vital Signs Vital Signs Vital Signs: 04/13/24 14:47 04/13/24 14:51 04/13/24 16:47 Temperature 97.8 F Temperature Source Oral Pulse Rate 78 75 Respiratory Rate 18 20 H Respiratory Effort Normal Respiratory Depth Normal Respiratory Pattern Normal Blood Pressure 205/106 H 174/94 H Blood Pressure Mean 139 120 Pulse Ox 97 97 Oxygen Delivery Method Room Air Room Air Room Air 04/13/24 17:22 Temperature 98 F Temperature Source Pulse Rate 74 Respiratory Rate 16 Respiratory Effort Respiratory Depth Respiratory Pattern Blood Pressure 167/98 H Blood Pressure Mean 121 Pulse Ox 99 Oxygen Delivery Method Weight Weight: 96 lb 1.945 oz Body Mass Index (BMI) 17.6 Physical Exam Const alert and no apparent distress Constitutional Narrative: Thin overall General Appearance: cooperative Extremity Extremity Narrative: Bilateral lower extremities are closed. There is a dressing on the right ankle to cover up the ulcer. On the left side skin is intact. Patient unable to dorsiflex and plantarflex the foot there is not even a flicker or or motion of the toes. Foot is warm and well-perfused good dorsalis pedis pulse. There is pain to the left hip. Lab / Micro Data 04/13/24 15:00 04/13/24 15:00 Labs: Laboratory Results - last 24 hr 04/13/24 15:00: WBC 5.2, RBC 4.48, Hgb 14.3, Hct 43.4, MCV 96.9, MCH 31.9, MCHC 32.9, RDW Std Deviation 44.8 H, RDW Coeff of Jazzy 12.6, Plt Count 253, MPV 10.2, Immature Gran % (Auto) 1.000 H, Neut % (Auto) 70.2 H, Lymph % (Auto) 23.4, [place] % (Auto) 4.2, Eos % (Auto) 0.4, Baso % (Auto) 0.8, Absolute Neuts (auto) 3.7, Absolute Lymphs (auto) 1.22, Nucleated RBC % 0, Sodium 139, Potassium 3.9, Chloride 102, Carbon Dioxide 32.0, Anion Gap 5, BUN 31 H, Creatinine 0.86, Estim Creat Clear Calc 38.90, Est GFR (MDRD) Af Amer 83, Est GFR (MDRD) Non-Af 69, BUN/Creatinine Ratio 36.2 H, Glucose 103, Calcium 9.9, Total Creatine Kinase 206 H 04/13/24 15:24: Urine Color Yellow, Urine Clarity Cloudy, Urine pH 7.0, Ur Specific [place] 1.015, Urine Protein 15 H, Urine Glucose (UA) Normal, Urine Ketones Negative, Urine Occult Blood 250 H, Urine Nitrite Negative, Urine Bilirubin Negative, Urine Urobilinogen Normal, Ur Leukocyte Esterase 100 H, Urine RBC 0-5 SEEN, Urine WBC 0-5 SEEN, Ur Squamous Epith Cells 0-5 SEEN, Urine Bacteria 4+, Urine Mucus 0 SEEN Imaging Radiology Impression Brain CT 04/13/24 15:08 IMPRESSION: Chronic involutional changes of the brain. Electronically Signed: Amandeep Farias MD at 16:48 EDT , Cervical Spine CT 04/13/24 15:08 IMPRESSION: There is no definite acute fracture/dislocation. Degenerative changes. Electronically Signed: Amandeep Farias MD at 16:51 EDT , Femur X-Ray 04/13/24 16:00 IMPRESSION: Displaced left femoral neck fracture. Electronically Signed: Amandeep Farias MD at 16:42 EDT , Foot X-Ray 04/13/24 16:00 IMPRESSION: No acute fracture or dislocation. Electronically Signed: Amandeep Farias MD at 16:44 EDT , Pelvis X-Ray 04/13/24 16:00 IMPRESSION: Displaced fracture of the left femoral neck. Cannot exclude nondisplaced fracture of the left inferior pubic ramus. Electronically Signed: Amandeep Farias MD at 16:54 EDT , Tibia/Fibula X-Ray 04/13/24 16:00 IMPRESSION: Normal x-ray examination of the tibia and fibula. Electronically Signed: Amandeep Farias MD at 16:45 EDT , [facility] Imaging Services [address], [place] [id number] Pelvis 1 or 2 Views MR#: [id number] Acct: [id number] Name: KYLE MORAN Rep #: [id number] : 1950 F 73 From: Amandeep Farias MD PCP: Dr. Ania Sierra MD Status: REG ER Study: Pelvis 1 or 2 Views Date of Exam: 04/13/24 Exam# [id number] Ordering Dr: Carolina Duke MD STUDY: X-RAY - PELVIS REASON FOR EXAM: Female, 73 years old. fall TECHNIQUE: One view of the pelvis was obtained. COMPARISON: None. FINDINGS: As seen on femoral radiographs of earlier today, displaced fracture of the left femoral neck is seen. Benign nondisplaced fracture of the left inferior pubic ramus. Otherwise unremarkable. Normal visualized right femoral head. Normal right acetabulum. Normal right hip joint. Normal visualized left femoral head. Normal left acetabulum. Normal left hip joint. RAD/Pelvis 1 or 2 Views IMPRESSION: Displaced fracture of the left femoral neck. Cannot exclude nondisplaced fracture of the left inferior pubic ramus. Electronically Signed: Amandeep Farias MD at 16:54 EDT , I independently reviewed the imaging. Concur with radiologist report. Displaced left femoral neck fracture Assessment & Plan Assessment/Plan (1) Closed left hip fracture: PLAN: 73-year-old female with a left displaced femoral neck fracture. History of Parkinson's and flexion contractures of the ankles with a current ulcer on the right ankle. I discussed with the patient and their who is the medical decision maker the pros and cons risks and benefits of conservative nonoperative management versus surgery. Typically these are fixed surgically to aid in ambulation transfers and nonoperative treatment has a high risk of blood clots pneumonia and other risks associated with prolonged bedrest and nonunion of the fracture. Typically surgery is in the form of hemiarthroplasty. There is controversy as to the approach as well as cemented or uncemented generally my approach is lateral based approach and cemented hemiarthroplasty. Discussed the pros and cons risks and benefits of this including but not limited to fracture instability delayed or nonunion infection and other risks which are increased due to the patient's history of ulcer and Parkinson's disease. They understood wished to proceed signed the consent form for surgery as well as possible need for blood products and I marked the left hip. Patient will be diet as tolerated for now n.p.o. at midnight I let the surgery team no they will let me know the exact time tomorrow. Anesthesia aware as well as the nursing team. Pros and cons risks and benefits were discussed with the patient including but not limited to infection, pain, stiffness, bleeding, damage to surrounding structures, neurovascular injury, recurrence or retear, failure or wear of hardware or fixation, instability, fracture, deep vein thrombosis and pulmonary embolism, anesthetic risks, , patient dissatisfaction, need for further surgery and other risks. Patient understood and wished to proceed with surgery, and signed the informed consent documentation.
[2024-04-13 18:33] VITALS: BMI 17.6
[2024-04-13 18:45] VITALS: BP 181/85; PULSE 82; RESP 18; TEMP 37.7; O2SAT 98
[2024-04-13] MEDS: Acetaminophen 325 MG Tablet 650 MG PO (20:12)
[2024-04-13] MEDS: Ceftriaxone 1 GM/50 ML BAG IV (20:13)
[2024-04-13 20:26] VITALS: BMI 17.6
[2024-04-13 20:30] VITALS: BP 164/68; PULSE 95; RESP 16; TEMP 37.2; O2SAT 100
[2024-04-14] VITALS (10 sets, daily range): BP systolic 141–183; BP diastolic 62–110; PULSE 68–87; RESP 16–20; TEMP 35.4–37.2; O2SAT 97–100; BMI 17.6
[2024-04-14] MEDS: Acetaminophen 325 MG Tablet 650 MG PO ×2 (02:36→20:42)
--- NOTE | 2024-04-14 06:00 | EKG12_ITS ---
Test Reason : AM EKG Blood Pressure : / mmHG Vent. Rate : 079 BPM Atrial Rate : 079 BPM P-R Int : 144 ms QRS Dur : 068 ms QT Int : 348 ms P-R-T Axes : 077 053 046 degrees QTc Int : 399 ms Normal sinus rhythm Nonspecific ST and T wave abnormality Abnormal ECG No previous ECGs available Confirmed by JOAQUIN MILLER, CARINE ([id number]), publishing editor SUSAN LEAL ([id number]) on 04/17/2024 8:29:09 AM Referred By: CYNTHIA Confirmed By:CARINE NUÑEZ MD
[2024-04-14] MEDS: 0.9% Normal Saline (1000mL) 1,000 ML 100 ML IV ×2 (06:43→20:16)
[2024-04-14 06:46] LABS: Absolute Lymphocyte Count 1.07 X10^3/uL (0.83-4.51); Absolute Neutrophil Count 8.2 X10^3/uL (2.0-7.7); Basophil# 0.04 X10^3/uL; Basophil% 0.4 % (0-1); Eosinophil# 0.03 X10^3/uL; Eosinophils% 0.3 % (0-5); Hematocrit 40.5 % (37-47); Hemoglobin 13.4 g/dL (12.0-15.0); Lymphocyte # 1.07 X10^3/ul (0.83-4.51); Lymphocyte % 10.9 % (19-41); Mean Corp Hgb Conc 33.1 g/dL (32-36); Mean Corpuscular Hgb 31.9 pg (27.0-32.0); Mean Corpuscular Volume 96.4 fL (81-99); Mean Platelet Vol. 10.2 fl (6.2-12.0); Monocyte# 0.47 X10^3/uL; Monocyte% 4.8 % (0-10); NRBC Flagged by Analyzer 0 % (0-5); Neutrophil # 8.19 X10^3/uL (2.7-7.7); Neutrophil % 83.3 % (47-70); Platelet Count 244 K/mm3 (150-450); RBC Distribution Width CV 12.5 % (11.6-14.6); RBC Distribution Width SD 44.2 fl (35.1-43.9); White Blood Count 9.8 K/mm3 (4.4-11.0)
--- NOTE | 2024-04-14 07:27 | PCM.PN.HOSP ---
Reason for Visit Reason for Visit: Diagnoses Urinary tract infection, site not specified (04/13/24) Fracture of unspecified part of neck of left femur, initial encounter for closed fracture (04/13/24) Unspecified fall, initial encounter (04/13/24) Subjective Subjective Patient is a 73-year-old lady with history of Alzheimer's dementia who was apparently found on the floor by the . Was brought to the emergency department imaging studies demonstrated left femoral neck fracture admitted to regular nursing floor with consultation placed to orthopedic surgery Objective Data Objective Data Vital Signs: Vital Signs Temp Pulse Resp BP Pulse Ox O2 Del Method 98.1 F 87 16 157/62 H 100 Room Air 04/14/24 02:53 04/14/24 02:53 04/14/24 02:53 04/14/24 02:53 04/14/24 02:53 04/14/24 02:53 Oxygen Delivery Method Room Air Weight: 43.6 kg Body Mass Index (BMI) 17.6 Intake & Output: Intake and Output for Last 24 Hours 04/12/24 04/13/24 04/14/24 23:59 23:59 23:59 Intake Total 381.67 / 381.67 616.67 / 616.67 Output Total 450 / 450 Balance 381.67 / 131.67 166.67 / 166.67 Lab / Micro Data 04/14/24 06:10 04/13/24 15:00 Labs: Laboratory Results - last 24 hr 04/13/24 15:00: WBC 5.2, RBC 4.48, Hgb 14.3, Hct 43.4, MCV 96.9, MCH 31.9, MCHC 32.9, RDW Std Deviation 44.8 H, RDW Coeff of Jazzy 12.6, Plt Count 253, MPV 10.2, Immature Gran % (Auto) 1.000 H, Neut % (Auto) 70.2 H, Lymph % (Auto) 23.4, [place] % (Auto) 4.2, Eos % (Auto) 0.4, Baso % (Auto) 0.8, Absolute Neuts (auto) 3.7, Absolute Lymphs (auto) 1.22, Nucleated RBC % 0, Sodium 139, Potassium 3.9, Chloride 102, Carbon Dioxide 32.0, Anion Gap 5, BUN 31 H, Creatinine 0.86, Estim Creat Clear Calc 38.90, Est GFR (MDRD) Af Amer 83, Est GFR (MDRD) Non-Af 69, BUN/Creatinine Ratio 36.2 H, Glucose 103, Calcium 9.9, Total Creatine Kinase 206 H 04/13/24 15:24: Urine Color Yellow, Urine Clarity Cloudy, Urine pH 7.0, Ur Specific [place] 1.015, Urine Protein 15 H, Urine Glucose (UA) Normal, Urine Ketones Negative, Urine Occult Blood 250 H, Urine Nitrite Negative, Urine Bilirubin Negative, Urine Urobilinogen Normal, Ur Leukocyte Esterase 100 H, Urine RBC 0-5 SEEN, Urine WBC 0-5 SEEN, Ur Squamous Epith Cells 0-5 SEEN, Urine Bacteria 4+, Urine Mucus 0 SEEN 04/14/24 06:10: WBC 9.8, RBC 4.20, Hgb 13.4, Hct 40.5, MCV 96.4, MCH 31.9, MCHC 33.1, RDW Std Deviation 44.2 H, RDW Coeff of Jazzy 12.5, Plt Count 244, MPV 10.2, Immature Gran % (Auto) 0.300, Neut % (Auto) 83.3 H, Lymph % (Auto) 10.9 L, [place] % (Auto) 4.8, Eos % (Auto) 0.3, Baso % (Auto) 0.4, Absolute Neuts (auto) 8.2 H, Absolute Lymphs (auto) 1.07, Nucleated RBC % 0 Radiography Diagnostic Testing: Radiology Impression Brain CT 04/13/24 15:08 IMPRESSION: Chronic involutional changes of the brain. Electronically Signed: Amandeep Farias MD at 16:48 EDT , Cervical Spine CT 04/13/24 15:08 IMPRESSION: There is no definite acute fracture/dislocation. Degenerative changes. Electronically Signed: Amandeep Farias MD at 16:51 EDT , Femur X-Ray 04/13/24 16:00 IMPRESSION: Displaced left femoral neck fracture. Electronically Signed: Amandeep Farias MD at 16:42 EDT , Foot X-Ray 04/13/24 16:00 IMPRESSION: No acute fracture or dislocation. Electronically Signed: Amandeep Farias MD at 16:44 EDT , Pelvis X-Ray 04/13/24 16:00 IMPRESSION: Displaced fracture of the left femoral neck. Cannot exclude nondisplaced fracture of the left inferior pubic ramus. Electronically Signed: Amandeep Farias MD at 16:54 EDT Reading Location ID and State: [facility] / [place] , Service support , Tibia/Fibula X-Ray 04/13/24 16:00 IMPRESSION: Normal x-ray examination of the tibia and fibula. Electronically Signed: Amandeep Farias MD at 16:45 EDT , Physical Exam Narrative GENERAL: Frail looking HEENT: Atraumatic; normocephalic EYES; Anicteric, Normal Conjunctiva NECK; supple, normal thyroid, RESPIRATORY: Diminished to auscultation CARDIOVASCULAR: Regular S1 S2, GI: soft, normoactive bowel sounds, : No Renal angle tenderness; EXTREMITIES: No edema, no clubbing, MUSCULOSKELETAL: muscle wasting NEURO: Awake; no lateralizing signs. SKIN: No Rash PSYCH; Flat affect Assessment & Plan Assessment/Plan (1) Closed left hip fracture: QUALIFIERS: Encounter type: initial encounter Qualified Code(s): S72.002A - Fracture of unspecified part of neck of left femur, initial encounter for closed fracture (2) UTI (urinary tract infection): QUALIFIERS: Urinary tract infection type: acute cystitis Hematuria presence: without hematuria Qualified Code(s): N30.00 - Acute cystitis without hematuria PLAN: Plan Patient is a 73-year-old lady with history of Alzheimer's dementia who was apparently found on the floor by the . Was brought to the emergency department imaging studies demonstrated left femoral neck fracture admitted to regular nursing floor with consultation placed to orthopedic surgery 1. Fall with left femoral neck fracture ?Imaging studies obtained on admission demonstrated a displaced left femoral neck fracture. Admitted to regular nursing floor. Managed with immobilization pain meds with consult placed to orthopedic surgery; Dr. Sixto Wallace. Patient risk assessment for surgical intervention as documented in H&P 2. Acute cystitis without hematuria ? Patient started on ceftriaxone cultures sent 3. Nonpressure chronic ulcer involving the right lower leg ? Wound care consulted 4. Elevated blood pressure ? Possibly related to pain patient is not a known hypertensive and currently not on any medication ordered hydralazine as needed for systolic blood pressure greater than 160 5. GERD on PPI 6. Parkinson's disease ? Patient is on carbidopa levodopa 7. Alzheimer's dementia dementia ? Supportive care 8. Severe protein calorie malnutrition ? As evidenced by decreased energy level, muscle wasting, consult placed to dietitian 9. DVT prophylaxis ? Lovenox Time spent in the patient's overall evaluation,decision-making process, review of diagnostic data, adjustment of management, discussion with other providers, nursing nursing and ancillary staff involved in patient's care documentation, 52 Minutes Charges/Coding Visit Charges Inpatient E&M: 84930 Subs Hosp L3
[2024-04-14 08:06] LABS: Anion Gap 11 (5-15); BUN 24 mg/dL (7-18); Calcium,Total 9.3 mg/dL (8.5-10.1); Chloride 104 mmol/L (98-107); Creatinine, Serum 0.63 mg/dL (0.55-1.02); EST Glomerular Filtration Rate 98 mL/min (>60); Est Glom Filt Rate - Afr Amer 118 mL/min (>60); Estimated Creatinine Clearance 41.82 ml/min; Glucose 111 mg/dL (74-106); Potassium 3.6 mmol/L (3.5-5.1); Sodium Level 139 mmol/L (136-145)
--- NOTE | 2024-04-14 09:38 | CASEMGMT ---
Social Work Pt provided a copy of living will and health care POA naming her spouse Avtar Barber as medical decision maker. Copy of advance directives placed on pt chart. ROMEL Chowdhury
[2024-04-14] MEDS: Ceftriaxone 1 GM/50 ML BAG IV (10:05)
--- NOTE | 2024-04-14 10:10 | CASEMGMT ---
LISBET RUEDA Face to Face with patient for initial transition planning/care coordination assessment. LISBET RUEDA introduced self and role at [facility]. Patient lying in bed, alert and confused, at bedside. willing to participate in assessment and is able to answer all questions appropriately. Care providers, pharmacy, and demographics verified. PCP: [facility] Specialists: Parveen, inspector optical instrument; Lucina, neurologist; Preferred Pharmacy: [facility] Insurance: [facility] Prescription Benefit: yes Living Will/HPOA: yes, Avtar Barber LNOK: Living Arrangements: Patient lives with in a single story home with no steps to enter. Patient was independent with selfcare prior to fall. Transportation: DME/HHC: Patient has shower chair, raised toilet, grab bars, walker, rollator, and wheelchair at home. No previous HHC or SNF. Will monitor progress with therapy. is unsure of disposition at discharge, will monitor progress with surgery. LISBET RUEDA discussed possible SNF at discharge pending how patient performs with therapy, voiced understanding. states he has no further needs or concerns at this time. SW updated regarding possible SNF. CM to follow for discharge planning needs that may arise. Disposition Plan: TBD, anticipate SNF pending therapy evals. Chanel VINES, RN, CM
--- NOTE | 2024-04-14 10:56 | CASEMGMT ---
Discharge Planning A list of?SNF providers including quality and resource use data and consistent with the patient's preferred geographic region, medical needs, and insurance network was created in [employer] Guide.? This list was provided to the SW. Jessica Ace Discharge Planning Asst.
--- NOTE | 2024-04-14 11:48 | CASEMGMT ---
Social Work- SW met with pt an pt to begin the discharge planning process. A list of SNF providers including quality and resource use data and consistent with the patient?s preferred geographic region, medical needs, and insurance network were provided from the [employer] Guide. ROMEL Peng
--- NOTE | 2024-04-14 12:30 | FEM_PTH ---
PATIENT: KYLE MORAN LOC: MS3 U#:[id number] AGE/SX: 73/F ROOM: [facility] RE04/13/[address]: Dr. Mo Marte DO : 1950 BED: 1 DIS: 04/17/2024 SPEC #: [id number] RECD: 04/17/24 09:41 STATUS: KYM RESussy #: [id number] MAGDALENE: 04/14/24 12:[address]: Sixto Wallace DEPT: SURGICAL PATHOLOGY RECD BY: Jasmin Young ENTERED: 04/17/24 11:39 SP TYPE: FEM HEAD OTHR DR: MD Dr. Ania Oilveira MD Dr. Mark Tereletsky, DO Dr. Nana Yaa Koram, MD Dr. Scott Mollison, MD Tissues: Femoral region, NOS Procedures: Decalcification bone/plaque Surgery Specimen Level V Comments: @ Ordering doctor for DEC edited from to @ by PAVEL at 04/17/241331 @ Ordering doctor for SUV edited from to @ by PAVEL at 04/17/24 1332 @ Submitting doctor edited from to @ by PAVEL at 04/17/242 HEADER OPERATION: Hemiarthroplasty, hip PRE-OP DIAGNOSIS: Closed left hip fracture TISSUE SUBMITTED: Left femoral head MICROSCOPIC DIAGNOSIS Left hip bone and soft tissue, total hip replacement/resection: Femoral head and detached pieces of bone with focal area of hemorrhage. Fragments of fibroadipose tissue, a piece of fibroconnective tissue, dense fibroconnective tissue and reactive synovial tissue. Focal changes consistent with pseudogout. SJ: 04/20/2024 MICROSCOPIC DESCRIPTION Slides are reviewed. GROSS DESCRIPTION Received is one container labeled with the patient's name and designated femoral head and tissue. The specimen consists of a russell femoral head measuring cm. The articular surface is smooth. A piece of soft tissue attached off of the femoral head measuring 3.0 x 1.0 x 0.2cm. Resection margin is irregular and hemorrhagic. Also present in the specimen container are multiple detached pieces of bone measuring in aggregate 5.0 x 3.0 x 1.5 cm. Senior Java Engineer sections are submitted in three cassettes as follows: 1 - soft tissue, entirely submitted, 2 - detached pieces of bone after decalcification, 3 - femoral head after decalcification. JANICE/ 04/17/2024 TC:5 CPT: 56726, 28741
--- NOTE | 2024-04-14 14:32 | PCM.PN.ORT ---
Subjective Subjective Patient in preop holding area with that check her . No changes overnight. Had a little bit of dessert last night some Jell-O n.p.o. currently Objective Data Objective Data Vital Signs: Vital Signs Temp Pulse Resp BP Pulse Ox O2 Del Method 99 F 77 16 183/85 H 100 Room Air 04/14/24 09:24 04/14/24 09:24 04/14/24 09:24 04/14/24 09:24 04/14/24 09:24 04/14/24 09:24 Oxygen Delivery Method Room Air Weight: 96 lb 1.945 oz Body Mass Index (BMI) 17.6 Intake & Output: Intake and Output for Last 24 Hours 04/12/24 04/13/24 04/14/24 23:59 23:59 23:59 Intake Total 381.67 / 381.67 666.67 / 666.67 Output Total 450 / 450 Balance 381.67 / 131.67 216.67 / 216.67 Lab / Micro Data 04/14/24 06:10 04/14/24 06:10 Labs: Laboratory Results - last 24 hr 04/13/24 15:00: WBC 5.2, RBC 4.48, Hgb 14.3, Hct 43.4, MCV 96.9, MCH 31.9, MCHC 32.9, RDW Std Deviation 44.8 H, RDW Coeff of Jazzy 12.6, Plt Count 253, MPV 10.2, Immature Gran % (Auto) 1.000 H, Neut % (Auto) 70.2 H, Lymph % (Auto) 23.4, [place] % (Auto) 4.2, Eos % (Auto) 0.4, Baso % (Auto) 0.8, Absolute Neuts (auto) 3.7, Absolute Lymphs (auto) 1.22, Nucleated RBC % 0, Sodium 139, Potassium 3.9, Chloride 102, Carbon Dioxide 32.0, Anion Gap 5, BUN 31 H, Creatinine 0.86, Estim Creat Clear Calc 38.90, Est GFR (MDRD) Af Amer 83, Est GFR (MDRD) Non-Af 69, BUN/Creatinine Ratio 36.2 H, Glucose 103, Calcium 9.9, Total Creatine Kinase 206 H 04/13/24 15:24: Urine Color Yellow, Urine Clarity Cloudy, Urine pH 7.0, Ur Specific [place] 1.015, Urine Protein 15 H, Urine Glucose (UA) Normal, Urine Ketones Negative, Urine Occult Blood 250 H, Urine Nitrite Negative, Urine Bilirubin Negative, Urine Urobilinogen Normal, Ur Leukocyte Esterase 100 H, Urine RBC 0-5 SEEN, Urine WBC 0-5 SEEN, Ur Squamous Epith Cells 0-5 SEEN, Urine Bacteria 4+, Urine Mucus 0 SEEN 04/14/24 06:10: WBC 9.8, RBC 4.20, Hgb 13.4, Hct 40.5, MCV 96.4, MCH 31.9, MCHC 33.1, RDW Std Deviation 44.2 H, RDW Coeff of Jazzy 12.5, Plt Count 244, MPV 10.2, Immature Gran % (Auto) 0.300, Neut % (Auto) 83.3 H, Lymph % (Auto) 10.9 L, [place] % (Auto) 4.8, Eos % (Auto) 0.3, Baso % (Auto) 0.4, Absolute Neuts (auto) 8.2 H, Absolute Lymphs (auto) 1.07, Nucleated RBC % 0, Sodium 139, Potassium 3.6, Chloride 104, Carbon Dioxide 24.0, Anion Gap 11, BUN 24 H, Creatinine 0.63, Estim Creat Clear Calc 41.82, Est GFR (MDRD) Af Amer 118, Est GFR (MDRD) Non-Af 98, BUN/Creatinine Ratio 38.0 H, Glucose 111 H, Calcium 9.3, Blood Type A POSITIVE, Antibody Screen NEGATIVE Micro: Microbiology 04/13/24 15:24 Urine, Catheterized Urine Culture - Preliminary Presumptive E. coli Radiography Diagnostic Testing: Radiology Impression Brain CT 04/13/24 15:08 IMPRESSION: Chronic involutional changes of the brain. Electronically Signed: Amandeep Farias MD at 16:48 EDT , Cervical Spine CT 04/13/24 15:08 IMPRESSION: There is no definite acute fracture/dislocation. Degenerative changes. Electronically Signed: Amandeep Farias MD at 16:51 EDT , Femur X-Ray 04/13/24 16:00 IMPRESSION: Displaced left femoral neck fracture. Electronically Signed: Amandeep Farias MD at 16:42 EDT Reading Location ID and State: [facility] / [place] , Service support , Foot X-Ray 04/13/24 16:00 IMPRESSION: No acute fracture or dislocation. Electronically Signed: Amandeep Farias MD at 16:44 EDT Reading Location ID and State: [facility] / [place] , Service support , Pelvis X-Ray 04/13/24 16:00 IMPRESSION: Displaced fracture of the left femoral neck. Cannot exclude nondisplaced fracture of the left inferior pubic ramus. Electronically Signed: Amandeep Farias MD at 16:54 EDT Reading Location ID and State: [facility] / [place] , Service support , Tibia/Fibula X-Ray 04/13/24 16:00 IMPRESSION: Normal x-ray examination of the tibia and fibula. Electronically Signed: Amandeep Farias MD at 16:45 EDT Reading Location ID and State: [facility] / [place] , Service support , Physical Exam Const alert and no apparent distress Assessment & Plan Assessment/Plan (1) Closed left hip fracture: QUALIFIERS: Encounter type: initial encounter Qualified Code(s): S72.002A - Fracture of unspecified part of neck of left femur, initial encounter for closed fracture PLAN: 73-year-old female with a displaced left femoral neck fracture. Plan is for cemented hemiarthroplasty lateral approach. Talked with check again today no further concerns and okay to proceed with the surgery.
--- NOTE | 2024-04-14 14:41 | CHAPLAIN ---
Type of Pastoral Visit _x__ Initial Visit ___ Follow-up Visit ___ On-call Visit ___ General Patient Visit ___ Spiritual Assessment ___ Family Conference ___ Bereavement ___ Rapid Response ___ Code Blue ___ Other (describe below) Pastoral Care Referral From _x__ Patient _x_ Family ___ Nurse ___ Physician ___ Driver Salesman ___ Security Escort ___ Other (describe below) Sacrament/Intervention _x__ Active listening ___ Anointing ___ Judaism ___ Bereavement ___ Communion _x__ Dionne exploration ___ _x__ Life review _x__ Prayer ___ Reconciliation ___ Sacrament of Sick _x__ Supportive presence ___ Wedding ___ Other (describe below) Pastoral Comments patient is in the bed with eyes closed most of the time; spouse at bedside and more engaged in the conversation; asked pt how she was feeling and what she needed; surgery is scheduled for a couple of hours from time of visit; spouse gives insights into situation and their lives; spouse appears to be very supportive and talks calls from family members; patient has Parkinson's Disease and suffers with it; both indicate strong dionne in God and desire for prayer for the surgery; presence, prayers, and offer of ongoing support given
[2024-04-14] MEDS: Cefazolin 2 GM in 0.9% Normal Saline (100mL Bag) 100 ML IV ×2 (16:09→23:44)
[2024-04-14] MEDS: TRANEXAMIC ACID 1,000 MG in 0.9% Normal Saline (100mL Bag) 100 ML 440 MG IV (16:38)
[2024-04-14] MEDS: Bupivacaine 0.25% 30 ML Vial (18:11)
--- NOTE | 2024-04-14 18:27 | OP.PCM_ITS ---
Problems Associated Problem List Diagnoses (1) Closed left hip fracture: Report of Operation Date of Procedure: 04/14/24 Pre-Operative Diagnosis: L hip femoral neck fracture Post-Operative Diagnosis: same Surgery/Procedure Performed:: L hip cemented kelley arthroplasty Surgeon: Sixto Wallace Type of Anesthesia: General and Local Anesthesiologist: Danny Gustafson Estimated Blood Loss (mL): 50 Description of Procedure: Patient brought to the operating room theater. Placed on the operating table. 2 g IV Ancef administered prior to start of procedure. 1 g IV tranexamic acid ministered prior to start of procedure. Patient transferred left lateral decubitus with the [place] hip positioner. All bony prominences including the hip positioner device appropriately padded. SCD on the nonoperative leg axillary roll used. Leg prepped and draped in the usual sterile fashion with chlorhexidine-based prep solution allowing over 3 minutes drying time prior to draping. Preoperative timeout to confirm the site patient and the surgery. Began by making a longitudinal laterally based incision over the proximal femur. Carried dissection down through skin and subcutaneous tissue achieved meticulous hemostasis. Incised the tensor fascia willian in line with the skin incision. Sharply released the anterior one third of the abductors from the greater trochanter of the hip. Made a T-shaped capsulotomy. Tagged each 1 of these limbs with #1 Vicryl suture. Made the neck cut approximately 1 cm above the level lesser trochanter. Remove the head. I sized this to a size 43 mm bipolar Eyad head. I thoroughly irrigated the acetabulum no remaining debris. I then sequentially used box osteotome lateralizing devices and broaches to size up to a size of 4 cemented broach. I trialed with this with a standard neck length it was a little too tight given her flexion contractures with the Parkinson's disease so I undersized this to -3 mm standard offset with a 4 size broach and 43 mm head this was appropriate good range of motion no impingement no instability with leg lengths appropriate length and normal shuck test. Trial components were removed. Irrisept followed by pulse lavage and preparing the canal was then used with the suction device and the distal cement restrictor small size then placed to appropriate level. I sized the distal centralizer to a 12 mm selected the final components a size 4 Eyad Accolade stem cemented. I mixed cement using third-generation cement mixing techniques pressurized this in the canal. Patient was stable throughout cementing. Cemented in appropriate version size 4 stem allow this to thoroughly set, with the distal centralizer placed. I cleaned the trunnion. Assembled the -3 mm inner aspect of the bipolar and then the 43 mm outer aspect tapped into place with good fit onto the trunnion. The final components were then reduced and again trialing performed with appropriate leg lengths and range of motion and stability in all directions. Capsule was closed with #1 Vicryl suture. Abductors were repaired with FiberWire suture and the tensor fascia willian closed with strata fix suture. I then closed the subcutaneous tissue with 2-0 Vicryl sutures and skin with 3-0 Monocryl. I used 20 cc of 4% bupivacaine around the soft tissues. Wounds cleaned with wet dry dressing followed application of Steri-Strips and silver Mepilex border dressing. Patient woken up from a general anesthetic transferred to the operating table taken postanesthetic care unit in stable condition. All sponge needle instrument counts were correct no complications plan for patient weightbearing as tolerated and x-ray in the postanesthetic care unit. CPT 92526 Complications none Admit VTE Documentation VTE Present on Admission: No VTE Mechan Device Prophylaxis: SCD's VTE Pharm Prophylaxis ordered?: Yes Procedures Musculoskeletal [id number]: Other Procedure See Report
--- NOTE | 2024-04-14 19:00 | RAD_ITS ---
EXAM: XR LEFT HIP WITH PELVIS WHEN PERFORMED, 1 VIEW CLINICAL INDICATION: POST OP AP ONLY in PACU TECHNIQUE: Frontal view of the left hip with pelvis when performed. COMPARISON: Pelvis exam 04/13/2024. FINDINGS: BONES/JOINTS: Postoperative changes status post left hip arthroplasty. Hardware is normally aligned. No displaced fracture. No destructive or sclerotic lesions. Note that overlapping bowel shadows may however obscure fine detail. Sacroiliac joint is unremarkable. No widening of the pubic symphysis. SOFT TISSUES: Postsurgical changes of the soft tissues with swelling and foci of air. RAD/Hip 1 view with Pelvis IMPRESSION: Postoperative changes status post left hip arthroplasty. Hardware is normally aligned. Electronically Signed: Robin Pagan MD at 23:02 EDT ,
[2024-04-14] MEDS: CARBIDOPA/LEVODOPA CR 50/200 Tablet PO (23:44)
[2024-04-14] MEDS: Celecoxib 200 MG Capsule PO (23:44)
[2024-04-15 03:01] VITALS: BP 164/83; PULSE 70; RESP 20; TEMP 36.5; O2SAT 98
[2024-04-15 03:12] VITALS: BP 164/83; PULSE 70
[2024-04-15] MEDS: hydrALAZINE 20 MG/ML Vial 10 MG IV ×2 (03:12→21:34)
[2024-04-15] MEDS: Acetaminophen 325 MG Tablet 650 MG PO ×3 (03:16→23:59)
[2024-04-15 05:58] LABS: Absolute Lymphocyte Count 0.77 X10^3/uL (0.83-4.51); Absolute Neutrophil Count 7.7 X10^3/uL (2.0-7.7); Basophil# 0.03 X10^3/uL; Basophil% 0.3 % (0-1); Eosinophil# 0.01 X10^3/uL; Eosinophils% 0.1 % (0-5); Hematocrit 34.3 % (37-47); Hemoglobin 11.2 g/dL (12.0-15.0); Lymphocyte # 0.77 X10^3/ul (0.83-4.51); Lymphocyte % 8.6 % (19-41); Mean Corp Hgb Conc 32.7 g/dL (32-36); Mean Platelet Vol. 10.2 fl (6.2-12.0); Monocyte# 0.48 X10^3/uL; Monocyte% 5.3 % (0-10); NRBC Flagged by Analyzer 0 % (0-5); Neutrophil # 7.67 X10^3/uL (2.7-7.7); Neutrophil % 85.5 % (47-70); Platelet Count 176 K/mm3 (150-450); RBC Distribution Width CV 12.7 % (11.6-14.6); RBC Distribution Width SD 45.5 fl (35.1-43.9)
[2024-04-15 06:44] LABS: Anion Gap 3 (5-15); BUN 16 mg/dL (7-18); BUN/Creat Ratio 21.5 RATIO (10-20); Calcium,Total 8.2 mg/dL (8.5-10.1); Chloride 109 mmol/L (98-107); Creatinine, Serum 0.74 mg/dL (0.55-1.02); EST Glomerular Filtration Rate 81 mL/min (>60); Est Glom Filt Rate - Afr Amer 98 mL/min (>60); Estimated Creatinine Clearance 41.82 ml/min; Glucose 111 mg/dL (74-106); Magnesium 1.9 mg/dL (1.6-2.6); Phosphorus 2.5 mg/dL (2.5-4.9); Potassium 3.4 mmol/L (3.5-5.1); Sodium Level 139 mmol/L (136-145)
[2024-04-15] MEDS: 0.9% Normal Saline (1000mL) 1,000 ML 100 ML IV ×2 (07:00→16:27)
[2024-04-15] MEDS: Cefazolin 2 GM in 0.9% Normal Saline (100mL Bag) 100 ML IV (07:43)
[2024-04-15] MEDS: Multivitamins,Therapeutic Tablet 1 TABLET PO (07:43)
[2024-04-15] MEDS: Carbidopa/Levodopa 25/100 Tablet PO ×4 (07:43→21:28)
[2024-04-15] MEDS: Ensure Plus High Protein 120 ML LIQUID PO ×4 (07:48→21:28)
--- NOTE | 2024-04-15 07:49 | PN.HOSP_ITS ---
Reason for Visit Reason for Visit: Diagnoses Acute cystitis without hematuria (04/13/24) Urinary tract infection, site not specified (04/13/24) Fracture of unspecified part of neck of left femur, initial encounter for closed fracture (04/13/24) Unspecified fall, initial encounter (04/13/24) Subjective Subjective Patient underwent L hip cemented kelley arthroplasty on 04/14/2024 Objective Data Objective Data Vital Signs: Vital Signs Temp Pulse Resp BP Pulse Ox O2 Del Method 97.7 F L 70 20 H 164/83 H 98 Room Air 04/15/24 03:01 04/15/24 03:12 04/15/24 03:01 04/15/24 03:12 04/15/24 03:01 04/15/24 03:01 Oxygen Delivery Method Room Air Weight: 43.6 kg Body Mass Index (BMI) 17.6 Intake & Output: Intake and Output for Last 24 Hours 04/13/24 04/14/24 04/15/24 23:59 23:59 23:59 Intake Total 381.67 / 381.67 1886.67 / 1886.67 1110 / 1110 Output Total 850 / 850 400 / 400 Balance 381.67 / 131.67 1036.67 / 1036.67 710 / 710 Medical Nutrition Assessment Dietitian: Malnutrition Criteria Met Start: 04/14/24 14:56 Freq: Status: Active Protocol: Document 04/14/24 14:56 SLA (Rec: 04/14/24 14:56 SLA [email or web address]) Nutrition Malnutrition Evidence of Malnutrition Exists Yes Malnutrition (severe): Chronic Evidenced By Suboptimal Energy Intake ( Severe),Weight Loss (Severe), Physical Changes (Severe) Clinical Problem Chronic Disease or Condition Related Malnutrition Etiology related to dementia/parkinsons and inadequate energy intake Signs/Symptoms as evidenced by pt meeting < 75% of est nutritional needs, unintended wt loss of 20% x 1 yr - generalized fat loss/ muscle depletion throughout body; BMI 17.7 Status Active Problem Recommendation Dietitian Recommendations/Changes When medically able, rec JOSE DAVID to liberal Regular diet Rec continue Ensure Plus High Protein 4x/day w/ medpass Provide magic cup w/ lunch and dinner for increased nutrition if consumed. Consider appetite stimulant to help encourage increased po intake Lab / Micro Data 04/15/24 05:10 04/15/24 05:10 Labs: Laboratory Results - last 24 hr 04/14/24 06:10: Sodium 139, Potassium 3.6, Chloride 104, Carbon Dioxide 24.0, Anion Gap 11, BUN 24 H, Creatinine 0.63, Estim Creat Clear Calc 41.82, Est GFR (MDRD) Af Amer 118, Est GFR (MDRD) Non-Af 98, BUN/Creatinine Ratio 38.0 H, G lucose 111 H, Calcium 9.3, Blood Type A POSITIVE, Antibody Screen NEGATIVE 04/15/24 05:10: WBC 9.0, RBC 3.50 L, Hgb 11.2 L, Hct 34.3 L, MCV 98.0, MCH 32.0, MCHC 32.7, RDW Std Deviation 45.5 H, RDW Coeff of Jazzy 12.7, Plt Count 176, MPV 10.2, Immature Gran % (Auto) 0.200, Neut % (Auto) 85.5 H, Lymph % (Auto) 8.6 L, [place] % (Auto) 5.3, Eos % (Auto) 0.1, Baso % (Auto) 0.3, Absolute Neuts (auto) 7.7, Absolute Lymphs (auto) 0.77 L, Nucleated RBC % 0, Sodium 139, Potassium 3.4 L, Chloride 109 H, Carbon Dioxide 27.0, Anion Gap 3 L, BUN 16, Creatinine 0.74, Estim Creat Clear Calc 41.82, Est GFR (MDRD) Af Amer 98, Est GFR (MDRD) Non-Af 81, BUN/Creatinine Ratio 21.5 H, Glucose 111 H, Calcium 8.2 L, Phosphorus 2.5, Magnesium 1.9 Micro: Microbiology 04/13/24 15:24 Urine, Catheterized Urine Culture - Preliminary Presumptive E. coli Radiography Diagnostic Testing: Radiology Impression Hip/Pelvis X-Ray 04/14/24 19:00 IMPRESSION: Postoperative changes status post left hip arthroplasty. Hardware is normally aligned. Electronically Signed: Robin Pagan MD at 23:02 EDT , Physical Exam Narrative GENERAL: Frail looking HEENT: Atraumatic; normocephalic EYES; Anicteric, Normal Conjunctiva NECK; supple, normal thyroid, RESPIRATORY: Diminished to auscultation CARDIOVASCULAR: Regular S1 S2, GI: soft, normoactive bowel sounds, : No Renal angle tenderness; EXTREMITIES: No edema, no clubbing, MUSCULOSKELETAL: muscle wasting NEURO: Awake; no lateralizing signs. SKIN: No Rash PSYCH; Flat affect Assessment & Plan Assessment/Plan (1) Closed left hip fracture: QUALIFIERS: Encounter type: initial encounter Qualified Code(s): S72.002A - Fracture of unspecified part of neck of left femur, initial encounter for closed fracture (2) UTI (urinary tract infection): QUALIFIERS: Hematuria presence: without hematuria Urinary tract infection type: acute cystitis Qualified Code(s): N30.00 - Acute cystitis without hematuria PLAN: Plan Patient is a 73-year-old lady with history of Alzheimer's dementia who was apparently found on the floor by the . Was brought to the emergency department imaging studies demonstrated left femoral neck fracture admitted to regular nursing floor with consultation placed to orthopedic surgery 1. Fall with left femoral neck fracture ?Imaging studies obtained on admission demonstrated a displaced left femoral neck fracture. Admitted to regular nursing floor. Managed with immobilization pain meds with consult placed to orthopedic surgery; Dr. Sixto Wallace. Patient risk assessment for surgical intervention as documented in H&P -04/15/2024atient underwent L hip cemented kelley arthroplasty on 04/14/2024 2. Acute cystitis without hematuria ? Patient started on ceftriaxone cultures sent 3. Hypokalemia -Corrected per protocol 4. Elevated blood pressure ? Possibly related to pain patient is not a known hypertensive and currently not on any medication ordered hydralazine as needed for systolic blood pressure greater than 160 5. GERD on PPI 6. Parkinson's disease ? Patient is on carbidopa levodopa 7. Alzheimer's dementia dementia ? Supportive care 8. Severe protein calorie malnutrition ? As evidenced by decreased energy level, muscle wasting, consult placed to dietitian 9. DVT prophylaxis ? Lovenox Time spent in the patient's overall evaluation,decision-making process, review of diagnostic data, adjustment of management, discussion with other providers, nursing nursing and ancillary staff involved in patient's care documentation, 36 minutes Charges/Coding Visit Charges Inpatient E&M: 41416 Subs Hosp L2
[2024-04-15 07:51] VITALS: BP 143/89; PULSE 90; RESP 18; TEMP 36.6; O2SAT 93
[2024-04-15] MEDS: Ascorbic Acid 500 MG Tablet PO (10:35)
[2024-04-15] MEDS: Zinc Sulfate 50 mg zinc (220 mg) ORAL capsule PO (10:35)
[2024-04-15] MEDS: Pantoprazole Sodium 40 MG Tablet PO (10:35)
[2024-04-15] MEDS: Pyridoxine HCl 100 MG Tablet PO (10:35)
[2024-04-15] MEDS: Ceftriaxone 1 GM/50 ML BAG IV (10:35)
[2024-04-15] MEDS: Cholecalciferol (VIT D3) 25 MCG TABLET (1,000 UNITS) PO (10:35)
--- NOTE | 2024-04-15 10:50 | CASEMGMT ---
Social Work SW called pt's to review discharge plan, message left. SW will continue to follow. JATIN Jimenez
--- NOTE | 2024-04-15 11:51 | PCM.PN.ORT ---
Subjective Subjective Doing well. Responds to questions. No pain. Objective Data Objective Data Vital Signs: Vital Signs Temp Pulse Resp BP Pulse Ox O2 Del Method 97.9 F 90 18 143/89 H 93 Room Air 04/15/24 07:51 04/15/24 07:51 04/15/24 07:51 04/15/24 07:51 04/15/24 07:51 04/15/24 07:51 Oxygen Delivery Method Room Air Weight: 96 lb 1.945 oz Body Mass Index (BMI) 17.6 Intake & Output: Intake and Output for Last 24 Hours 04/13/24 04/14/24 04/15/24 23:59 23:59 23:59 Intake Total 381.67 / 381.67 1886.67 / 1886.67 1555.00 / 1555.00 Output Total 850 / 850 400 / 400 Balance 381.67 / 131.67 1036.67 / 1036.67 1155.00 / 1155.00 Medical Nutrition Assessment Dietitian: Malnutrition Criteria Met Start: 04/14/24 14:56 Freq: Status: Active Protocol: Document 04/14/24 14:56 SLA (Rec: 04/14/24 14:56 SLA [email or web address]) Nutrition Malnutrition Evidence of Malnutrition Exists Yes Malnutrition (severe): Chronic Evidenced By Suboptimal Energy Intake ( Severe),Weight Loss (Severe), Physical Changes (Severe) Clinical Problem Chronic Disease or Condition Related Malnutrition Etiology related to dementia/parkinsons and inadequate energy intake Signs/Symptoms as evidenced by pt meeting < 75% of est nutritional needs, unintended wt loss of 20% x 1 yr - generalized fat loss/ muscle depletion throughout body; BMI 17.7 Status Active Problem Recommendation Dietitian Recommendations/Changes When medically able, rec JOSE DAVID to liberal Regular diet Rec continue Ensure Plus High Protein 4x/day w/ medpass Provide magic cup w/ lunch and dinner for increased nutrition if consumed. Consider appetite stimulant to help encourage increased po intake Lab / Micro Data 04/15/24 05:10 04/15/24 05:10 Labs: Laboratory Results - last 24 hr 04/15/24 05:10: WBC 9.0, RBC 3.50 L, Hgb 11.2 L, Hct 34.3 L, MCV 98.0, MCH 32.0, MCHC 32.7, RDW Std Deviation 45.5 H, RDW Coeff of Jazzy 12.7, Plt Count 176, MPV 10.2, Immature Gran % (Auto) 0.200, Neut % (Auto) 85.5 H, Lymph % (Auto) 8.6 L, [place] % (Auto) 5.3, Eos % (Auto) 0.1, Baso % (Auto) 0.3, Absolute Neuts (auto) 7.7, Absolute Lymphs (auto) 0.77 L, Nucleated RBC % 0, Sodium 139, Potassium 3.4 L, Chloride 109 H, Carbon Dioxide 27.0, Anion Gap 3 L, BUN 16, Creatinine 0.74, Estim Creat Clear Calc 41.82, Est GFR (MDRD) Af Amer 98, Est GFR (MDRD) Non-Af 81, BUN/Creatinine Ratio 21.5 H, Glucose 111 H, Calcium 8.2 L, Phosphorus 2.5, Magnesium 1.9 Micro: Microbiology 04/13/24 15:24 Urine, Catheterized Urine Culture - Final Presumptive E. coli Radiography Diagnostic Testing: Radiology Impression Hip/Pelvis X-Ray 04/14/24 19:00 IMPRESSION: Postoperative changes status post left hip arthroplasty. Hardware is normally aligned. Electronically Signed: Robin Pagan MD at 23:02 EDT , agree Physical Exam Narrative Sitting up in a chair. here with . able to follow commands. dressing dry. wiggles toes, foot warm. mild discomfort to palpate thigh Const alert Assessment & Plan Assessment/Plan (1) Closed left hip fracture: QUALIFIERS: Encounter type: initial encounter Qualified Code(s): S72.002A - Fracture of unspecified part of neck of left femur, initial encounter for closed fracture PLAN: 73 yr F POD 1 left hip kelley. doing well. no concerns. agree w hospitalist note management. WBAT.
[2024-04-15] MEDS: Cefdinir 300 MG Capsule PO ×2 (12:17→21:32)
--- NOTE | 2024-04-15 13:24 | CASEMGMT ---
Addendum entered by Virgen Magana 04/15/24 14:32: Social Work Referral sent to [facility] via [facility], and voicemail left for TCU. SW to follow up on Wednesday. JATIN Jimenez Original Note: Social Work Pt's is here. SW spoke w/him about rehab options. He would like pt to go to [facility] or to [facility]. He and pt live at [facility] in their independent living. states it would be easier for him to see her if she were there, as he has a bad back and it's difficult for him to get to TCU. However, he states the care in [facility] is better than at [facility] and it would be better for her to be in TCU. SW explained will make referrals to both places, and we can follow up w/him on Wednesday. SW explained that TCU may not even have a bed so this may not even be an option. states understanding. SW will make referrals today. JATIN Jimenez
[2024-04-15 14:19] VITALS: BP 152/92; PULSE 79; RESP 18; TEMP 36.6; O2SAT 99
[2024-04-15] MEDS: Rivaroxaban 10 MG Tablet PO (16:27)
[2024-04-15 21:34] VITALS: BP 174/92; PULSE 98
[2024-04-15 22:00] VITALS: BP 174/92; PULSE 98; RESP 16; TEMP 36.8; O2SAT 98
[2024-04-15] MEDS: Celecoxib 200 MG Capsule PO (23:54)
[2024-04-15] MEDS: CARBIDOPA/LEVODOPA CR 50/200 Tablet PO (23:56)
[2024-04-16] VITALS (8 sets, daily range): BP systolic 143–187; BP diastolic 78–100; PULSE 67–105; RESP 16–18; TEMP 36.5–37.1; O2SAT 95–98
[2024-04-16] MEDS: 0.9% Normal Saline (1000mL) 1,000 ML 100 ML IV ×3 (02:28→20:33)
[2024-04-16 05:21] LABS: Absolute Lymphocyte Count 0.87 X10^3/uL (0.83-4.51); Absolute Neutrophil Count 6.7 X10^3/uL (2.0-7.7); Basophil# 0.02 X10^3/uL; Basophil% 0.2 % (0-1); Eosinophil# 0.04 X10^3/uL; Eosinophils% 0.5 % (0-5); Hematocrit 32.4 % (37-47); Hemoglobin 10.8 g/dL (12.0-15.0); Lymphocyte # 0.87 X10^3/ul (0.83-4.51); Lymphocyte % 10.6 % (19-41); Mean Corp Hgb Conc 33.3 g/dL (32-36); Mean Corpuscular Hgb 32.3 pg (27.0-32.0); Mean Platelet Vol. 10.4 fl (6.2-12.0); Monocyte# 0.52 X10^3/uL; Monocyte% 6.3 % (0-10); NRBC Flagged by Analyzer 0 % (0-5); Neutrophil # 6.72 X10^3/uL (2.7-7.7); Platelet Count 193 K/mm3 (150-450); RBC Distribution Width SD 46.3 fl (35.1-43.9); Red Blood Count 3.34 M/mm3 (4.2-5.4); White Blood Count 8.2 K/mm3 (4.4-11.0)
[2024-04-16] MEDS: hydrALAZINE 20 MG/ML Vial 10 MG IV ×2 (05:47→20:28)
[2024-04-16 05:53] LABS: Anion Gap 3 (5-15); BUN 23 mg/dL (7-18); BUN/Creat Ratio 41.6 RATIO (10-20); Calcium,Total 8.2 mg/dL (8.5-10.1); Chloride 112 mmol/L (98-107); Creatinine, Serum 0.55 mg/dL (0.55-1.02); EST Glomerular Filtration Rate 114 mL/min (>60); Est Glom Filt Rate - Afr Amer 138 mL/min (>60); Estimated Creatinine Clearance 41.82 ml/min; Glucose 129 mg/dL (74-106); Potassium 3.3 mmol/L (3.5-5.1); Sodium Level 141 mmol/L (136-145)
--- NOTE | 2024-04-16 07:30 | PN.HOSP_ITS ---
Reason for Visit Reason for Visit: Diagnoses Acute cystitis without hematuria (04/13/24) Urinary tract infection, site not specified (04/13/24) Fracture of unspecified part of neck of left femur, initial encounter for closed fracture (04/13/24) Unspecified fall, initial encounter (04/13/24) Subjective Subjective Diagnostic data reviewed significant for hemoglobin of 10.8, potassium of 3.3 additional potassium replacement given Objective Data Objective Data Vital Signs: Vital Signs Temp Pulse Resp BP Pulse Ox O2 Del Method 98.6 F 97 16 172/95 H 97 Room Air 04/16/24 05:51 04/16/24 05:51 04/16/24 05:51 04/16/24 05:51 04/16/24 05:51 04/16/24 05:51 Oxygen Delivery Method Room Air Weight: 43.6 kg Body Mass Index (BMI) 17.6 Intake & Output: Intake and Output for Last 24 Hours 04/14/24 04/15/24 04/16/24 23:59 23:59 23:59 Intake Total 1886.67 / 1886.67 2091.67 / 2091.67 1000 / 1000 Output Total 850 / 850 550 / 550 200 / 200 Balance 1036.67 / 1036.67 1541.67 / 1541.67 800 / 800 Medical Nutrition Assessment Dietitian: Malnutrition Criteria Met Start: 04/14/24 14:56 Freq: Status: Active Protocol: Document 04/14/24 14:56 SLA (Rec: 04/14/24 14:56 SLA [email or web address]) Nutrition Malnutrition Evidence of Malnutrition Exists Yes Malnutrition (severe): Chronic Evidenced By Suboptimal Energy Intake ( Severe),Weight Loss (Severe), Physical Changes (Severe) Clinical Problem Chronic Disease or Condition Related Malnutrition Etiology related to dementia/parkinsons and inadequate energy intake Signs/Symptoms as evidenced by pt meeting < 75% of est nutritional needs, unintended wt loss of 20% x 1 yr - generalized fat loss/ muscle depletion throughout body; BMI 17.7 Status Active Problem Recommendation Dietitian Recommendations/Changes When medically able, rec JOSE DAVID to liberal Regular diet Rec continue Ensure Plus High Protein 4x/day w/ medpass Provide magic cup w/ lunch and dinner for increased nutrition if consumed. Consider appetite stimulant to help encourage increased po intake Lab / Micro Data 04/16/24 04:43 04/16/24 04:43 Labs: Laboratory Results - last 24 hr 04/16/24 04:43: WBC 8.2, RBC 3.34 L, Hgb 10.8 L, Hct 32.4 L, MCV 97.0, MCH 32.3 H, MCHC 33.3, RDW Std Deviation 46.3 H, RDW Coeff of Jazzy 13.0, Plt Count 193, MPV 10.4, Immature Gran % (Auto) 0.400, Neut % (Auto) 82.0 H, Lymph % (Auto) 10.6 L, [place] % (Auto) 6.3, Eos % (Auto) 0.5, Baso % (Auto) 0.2, Absolute Neuts (auto) 6.7, Absolute Lymphs (auto) 0.87, Nucleated RBC % 0, Sodium 141, P otassium 3.3 L, Chloride 112 H, Carbon Dioxide 26.0, Anion Gap 3 L, BUN 23 H, Creatinine 0.55, Estim Creat Clear Calc 41.82, Est GFR (MDRD) Af Amer 138, Est GFR (MDRD) Non-Af 114, BUN/Creatinine Ratio 41.6 H, Glucose 129 H, Calcium 8.2 L Micro: Microbiology 04/13/24 15:24 Urine, Catheterized Urine Culture - Final Presumptive E. coli Physical Exam Narrative GENERAL: Frail looking HEENT: Atraumatic; normocephalic EYES; Anicteric, Normal Conjunctiva NECK; supple, normal thyroid, RESPIRATORY: Diminished to auscultation CARDIOVASCULAR: Regular S1 S2, GI: soft, normoactive bowel sounds, : No Renal angle tenderness; EXTREMITIES: No edema, no clubbing, MUSCULOSKELETAL: muscle wasting NEURO: Awake; no lateralizing signs. SKIN: No Rash PSYCH; Flat affect Assessment & Plan Assessment/Plan (1) Closed left hip fracture: QUALIFIERS: Encounter type: initial encounter Qualified Code(s): S72.002A - Fracture of unspecified part of neck of left femur, initial encounter for closed fracture (2) UTI (urinary tract infection): QUALIFIERS: Hematuria presence: without hematuria Urinary tract infection type: acute cystitis Qualified Code(s): N30.00 - Acute cystitis without hematuria PLAN: Plan Patient is a 73-year-old lady with history of Alzheimer's dementia who was apparently found on the floor by the . Was brought to the emergency department imaging studies demonstrated left femoral neck fracture admitted to regular nursing floor with consultation placed to orthopedic surgery 1. Fall with left femoral neck fracture ?Imaging studies obtained on admission demonstrated a displaced left femoral neck fracture. Admitted to regular nursing floor. Managed with immobilization pain meds with consult placed to orthopedic surgery; Dr. Sixto Wallace. Patient risk assessment for surgical intervention as documented in H&P -04/15/2024atient underwent L hip cemented kelley arthroplasty on 04/14/2024 ? 04/16/2024; patient pain remains tolerable. 2. Acute cystitis without hematuria with E. coli ? Patient started on ceftriaxone cultures sent ? 04/16/2024 de-escalated antibiotic therapy switching ceftriaxone to cefdinir p.o. 3. Hypokalemia -Corrected per protocol ? 04/16/2024 potassium down to 3.3 additional replacement given 4. Elevated blood pressure ? Possibly related to pain patient is not a known hypertensive and currently not on any medication ordered hydralazine as needed for systolic blood pressure greater than 160 5. Anemia - Secondary to chronic disorder as well as expected acute blood loss anemia following surgery, monitoring H&H and transfuse if patient becomes symptomatic or hemoglobin falls below 7 6. Parkinson's disease ? Patient is on carbidopa levodopa 7. Alzheimer's dementia dementia ? Supportive care 8. Severe protein calorie malnutrition ? As evidenced by decreased energy level, muscle wasting, consult placed to dietitian 9. GERD -on PP 10. DVT prophylaxis ? Lovenox Time spent in the patient's overall evaluation,decision-making process, review of diagnostic data, adjustment of management, discussion with other providers, nursing nursing and ancillary staff involved in patient's care documentation, 36 minutes Charges/Coding Visit Charges Inpatient E&M: 83919 Subs Hosp L2
[2024-04-16] MEDS: Carbidopa/Levodopa 25/100 Tablet PO ×4 (07:31→20:23)
[2024-04-16] MEDS: Ensure Plus High Protein 120 ML LIQUID PO ×3 (07:31→20:33)
[2024-04-16] MEDS: Acetaminophen 325 MG Tablet 650 MG PO ×2 (07:34→20:27)
[2024-04-16] MEDS: Cholecalciferol (VIT D3) 25 MCG TABLET (1,000 UNITS) PO (09:27)
[2024-04-16] MEDS: Pyridoxine HCl 100 MG Tablet PO (09:27)
[2024-04-16] MEDS: Ascorbic Acid 500 MG Tablet PO (09:27)
[2024-04-16] MEDS: Cefdinir 300 MG Capsule PO ×2 (09:27→20:33)
[2024-04-16] MEDS: Zinc Sulfate 50 mg zinc (220 mg) ORAL capsule PO (09:27)
[2024-04-16] MEDS: Rivaroxaban 10 MG Tablet PO (16:21)
[2024-04-16] MEDS: CARBIDOPA/LEVODOPA CR 50/200 Tablet PO (23:37)
[2024-04-16] MEDS: Celecoxib 200 MG Capsule PO (23:37)
[2024-04-17 04:54] LABS: Absolute Lymphocyte Count 1.23 X10^3/uL (0.83-4.51); Absolute Neutrophil Count 6.1 X10^3/uL (2.0-7.7); Basophil# 0.03 X10^3/uL; Basophil% 0.4 % (0-1); Eosinophil# 0.08 X10^3/uL; Hematocrit 26.9 % (37-47); Hemoglobin 8.8 g/dL (12.0-15.0); Lymphocyte # 1.23 X10^3/ul (0.83-4.51); Lymphocyte % 15.5 % (19-41); Mean Corp Hgb Conc 32.7 g/dL (32-36); Mean Corpuscular Volume 97.8 fL (81-99); Mean Platelet Vol. 10.6 fl (6.2-12.0); Monocyte# 0.48 X10^3/uL; NRBC Flagged by Analyzer 0 % (0-5); Neutrophil # 6.06 X10^3/uL (2.7-7.7); Neutrophil % 76.3 % (47-70); Platelet Count 180 K/mm3 (150-450); RBC Distribution Width CV 13.4 % (11.6-14.6); RBC Distribution Width SD 47.5 fl (35.1-43.9); Red Blood Count 2.75 M/mm3 (4.2-5.4); White Blood Count 7.9 K/mm3 (4.4-11.0)
[2024-04-17 05:00] VITALS: BP 140/77; PULSE 87; RESP 16; TEMP 36.7; O2SAT 96
[2024-04-17 05:30] LABS: Anion Gap 3 (5-15); BUN 19 mg/dL (7-18); BUN/Creat Ratio 40.6 RATIO (10-20); Calcium,Total 7.9 mg/dL (8.5-10.1); Chloride 117 mmol/L (98-107); Creatinine, Serum 0.47 mg/dL (0.55-1.02); EST Glomerular Filtration Rate 138 mL/min (>60); Est Glom Filt Rate - Afr Amer 167 mL/min (>60); Estimated Creatinine Clearance 41.82 ml/min; Glucose 92 mg/dL (74-106); Potassium 3.1 mmol/L (3.5-5.1); Sodium Level 144 mmol/L (136-145)
[2024-04-17] MEDS: 0.9% Normal Saline (1000mL) 1,000 ML 100 ML IV (06:22)
[2024-04-17] MEDS: Carbidopa/Levodopa 25/100 Tablet PO ×2 (07:39→11:40)
[2024-04-17] MEDS: Multivitamins,Therapeutic Tablet 1 TABLET PO (07:39)
[2024-04-17 08:10] VITALS: BP 146/86; PULSE 95; RESP 16; TEMP 36.8; O2SAT 95
--- NOTE | 2024-04-17 08:28 | WOUNDNOTE ---
wound photo: right lateral ankle
[2024-04-17] MEDS: Cefdinir 300 MG Capsule PO (09:13)
[2024-04-17] MEDS: Pantoprazole Sodium 40 MG Tablet PO (09:13)
[2024-04-17] MEDS: Pyridoxine HCl 100 MG Tablet PO (09:14)
[2024-04-17] MEDS: Zinc Sulfate 50 mg zinc (220 mg) ORAL capsule PO (09:14)
[2024-04-17] MEDS: Cholecalciferol (VIT D3) 25 MCG TABLET (1,000 UNITS) PO (09:14)
[2024-04-17] MEDS: Ascorbic Acid 500 MG Tablet PO (09:14)
[2024-04-17] MEDS: Ensure Plus High Protein 120 ML LIQUID PO (09:20)
--- NOTE | 2024-04-17 10:24 | CASEMGMT ---
Social Work TCU cannot take pt, SW updated [facility], sent most recent notes, and asked them to start precert. SW spoke w/pt and in room. SW let know that TCU cannot take pt, but [facility] did take her. agreeable to pt going to [facility] for rehab. SW let him know that [facility] is starting precert w/insurance, will let him know as the day goes if we get precert. states understanding. SW will continue to follow for discharge to [facility], skilled for rehab. JATIN Jimenez
--- NOTE | 2024-04-17 11:07 | CASEMGMT ---
Social Work Pt was approved by insurance to go to [facility] today. SW let physician know, he will likely discharge pt today. JATIN Jimenez
--- NOTE | 2024-04-17 11:13 | PCM.TXEXTCAR ---
Diet Diet Order/Speech Therapy: 04/14/24 20:02 Diet: regular Is pt able to select menu?: No Routine Orders/Code Status Routine Lab Work: CBC (in one week) and BMP (in one week) Code Status: Full Code Wound(s) RT OUTER ANKLE: Wound Type: nonhealing wound Dressing Change: NS moistened Elizabeth left hip: Wound Type: Surgical Incision Therapies Weight Bearing: Weight bearing as tolerated Physical Therapy: Eval and Treat Occupational Therapy: Eval and Treat Speech Therapy: Eval and Treat Problem/Diagnosis (1) Closed left hip fracture: Status: Acute Code(s): S72.002A - Fracture of unspecified part of neck of left femur, initial encounter for closed fracture (2) UTI (urinary tract infection): Status: Acute Code(s): N39.0 - Urinary tract infection, site not specified Comment: E.coli (3) Parkinsons disease: Status: Chronic Code(s): G20.A1 - Parkinson's disease without dyskinesia, without mention of fluctuations (4) Hypokalemia: Status: Acute Code(s): E87.6 - Hypokalemia Allergies/Procedures Done in Hospital Allergies tramadol (From Ultram) Allergy (Mild, Verified 06/30/23 15:28) VERTIGO, MENTAL STATUS CHANGE Procedures: - (left hip cemented kelley-arthroplasty 04/14/24) Type of Care/Length of Stay Estimated LOS: Convalescent Care Less Than 30 days Type of Care Needed: Skilled Rehab Potential: Good Prognosis: Good Additional Orders/Day of Discharge H&P will serve as current which was dated: 04/13/24 Day of Discharge: 04/17/24 Dietary and Speech Recommendations Dietitian Recommendations/Changes: Rec continue Ensure Plus High Protein 4x/day w/ medpass Provide magic cup w/ lunch and dinner for increased nutrition if consumed. Consider appetite stimulant to help encourage increased po intake Discharge Plan Admission Admit Date/Time: 04/13/24 17:13 Primary Reason for Your Visit: left hip fracture Attending Provider: Mo Marte Primary Care Provider: Ania Sierra Consulting Providers: Shelly Rangel; Sixto Wallace; Raphael Del Rio Instructions Additional Instructions / Restrictions: remove surgical dressing tomorrow-keep area clean and dry Discharge Orders/Prescriptions Prescriptions: New acetaminophen 325 mg Tablet 650 mg PO Q6H PRN PRN (Reason: Pain 1-10 Or Fever >100.7) Qty: 0 0RF Xarelto 10 mg Tablet 10 mg PO DINNER Qty: 1 0RF Rx Instructions: continue for 31 doses starting 04/18/24 cephalexin 500 mg tablet 500 mg PO BID Qty: 11 0RF Rx Instructions: give for a total of 11 doses starting evening 04/17/24 potassium chloride 20 mEq tablet extended release 20 meq PO DAILY Qty: 1 0RF Continued carbidopa-levodopa 25-100 mg tablet 1 tab PO 4X/DAY Rx Instructions: take 1 tab at 8am, 1 tab at noon, 1.5 tab tab 4pm, 1.5 tabs at 8pm. also can take an additional 1/2 tab chewed and swallowed with soda pop when toes curl cholecalciferol (vitamin D3) 25 mcg (1,000 unit) capsule 25 mcg PO DAILY zinc 50 mg capsule 50 mg PO DAILY multivitamin [Daily Multi-Vitamin] Tablet 1 tab PO DAILY lutein 6 mg capsule 6 mg PO BID Rx Instructions: administer with meals omeprazole 40 mg capsule,delayed release(DR/EC) 40 mg PO DAILY pyridoxine (vitamin B6) 100 mg tablet 100 mg PO DAILY ascorbic acid (vitamin C) [Vitamin C] 500 mg tablet 500 mg PO DAILY carbidopa-levodopa 50-200 mg tablet extended release 1 tab PO QHS Rx Instructions: Taking at midnight Discontinued celecoxib [Celebrex] 200 mg capsule 200 mg PO QHS Rx Instructions: Taking at midnight coenzyme Q10 400 mg capsule 500 mg PO DAILY metronidazole [Metrogel] 1 % gel 1 applic topical DAILY Referrals / Follow Up: Ania Sierra MD [Primary Care Provider] - Sixto Wallace MD [Med Staff - Active Staff] - See Referral Note (call office to arrange follow up appointment) Disposition Disposition (needs filled in before D/C Order can be placed): Group Home Facility (1) Closed left hip fracture Qualifiers: Encounter type: initial encounter Qualified Code(s): S72.002A - Fracture of unspecified part of neck of left femur, initial encounter for closed fracture (2) UTI (urinary tract infection) Qualifiers: Urinary tract infection type: acute cystitis Hematuria presence: without hematuria Qualified Code(s): N30.00 - Acute cystitis without hematuria
[2024-04-17 11:15] VITALS: BP 145/64; PULSE 99; RESP 16; TEMP 37.1; O2SAT 96
--- NOTE | 2024-04-17 11:32 | DS.PCM_ITS ---
Providers Date of Admission: 04/13/24 Date of Discharge: 04/17/24 Primary Care Physician: Dr. 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 Saini for over yr, Reason For Visit: LEFT FEMORAL BCK FRACTURE Diagnosis Discharge Diagnosis (1) Closed left hip fracture: Status: Acute Code(s): S72.002A - Fracture of unspecified part of neck of left femur, initial encounter for closed fracture Qualifiers: Encounter type: initial encounter Qualified Code(s): S72.002A - Fracture of unspecified part of neck of left femur, initial encounter for closed fracture (2) UTI (urinary tract infection): Status: Acute Code(s): N39.0 - Urinary tract infection, site not specified Qualifiers: Hematuria presence: without hematuria Urinary tract infection type: a cute cystitis Qualified Code(s): N30.00 - Acute cystitis without hematuria (3) Parkinsons disease: Status: Chronic Code(s): G20.A1 - Parkinson's disease without dyskinesia, without mention of fluctuations (4) Hypokalemia: Status: Acute Code(s): E87.6 - Hypokalemia Plan Final diagnosis #1 left femoral neck fracture secondary to osteoporosis #2 acute cystitis #3 Parkinson's disease #4 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 #5 acute blood loss anemia as an expected consequence of left femoral neck fracture #6 hypokalemia Medications at Discharge Home Medications ascorbic acid (vitamin C) 500 mg tablet (Vitamin C) 500 mg PO DAILY 06/30/23 carbidopa 25 mg-levodopa 100 mg tablet 1 tab PO 4X/DAY 06/30/23 cholecalciferol (vitamin D3) 25 mcg (1,000 unit) capsule 25 mcg PO DAILY 06/30/23 lutein 6 mg capsule 6 mg PO BID 06/30/23 multivitamin (Daily Multi-Vitamin tablet) 1 tab PO DAILY 06/30/23 omeprazole 40 mg capsule,delayed release 40 mg PO DAILY 06/30/23 pyridoxine (vitamin B6) 100 mg tablet 100 mg PO DAILY 06/30/23 zinc 50 mg capsule 50 mg PO DAILY 06/30/23 carbidopa ER 50 mg-levodopa 200 mg tablet,extended release 1 tab PO QHS 04/13/24 acetaminophen 325 mg tablet 650 mg (2 x 325 mg) PO Q6H PRN PRN Pain 1-10 Or Fever >100.7 #0 tabs 04/17/24 cephalexin 500 mg tablet 500 mg PO BID #11 tabs 04/17/24 potassium chloride 20 mEq tablet,extended release 20 meq PO DAILY #1 TAB 04/17/24 rivaroxaban 10 mg tablet (Xarelto) 10 mg PO DINNER #1 TAB 04/17/24 Hospital Course Operations - (Left hip cemented hemiarthroplasty-04/14/2024) Procedures None Summary of Care Provided Minutes Spent on Discharge: 31 Hospital Course: This 73-year-old white female was seen in the emergency room at [facility] after experiencing mechanical fall at home, she has a history of Parkinson's disease and dementia. Patient complains of pain in her left lower extremity. Labs performed in the emergency room were unremarkable except for her UA which showed +4 bacteria and a CPK which was elevated at 206. Patient's x-rays of her pelvis and left femur revealed a left femoral neck fracture, patient was admitted to [place] [address] and seen in consultation by orthopedic surgery, she underwent a left hemiarthroplasty for repair of the hip fracture. She had a mild drop in her hemoglobin, she had no untoward events from having the surgery. Patient was seen by PT and OT, it was felt that she would benefit from short-term placement in a rehab facility for inpatient rehab services. On 04/17/2024, patient was seen and examined: On examination she appeared alert but confused, she does not appear to be in any distress. Vital signs as documented. Skin warm and dry and without overt rashes. Neck without JVD, thyroid appears normal, trachea is midline, neck is supple. Lungs clear, normal air movement was noted. Heart exam notable for regular rhythm, normal sounds and absence of murmurs, rubs or gallops. Abdomen unremarkable and without evidence of organomegaly, masses, or abdominal aortic enlargement, bowel sounds are present in all 4 quadrants, no abdominal tenderness was noted. Extremities nonedematous, no cyanosis was noted, no clubbing was noted. Neuro: Cranial nerves II through XII are grossly intact, no focal motor deficits were noted, sensation to light touch and pinprick is intact, motor exam 5/5 throughout. Psych: Patient is alert, she is confused Patient was felt to be stable for transfer to an inpatient senior care facility for rehab services on 04/17/2024. Medical Records Data Medical Nutrition Assessment Dietitian: Malnutrition Criteria Met Start: 04/14/24 14:56 Freq: Status: Active Protocol: Document 04/14/24 14:56 SLA (Rec: 04/14/24 14:56 SLA [id number]) Nutrition Malnutrition Evidence of Malnutrition Exists Yes Malnutrition (severe): Chronic Evidenced By Suboptimal Energy Intake ( Severe),Weight Loss (Severe), Physical Changes (Severe) Clinical Problem Chronic Disease or Condition Related Malnutrition Etiology related to dementia/parkinsons and inadequate energy intake Signs/Symptoms as evidenced by pt meeting < 75% of est nutritional needs, unintended wt loss of 20% x 1 yr - generalized fat loss/ muscle depletion throughout body; BMI 17.7 Status Active Problem Recommendation Dietitian Recommendations/Changes When medically able, rec JOSE DAVID to liberal Regular diet Rec continue Ensure Plus High Protein 4x/day w/ medpass Provide magic cup w/ lunch and dinner for increased nutrition if consumed. Consider appetite stimulant to help encourage increased po intake Weight / BMI Weight Weight: 43.6 kg Body Mass Index (BMI) 17.6 ABG / Lab / Microbiology Data 04/17/24 04:20 04/17/24 04:20 Laboratory: Laboratory Results - last 24 hr 04/17/24 04:20: WBC 7.9, RBC 2.75 L, Hgb 8.8 L, Hct 26.9 L, MCV 97.8, MCH 32.0, MCHC 32.7, RDW Std Deviation 47.5 H, RDW Coeff of Jazzy 13.4, Plt Count 180, MPV 10.6, Immature Gran % (Auto) 0.800, Neut % (Auto) 76.3 H, Lymph % (Auto) 15.5 L, [place] % (Auto) 6.0, Eos % (Auto) 1.0, Baso % (Auto) 0.4, Absolute Neuts (auto) 6.1, Absolute Lymphs (auto) 1.23, Nucleated RBC % 0, Sodium 144, Potassium 3.1 L , Chloride 117 H, Carbon Dioxide 24.0, Anion Gap 3 L, BUN 19 H, Creatinine 0.47 L, Estim Creat Clear Calc 41.82, Est GFR (MDRD) Af Amer 167, Est GFR (MDRD) Non- Af 138, BUN/Creatinine Ratio 40.6 H, Glucose 92, Calcium 7.9 L Microbiology: Microbiology 04/13/24 15:24 Urine, Catheterized Urine Culture - Final Presumptive E. coli Meaningful Use Info Meaningful Use Meaningful Use Diagnoses (Choose all that apply): None applicable Ischemic Stroke Statin Dosing Therapy Reference: STATIN DOSE THERAPY REFERENCE: * Patients > 75 years receive moderate or high dose statin therapy. * Patients 75 years or YOUNGER should receive HIGH intensity statin dose unless contraindicated. You will be required to document reason for non-treatment if statin daily dose does not meet guidelines. HIGH DOSE STATIN THERAPY DAILY Atorvastatin > than or = to 40 mg Rosuvastatin > than or = to 20 mg Amlodipine + Atorvastatin > than or = to 2.5/40 mg Ezetimibe + Simvastatin 10/80 mg Simvastatin 80mg Discharge Plan Admission Admit Date/Time: 04/13/24 17:13 Primary Reason for Your Visit: left hip fracture Attending Provider: Mo Marte Primary Care Provider: Ania Sierra Consulting Providers: Shelly Rangel; Sixto Wallace; Raphael Del Rio Instructions Additional Instructions / Restrictions: remove surgical dressing tomorrow-keep area clean and dry Discharge Orders/Prescriptions Prescriptions: New acetaminophen 325 mg Tablet 650 mg PO Q6H PRN PRN (Reason: Pain 1-10 Or Fever >100.7) Qty: 0 0RF Xarelto 10 mg Tablet 10 mg PO DINNER Qty: 1 0RF Rx Instructions: continue for 31 doses starting 04/18/24 cephalexin 500 mg tablet 500 mg PO BID Qty: 11 0RF Rx Instructions: give for a total of 11 doses starting evening 04/17/24 potassium chloride 20 mEq tablet extended release 20 meq PO DAILY Qty: 1 0RF Continued carbidopa-levodopa 25-100 mg tablet 1 tab PO 4X/DAY Rx Instructions: take 1 tab at 8am, 1 tab at noon, 1.5 tab tab 4pm, 1.5 tabs at 8pm. also can take an additional 1/2 tab chewed and swallowed with soda pop when toes curl cholecalciferol (vitamin D3) 25 mcg (1,000 unit) capsule 25 mcg PO DAILY zinc 50 mg capsule 50 mg PO DAILY multivitamin [Daily Multi-Vitamin] Tablet 1 tab PO DAILY lutein 6 mg capsule 6 mg PO BID Rx Instructions: administer with meals omeprazole 40 mg capsule,delayed release(DR/EC) 40 mg PO DAILY pyridoxine (vitamin B6) 100 mg tablet 100 mg PO DAILY ascorbic acid (vitamin C) [Vitamin C] 500 mg tablet 500 mg PO DAILY carbidopa-levodopa 50-200 mg tablet extended release 1 tab PO QHS Rx Instructions: Taking at midnight Discontinued celecoxib [Celebrex] 200 mg capsule 200 mg PO QHS Rx Instructions: Taking at midnight coenzyme Q10 400 mg capsule 500 mg PO DAILY metronidazole [Metrogel] 1 % gel 1 applic topical DAILY Referrals / Follow Up: Ania Sierra MD [Primary Care Provider] - Sixto Wallace MD [Med Staff - Active Staff] - See Referral Note (call office to arrange follow up appointment) Disposition Disposition (needs filled in before D/C Order can be placed): [facility] Facility Charges/Coding Visit Charges Inpatient E&M: 22883 Disch Hosp >30min
[2024-04-17] MEDS: Potassium Chloride Oral Tablet 20 MEQ 40 MEQ PO (11:40)
--- NOTE | 2024-04-17 12:06 | PHA.DC.MR.R ---
Pharmacy [place] Med Reconciliation Pharmacy Service has performed discharge medication reconciliation for this patient upon transfer to SNF. The patient's discharge medication list was reviewed for discrepancies and discrepancies were resolved. Medications at Discharge Home Medications ascorbic acid (vitamin C) 500 mg tablet (Vitamin C) 500 mg PO DAILY 06/30/23 carbidopa 25 mg-levodopa 100 mg tablet 1 tab PO 4X/DAY 06/30/23 cholecalciferol (vitamin D3) 25 mcg (1,000 unit) capsule 25 mcg PO DAILY 06/30/23 lutein 6 mg capsule 6 mg PO BID 06/30/23 multivitamin (Daily Multi-Vitamin tablet) 1 tab PO DAILY 06/30/23 omeprazole 40 mg capsule,delayed release 40 mg PO DAILY 06/30/23 pyridoxine (vitamin B6) 100 mg tablet 100 mg PO DAILY 06/30/23 zinc 50 mg capsule 50 mg PO DAILY 06/30/23 carbidopa ER 50 mg-levodopa 200 mg tablet,extended release 1 tab PO QHS 04/13/24 acetaminophen 325 mg tablet 650 mg (2 x 325 mg) PO Q6H PRN PRN Pain 1-10 Or Fever >100.7 #0 tabs 04/17/24 cephalexin 500 mg tablet 500 mg PO BID #11 tabs 04/17/24 potassium chloride 20 mEq tablet,extended release 20 meq PO DAILY #1 TAB 04/17/24 rivaroxaban 10 mg tablet (Xarelto) 10 mg PO DINNER #1 TAB 04/17/24
--- NOTE | 2024-04-17 12:21 | CASEMGMT ---
Social Work Precert was attained for pt to go to [facility] today. SW notified physician, he discharged pt. SW completed the hospital exemption in the [facility] system. [facility]ITA set up a 2pm ambulance w/Physicians. SW sent all discharge paperwork to [facility] via [facility]. NITA let pt, pt's , bedside RN, and CC know time of transport. No further needs, pt to [facility] today, skilled. JATIN Jimenez
== END 2024-04-17 14:17 | disposition skilled nursing facility (03) | DRG 521 ==
LOC: ED 16:42 → MS3 17:32
PROVIDERS: Internal Medicine; Orthopaedic Surgery Sports Medicine; Admitting Provider Student in an Organized Health Care Education/Training Program; Emergency Provider Emergency Medicine; PCP Internal Medicine; Visit Provider Internal Medicine
PROC: 0SRS0J9 Replacement of Left Hip Joint, Femoral Surface with Synthetic Substitute, Cemented, Open Approach (ICD-10-PCS; CPT 27125; principal; 2024-04-14 12:10)
DX: M80.052A Age-related osteoporosis with current pathological fracture, left femur, initial encounter for fracture (principal); E43 Unspecified severe protein-calorie malnutrition; L97.312 Non-pressure chronic ulcer of right ankle with fat layer exposed; D62 Acute posthemorrhagic anemia; N30.01 Acute cystitis with hematuria; Z68.1 Body mass index [BMI] 19.9 or less, adult; F02.80 Dementia in other diseases classified elsewhere, unspecified severity, without behavioral disturbance, psychotic disturbance, mood disturbance, and anxiety; G20.A1 Parkinson's disease without dyskinesia, without mention of fluctuations; S09.90XA Unspecified injury of head, initial encounter; G30.9 Alzheimer's disease, unspecified; K21.9 Gastro-esophageal reflux disease without esophagitis; E87.6 Hypokalemia; W18.09XA Striking against other object with subsequent fall, initial encounter; R03.0 Elevated blood-pressure reading, without diagnosis of hypertension; Y92.000 Kitchen of unspecified non-institutional (private) residence as the place of occurrence of the external cause; B96.20 Unspecified Escherichia coli [E. coli] as the cause of diseases classified elsewhere; Z96.642 Presence of left artificial hip joint
CPT/HCPCS: 11042; 36415; 70450; 72125; 72170; 73501; 73552; 73590; 73630; 80048; 81001; 82550; 83735; 84100; 85025; 86850; 86900; 86901; 87070; 87075; 87077; 87086; 87088; 87186; 87205; 88307; 88311; 93005; 97162; 97166; 97530; 97535; 97802; 99284; C1776; J7030; J2405

== ENCOUNTER 2024-05-03 14:15 | Outpatient (RCR) | payer MEDICARE, SELFPAY ==
[2024-04-08 00:32] VITALS: BP 156/81; PULSE 72; RESP 18; TEMP 36.1; BMI 20.1
[2024-04-12 14:06] VITALS: BP 137/68; PULSE 67; RESP 16; TEMP 36.6; BMI 20.1
--- NOTE | 2024-04-12 15:28 | PN.PCM_ITS ---
History of Present Illness Date of Service: 04/12/24 Chief Complaint: Full-thickness ulceration lateral ankle right History of Wound: Full-thickness ulceration right ankle since February 2023 Subjective Subjective Mrs. Barber is a 73-year-old female presenting to the wound care center today for follow-up and evaluation of full-thickness ulceration to the lateral aspect of the right leg. Her doing home dressing changes and washing the right lower extremity as instructed during her last visit. Denies constitutional symptoms. No other pedal complaints at this time. Objective Data Objective Data Vital Signs: Vital Signs Temp Pulse Resp BP O2 Del Method 97.8 F 67 16 137/68 H Room Air 04/12/24 14:06 04/12/24 14:06 04/12/24 14:04/12/24 14:06 04/12/24 14:06 Oxygen Delivery Method Room Air Weight: 49.895 kg Body Mass Index (BMI) 20.1 Physical Exam Narrative Neurovascular status unchanged. Full-thickness ulceration to the lateral aspect of the right ankle. Full-thickness ulceration measures 0.8 x 0.4 x 0.1 cm. Wound base is granular in nature with no sign of infection. No pain with calf compression. Excisional debridement down to and including subcutaneous tissue with number# 3 mm dermal currette to the lateral right ankle ulceration. Predebridement measurements were 0.4 x 0.3 x 0.1 cm. Postdebridement measures 0.8 x 0.4 x 0.1 cm. Debridement Note Debridement Note Debridement Free Text: Excisional debridement down to and including subcutaneous tissue with number# 3 mm dermal currette to the lateral right ankle ulceration. Predebridement measurements were 0.4 x 0.3 x 0.1 cm. Postdebridement measures 0.8 x 0.4 x 0.1 cm. Post-Debridement Measurements and Additional Note: Post-Debridement Measurements/Treatment - Nurse 1 - General Ulcer Assessment Start: 04/12/24 14:06 Freq: Status: Active Protocol: TATI Activity Type Activity Date Activity User E-sign Co-sign Detail Recorded Client Recorded Date Recorded By Document 04/12/24 14:06 [facility] [id number] 04/12/24 14:15 [facility] 04/12/24 14:06 - Today's Visit Information Type of service Follow-up Visit (Physician/ALUMNI RELATIONS OFFICER ) Arrival Mode Ambulatory Transfer Assistance None Accompanied by Patient Identification Verified (Name & Yes ) Patient Requires Transmission-Based No Precautions Height and Weight Body Mass Index (BMI) 20.1 BMI Classification Normal Vital Signs Temperature (97.8 F-99.1 F) 97.8 F Temperature Source Temporal Pulse Rate (60-100) 67 Pulse Location Monitor Respiratory Rate (12-18) 16 Respiratory rate source Observation Oxygen Delivery Method Room Air Blood Pressure (90/60-120/80) 137/68 H Blood Pressure Mean (mm Hg) 91 Source Monitor Position Sitting Blood Pressure Location Right Arm History Since Last Visit- (Skip if this is Patient's initial visit) Have you changed medications since your No last visit? Any new allergies or adverse reactions No Had a fall/change in ADL's that may Yes increase risk of falls Signs or symptoms of abuse and/or No neglect since last visit Have you been in the hospital since your No last visit? Has dressing in place as prescribed Yes Has compression in place as prescribed Yes Has offloadiing in place as prescribed N/A Experienced any changes in pain level or No management Left Footwear Regular Shoe Right Footwear Regular Shoe Pain Scale: 0-10 Numeric Is Patient Pain Free? Yes WC - Nurse 1 - General Ulcer Measurement Start: 04/12/24 14:06 Freq: Status: Active Protocol: Activity Type Activity Date Activity User E-sign Co-sign Detail Recorded Client Recorded Date Recorded By Document 04/12/24 14:06 [facility] [id number] 04/12/24 14:15 [facility] 04/12/24 14:06 Wound Center Nurse 1 #1- R LAT ANKLE -Combined with other wound No -Current Size (cm) - Length 1.4 -Current Size (cm) - Width 0.8 -Current Size (cm) - Depth 0.1 -Total Square Cm 1.12 -Epithelialization Small 1-33% -Tunneling No -Undermining/Tunneling No -Circular Undermining No -Exudate Amt Medium -Exudate Type Serosanguineous -Wound Margin Flat & Intact -Granulation Amt Medium (34-66%) -Granulation Quality Red -Slough/Fibrin Yes -Necrosis Amt Medium (34-66%) -Necrotic Tissue Type Adherent Slough -Texture (Korin-wound Skin Appearance) Assessed, Localized Edema ,Scarring -Moisture (Korin-wound Skin Appearance) Assessed -Color (Korin-wound Skin Appearance) Assessed, Erythema -Temperature (Korin-wound Skin No Abnormality Appearance) (Pt Warm) -Tenderness on Palpation (Korin-wound No Skin Appearance) -Ulcer Cleansing Rinsed/ Irrigated with Saline -Foul Odor after Cleansing No -Anesthetic Used 5% Lidocaine Gel - Nurse 2 - General Ulcer CM Notes Start: 04/12/24 14:06 Freq: Status: Active Protocol: Activity Type Activity Date Activity User E-sign Co-sign Detail Recorded Client Recorded Date Recorded By Document 04/12/24 14:32 [id number] 04/12/24 14:33 JF 04/12/24 14:32 Wound Center Nurse 2 -Time 14:33 -Correct Patient Yes -Correct Side, Site, Position Yes -Correct Procedure Yes -Procedure Performed Yes -Type of Procedure Debridement -Clinical Debridement Subcutaneous -Tissue Removed Subcutaneous -Post Debridement (cm) - Length 0.8 -Post Debridement (cm) - Width 0.4 -Post Debridement (cm) - Depth 0.1 -Total Square (Post) (cm) 0.32 -Area of Debridement (cm) - Length 0.8 -Area of Debridement (cm) - Width 0.4 -Total Square (Area) (cm) 0.32 -Tunneling No -Undermining/Tunneling No -Circular Undermining No -Wound/Ulcer Outcome Not Healed -Ulcer Cleansing Rinsed/ Irrigated with Saline -Foul Odor after Cleansing No -Bioengineered Tissue No -Bleeding Controlled with Pressure -Treatment Response Procedure Tolerated Well -Offloading No -Debridement - Subq, 1st 20sq cm Yes Pain Scale: 0-10 Numeric Is Patient Pain Free? Yes - Nurse 3 - General Ulcer D/C NN Start: 04/12/24 14:06 Freq: Status: Active Protocol: Activity Type Activity Date Activity User E-sign Co-sign Detail Recorded Client Recorded Date Recorded By Document 04/12/24 14:48 KW Wound center 04/12/24 14:48 KW 04/12/24 14:48 Wound Care Center Nurse 3 #1- R LAT ANKLE -Primary Dressing Applied Promogran Elizabeth Matter -Primary Dressing Covered/Secured with Dry Gauze & Roll Gauze, Secured with Tape -Promogran Elizabeth Matter 1 Right -Tubular Bandage Single Layer -Size of Tubigrip Used Size D -Size D ($) 1 Pain Scale: 0-10 Numeric Is Patient Pain Free? Yes WC - Visit Discharge Discharge Condition Stable Ambulatory Status Ambulatory Transportation Private Auto Medication Reconcilliation completed & No provided to patient/care provider Clinical Summary of Care Provided Yes Assessment/Plan Assessment/Plan (1) Non-pressure chronic ulcer of unspecified part of right lower leg with fat layer exposed: CODE(S): L97.912 - Non-pressure chronic ulcer of unspecified part of right lower leg with fat layer exposed PLAN: Patient was examined and evaluated. All findings were discussed with the patient. All questions were answered to the patient's satisfaction. Excisional debridement down to and including subcutaneous tissue with number# 3 mm dermal currette to the lateral right ankle ulceration. Predebridement measurements were 0.4 x 0.3 x 0.1 cm. Postdebridement measures 0.8 x 0.4 x 0.1 cm. Culture taken of the ulceration to rule out any soft tissue infection. Right lower extremity was likely and patted dry. Moist plasma was applied to the right lateral ankle followed by dry sterile dressing and single Tubigrip. Patient and her will change her dressing every 2 days for the next 3 weeks. Follow-up at the wound care center with Dr. Saini in 3 week.
[2024-05-03 14:26] VITALS: BP 140/81; PULSE 90; RESP 18; TEMP 36.3; BMI 20.1
--- NOTE | 2024-05-03 21:36 | PN.PCM_ITS ---
History of Present Illness Date of Service: 05/03/24 Chief Complaint: Full-thickness ulceration lateral ankle right History of Wound: Full-thickness ulceration right ankle since February 2023 Progress of Wound: Wound has been chronic in nature. Patient presents today with a heel right lateral ankle wound. The patient has been residing at a retirement facility secondary to femur fracture with ORIF. Patient has been getting wound care and now presents today for evaluation and a healed right ankle wound. She denies any constitutional symptoms. No other pedal complaints at this time. Subjective Subjective Mrs Barber is a 73-year-old female presenting to wound care center today for evaluation of her right lateral ankle wound. Patient unfortunately sustained a femur fracture approximately 2 to 3 weeks ago. She was seen by orthopedic and underwent ORIF and has been residing in a retirement facility for rehabilitation and treatment. Patient has been getting wound care to the right ankle wound and now shows evidence of the wound being healed. She denies any constitutional symptoms. No other pedal complaints at this time. Objective Data Objective Data Vital Signs: Vital Signs Temp Pulse Resp BP O2 Del Method 97.4 F L 90 18 140/81 H Room Air 05/03/24 14:26 05/03/24 14:26 05/03/24 14:26 05/03/24 14:26 04/12/24 14:06 Oxygen Delivery Method Room Air Weight: 49.895 kg Body Mass Index (BMI) 20.1 Lab / Micro Data Micro: Microbiology 04/13/24 14:28 Ulcer, Decubitus - Ankle Gram Stain - Final 04/13/24 14:28 Ulcer, Decubitus - Ankle Wound Culture - Final Staphylococcus aureus 04/13/24 14:28 Ulcer, Decubitus - Ankle Anaerobic Culture - Final No anaerobic bacteria isolated. Physical Exam Narrative Neurovascular status unchanged. Full-thickness ulceration to the lateral aspect of the right ankle. Full-thickness ulceration is now healed. No pain with calf compression. Debridement Note Debridement Note Post-Debridement Measurements and Additional Note: Post-Debridement Measurements/Treatment WC - Nurse 1 - General Ulcer Assessment Start: 04/12/24 14:06 Freq: Status: Active Protocol: STONEEXT Activity Type Activity Date Activity User E-sign Co-sign Detail Recorded Client Recorded Date Recorded By Document 04/12/24 14:06 [facility] [id number] 04/12/24 14:15 [facility] Document 05/03/24 14:26 DL [id number] 05/03/24 14:30 DL 04/12/24 05/03/24 14:06 14:26 - Today's Visit Information Type of service Follow-up Visit Follow-up Visit (Physician/TANNERY WORKER (Physician/TANNERY WORKER ) ) Arrival Mode Ambulatory Wheelchair Transfer Assistance None None Accompanied by Patient Identification Verified (Name & Yes Yes ) Patient Requires Transmission-Based No No Precautions Height and Weight Body Mass Index (BMI) 20.1 20.1 BMI Classification Normal Normal Vital Signs Temperature (97.8 F-99.1 F) 97.8 F 97.4 F L Temperature Source Temporal Temporal Pulse Rate (60-100) 67 90 Pulse Location Monitor Monitor Respiratory Rate (12-18) 16 18 Respiratory rate source Observation Observation Oxygen Delivery Method Room Air Blood Pressure (90/60-120/80) 137/68 H 140/81 H Blood Pressure Mean (mm Hg) 91 100 Source Monitor Monitor Position Sitting Blood Pressure Location Right Arm Comment S/P L hip surgery approx 3 weeks History Since Last Visit- (Skip if this is Patient's initial visit) Have you changed medications since your No No last visit? Any new allergies or adverse reactions No No Had a fall/change in ADL's that may Yes No increase risk of falls Signs or symptoms of abuse and/or No No neglect since last visit Have you been in the hospital since your No Yes last visit? Has dressing in place as prescribed Yes Yes Has compression in place as prescribed Yes No Has offloadiing in place as prescribed N/A Yes Experienced any changes in pain level or No No management Left Footwear Regular Shoe Right Footwear Regular Shoe Pain Scale: 0-10 Numeric Is Patient Pain Free? Yes Yes - Nurse 1 - General Ulcer Measurement Start: 04/12/24 14:06 Freq: Status: Active Protocol: Activity Type Activity Date Activity User E-sign Co-sign Detail Recorded Client Recorded Date Recorded By Document 04/12/24 14:06 [facility] [id number] 04/12/24 14:15 [facility] Document 05/03/24 14:26 DL [id number] 05/03/24 14:30 DL 04/12/24 05/03/24 14:06 14:26 Wound Center Nurse 1 #1- R LAT ANKLE -Combined with other wound No -Current Size (cm) - Length 1.4 0.6 -Current Size (cm) - Width 0.8 0.4 -Current Size (cm) - Depth 0.1 0.1 -Total Square Cm 1.12 0.24 -Epithelialization Small 1-33% -Tunneling No -Undermining/Tunneling No -Circular Undermining No -Exudate Amt Medium Small -Exudate Type Serosanguineous Serosanguineous -Wound Margin Flat & Intact Distinct, Outline Attached -Granulation Amt Medium (34-66%) None Present (0 %) -Granulation Quality Red -Slough/Fibrin Yes -Necrosis Amt Medium (34-66%) Small (1-33%) -Necrotic Tissue Type Adherent Slough Eschar -Structure Exposed N/A -Texture (Korin-wound Skin Appearance) Assessed, Scarring Localized Edema ,Scarring -Moisture (Korin-wound Skin Appearance) Assessed No Abnormality -Color (Korin-wound Skin Appearance) Assessed, No Abnormality Erythema -Temperature (Korin-wound Skin No Abnormality No Abnormality Appearance) (Pt Warm) (Pt Warm) -Tenderness on Palpation (Korin-wound No No Skin Appearance) -Ulcer Cleansing Rinsed/ Rinsed/ Irrigated with Irrigated with Saline Saline -Foul Odor after Cleansing No No -Anesthetic Used 5% Lidocaine 5% Lidocaine Gel Gel Right Calf (cm) 31 Right Ankle (cm) 22.5 WC - Nurse 2 - General Ulcer CM Notes Start: 04/12/24 14:06 Freq: Status: Active Protocol: Activity Type Activity Date Activity User E-sign Co-sign Detail Recorded Client Recorded Date Recorded By Document 04/12/24 14:32 [id number] 04/12/24 14:33 Document 05/03/24 14:48 JF 000 05/03/24 14:48 JF 04/12/24 05/03/24 14:32 14:48 Wound Center Nurse 2 #1- R LAT ANKLE -Time 14:33 -Correct Patient Yes No -Correct Side, Site, Position Yes No -Correct Procedure Yes No -Procedure Performed Yes No -Type of Procedure Debridement -Clinical Debridement Subcutaneous -Tissue Removed Subcutaneous -Post Debridement (cm) - Length 0.8 0 -Post Debridement (cm) - Width 0.4 0 -Post Debridement (cm) - Depth 0.1 0 -Total Square (Post) (cm) 0.32 0 -Area of Debridement (cm) - Length 0.8 0 -Area of Debridement (cm) - Width 0.4 0 -Total Square (Area) (cm) 0.32 0 -Tunneling No -Undermining/Tunneling No -Circular Undermining No -Wound/Ulcer Outcome Not Healed Healed- Epithelialized -Ulcer Cleansing Rinsed/ Irrigated with Saline -Foul Odor after Cleansing No -Bioengineered Tissue No -Bleeding Controlled with Pressure -Treatment Response Procedure Tolerated Well -Offloading No -Debridement - Subq, 1st 20sq cm Yes Pain Scale: 0-10 Numeric Is Patient Pain Free? Yes Yes - Nurse 3 - General Ulcer D/C NN Start: 04/12/24 14:06 Freq: Status: Active Protocol: Activity Type Activity Date Activity User E-sign Co-sign Detail Recorded Client Recorded Date Recorded By Document 04/12/24 14:48 Wound center 04/12/24 14:48 Document 05/03/24 14:49 000 05/03/24 14:49 04/12/24 05/03/24 14:48 14:49 Wound Care Center Nurse 3 #1- R LAT ANKLE -Primary Dressing Applied Promogran Elizabeth Matter -Primary Dressing Covered/Secured with Dry Gauze & Roll Gauze, Secured with Tape -Promogran Elizabeth Matter 1 Right -Tubular Bandage Single Layer Single Layer -Size of Tubigrip Used Size D Size D -Size D ($) 1 1 Pain Scale: 0-10 Numeric Is Patient Pain Free? Yes Yes - Visit Discharge Discharge Condition Stable Stable Ambulatory Status Ambulatory Wheelchair Transportation Private Auto Private Auto Accompanied by Medication Reconcilliation completed & No Yes provided to patient/care provider Clinical Summary of Care Provided Yes Yes Assessment/Plan Assessment/Plan (1) Non-pressure chronic ulcer of unspecified part of right lower leg with fat layer exposed: CODE(S): L97.912 - Non-pressure chronic ulcer of unspecified part of right lower leg with fat layer exposed PLAN: Patient was examined and evaluated. All findings were discussed with the patient. All questions were answered to the patient's satisfaction. The patient's right lateral ankle ulceration is now healed. Patient will continue to offload the sensitive tissue area. Orders given for retirement facility/wound care nurse for dry sterile dressing, DEBRA lara. Patient will continue her PT/OT rehabilitation for her femur fracture. The patient will follow-up in 3 weeks. If the patient returns and the wound is still healed the patient will be discharged from the wound care center. Follow-up at the wound care center with Dr. Saini in 3 week.
== END 2024-05-07 23:59 | disposition home or self-care (01) ==
LOC: WC 14:15
PROVIDERS: PCP Internal Medicine; Referring Provider Podiatrist Foot & Ankle Surgery; Visit Provider Podiatrist Foot & Ankle Surgery
DX: L97.312 Non-pressure chronic ulcer of right ankle with fat layer exposed (principal)
CPT/HCPCS: 11042; 87070; 87075; 87077; 87186; 87205; 99213; G0463

== ENCOUNTER 2024-05-24 13:45 | Outpatient (RCR) | payer MEDICARE, SELFPAY ==
[2024-05-08 00:32] VITALS: BP 156/81; PULSE 72; RESP 18; TEMP 36.1; BMI 20.1
[2024-05-24 15:29] VITALS: BP 133/81; PULSE 85; RESP 18; TEMP 36.6; BMI 20.1
--- NOTE | 2024-05-24 17:18 | PN.PCM_ITS ---
History of Present Illness Date of Service: 05/24/24 Chief Complaint: Full-thickness ulceration lateral ankle right History of Wound: Full-thickness ulceration right ankle since February 2023 Subjective Subjective Ms. Barber presents to the wound care center today for follow-up evaluation of full-thickness ulceration to the right lateral ankle. Patient is currently residing in a SNF and getting dressing changes by wound care nurse. Patient states that it is a little macerated and broken down secondary to the patient being nonambulatory and wearing PRAFO boots. He is unsure if she is having continued pressure to the area. Patient is currently little nonverbal and is not walking at this time. She denies trauma. Denies constitutional symptoms. No other pedal complaints at this time. Objective Data Objective Data Vital Signs: Vital Signs Temp Pulse Resp BP O2 Del Method 97.8 F 85 18 133/81 H Room Air 05/24/24 15:29 05/24/24 15:29 05/24/24 15:29 05/24/24 15:29 05/24/24 15:29 Oxygen Delivery Method Room Air Weight: 49.895 kg Body Mass Index (BMI) 20.1 Physical Exam Narrative Neuro vas status unchanged. Full-thickness ulceration to the lateral aspect of the right ankle shows evidence of maceration and sanguinous crust. No evidence of full-thickness ulceration at this time and would rate the wound more is partial-thickness. No pain with calf compression or palpation. Debridement Note Debridement Note Post-Debridement Measurements and Additional Note: Post-Debridement Measurements/Treatment - Nurse 1 - General Ulcer Assessment Start: 05/24/24 15:20 Freq: Status: Active Protocol: TATI Activity Type Activity Date Activity User E-sign Co-sign Detail Recorded Client Recorded Date Recorded By Document 05/24/24 15:29 KW ' 05/24/24 15:30 KW 05/24/24 15:29 - Today's Visit Information Type of service Follow-up Visit (Physician/LAY OUT INSPECTOR ) Arrival Mode Wheelchair Accompanied by Patient Identification Verified (Name & Yes ) Height and Weight Body Mass Index (BMI) 20.1 BMI Classification Normal Vital Signs Temperature (97.8 F-99.1 F) 97.8 F Temperature Source Temporal Pulse Rate (60-100) 85 Pulse Location Monitor Respiratory Rate (12-18) 18 Respiratory rate source Observation Oxygen Delivery Method Room Air Blood Pressure (90/60-120/80) 133/81 H Blood Pressure Mean (mm Hg) 98 Source Monitor Position Sitting Blood Pressure Location Left Arm History Since Last Visit- (Skip if this is Patient's initial visit) Have you changed medications since your No last visit? Any new allergies or adverse reactions No Had a fall/change in ADL's that may No increase risk of falls Signs or symptoms of abuse and/or No neglect since last visit Have you been in the hospital since your No last visit? Has dressing in place as prescribed Yes Has compression in place as prescribed No Has offloadiing in place as prescribed N/A Experienced any changes in pain level or No management Left Footwear Slipper Right Footwear Slipper Pain Scale: 0-10 Numeric Is Patient Pain Free? Yes - Nurse 2 - General Ulcer CM Notes Start: 05/24/24 15:20 Freq: Status: Active Protocol: Activity Type Activity Date Activity User E-sign Co-sign Detail Recorded Client Recorded Date Recorded By Document 05/24/24 15:38 GM 05/24/24 15:40 GM 05/24/24 15:38 Is Patient Pain Free? Yes Assessment/Plan Assessment/Plan (1) Non-pressure chronic ulcer of unspecified part of right lower leg with fat layer exposed: CODE(S): L97.912 - Non-pressure chronic ulcer of unspecified part of right lower leg with fat layer exposed PLAN: Patient was examined and evaluated. All findings were discussed with the patient. All questions were answered to the patient's satisfaction. The patient's partial-thickness wound to the lateral aspect of the right ankle was dressed with Betadine paint and bordered foam followed by compression bilateral. Wound care orders were given to the wound care nurse at the facility for Betadine paint and offloading pad. Patient will continue to wear her PRAFO boots and decrease pressure to the outside of her right ankle. The patient did show understanding of this but the patient's was also very understanding of this. Follow-up at the wound care center with Dr. Saini in 1 week.
== END 2024-06-07 23:59 | disposition home or self-care (01) ==
LOC: WC 13:45
PROVIDERS: PCP Internal Medicine; Referring Provider Podiatrist Foot & Ankle Surgery; Visit Provider Podiatrist Foot & Ankle Surgery
DX: L97.319 Non-pressure chronic ulcer of right ankle with unspecified severity (principal)
CPT/HCPCS: 99213; G0463

== ENCOUNTER 2024-06-21 14:17 | Outpatient (RCR) | payer MEDICARE, SELFPAY ==
[2024-06-08 00:43] VITALS: BP 156/81; PULSE 72; RESP 18; TEMP 36.1; BMI 20.1
[2024-06-21 14:25] VITALS: BP 123/71; PULSE 81; RESP 18; BMI 20.1
--- NOTE | 2024-06-21 17:05 | PN.PCM_ITS ---
History of Present Illness Date of Service: 06/21/24 Chief Complaint: Full-thickness ulceration lateral ankle right History of Wound: Full-thickness ulceration right ankle since February 2023 Subjective Subjective Mrs. Hu is a 73-year-old female sent to wound care center today for follow- up evaluation to right ankle full-thickness wound. The patient wound is now healed. 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 Patient's states that she does not walk is much as she used to and is staying in the wheelchair a lot longer than he would like. She is wearing offloading boots whenever she is at rest. He denies any new onset of trauma. Denies constitutional symptoms. No other pedal plaints at this time. Objective Data Objective Data Vital Signs: Vital Signs Temp Pulse Resp BP 96.9 F L 81 18 123/71 H 06/08/24 00:43 06/21/24 14:25 06/21/24 14:25 06/21/24 14:25 Weight: 49.895 kg Body Mass Index (BMI) 20.1 Physical Exam Narrative Neurovascular status is unchanged. Full-thickness wound to the lateral aspect of the right ankle is now healed. No further concerns or ulcerations appreciated bilaterally. No pain with calf compression Assessment/Plan Assessment/Plan (1) Non-pressure chronic ulcer of unspecified part of right lower leg with fat layer exposed: CODE(S): L97.912 - Non-pressure chronic ulcer of unspecified part of right lower leg with fat layer exposed PLAN: Patient was examined and evaluated. All findings were discussed with the patient. All questions were answered to the patient's satisfaction. Patient's right ankle wound is now healed. Educated the patient and her to always applying lotion to the bilateral lower extremity and to be using the offloading PRAFO boots whenever she is at rest to decrease the likelihood of any type of pressure breakdown. Patient showed understanding of this as well as her . Patient can follow-up as needed.
== END 2024-06-21 15:56 | disposition home or self-care (01) ==
LOC: WC 14:17
PROVIDERS: PCP Internal Medicine; Referring Provider Podiatrist Foot & Ankle Surgery; Visit Provider Podiatrist Foot & Ankle Surgery
DX: Z09 Encounter for follow-up examination after completed treatment for conditions other than malignant neoplasm (principal)
CPT/HCPCS: 99213; G0463